=== PATIENT | male | born 1935 | race Caucasian/White ===

== ENCOUNTER 2016-09-17 14:05 | Inpatient (IN) | payer OTHER ==
[~2016-09-17] VITALS: Ht 177.8 cm; Wt 87.9 kg
[~2016-09-17 14:05] MED LIST: ASPI81TA28 PO; HYDROCODONE/ACETAMOPHEN 5/325MG TAB PO PRN; LEVO75TA5 PO; MAGNESIUM PO; METO25TA3 PO; MSM PO; MoRPHine SULFATE 2 MG/ML CARP IV PRN; MoRPHine SULFATE 4 MG/ML 1 ML CARP\\VIAL IV PRN; NYSS/ PO; OXYC5TAB PO; POTASSIUM PO; TRAMADOL HCL 50 MG TAB PO PRN; VITACAP26 PO; ZINC PICOLINATE PO; [UNRECOGNIZED DRUG - CODE] INH; [UNRECOGNIZED DRUG - OTHER] PO
[2016-09-17 17:13] VITALS: BP 135/61; PULSE 65; TEMP 36.5; O2SAT 97; Ht 177.8 cm; Wt 87.9 kg
[2016-09-17] MEDS ORDERED: ALBU18002 INH (17:49)
[2016-09-17] MEDS ORDERED: IPRASOL4 INH (17:51)
[2016-09-17] MEDS ORDERED: TIOT1AER INH (17:52)
[2016-09-17] MEDS ORDERED: PROMETHAZINE HCL INJ 12.5 MG in SODIUM CHLORIDE 0.9% 50ML 50 ML IV PRN (19:00)
[2016-09-17] MEDS ORDERED: DiphenhydrAMINE HCL 50 MG/ML VIAL IV PRN (19:00)
[2016-09-17] MEDS ORDERED: BISACODYL 10 MG SUPP PR PRN (19:00)
[2016-09-17] MEDS ORDERED: ACETAMINOPHEN 325 MG TAB PO PRN ×2 (19:00)
[2016-09-17] MEDS ORDERED: ZOLPIDEM TARTRATE 5 MG TAB PO PRN (19:00)
[2016-09-17] MEDS ORDERED: NITROGLYCERIN 0.4 MG SL PER TAB CHARGE SL PRN (19:00)
[2016-09-17] MEDS ORDERED: MAGNESIUM HYDROXIDE SUSP 30 ML UDC PO PRN (19:00)
[2016-09-17] MEDS ORDERED: ONDANSETRON INJ 2 MG/ML 2 ML VIAL IV PRN (19:00)
--- NOTE | 2016-09-17 19:08 | DIAGNOSTIC IMAGING REPORT ---
CHEST ONE VIEW PORTABLE CLINICAL HISTORY: HYPOXIA PLEURAL EFFUSION COMPARISON STUDY: June 28, 2016 FINDINGS: The heart is mildly enlarged. The chest has an emphysematous configuration. There are old left-sided rib fractures. There is a small right pleural effusion. There is no lobar consolidation.[ Postsurgical changes are present within the right hemithorax. There is tenting of right hemidiaphragm. There is no evidence of failure. IMPRESSION: 1. Postsurgical changes on the right 2. Suspect underlying emphysema 3. Small right pleural effusion. Electronically signed by: Mac Rodriguez M.D. 09/17/2016 7:06 PM Dictated Date/Time: 09/17/2016 7:04 PM
[2016-09-17 19:10] VITALS: BP 124/63; PULSE 83; TEMP 36.8; O2SAT 98
[2016-09-17 19:39] VITALS: PULSE 68; O2SAT 97
[2016-09-17] MEDS: IPRATROPIUM BROMIDE NEB SOLN 0.02% 2.5 ML VIAL INH SCH (19:39)
[2016-09-17] MEDS: LEVALBUTEROL 1.25MG/0.5ML NEB INH SCH (19:39)
[2016-09-17] MEDS: METHYLPREDNISOLONE IV 40 MG in SYRINGE 0 ML IV SCH (19:40)
[2016-09-17 20:14] LABS: CKMB/CK RATIO 0.9 (0-3.0)
[2016-09-17] MEDS ORDERED: LEVALBUTEROL/IPRATROPIUM NEB INH SCH (21:00)
[2016-09-17] MEDS: CEFTRIAXONE SOD INJ 1 GM in DEXTROSE 5% ADD-VANTAGE 50ML 50 ML IV SCH (21:04)
[2016-09-17] MEDS: GUAIFENESIN 600 MG TABCR PO SCH (21:04)
[2016-09-17] MEDS: METOPROLOL SUCC 25MG EXT REL TAB PO SCH (21:04)
[2016-09-17] MEDS: DOCUSATE SODIUM 100 MG CAP PO SCH (21:04)
[2016-09-17] MEDS: LEVOFLOXACIN / D5W 500 MG in PREMIXED IN D5W 100 ML IV SCH (22:00)
--- NOTE | 2016-09-17 22:09 | History and Physical ---
History & Physical Date & Time of Service: Sep 17, 2016 at 22:08 Chief Complaint: Hypoxia, Pleural Effusion Primary Care Physician: Roberta History of Present Illness Source: patient, hospital records The patient is a 80-year-old male who underwent a thorascopic wedge resection for a right lung mass by Dr. Mcguire on February 282015, which returned a diagnosis of non-small cell lung cancer. He has had off-and-on difficulties with breathing since that time, and 2 days ago developed some precordial chest pain, which prompted his visit to [facility] emergency department for evaluation that day. He was then admitted to the medical service on the telemetry unit, weight he underwent serial troponins which were negative. He also underwent studies including venous Dopplers which were negative for DVT. He was tentatively diagnosed with a right pleural effusion on chest x-ray, which was later thought negligible on CT. Because his pulse ox was 91% on 2 L is cannula O2 today, a call was made from his provider there to [facility] to request transfer to this facility, and the transfer was arranged for further workup and treatment. He reportedly has a bronchoscopy scheduled with Dr. Mtz as an outpatient on September 22. Social History Smoking Status: Former Smoker Smokeless Tobacco Use: No Alcohol Use: none Drug Use: none Occupational Status: retired Immunizations History of Influenza Vaccine: No History of Tetanus Vaccine?: Yes History of Pneumococcal: Yes History of Hepatitis B Vaccine: No Allergies Coded Allergies: Latex1 -Allergic Contact Dermititis (Verified Allergy, Mild, RASH, 02/03/16) Iodinated Diagnostic Agents (Verified Allergy, Unknown, GI UPSET, 02/24/16) NO KNOWN DRUG ALLERGIES (Unverified Allergy, Unknown, NONE, 02/03/16) Home Medications Scheduled Albuterol Sulfate (Proair Respiclick), 8.5 GM INH Q4 Formoterol Fumarate (Foradil Aerolizer), 1 DOSE INH HS Ipratropium-Albuterol (Duoneb), 1 TREATMENT INH Q6H Metoprolol Succ (Toprol Xl) (Toprol-Xl), 25 MG PO QPM Tiotropium Elkin-Olodaterol (Stiolto Respimat 2.5-2.5 Mcg/Act), 4 GM INH DAILY [Hic With Pepsin], 325 MG PO TIDM [Magnesium], 1,200 MG PO BID [Msm], 300 MG PO BID [Potassium], 300 MG PO BID [Zinc Picolinate], 44 MG PO BID Scheduled PRN Oxycodone/Acetaminophen 5MG/325MG (Roxicet 5MG/325MG), 1-2 TAB PO Q4H PRN for Pain Review of Systems The patient denies vision change, hearing change, sore throat, fevers, chills, sweats, fatigue, nausea, vomiting, abdominal pain, pelvic pain, blood in urine or stool, dysuria, urinary frequency or urgency, lightheadedness, dizziness, headache, memory loss, rash, abnormal bruising or bleeding, imbalance, focal or generalized weakness, numbness or tingling in arms or legs, night sweats, or allergy symptoms. The review of systems is otherwise negative other than for that already noted above, and at least 10 systems have been reviewed. Physical Exam Vital Signs Date Time Temp Pulse Resp B/P Pulse Ox O2 Delivery O2 Flow Rate FiO2 09/17/16 20:00 Nasal Cannula 09/17/16 19:39 68 18 97 Nasal Cannula 2.0 09/17/16 19:10 36.8 83 18 124/63 98 Nasal Cannula 2.0 09/17/16 17:13 36.5 65 18 135/61 97 Nasal Cannula 2.0 The patient is awake, well-developed and adequately nourished, alert and oriented 3, normocephalic and atraumatic, sitting upright on the edge of the bed ,and in no acute distress. HEENT--PERRL, EOMI, mucous membranes moist, and oropharynx normal. Neck--supple, no JVD or bruits, thyroid normal, trachea midline, no adenopathy. Heart--normal S1 and S2, no extra beats, no murmurs, rubs or gallops. Lungs--inspiratory and expiratory wheezes bilaterally, no respiratory distress, no accessory muscle use. Abdomen--normal bowel sounds and soft, nontender and nondistended, no hernias or masses, no organomegaly. Extremities--no cyanosis, clubbing or edema. There are good distal pulses b/l. Dermatologic--normal skin turgor, normal color, warm and dry, no abnormal lymph nodes, no rash. Neurologic--cranial nerves II through XII grossly intact, motor and sensory examination normal. Psychiatric--normal affect. Diagnostics Laboratory Results Laboratories from [facility] on September 17: The received 11.5, hemoglobin 12.7, hematocrit 37.1, platelet count 220, differential was neutrophils 85%, band neutrophils 6%. INR 1.09, PTT 30, PT 10.9. Sodium 141, potassium 3.8, chloride 105, bicarbonate 25, BUN 18, creatinine 1.0 , GFR greater than 60, glucose 157, calcium 8.3. Influenza PCR flu A-, and flu B-, 2009 H1 N1 not detected Results Past 24 Hours Test 09/17/16 19:30 Range/Units Total Creatine Kinase 274 39-308 U/L Creatine Kinase MB 2.5 0.5-3.6 ng/ml Creatine Kinase MB Ratio 0.9 0-3.0 Troponin I < 0.015 0-0.045 ng/ml Diagnostic Radiology Patient Name: HERIBERTO GARCIA Unit Number: [id number] Dictated: 09/17/161903 Transcribed: 09/17/161903 ARG Printed Date/Time: [~ rep prt dt]/[~ rep prt tm] [~ rep ct labl] - [~ rep ct ivnm] [facility] [place] [address] Dictated: 09/17/161903 Transcribed: 09/17/161903 ARG Printed Date/Time: [~ rep prt dt]/[~ rep prt tm] [~ rep ct labl] - [~ rep ct ivnm] CLINICAL HISTORY: HYPOXIA PLEURAL EFFUSION COMPARISON STUDY: June 28, 2016 FINDINGS: The heart is mildly enlarged. The chest has an emphysematous configuration. There are old left-sided rib fractures. There is a small right pleural effusion. There is no lobar consolidation.[ Postsurgical changes are present within the right hemithorax. There is tenting of right hemidiaphragm. There is no evidence of failure. IMPRESSION: 1. Postsurgical changes on the right 2. Suspect underlying emphysema 3. Small right pleural effusion. Electronically signed by: Mac Rodriguez M.D. 09/17/2016 7:06 PM Dictated Date/Time: 09/17/2016 7:04 PM The status of this report is Signed. Draft = Not yet reviewed or approved by Radiologist. Signed = Reviewed and approved by Radiologist. <AttendingPhy>Negro Qiu M.D.</AttendingPhy> <FamilyPhy>Macie John M.D.</FamilyPhy> <PrimaryPhy></PrimaryPhy> <UnitNumber>[id number]</UnitNumber > <VisitNumber>[id number]</VisitNumber> <PatientName>HERIBERTO GARCIA</PatientName > <DateOfBirth>1935</DateOfBirth> <Location>C.2E</Location> <ServiceDate>< /ServiceDate> <MNE>ESINDI</MNE> <OrderingPhy>Negro Qiu M.D.</ OrderingPhy> <OrderingPhyMNE>f rep ord dr dumont</OrderingPhyMNE> <DictatingPhyMNE> f rep dict dr dumont</DictatingPhyMNE> <CCListMNE>f rep ct mne</CCListMNE> < AdmittingPhyMNE>f pt admit dr dumont</AdmittingPhyMNE> <AttendingPhyMNE>f pt attend dr dumont</AttendingPhyMNE> <ConsultingPhyMNE>f pt consult dr dumont</ConsultingPhyMNE> <FamilyPhyMNE>f pt fam dr dumont</FamilyPhyMNE> <OtherPhyMNE>f pt other dr dumont</OtherPhyMNE> < PrimaryPhyMNE>f pt prim care dr dumont</PrimaryPhyMNE> <ReferringPhyMNE>f pt referring dr dumont</ReferringPhyMNE> EKG Ordered and pending Impression Assessment and Plan Non-small cell lung cancer/status post right upper lobe thorascopic wedge resection on 02/29/[address] Mcguire / scheduled bronchoscopy by Dr. Mtz for September 22 as an outpatient--patient developed new chest pain, which prompted his visit to [facility], and then due to persistent hypoxia, was referred to [facility] for further assessment and treatment. COPD exacerbation--place on ceftriaxone 1 g IV daily, levofloxacin 500 mg IV every 24 hours, guaifenesin extended release 600 mg by mouth twice a day, Xopenex with Atrovent nebulizers to use every 6 hours while awake and every 2 hours when necessary, and Solu-Medrol 40 mg IV every 6 hours. We'll consult Dr. Mtz to see the patient. Reported treatment at [facility] included Robitussin-AC, oral azithromycin, albuterol nebulizers and steroid taper. Of note, the patient reported that his coughing is improved with drinking coffee. The patient had had a chest x-ray done at [facility] that suggested a moderate right pleural effusion. He then underwent a CTA of the chest for possible thoracentesis, but the volume of fluid was considered not tappable. Paroxysmal atrial fibrillation--the patient has been on Coumadin as recently as 12/31/2012 when he is admitted to this hospital at that time, but unknown when it was discontinued permanently. On symptomatic basis, he has not had any palpitations for a number of years. He is presently rate controlled on metoprolol succinate 25 mg by mouth every evening. Level of Care Telemetry Advanced Directives Existing Advance Directive: No Existing Living Will: No Existing Power of Title Clerk: No Resuscitation Status FULL RESUSCITATION VTE Prophylaxis VTE Risk Assessment Done? Y/N: Yes Risk Level: Moderate Given or contraindicated: SCD's
[2016-09-17 23:38] VITALS: BP 140/62; PULSE 66; TEMP 36.8; O2SAT 94
[2016-09-18] VITALS (9 sets, daily range): BP systolic 113–139; BP diastolic 56–65; PULSE 64–86; TEMP 36.5–36.8; O2SAT 90–98
[2016-09-18] MEDS: METHYLPREDNISOLONE IV 40 MG in SYRINGE 0 ML IV SCH ×4 (01:57→20:34)
[2016-09-18] MEDS: IPRATROPIUM BROMIDE NEB SOLN 0.02% 2.5 ML VIAL INH SCH ×4 (02:08→19:45)
[2016-09-18] MEDS: LEVALBUTEROL 1.25MG/0.5ML NEB INH SCH ×4 (02:08→19:45)
[2016-09-18 03:03] LABS: BASO % 0.1 %; BASO ABS # 0.01 K/uL (0-0.2); COMPLETE YES; HEMATOCRIT 37.8 % (42-52); IG% 0.4 %; LYMPH % 10.4 %; LYMPH ABS # 1.26 K/uL (1.2-3.4); MEAN CELL VOLUME 88.9 fL (80-100); MEAN CORPUSCULAR HEMOGLOBIN 30.4 pg (25-34); MEAN CORPUSCULAR HGB CONC 34.1 g/dl (32-36); MEAN PLATELET VOLUME 9.3 fL (7.4-10.4); MONO % 6.5 %; NEUT % 82.6 %; PLATELET COUNT 210 K/uL (130-400); RED BLOOD COUNT 4.25 M/uL (4.7-6.1); WHITE BLOOD COUNT 12.09 K/uL (4.8-10.8)
[2016-09-18 03:17] LABS: PARTIAL THROMBOPLASTIN RATIO 1.1; PROTHROMBIN TIME (PATIENT) 11.2 SECONDS (9.0-12.0)
[2016-09-18 03:21] LABS: ALT/SGPT 34 U/L (12-78); AST/SGOT 21 U/L (15-37); BLOOD UREA NITROGEN 24 mg/dl (7-18); BUN/CREATININE RATIO 21.4 (10-20); CALCIUM 8.4 mg/dl (8.5-10.1); CARBON DIOXIDE 30 mmol/L (21-32); CHLORIDE 106 mmol/L (98-107); GLUCOSE 132 mg/dl (70-99); MAGNESIUM 2.5 mg/dl (1.8-2.4); POTASSIUM 4.5 mmol/L (3.5-5.1); SODIUM 144 mmol/L (136-145)
[2016-09-18 03:27] LABS: ALKALINE PHOSPHATASE 66 U/L (45-117); CKMB/CK RATIO 0.9 (0-3.0)
[2016-09-18] MEDS: DOCUSATE SODIUM 100 MG CAP PO SCH ×2 (08:04→20:34)
[2016-09-18] MEDS: GUAIFENESIN 600 MG TABCR PO SCH ×2 (08:04→20:34)
[2016-09-18 12:48] LABS: ARTERIAL BLD GAS O2 SATURATION 91.8 % (90-95); ARTERIAL BLOOD GAS HCO3 28 mmol/L (19-24); ARTERIAL BLOOD GAS PO2 63 mm/Hg (80-95); ARTERIAL BLOOD GAS pH 7.43 (7.35-7.45)
[2016-09-18 12:50] LABS: ALLEN TEST POS (POS); O2 ADMINISTRATION ROOM AIR
--- NOTE | 2016-09-18 16:07 | PULMONARY CONSULTATION ---
DATE OF CONSULTATION: 09/18/2016 TIME: 11:25 a.m. FAMILY PHYSICIAN: Macie John MD REPORT OF CONSULTATION: The patient was seen in room 205. He is a 80-year-old male, who had gone to the Emergency Room at [facility] in the late hours of September 15. He had had some chest pain. The chest pain resolved quickly and was gone by the time he got to the Emergency Room. He did, however, have cough and shortness of breath. He feels that he may have belched that relieved the chest pain he had. In February of 2016, he had a right upper lobectomy done for a nonsmall cell carcinoma. He states since that surgery, he has had a feeling that there is an obstruction near his throat. He has had wheezing and shortness of breath and cough. He states he expectorates mucus that sometimes is clear and sometimes is brown. He has not coughed up any blood. The cough awakens him frequently at nighttime. He has not had any chills, fevers or sweats. He has not had any significant weight loss. He thinks he may have gained about 5 pounds in the past 6 months. He is winded with any significant exertion. Having said that today, he feels much better. He feels that the wheezing is less and he is less short of breath. He had previously seen Dr. Mtz and the patient had been scheduled for a bronchoscopy for later this week. This was going to be done as an outpatient. The bronchoscopy was to be done to try and rule out an upper airway or lower airway obstruction. He has already seen ENT and they did not find anything upon examination of the vocal cords. The patient did have a prior bronchoscopy done in 2012, at the time when he had an exacerbation of COPD. As noted, he feels much better today. He thinks it is from getting the higher dose steroids. PAST MEDICAL HISTORY: The patient has had a history of hypothyroidism, paroxysmal atrial fibrillation dating back to 1999, but none for a few years. The lung cancer has been his other health problem. PAST SURGICAL HISTORY: 1. Cataract surgery, right and left. 2. Appendectomy. 3. Colon resection for diverticular disease. 4. Right upper lobectomy as noted above. SOCIAL HISTORY: Tobacco: The patient smoked 2 packs per day for 55 years and he quit smoking four years ago. Alcohol use is described as very occasional. ALLERGIES: No known medication allergies, but he apparently has some LATEX SENSITIVITY. 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 FAMILY HISTORY: Mother age 75, diabetes. Father age 92 and apparently of old age. REVIEW OF SYSTEMS: GENERAL: The patient's energy level has not been great. He states it has not been good since his surgery. NEUROLOGIC: Denies syncope or near syncope. OPHTHALMIC: No visual complaints. ENT: Denies nasal congestion or coryza. CARDIAC: He did have chest pain prior to admission as noted. Troponins were all negative as assessed through [facility]. PULMONARY: As noted above. GASTROINTESTINAL: Intermittent diarrhea and constipation. Denies having any heartburn. GENITOURINARY: Denies complaints. He has been on Stiolto, but he states that has not caused any urinary difficulties. DERMATOLOGIC: He has had some swelling. That seems to have resolved quickly. There has been no rashes. ENDOCRINE: No lymphadenopathy. PHYSICAL EXAMINATION: VITAL SIGNS: The patient is a 80-year-old male, who was cooperative, alert and oriented. He was in no distress. He is afebrile with a temperature of 36.8. HEENT: Eye exam was unremarkable. Nares were clear. Mouth exam was negative. NECK: Palpation of the neck reveals no lymph nodes. CHEST: Normal development. The cardiac rate is 83 beats per minute. Blood pressure 120/61. LUNGS: Lung anaya revealed wheezing on inspiration and expiration bilaterally. It is slightly greater on the right than on the left. Oxygen saturation was 95% on a nonspecified amount of oxygen. Earlier, it had been 98% on 2 liters. ABDOMEN: Soft. Bowel sounds were present. He has a small abdominal hernia. There was a scar from prior surgery. No definite mass was palpable. EXTREMITIES: Showed no cyanosis, clubbing or edema. I found no edema at all at this point in time. LABORATORY DATA: White count is 12.09. Hemoglobin 12.9. Platelets were 210,000. Coags were normal. Electrolytes show sodium 144, potassium 4.5, chloride 106, and bicarbonate 30. BUN was 24 with a creatinine of 1.1. Random blood sugar was 132. Magnesium was 2.5. Calcium 8.4. AST, ALT and alkaline phosphatase were normal. Chest x-ray showed postsurgical changes on the right with a suspicion for underlying emphysema and a possible small right pleural effusion versus changes related to his surgery. CT angio of the chest from [facility] reported postoperative changes. There was no evidence of pulmonary emboli. Emphysematous changes were noted, especially in the left upper lobe. Small bilateral pleural effusions and scarring was noted. The patient had subacute healing fractures of the left 3rd through 10th ribs. Venous Dopplers of the lower extremities were negative. They did report enlarged left inguinal lymph node with a fatty hilum suggesting a benign enlargement. IMPRESSION: 1. Chronic obstructive pulmonary disease with exacerbation. 2. Emphysema. 3. Nonsmall cell carcinoma of the lung status post right upper lobectomy. 4. Subacute rib fractures on the left side. COMMENTS: The patient complains of symptoms since his surgery. There is no evidence of any recurrence of tumor on CAT scan by report. I do not have direct access to that. He does have COPD. A recent pulmonary function test done on 08/09/2016 showed a moderate obstructive pattern with no change following bronchodilators. It is possible there has been some contortion of the right lung following removal of the upper lobectomy and this may be causing some turbulence of flow creating the wheezing and cough. The patient was scheduled for bronchoscopy later this week. We will try to accomplish this during this hospital stay. We could do it as soon as tomorrow when the patient is cleared in all regards. He is anxious to have this done. I would continue his methylprednisolone at the current dose of 40 mg IV q. 6 hours. I would continue with his nebulizer treatments including levalbuterol and ipratropium every 6 hours. He is on levofloxacin and ceftriaxone for antibiotic coverage. I do not believe a sputum culture has been done. Thank you for asking me to assist in his care.
--- NOTE | 2016-09-18 18:26 | Hospitalist Progress Note ---
Hospitalist Progress Note Date of Service Sep 18, 2016. Subjective Pt evaluation today including: conversation w/ patient, physical exam, chart review, lab review, review of studies, conversation w/ help desk consultant, review of inpatient medication list Patient reports feeling a bit better. I had spoke with Dr. Benítez earlier and we discussed the possibility of doing bronch tomorrow. I feel the patient is medically stable to do so. the patient has no new concerns. Additional Comments: A 10 system review was performed and all were negative. Positives were placed in the subjective section. Objective Vital Signs Date Time Temp Pulse Resp B/P Pulse Ox O2 Delivery O2 Flow Rate FiO2 09/18/16 16:00 Nasal Cannula 09/18/16 15:58 36.5 72 18 133/65 90 09/18/16 14:59 68 18 93 Room Air 09/18/16 12:00 Room Air 09/18/16 11:55 36.8 86 18 122/56 98 09/18/16 08:22 36.8 83 20 120/61 95 09/18/16 08:00 Nasal Cannula 09/18/16 06:55 69 18 98 Nasal Cannula 2.0 09/18/16 04:00 Nasal Cannula 09/18/16 03:55 36.5 65 18 113/61 93 Nasal Cannula 2.0 09/18/16 02:08 68 18 93 Nasal Cannula 2.0 09/18/16 00:02 Nasal Cannula 09/17/16 23:38 36.8 66 18 140/62 94 Nasal Cannula 1.5 09/17/16 20:00 Nasal Cannula 09/17/16 19:39 68 18 97 Nasal Cannula 2.0 09/17/16 19:10 36.8 83 18 124/63 98 Nasal Cannula 2.0 Physical Exam Notes: GEN: Awake, alert, and oriented x 3. Not in acute distress HEENT: Tm's intact, no inflammation, EOMI, PERRLA, MMM Neck: Soft, supple Lungs: Decreased breath sounds at the bases, few scattered rhonchi. Heart: REG, nrl S1S2 without murmurs, rubs or gallops Abdomen: Soft, NT, ND, + BS EXT: No C/C/E NEURO: CN's II-XII grossly intact, non-focal Skin: warm, dry, no rashes PSYCH: pleasant, cooperative, no signs of significant anxiety or depression. Laboratory Results Last 24 Hours Test 09/17/16 19:30 09/18/16 02:50 09/18/16 10:55 09/18/16 12:30 Total Creatine Kinase 274 U/L 227 U/L 184 U/L Creatine Kinase MB 2.5 ng/ml 2.1 ng/ml 1.9 ng/ml Creatine Kinase MB Ratio 0.9 0.9 1.0 Troponin I < 0.015 ng/ml < 0.015 ng/ml < 0.015 ng/ml White Blood Count 12.09 K/uL Red Blood Count 4.25 M/uL Hemoglobin 12.9 g/dL Hematocrit 37.8 % Mean Corpuscular Volume 88.9 fL Mean Corpuscular Hemoglobin 30.4 pg Mean Corpuscular Hemoglobin Concent 34.1 g/dl Platelet Count 210 K/uL Mean Platelet Volume 9.3 fL Neutrophils (%) (Auto) 82.6 % Lymphocytes (%) (Auto) 10.4 % Monocytes (%) (Auto) 6.5 % Eosinophils (%) (Auto) 0.0 % Basophils (%) (Auto) 0.1 % Neutrophils # (Auto) 9.99 K/uL Lymphocytes # (Auto) 1.26 K/uL Monocytes # (Auto) 0.78 K/uL Eosinophils # (Auto) 0.00 K/uL Basophils # (Auto) 0.01 K/uL RDW Standard Deviation 45.7 fL RDW Coefficient of Variation 14.1 % Immature Granulocyte % (Auto) 0.4 % Immature Granulocyte # (Auto) 0.05 K/uL Prothrombin Time 11.2 SECONDS Prothromb Time International Ratio 1.0 Activated Partial Thromboplast Time 28.9 SECONDS Partial Thromboplastin Ratio 1.1 Sodium Level 144 mmol/L Potassium Level 4.5 mmol/L Chloride Level 106 mmol/L Carbon Dioxide Level 30 mmol/L Anion Gap 8.0 mmol/L Blood Urea Nitrogen 24 mg/dl Creatinine 1.10 mg/dl Est Creatinine Clear Calc Drug Dose 61.8 ml/min Estimated GFR () 73.6 Estimated GFR (Non- 63.5 BUN/Creatinine Ratio 21.4 Random Glucose 132 mg/dl Calcium Level 8.4 mg/dl Magnesium Level 2.5 mg/dl Total Bilirubin 0.3 mg/dl Direct Bilirubin < 0.1 mg/dl Aspartate Amino Transf (AST/SGOT) 21 U/L Alanine Aminotransferase (ALT/SGPT) 34 U/L Alkaline Phosphatase 66 U/L Total Protein 6.3 gm/dl Albumin 3.4 gm/dl Arterial Blood pH 7.43 Arterial Blood Partial Pressure CO2 42 mmHg Arterial Blood Partial Pressure O2 63 mm/Hg Arterial Blood HCO3 28 mmol/L Arterial Blood Oxygen Saturation 91.8 % Arterial Blood Base Excess 3.0 mEq/L Arterial Blood Gas Delivery ROOM AIR Jonnie Test POS Assessment and Plan 1) Non-small cell lung cancer 2) Hypoxemia - Scheduled for bronch tomorrow. 3) COPD exacerbation-- Pulmonary consulted. Nebs, IV antibiotics. IV Solumedrol. 4) Paroxysmal atrial fibrillation-- In sinus on EKG. Does not appear to be on full anticoagulation which is fine as he is planned for bronch. Continued [facility] stay due to: abnormal vital signs Discharge planning: uncertain
[2016-09-18] MEDS: CEFTRIAXONE SOD INJ 1 GM in DEXTROSE 5% ADD-VANTAGE 50ML 50 ML IV SCH (20:34)
[2016-09-18] MEDS: METOPROLOL SUCC 25MG EXT REL TAB PO SCH (20:35)
[2016-09-18] MEDS: LEVOFLOXACIN / D5W 500 MG in PREMIXED IN D5W 100 ML IV SCH (21:18)
[2016-09-19] VITALS (11 sets, daily range): BP systolic 100–153; BP diastolic 48–80; PULSE 62–89; TEMP 36.4–37.1; O2SAT 90–94
[2016-09-19] MEDS: LEVALBUTEROL 1.25MG/0.5ML NEB INH SCH ×4 (00:09→19:03)
[2016-09-19] MEDS: IPRATROPIUM BROMIDE NEB SOLN 0.02% 2.5 ML VIAL INH SCH ×4 (00:09→19:04)
[2016-09-19] MEDS ORDERED: COUGH DROP (SUGAR FREE) LOZ 24 LOZ/1 BOX ONE (01:32)
[2016-09-19] MEDS: LORAZEPAM 2 MG/ML 1 ML VIAL IV PRN (01:37)
[2016-09-19] MEDS: METHYLPREDNISOLONE IV 40 MG in SYRINGE 0 ML IV SCH ×4 (01:42→20:20)
[2016-09-19 05:52] LABS: COMPLETE YES; HEMATOCRIT 37.1 % (42-52); IG% 0.4 %; LYMPH % 7.5 %; LYMPH ABS # 0.85 K/uL (1.2-3.4); MEAN CELL VOLUME 89.2 fL (80-100); MEAN CORPUSCULAR HEMOGLOBIN 30.5 pg (25-34); MEAN CORPUSCULAR HGB CONC 34.2 g/dl (32-36); MEAN PLATELET VOLUME 9.2 fL (7.4-10.4); MONO % 4.4 %; NEUT % 87.7 %; PLATELET COUNT 222 K/uL (130-400); RED BLOOD COUNT 4.16 M/uL (4.7-6.1); WHITE BLOOD COUNT 11.37 K/uL (4.8-10.8)
[2016-09-19 06:09] LABS: INR 1.1 (0.9-1.1); PARTIAL THROMBOPLASTIN RATIO 1.1; PROTHROMBIN TIME (PATIENT) 11.4 SECONDS (9.0-12.0)
[2016-09-19 06:18] LABS: ALT/SGPT 32 U/L (12-78); AST/SGOT 15 U/L (15-37); BLOOD UREA NITROGEN 23 mg/dl (7-18); CALCIUM 8.5 mg/dl (8.5-10.1); CARBON DIOXIDE 28 mmol/L (21-32); CHLORIDE 108 mmol/L (98-107); GLUCOSE 137 mg/dl (70-99); MAGNESIUM 2.4 mg/dl (1.8-2.4); POTASSIUM 4.2 mmol/L (3.5-5.1); SODIUM 144 mmol/L (136-145)
[2016-09-19 06:21] LABS: ALKALINE PHOSPHATASE 72 U/L (45-117)
[2016-09-19] MEDS: DOCUSATE SODIUM 100 MG CAP PO SCH ×2 (07:38→20:21)
[2016-09-19] MEDS: GUAIFENESIN 600 MG TABCR PO SCH ×2 (07:38→20:21)
--- NOTE | 2016-09-19 07:57 | PULMONARY PROGRESS NOTE ---
DATE: 09/19/2016 TIME: 7:20 a.m. SUBJECTIVE: The patient began to feel tighter in the chest yesterday afternoon. This progressed last evening. He was having severe coughing in the late evening according to his nurse. She gave him some Ativan to help him sleep. This morning the patient is very congested. He is coughing very aggressively. He is unable to expectorate any phlegm. He has not had any chills or fevers. OBJECTIVE: GENERAL: The patient was coughing frequently during the exam. VITAL SIGNS: He is afebrile at 36.7. HEENT: Pupils were reactive. Mouth exam revealed some mucus in the posterior pharynx. This may be postnasal drip. NECK: Palpation of the neck reveals no lymph nodes. HEART: Heart rate was 70 per minute. The rhythm was regular. Blood pressure 100/48. LUNGS: Lung anaya reveal diffuse wheeze and rhonchi bilaterally. These are markedly increased compared with yesterday's exam. His oxygen saturation currently is 90% on room air. ABDOMEN: Soft. It was nontender. EXTREMITIES: Showed no cyanosis, clubbing or edema. LABORATORY DATA: Blood gas yesterday on room air showed a pH of 7.43 with a pCO2 of 42 and a pO2 of 63. Electrolytes today show sodium 144, potassium 4.2, chloride 108, bicarb 28. BUN was 23 with a creatinine of 1.1. Blood sugar was 137. Coags were normal. IMPRESSIONS: 1. Chronic obstructive pulmonary disease with exacerbation. 2. Emphysema. 3. Nonsmall cell carcinoma -- status post right upper lobectomy. 4. Subacute rib fractures on the left chest. COMMENTS: The patient is much tighter today than yesterday. I am going to hold off on bronchoscopy for now. We will resume his diet. We will assess on a day-to-day basis when he may be ready for a scope. I am going to order a flutter valve for him to see if this helps with his secretion clearance. The patient remains on levofloxacin and ceftriaxone. He remains on his nebulizer treatments. Would continue the methylprednisolone at 40 mg IV q. 6 hours and if he does not improve with boost it up to 60 IV q. 6 hours. We will reevaluate and then decide if he may be able to be scoped tomorrow or if we may need to wait longer.
--- NOTE | 2016-09-19 16:04 | Hospitalist Progress Note ---
Hospitalist Progress Note Date of Service Sep 19, 2016. Subjective Pt evaluation today including: conversation w/ patient, physical exam, chart review, lab review, review of studies, review of inpatient medication list I spoke to the patient in the hallway, as he has been ambulating frequently. Bronch was delayed today due COPD exacerbation and subsequent bronchospasm which je describes as being "tight". Additional Comments: A 10 system review was performed and all were negative. Positives were placed in the subjective section. Objective Vital Signs Date Time Temp Pulse Resp B/P Pulse Ox O2 Delivery O2 Flow Rate FiO2 09/19/16 15:20 36.6 75 18 146/58 91 Room Air 09/19/16 14:05 70 16 92 Room Air 09/19/16 12:19 36.4 75 20 127/80 92 Room Air 09/19/16 12:00 Room Air 09/19/16 08:16 36.6 89 20 143/66 91 Room Air 09/19/16 08:00 Room Air 09/19/16 07:09 78 16 90 Room Air 09/19/16 04:02 36.7 69 18 100/48 90 Room Air 09/19/16 04:00 Room Air 09/19/16 00:10 62 16 94 Room Air 09/19/16 00:07 36.7 69 16 139/65 90 Room Air 09/19/16 00:00 Room Air 09/18/16 22:15 Room Air 09/18/16 20:08 36.8 64 18 139/60 90 Room Air 09/18/16 20:05 Room Air 09/18/16 19:46 70 16 92 Room Air 09/18/16 16:00 Nasal Cannula Physical Exam Notes: GEN: Awake, alert, and oriented x 3. Not in acute distress HEENT: Tm's intact, no inflammation, EOMI, PERRLA, MMM Neck: Soft, supple Lungs: + expiratory wheezes, diffuse scattered rhonchi. Heart: REG, nrl S1S2 without murmurs, rubs or gallops Abdomen: Soft, NT, ND, + BS EXT: No C/C/E NEURO: CN's II-XII grossly intact, non-focal Skin: warm, dry, no rashes PSYCH: pleasant, cooperative, no signs of significant anxiety or depression. Laboratory Results Last 24 Hours Test 09/19/16 05:27 White Blood Count 11.37 K/uL Red Blood Count 4.16 M/uL Hemoglobin 12.7 g/dL Hematocrit 37.1 % Mean Corpuscular Volume 89.2 fL Mean Corpuscular Hemoglobin 30.5 pg Mean Corpuscular Hemoglobin Concent 34.2 g/dl Platelet Count 222 K/uL Mean Platelet Volume 9.2 fL Neutrophils (%) (Auto) 87.7 % Lymphocytes (%) (Auto) 7.5 % Monocytes (%) (Auto) 4.4 % Eosinophils (%) (Auto) 0.0 % Basophils (%) (Auto) 0.0 % Neutrophils # (Auto) 9.97 K/uL Lymphocytes # (Auto) 0.85 K/uL Monocytes # (Auto) 0.50 K/uL Eosinophils # (Auto) 0.00 K/uL Basophils # (Auto) 0.00 K/uL RDW Standard Deviation 45.8 fL RDW Coefficient of Variation 14.1 % Immature Granulocyte % (Auto) 0.4 % Immature Granulocyte # (Auto) 0.05 K/uL Prothrombin Time 11.4 SECONDS Prothromb Time International Ratio 1.1 Activated Partial Thromboplast Time 27.5 SECONDS Partial Thromboplastin Ratio 1.1 Sodium Level 144 mmol/L Potassium Level 4.2 mmol/L Chloride Level 108 mmol/L Carbon Dioxide Level 28 mmol/L Anion Gap 8.0 mmol/L Blood Urea Nitrogen 23 mg/dl Creatinine 1.10 mg/dl Est Creatinine Clear Calc Drug Dose 56.2 ml/min Estimated GFR () 73.6 Estimated GFR (Non- 63.5 BUN/Creatinine Ratio 21.0 Random Glucose 137 mg/dl Calcium Level 8.5 mg/dl Magnesium Level 2.4 mg/dl Total Bilirubin 0.3 mg/dl Direct Bilirubin < 0.1 mg/dl Aspartate Amino Transf (AST/SGOT) 15 U/L Alanine Aminotransferase (ALT/SGPT) 32 U/L Alkaline Phosphatase 72 U/L Total Protein 6.2 gm/dl Albumin 3.3 gm/dl Assessment and Plan 1) Non-small cell lung cancer - S/P wedge resection in 03/11. 2) Hypoxemia - Further evaluation with bronch, when stable from lung standpoint. 3) COPD exacerbation-- Pulmonary consulted. Nebs, IV antibiotics. IV Solumedrol. 4) Paroxysmal atrial fibrillation-- In sinus on EKG. Does not appear to be on full anticoagulation which is fine as he is planned for bronch. DVT prophylaxis is Katelyn Quintana and I added sub-q heparin today.
[2016-09-19] MEDS: HEPARIN SOD 5000 UNIT/0.5 ML CARP SQ SCH (17:30)
[2016-09-19] MEDS: METOPROLOL SUCC 25MG EXT REL TAB PO SCH (20:21)
[2016-09-19] MEDS: LEVOFLOXACIN / D5W 500 MG in PREMIXED IN D5W 100 ML IV SCH (21:44)
[2016-09-20] VITALS (20 sets, daily range): BP systolic 84–160; BP diastolic 61–91; PULSE 55–91; TEMP 36.4–36.8; O2SAT 90–97
[2016-09-20] MEDS: LORAZEPAM 2 MG/ML 1 ML VIAL IV PRN (01:15)
[2016-09-20] MEDS: METHYLPREDNISOLONE IV 40 MG in SYRINGE 0 ML IV SCH ×4 (01:15→20:41)
[2016-09-20] MEDS: IPRATROPIUM BROMIDE NEB SOLN 0.02% 2.5 ML VIAL INH SCH ×4 (01:20→19:44)
[2016-09-20] MEDS: LEVALBUTEROL 1.25MG/0.5ML NEB INH SCH ×4 (01:20→19:44)
[2016-09-20] MEDS ORDERED: OXYMETAZOLINE HCL 0.05% NA SPR 15 ML BTL SCH (06:00)
[2016-09-20 07:38] LABS: BASO % 0.1 %; BASO ABS # 0.01 K/uL (0-0.2); COMPLETE YES; HEMATOCRIT 39.5 % (42-52); IG% 1.1 %; LYMPH % 8.9 %; LYMPH ABS # 1.12 K/uL (1.2-3.4); MEAN CORPUSCULAR HEMOGLOBIN 30.9 pg (25-34); MEAN CORPUSCULAR HGB CONC 34.7 g/dl (32-36); MEAN PLATELET VOLUME 9.3 fL (7.4-10.4); MONO % 6.4 %; NEUT % 83.5 %; PLATELET COUNT 250 K/uL (130-400); RED BLOOD COUNT 4.44 M/uL (4.7-6.1); WHITE BLOOD COUNT 12.54 K/uL (4.8-10.8)
[2016-09-20 07:50] LABS: INR 1.1 (0.9-1.1); PROTHROMBIN TIME (PATIENT) 11.4 SECONDS (9.0-12.0)
[2016-09-20] MEDS: GUAIFENESIN 600 MG TABCR PO SCH ×2 (07:55→20:41)
[2016-09-20] MEDS: DOCUSATE SODIUM 100 MG CAP PO SCH ×2 (07:55→20:41)
[2016-09-20] MEDS: HEPARIN SOD 5000 UNIT/0.5 ML CARP SQ SCH ×2 (07:58→20:45)
[2016-09-20 08:07] LABS: BUN/CREATININE RATIO 23.9 (10-20); MAGNESIUM 2.6 mg/dl (1.8-2.4)
--- NOTE | 2016-09-20 08:44 | PULMONARY PROGRESS NOTE ---
DATE: 09/20/2016 DATE: 09/20/2016. TIME: 8:25 a.m. SUBJECTIVE: The patient is feeling better. He is not as congested as he had been. He had a good night. He really feels the vest is helping his breathing and his secretions. His cough has diminished. OBJECTIVE: GENERAL: The patient appears comfortable. He is afebrile. EARS, NOSE, THROAT EXAMINATION: Unremarkable. Pharynx would be a Mallampati grade 1. NECK: Palpation of the neck reveals no lymph nodes. VITAL SIGNS: Blood pressure this morning is 84/64. This is lower than it had been. At 3:44 a.m. it was 99/61. Yesterday the pressures were somewhat higher. HEAD, EYES, EARS, NOSE, AND THROAT: He is asymptomatic in that regard. HEART: Rate is 65 and regular. LUNGS: Mchugh revealed mild rhonchi bilaterally. Oxygen saturation is 92% on room air. Respiratory rate 20 breaths per minute. ABDOMEN: Soft and nontender. EXTREMITIES: Showed no edema. LABORATORY DATA: White count today is 12.54. Hemoglobin 13.7. Platelets 250,000. Coags are normal. Electrolytes show sodium 142, potassium 4.0, chloride 105, bicarb 25. BUN was 24 with a creatinine of 1.0. IMPRESSIONS: 1. Chronic obstructive pulmonary disease with exacerbation. 2. Emphysema. 3. Nonsmall cell carcinoma status post right upper lobectomy. 4. Subacute left, multiple rib fractures. PLAN: The patient is scheduled for bronchoscopy later this morning. Will start some IV fluids. His pressure is a little low. We will proceed if his vital signs and respiratory status are stable. The purpose of the scope is to rule out any anatomical problem that might be causing his cough and shortness of breath since his surgery last summer.
--- NOTE | 2016-09-20 08:44 | Procedure Note ---
Pre-Mod Sedation Assessment General Date of Moderate Sedation: Sep 20, 2016. Vital Signs: Vital Signs Past 12 Hours Date Time Temp Pulse Resp B/P Pulse Ox O2 Delivery O2 Flow Rate FiO2 09/20/16 07:13 36.5 65 20 84/64 92 Room Air 09/20/16 07:12 69 16 94 Room Air 09/20/16 04:00 Room Air 09/20/16 03:44 36.8 68 20 99/61 92 Room Air 09/20/16 01:20 69 16 93 Room Air 09/20/16 00:00 Room Air 09/19/16 23:30 37.1 67 22 153/64 93 Room Air Review Cardiovascular: regular rate, rhythm Lungs: + rhonchi Airway Class: I Pre-Sedation Airway Assessment Oral Cavity: Dentures Able to Visualize Vocal Cords: Yes Short Thick Neck: No Hx of Sleep Apnea: No Smoking Status: Former Smoker Mallampati Classification: Class I ASA Classification: Class II Procedure Planning Contraindications-for Mod Sed: None Yes Notes The planned sedation has been discussed with the patient and consent obtained. I have identified the patient, determined the appropriateness of sedation and have assessed the patient immediately prior to the procedure. All medicine(s) and interventions are by my order.
[2016-09-20] MEDS ORDERED: SODIUM CHLORIDE 0.9% 1000ML 1,000 ML IV SCH (09:10)
--- NOTE | 2016-09-20 10:14 | Hospitalist Progress Note ---
Hospitalist Progress Note Date of Service Sep 20, 2016. Subjective Pt evaluation today including: conversation w/ patient, physical exam, chart review, lab review, review of studies, review of inpatient medication list Patient reports that his breathing feels better today. He does not have the "tightness" that he described the previous day. He is planned for bronchoscopy today. Additional Comments: A 10 system review was performed and all were negative. Positives were placed in the subjective section. Objective Vital Signs Date Time Temp Pulse Resp B/P Pulse Ox O2 Delivery O2 Flow Rate FiO2 09/20/16 07:13 36.5 65 20 84/64 92 Room Air 09/20/16 07:12 69 16 94 Room Air 09/20/16 04:00 Room Air 09/20/16 03:44 36.8 68 20 99/61 92 Room Air 09/20/16 01:20 69 16 93 Room Air 09/20/16 00:00 Room Air 09/19/16 23:30 37.1 67 22 153/64 93 Room Air 09/19/16 20:38 36.7 78 22 139/68 92 Room Air 09/19/16 20:00 Room Air 09/19/16 19:03 78 16 94 Room Air 09/19/16 16:00 Room Air 09/19/16 15:20 36.6 75 18 146/58 91 Room Air 09/19/16 14:05 70 16 92 Room Air 09/19/16 12:19 36.4 75 20 127/80 92 Room Air 09/19/16 12:00 Room Air Physical Exam Notes: GEN: Awake, alert, and oriented x 3. Not in acute distress HEENT: Tm's intact, no inflammation, EOMI, PERRLA, MMM Neck: Soft, supple Lungs: + expiratory wheezes b/l. I do not hear any rhonchi today. Heart: REG, nrl S1S2 without murmurs, rubs or gallops Abdomen: Soft, NT, ND, + BS EXT: No C/C/E NEURO: CN's II-XII grossly intact, non-focal Skin: warm, dry, no rashes PSYCH: pleasant, cooperative, no signs of significant anxiety or depression. Laboratory Results Last 24 Hours Test 09/20/16 07:20 White Blood Count 12.54 K/uL Red Blood Count 4.44 M/uL Hemoglobin 13.7 g/dL Hematocrit 39.5 % Mean Corpuscular Volume 89.0 fL Mean Corpuscular Hemoglobin 30.9 pg Mean Corpuscular Hemoglobin Concent 34.7 g/dl Platelet Count 250 K/uL Mean Platelet Volume 9.3 fL Neutrophils (%) (Auto) 83.5 % Lymphocytes (%) (Auto) 8.9 % Monocytes (%) (Auto) 6.4 % Eosinophils (%) (Auto) 0.0 % Basophils (%) (Auto) 0.1 % Neutrophils # (Auto) 10.47 K/uL Lymphocytes # (Auto) 1.12 K/uL Monocytes # (Auto) 0.80 K/uL Eosinophils # (Auto) 0.00 K/uL Basophils # (Auto) 0.01 K/uL RDW Standard Deviation 46.3 fL RDW Coefficient of Variation 14.2 % Immature Granulocyte % (Auto) 1.1 % Immature Granulocyte # (Auto) 0.14 K/uL Prothrombin Time 11.4 SECONDS Prothromb Time International Ratio 1.1 Activated Partial Thromboplast Time 26.7 SECONDS Partial Thromboplastin Ratio 1.0 Sodium Level 142 mmol/L Potassium Level 4.0 mmol/L Chloride Level 105 mmol/L Carbon Dioxide Level 25 mmol/L Anion Gap 12.0 mmol/L Blood Urea Nitrogen 24 mg/dl Creatinine 1.00 mg/dl Est Creatinine Clear Calc Drug Dose 61.8 ml/min Estimated GFR () 82.6 Estimated GFR (Non- 71.3 BUN/Creatinine Ratio 23.9 Random Glucose 135 mg/dl Calcium Level 9.0 mg/dl Magnesium Level 2.6 mg/dl Total Bilirubin 0.5 mg/dl Direct Bilirubin 0.1 mg/dl Aspartate Amino Transf (AST/SGOT) 20 U/L Alanine Aminotransferase (ALT/SGPT) 40 U/L Alkaline Phosphatase 86 U/L Total Protein 6.6 gm/dl Albumin 3.5 gm/dl Assessment and Plan 1) Non-small cell lung cancer - S/P wedge resection in 03/11. 2) Hypoxemia - Appears to be improved. Bronchoscopy scheduled for today. 3) COPD exacerbation-- Pulmonary consulted. Nebs, IV antibiotics. IV Solumedrol. 4) Paroxysmal atrial fibrillation-- In sinus on EKG. DVT prophylaxis is NOLAN hose, SCDs and sub-q heparin.
[2016-09-20] MEDS ORDERED: NURSING VERBAL MED ORDER ONE ×3 (11:30→11:45)
--- NOTE | 2016-09-20 11:31 | Procedure Note ---
Post-Moderate Sedation Plan General Date of Moderate Sedation Sep 20, 2016. Vital Signs: Vital Signs Past 12 Hours Date Time Temp Pulse Resp B/P Pulse Ox O2 Delivery O2 Flow Rate FiO2 09/20/16 11:15 69 23 151/91 96 Mask 6.0 09/20/16 11:10 60 19 140/70 96 Mask 6.0 28 09/20/16 11:05 61 19 160/84 96 Mask 6.0 28 09/20/16 11:00 55 22 153/77 96 Mask 6.0 09/20/16 10:55 55 22 152/70 96 Nasal Cannula 28 09/20/16 10:50 58 21 133/78 90 Room Air 09/20/16 10:42 58 20 140/75 92 Room Air 2.0 09/20/16 10:28 58 141/70 09/20/16 08:00 Room Air 09/20/16 07:13 36.5 65 20 84/64 92 Room Air 09/20/16 07:12 69 16 94 Room Air 09/20/16 04:00 Room Air 09/20/16 03:44 36.8 68 20 99/61 92 Room Air 09/20/16 01:20 69 16 93 Room Air 09/20/16 00:00 Room Air 09/19/16 23:30 37.1 67 22 153/64 93 Room Air Review - Discharge Plan Post Moderate Sedation Plan: On clinical assessment, the patient appears to have tolerated the conscious sedation without complications. Patient is recovering as anticipated. Patient will continue to be monitored by nursing and may be discharged when conscious sedation discharge criteria are met.
[2016-09-20] MEDS ORDERED: FENTANYL CITRATE INJ 50 MCG/1 ML 2 ML VIAL IV ONE (11:45)
[2016-09-20] MEDS ORDERED: MIDAZOLAM HCL 5 MG/ML 1 ML VIAL IV ONE ×2 (11:45)
--- NOTE | 2016-09-20 12:14 | OPERATIVE REPORT ---
DATE OF OPERATION: 09/20/2016 TIME: 11:40 a.m. PREOPERATIVE DIAGNOSIS: Persistent shortness of breath and cough 6 months following right upper lobectomy -- rule out endobronchial pathology. POST BRONCHOSCOPY DIAGNOSIS: Retained secretions. No evidence of endobronchial neoplasm. PROCEDURE PERFORMED: Flexible fiberoptic bronchoscopy with bronchial washings. SURGEON: Dr. Bo Benítez. MEDICATIONS DURING THE PROCEDURE: Versed 2 mg IV and fentanyl 50 mg IV. The patient also received Xylocaine jelly to the nostrils and he received 2% Xylocaine spray into the nasal passage, oropharynx, onto the vocal cords. Time out was held and the patient was identified and the procedure was confirmed. The bronchoscope was inserted through the right nostril. The nasal passages were mildly narrowed but patent. Pharynx was normal. Larynx was normal. After the vocal cords were anesthetized with Xylocaine the scope was advanced into the trachea without difficulty. The patient had thick tenacious secretions located within the trachea. This appeared to be coming primarily from the right side. The mucus was very thick. Saline was instilled numerous times to help clear the secretions. The scope had to be removed because of a huge plug on the tip consisting of thick tenacious secretions. The scope was reinserted. Again, the airway was examined. At this time, the scope was advanced down near the area of the trachea. Again, the scope became occluded with secretions. The scope had to be removed because saline alone would not clear the tip. Again, a large amount of thick mucus was aspirated. The scope was then reinserted once again. This time the airway was able to be maintained with suctioning. The trachea was again examined and was fairly clear. The right side was entered. There was a fish mouth entrance to the site of the former right upper lobe bronchus that had been previously surgically removed. The bronchus intermedius was clear. There was mucus coming from the right lower lobe. This was suctioned readily. Right middle lobe had small amount of secretions. The subsegments were visualized. The scope was withdrawn to the liat. The left side was entered. Again, there was a fair amount of secretions mostly from the left lower lobe. These were aspirated with the assistance of some saline once again. The left lower lobe and left upper lobe were all subsequently visualized and were cleared of secretions. The scope was then pulled back to the liat. Right side was entered for one more time of suctioning. The scope was then removed. The patient tolerated the procedure well. He had a modest amount of coughing associated with the secretions. He was mildly short of breath following the procedure. He was just about due for his neb treatments and that was given in the bronchoscopy area. Solu-Medrol 40 mg IV was also given because he was feeling a little tight. There was a mild to moderate wheezing on my examination. The patient was very comfortable. Saturations were in the mid 90s throughout. The patient was stable upon going back to his room. Bronchial washings were sent for Gram stain and culture, AFB smear and culture, fungal smear and culture, and cytology. I attest to the content of the Intraoperative Record and any orders documented therein. Any exceptio ns are noted below.
[2016-09-20] MEDS ORDERED: IPRATROPIUM BROMIDE NEB SOLN 0.02% 2.5 ML VIAL INH ONE (12:15)
[2016-09-20] MEDS ORDERED: LEVALBUTEROL 1.25MG/0.5ML NEB INH ONE (12:15)
[2016-09-20] MEDS: METOPROLOL SUCC 25MG EXT REL TAB PO SCH (20:41)
[2016-09-20] MEDS: LEVOFLOXACIN / D5W 500 MG in PREMIXED IN D5W 100 ML IV SCH (22:30)
[2016-09-21] VITALS (13 sets, daily range): BP systolic 125–142; BP diastolic 54–73; PULSE 54–72; TEMP 36.4–37; O2SAT 91–97
[2016-09-21] MEDS: ALUMINUM/MAGNESIUM/SIMETH (MAALOX MAX) 30 ML UDC PO PRN (01:46)
[2016-09-21] MEDS: METHYLPREDNISOLONE IV 40 MG in SYRINGE 0 ML IV SCH ×2 (01:46→09:02)
[2016-09-21] MEDS: LEVALBUTEROL 1.25MG/0.5ML NEB INH SCH ×4 (02:02→19:15)
[2016-09-21] MEDS: IPRATROPIUM BROMIDE NEB SOLN 0.02% 2.5 ML VIAL INH SCH ×4 (02:02→19:15)
[2016-09-21] MEDS: HEPARIN SOD 5000 UNIT/0.5 ML CARP SQ SCH ×2 (08:18→21:00)
[2016-09-21] MEDS: DOCUSATE SODIUM 100 MG CAP PO SCH ×2 (09:02→21:27)
[2016-09-21] MEDS: GUAIFENESIN 600 MG TABCR PO SCH ×2 (09:02→21:28)
--- NOTE | 2016-09-21 11:56 | PULMONARY PROGRESS NOTE ---
DATE: 09/21/2016 TIME: 11:30 a.m. SUBJECTIVE: The patient feels much better following bronchoscopy. He had very thick tenacious secretions that were aspirated. There was no evidence of recurring neoplasm or obstruction. There was no indication that he had torsion of the right middle lobe or right lower lobe. He has had no major problems overnight. He has been walking around without difficulty. OBJECTIVE: GENERAL: The patient was comfortable at rest. VITAL SIGNS: Temperature 36.5. Heart rate was 70 beats per minute. Rhythm was regular. Blood pressure 128/54. EARS, NOSE, THROAT: Unremarkable. He does complain of just mild scratchy throat. LUNGS: Lung anaya reveal mild wheezing bilaterally. The saturations are variable. They have ranged between 91% and 97% on room air. ABDOMEN: Soft and nontender. EXTREMITIES: Showed no cyanosis or clubbing. IMPRESSIONS: 1. Chronic obstructive pulmonary disease with exacerbation -- secondary to retained secretions. 2. Emphysema. 3. Nonsmall cell carcinoma -- status post right upper lobe for subacute rib fractures on the left side 310. COMMENTS AND RECOMMENDATIONS: The patient is doing well. He expressed concern over taking oral prednisone. Apparently, he had had some thrush in the past that he felt was related and he thinks it bothers his stomach a bit. I explained to him that this would be the appropriate thing to do, however, to get him home sooner. He was questioning could he even take IV steroids at home and I told him that was not really indicated. I think it is reasonable to change him to prednisone. We will make sure he takes it with meals. We will order a proton pump inhibitor for him to be taken on a daily basis, starting today. Hopefully, he can be discharged in 24-48 hours.
[2016-09-21] MEDS ORDERED: PANTOprazole SOD 40 MG TAB PO ONE (13:00)
[2016-09-21] MEDS ORDERED: METHYLPREDNISOLONE IV 20 MG in SYRINGE 0 ML IV SCH (14:00)
--- NOTE | 2016-09-21 17:54 | Hospitalist Progress Note ---
Hospitalist Progress Note Date of Service Sep 21, 2016. Subjective Pt evaluation today including: conversation w/ patient, physical exam, chart review, lab review, review of studies ( ), review of inpatient medication list Patient is feeling better today. He did well with the bronchoscopy yesterday. He has an aversion to oral steroid therapy, but Dr. Benítez was able to identify that this is based on GI upset and that we can send him home on a PPI which should help. I anticipate discharge tomorrow. Additional Comments: A 10 system review was performed and all were negative. Positives were placed in the subjective section. Objective Vital Signs Date Time Temp Pulse Resp B/P Pulse Ox O2 Delivery O2 Flow Rate FiO2 09/21/16 15:48 Room Air 09/21/16 14:58 36.4 63 24 142/61 92 09/21/16 14:37 66 16 95 Room Air 09/21/16 13:30 36.4 71 18 142/61 93 Room Air 09/21/16 13:25 Room Air 09/21/16 13:15 36.4 64 20 94 09/21/16 12:00 Room Air 09/21/16 11:35 36.4 64 20 136/54 94 Room Air 09/21/16 08:00 Room Air 09/21/16 07:51 36.5 71 20 128/54 91 Room Air 09/21/16 07:09 61 16 97 Room Air 09/21/16 04:35 36.5 61 18 125/56 93 Room Air 09/21/16 04:00 Room Air 09/21/16 02:00 61 16 96 Room Air 09/21/16 00:21 37.0 66 18 134/64 93 Room Air 09/21/16 00:00 Room Air 09/20/16 20:00 Room Air 09/20/16 19:45 36.8 67 18 137/64 94 Room Air 09/20/16 19:44 63 16 93 Room Air Physical Exam Notes: GEN: Awake, alert, and oriented x 3. Not in acute distress HEENT: Tm's intact, no inflammation, EOMI, PERRLA, MMM Neck: Soft, supple Lungs: + b/l exp wheezes. Heart: REG, nrl S1S2 without murmurs, rubs or gallops Abdomen: Soft, NT, ND, + BS EXT: No C/C/E NEURO: CN's II-XII grossly intact, non-focal Skin: warm, dry, no rashes PSYCH: pleasant, cooperative, no signs of significant anxiety or depression. Assessment and Plan 1) Non-small cell lung cancer - S/P wedge resection in 03/11. 2) Hypoxemia - Seems resolved, patient is on room air and although I told him that with exertion, he likely could meet qualification for home oxygen, he does not want this currently. 3) COPD exacerbation-- Pulmonary consulted. Nebs, IV antibiotics. switch to oral steroid. Add PPI for GI protection. 4) Paroxysmal atrial fibrillation-- In sinus on EKG. DVT prophylaxis is NOLAN dillon, Katelyn and sub-q heparin. Discharge planning: home
[2016-09-21] MEDS: LEVOFLOXACIN / D5W 500 MG in PREMIXED IN D5W 100 ML IV SCH (21:28)
[2016-09-21] MEDS: METOPROLOL SUCC 25MG EXT REL TAB PO SCH (21:28)
[2016-09-22] MEDS ORDERED: LORAZEPAM INJ 0.5 MG in SYRINGE 0.75 ML IV PRN (01:45)
[2016-09-22] MEDS: IPRATROPIUM BROMIDE NEB SOLN 0.02% 2.5 ML VIAL INH SCH ×3 (02:12→14:13)
[2016-09-22] MEDS: LEVALBUTEROL 1.25MG/0.5ML NEB INH SCH ×3 (02:12→14:13)
[2016-09-22 07:31] VITALS: PULSE 59; O2SAT 96
[2016-09-22] MEDS: ALUMINUM/MAGNESIUM/SIMETH (MAALOX MAX) 30 ML UDC PO PRN (07:38)
[2016-09-22 07:39] VITALS: BP 150/76; PULSE 54; TEMP 36.4; O2SAT 95
[2016-09-22] MEDS: HEPARIN SOD 5000 UNIT/0.5 ML CARP SQ SCH (07:52)
[2016-09-22 08:00] VITALS: O2SAT 95
[2016-09-22] MEDS: DOCUSATE SODIUM 100 MG CAP PO SCH (08:13)
[2016-09-22] MEDS: GUAIFENESIN 600 MG TABCR PO SCH (08:14)
[2016-09-22] MEDS ORDERED: PANTOprazole SOD 40 MG TAB PO SCH (09:00)
--- NOTE | 2016-09-22 12:40 | PROGRESS NOTE ---
DATE: 09/22/2016 DATE: 09/22/2016. PROBLEM LIST: Includes chronic obstructive pulmonary disease with exacerbation. Nonsmall cell lung cancer status post right upper lobe lobectomy. SUBJECTIVE: The patient reports that he is feeling well today. He states that the bronchoscopy was very helpful for him. He is able to clear mucus when he coughs now. Mucus he is getting up is primary clear in color. There was no blood in the mucus. He states that he feels vibration vest is helping significantly as well. He states he would like to have this at home and feels that if he would have had this previously he would not have ended up in the hospital. He denies any increased shortness of breath at this time. No chest congestion or tightness. He is not having fever or chills. No chest pain, no pleuritic chest pain, no palpitations. His appetite has been normal. No nausea or vomiting, no indigestion or heartburn. His bowels are moving well. He is not having any difficulty voiding. He is not having any swelling in his extremities. He has been walking around before without any difficulty. He feels he is ready to go home. OBJECTIVE: GENERAL: The patient is a 80-year-old male in no acute distress. He is alert and oriented x3. Mood is good. Affect is good. VITAL SIGNS: Temp 36.4, pulse 54, respiration 18, blood pressure is 150/76, pulse ox 95% on room air. HEAD, EYES, EARS, NOSE, AND THROAT: Normocephalic, atraumatic. Pupils equal, round and react to light and accommodation. Extraocular movements are intact. [place] moist gingival and buccal mucosa. NECK: Supple. No mass, no adenopathy, no bruit. CHEST: Few expiratory wheeze. No rale or rhonchi noted. CARDIOVASCULAR: Regular rate and rhythm. No murmurs, gallops or rubs. ABDOMEN: Soft, nontender. No guarding, rigidity or organomegaly. EXTREMITIES: No erythema or edema. LABORATORY DATA: No new radiologic data. IMPRESSION: A 80-year-old male with a history of chronic obstructive pulmonary disease having exacerbation had recent bronchoscopy with significant mucoid impaction and is doing much better at this time. At this point waiting for final cultures to come back. The patient in my opinion is ready for discharge to home. I think it would be beneficial for him to set him up with a vibration vest for home use and we will work on this at his followup in the office. Nonsmall cell lung CA. The patient follows with Dr. Stockton following right upper lobe lobectomy. PLAN: At this point, from a pulmonary standpoint, I feel the patient is stable for discharge. Will continue to follow during hospitalization. The patient does have a pending appointment in the office for followup. He is to keep that appointment at which time we will discuss vibration vest and review his cultures.
[2016-09-22] MEDS ORDERED: PRT40 PO (12:50)
[2016-09-22] MEDS ORDERED: PRED10TA PO (12:50)
[2016-09-22] MEDS ORDERED: LEVO500T19 PO (12:50)
--- NOTE | 2016-09-22 12:59 | Discharge Instructions ---
Discharge Instructions Admission Reason for Admission: Hypoxia, Pleural Effusion Discharge Discharge Diagnosis / Problem: COPD exacerbation Discharge Goals Goal(s): Improve function, Improve disease control Activity Recommendations Activity Limitations: resume your previous activity . Instructions / Follow-Up Instructions / Follow-Up Follow up with your PCP in 5-[address] Favian Benítez M.D. - call office for an appointment in 2-3 weeks. . I recommend weaning your prednisone over the next 12 days as follows: take #4 tabs day 1, take #3 tabs days 2-4, take #2 tabs days 5-8, take #1 tab days 9-12. Current Hospital Diet Patient's current hospital diet: Regular Diet Discharge Diet Recommended Diet: Regular Diet Procedures Procedures Performed: Bronchoscopy. Pending Studies Studies pending at discharge: no Medical Emergencies . Who to Call and When: Medical Emergencies: If at any time you feel your situation is an emergency, please call 911 immediately. . Non-Emergent Contact Non-Emergency issues call your: Primary Care Provider . . "Provider Documentation" section prepared by Jhoan Ferris. VTE Core Measure Inpt VTE Proph given/why not?: Unfractionated heparin SQ, SCD's
[2016-09-22 13:06] VITALS: BP 150/76; PULSE 54; TEMP 36.4; O2SAT 95
[2016-09-22 14:13] VITALS: PULSE 68; O2SAT 94
[2016-09-22] MEDS ORDERED: LEVALBUTEROL/IPRATROPIUM NEB INH ONE (15:27)
[2016-09-22] MEDS ORDERED: FENTANYL CITRATE INJ 50 MCG/1 ML 2 ML VIAL IV ONE (15:27)
[2016-09-22] MEDS ORDERED: LIDOCAINE HCL 2% LOCAL 50ML VIAL INFIL ONE (15:27)
[2016-09-22] MEDS ORDERED: OXYMETAZOLINE HCL 0.05% NA SPR 15 ML BTL ONE (15:27)
[2016-09-22] MEDS ORDERED: MIDAZOLAM HCL 1 MG/ML 2ML VIAL IV ONE (15:27)
[2016-09-22] MEDS ORDERED: LIDOCAINE 4% W/AFRIN NASAL SOLN 4ML ONE (15:27)
--- NOTE | 2016-09-22 18:41 | Discharge Summary ---
Discharge Summary Admission Date: Sep 17, 2016 at 16:40 Discharge Date: Sep 22, 2016 Discharge Disposition: Home Principal Diagnosis: COPD exacerbation Problems/Secondary Diagnoses: Lung CA, Pneumonia Immunizations: Have You Had Influenza Vaccine: No History of Tetanus Vaccine?: Yes History of Pneumococcal: Yes History of Hepatitis B Vaccine: No Procedures: Bronchoscopy 09/20/16 Consultations: Pulmonology Dr. Favian Benítez M.D. Medication Reconciliation New Medications: Levofloxacin (Levaquin) 500 Mg Tab 1 TAB PO DAILY for 7 Days, #7 TAB NS Pantoprazole (Pantoprazole Sodium) 40 Mg Tab 40 MG PO DAILY for 30 Days, #30 0 Refills NS Prednisone Tab (Prednisone) 10 Mg Tab 10 MG PO DIRECTED for 12 Days, #30 TAB NS Continued Medications: Albuterol Sulfate (Proair Respiclick) 108 Mcg/Act Aer 8.5 GM INH Q4 Formoterol Fumarate (Foradil Aerolizer) 12 Mcg Cap 1 DOSE INH HS Ipratropium-Albuterol (Duoneb) 3 Ml Nebu 1 TREATMENT INH Q6H for SOB/Wheezing, INHA Metoprolol Succ (Toprol Xl) (Toprol-Xl) 25 Mg Tabcr 25 MG PO QPM, #30 TAB Oxycodone/Acetaminophen 5MG/325MG (Roxicet 5MG/325MG) 1 Tab Tab 1-2 TAB PO Q4H PRN for Pain, #36 TAB Tiotropium [place]-Olodaterol (Stiolto Respimat 2.5-2.5 Mcg/Act) 1 Aer Aer 4 GM INH DAILY [Hic With Pepsin] () 325 MG PO TIDM [Magnesium] () 1200 MG PO BID [Msm] () 300 MG PO BID [Potassium] () 300 MG PO BID [Zinc Picolinate] () 44 MG PO BID Discharge Exam A 10 system review was performed and all were negative. Positives were placed in the subjective section. GEN: Awake, alert, and oriented x 3. Not in acute distress HEENT: Tm's intact, no inflammation, EOMI, PERRLA, MMM Neck: Soft, supple Lungs: CTA b/l, no r/r mild expiratory wheezes. Heart: REG, nrl S1S2 without murmurs, rubs or gallops Abdomen: Soft, NT, ND, + BS EXT: No C/C/E NEURO: CN's II-XII grossly intact, non-focal Skin: warm, dry, no rashes PSYCH: pleasant, cooperative, no signs of significant anxiety or depression. Hospital Course Patient was admitted due to having hypoxia. He was treated for a COPD exacerbation and covered with antibiotics. Each day the patient made good improvement. He underwent a bronchoscopy on 09/20 refer to the report for details. He was switched to oral prednisone on 09/21 and did well overnight and it was felt he could be discharged. DVT prophylaxis is NOLAN dillon, SCDharini and sub-q heparin. Total Time Spent: Greater than 30 minutes This includes examination of the patient, discharge planning, medication reconciliation, and communication with other providers. Discharge Instructions Please refer to the electronic Patient Visit Report (Discharge Instructions) for additional information. Follow-Up PCP in 5-7 days Pulmonology (Dr. Favian Benítez M.D.) - call office for appointment.
[2016-12-02] MEDS ORDERED: PLMIH INH (12:54)
[2016-12-02] MEDS ORDERED: NYSS5 PO (12:54)
[2016-12-02] MEDS ORDERED: PRED20TA PO (12:54)
[2017-01-06] MEDS ORDERED: PRED-301 PO (14:56)
[2017-01-06] MEDS ORDERED: ATRINS INH (14:56)
[2017-01-06] MEDS ORDERED: SPRIN PO (14:56)
[2017-01-06] MEDS ORDERED: LVQ500 PO (14:56)
[2017-01-06] MEDS ORDERED: XPNINS1255 INH (14:56)
[2017-01-06] MEDS ORDERED: PLMIH INH (14:56)
[2017-01-06] MEDS ORDERED: PRT40 PO (14:56)
[2017-01-06] MEDS ORDERED: DSY50 PO (14:56)
[2017-04-20] MEDS ORDERED: MULT-513 PO (11:19)
[2017-04-20] MEDS ORDERED: DORN1SOL NEB (11:19)
[2017-04-20] MEDS ORDERED: PRFINS NEB (11:19)
== END 2016-09-22 15:28 | disposition home or self-care (01) | DRG 166 ==
LOC: ENRESERVDT → ENRESERVTM → C.2E 16:40 → C.MS2W 09-21 13:23
PROVIDERS: ADMIT Hospitalist; ATTEND Hospitalist
PROC: 0B9J8ZX Drainage of Left Lower Lung Lobe, Via Natural or Artificial Opening Endoscopic, Diagnostic (ICD-10-PCS; principal; 2016-09-20)
PROC: 0B9G8ZX Drainage of Left Upper Lung Lobe, Via Natural or Artificial Opening Endoscopic, Diagnostic (ICD-10-PCS; 2016-09-20)
PROC: 0B9F8ZX Drainage of Right Lower Lung Lobe, Via Natural or Artificial Opening Endoscopic, Diagnostic (ICD-10-PCS; 2016-09-20)
DX: J44.1 Chronic obstructive pulmonary disease with (acute) exacerbation (principal); J18.9 Pneumonia, unspecified organism; J90 Pleural effusion, not elsewhere classified; Z87.891 Personal history of nicotine dependence; I48.0 Paroxysmal atrial fibrillation; Z90.49 Acquired absence of other specified parts of digestive tract; J44.0 Chronic obstructive pulmonary disease with (acute) lower respiratory infection; R09.02 Hypoxemia; E03.9 Hypothyroidism, unspecified; Z79.899 Other long term (current) drug therapy; Z91.041 Radiographic dye allergy status; Z91.040 Latex allergy status; Z83.3 Family history of diabetes mellitus; Z85.118 Personal history of other malignant neoplasm of bronchus and lung; Z90.2 Acquired absence of lung [part of]

== ENCOUNTER 2016-11-27 11:38 | Inpatient (IN) | payer OTHER ==
[~2016-11-27] VITALS: Ht 177.8 cm; Wt 89.4 kg
[~2016-11-27 11:38] MED LIST changes: +ALBU18002 INH; -ASPI81TA28 PO; -HYDROCODONE/ACETAMOPHEN 5/325MG TAB PO PRN; +IPRASOL4 INH; -LEVO75TA5 PO; -MoRPHine SULFATE 2 MG/ML CARP IV PRN; -MoRPHine SULFATE 4 MG/ML 1 ML CARP\\VIAL IV PRN; -NYSS/ PO; +PRT40 PO; +TIOT1AER INH; -TRAMADOL HCL 50 MG TAB PO PRN; -VITACAP26 PO
[2016-11-27 13:45] VITALS: BP 135/68; PULSE 76; TEMP 36.6; O2SAT 92; Ht 177.8 cm; Wt 89.4 kg
[2016-11-27] MEDS ORDERED: ACETAMINOPHEN 325 MG TAB PO PRN (14:00)
[2016-11-27] MEDS ORDERED: MAGNESIUM HYDROXIDE SUSP 30 ML UDC PO PRN (14:00)
[2016-11-27] MEDS ORDERED: POLYETHYLENE (MIRALAX) 17 GM PACK PO PRN (14:00)
[2016-11-27] MEDS ORDERED: ONDANSETRON INJ 2 MG/ML 2 ML VIAL IV PRN (14:00)
--- NOTE | 2016-11-27 14:05 | History and Physical ---
History & Physical Date & Time of Service: Nov 27, 2016 at 14:01 Chief Complaint: Hypoxia, Copd Exacerbation Primary Care Physician: Macie John M.D. History of Present Illness Source: patient This is a 81 yo M with PMHx of HTN, hyperlipidemia, parosysmal afib, COPD, hx of NSCLC of the RUL s/p resection, significant smoking hx of 2ppd x 60 yrs, quit at age 76, bronchiectasis, and acute bronchitis. Pt was seen in office by Macie John this morning for an acute visit for increased shortness of breath. He was desaturating to 88% on RM at rest, he was placed on 2L O2 via NC and improved to 89%, then was increased to 3L and his sats improved to 93%. He does not normally wear supplemental oxygen. The patient reports he is coughing and has mucous production,opaque, denies color or hemoptysis. The patient underwent bronchoscopy Aug [address] Favian Benítez showing diffuse mucus secretions with severe impaction all appear to be obstructing the trachea originating in the lower lobes right greater than left. He reports this did help his breathing in the interim. The patient recently completed a course of levaquin x 10 days and prednisone taper for URI about 2 weeks ago. He denies fevers, chills, or sweats currently. The patient is agreeable to bronchoscopy tomorrow if Dr. Mtz deams it necessary. Past Medical/Surgical History HTN hyperlipidemia parosysmal afib COPD hx of NSCLC of the RUL s/p resection significant smoking hx of 2ppd x 60 yrs, quit at age 76 bronchiectasis acute bronchitis. Family History Family hx of HTN and hyperlipidemia Social History Smoking Status: Former Smoker Smokeless Tobacco Use: No Alcohol Use: socially Drug Use: none Marital Status: Housing status: lives alone Occupational Status: retired Immunizations History of Influenza Vaccine: No History of Tetanus Vaccine?: Yes History of Pneumococcal: Yes History of Hepatitis B Vaccine: No Allergies Coded Allergies: Latex1 -Allergic Contact Dermititis (Verified Allergy, Mild, RASH, 02/03/16) Iodinated Diagnostic Agents (Verified Allergy, Unknown, GI UPSET, 02/24/16) NO KNOWN DRUG ALLERGIES (Unverified Allergy, Unknown, NONE, 02/03/16) Home Medications Scheduled Albuterol Sulfate (Proair Respiclick), 8.5 GM INH Q4 Formoterol Fumarate (Foradil Aerolizer), 1 DOSE INH HS Ipratropium-Albuterol (Duoneb), 1 TREATMENT INH Q6H Metoprolol Succ (Toprol Xl) (Toprol-Xl), 25 MG PO QPM Pantoprazole (Pantoprazole Sodium), 40 MG PO DAILY Tiotropium [place]-Olodaterol (Stiolto Respimat 2.5-2.5 Mcg/Act), 4 GM INH DAILY [Hic With Pepsin], 325 MG PO TIDM [Magnesium], 1,200 MG PO BID [Msm], 300 MG PO BID [Potassium], 300 MG PO BID [Zinc Picolinate], 44 MG PO BID Scheduled PRN Oxycodone/Acetaminophen 5MG/325MG (Roxicet 5MG/325MG), 1-2 TAB PO Q4H PRN for Pain Review of Systems Constitutional: No chills, No fever, No sweats Eyes: No diplopia, No eye pain ENT: No nasal symptoms, No sore throat Respiratory: + cough, + dyspnea on exertion, + shortness of breath, + sputum, + wheezing, No hemoptysis Cardiovascular: No chest pain, No palpitations Abdomen: No constipation, No diarrhea, No nausea, No pain, No vomiting Musculoskeletal: No calf pain, No joint pain, No swelling Genitourinary - Male: No dysuria, No hematuria Neurologic: No balance problems, No numbness/tingling Psychiatric: No anxiety, No depression symptoms Endocrine: + fatigue Integumentary: No itch, No rash Physical Exam Vital Signs Date Time Temp Pulse Resp B/P Pulse Ox O2 Delivery O2 Flow Rate FiO2 11/27/16 13:45 36.6 76 20 135/68 92 Room Air General Appearance: WD/WN, no apparent distress Head: normocephalic, atraumatic Eyes: PERRL, EOMI ENT: hearing grossly normal, pharynx normal Neck: supple, no JVD Respiratory/Chest: no respiratory distress, no accessory muscle use, + pertinent finding (The patient is on room air when seen, he is actively coughing at times without sputum production, + inspiratory and expiratory wheezing, +prolonged expiratory phase, + coarse breath sounds throughout) Cardiovascular: regular rate, rhythm, no JVD, no murmur Abdomen/GI: non tender, soft, no organomegaly Back: normal inspection Extremities/Musculoskelatal: no calf tenderness, no pedal edema Neurologic/Psych: alert, normal mood/affect, oriented x 3 Skin: normal color, warm/dry Impression Assessment and Plan This is a 81 yo M with PMHx of HTN, hyperlipidemia, parosysmal afib, COPD, hx of NSCLC of the RUL s/p resection, significant smoking hx of 2ppd x 60 yrs, quit at age 76, bronchiectasis, and acute bronchitis. Pt was seen in office by Macie John this morning for an acute visit for increased shortness of breath and documented hypoxia at pulm clinic this morning. Admitted for possible bronchoscopy tomorrow morning. Shortness of breath Hx COPD Previous tobacco use with 60pack yr smoking history Hx NSCLC in February 2016 s/p RUL resection - Admit to med/surg - Pt just completed 10 day course of levawuin and prednisone about 2 weeks ago. - Will consult pulmonary medicine: Dr. Mtz - Start on IV solumedrol 60 mg Q8H - Inhaled mucomist Q4H demetrice and Q2H prn, duonebs Q2H prn for shortness of breath and wheeze - Will check cbc, prp, blood cultures at this time - Check 2 view CXR - Continuous o2 sats for now to titrate O2 for 88-92% with hx of COPD - PT/OT consults - NPO after midnight for possible bronch HTN Parosysmal Afib - Continue metoprolol tartrate 25 mg BID - Pt is not on anticoagulation - Check 12 lead EKG now Hyperlipidemia - Pt does not want to take statin, he uses MSM (sulfer derivative) as an outpt DVT ppx: teds, scds, heparin sq CODE STATUS: FULL CODE Disposition: From home, lives by himself, ex- is POA. PA Physician Supervision Note: I interviewed and examined the patient. Discussed with Mar Powers and agree with findings and plan as documented in the note. Any exceptions or clarifications are listed here: None 81 M admitted with acute on chronic respiratory failure failing outpt treatment of bronchitis, was hypoxic with exertion in the clinic, has known chronic bronchitis and bronchiectasis, did improve with last bronchoscopy and thought is to consider bronchoscopy for removal of secretions Pt becomes breathless with minor activity in room car is regular lungs are coarse, rhonchi, mostly at bases and poor air movement COPD with AECB, Iv steoids,iv antibiotics nebulizers, and consult pulmonary Dr. Mtz Clinic provider, yandy aric wishes to try neb mucomist Q4H HTN/Parosysmal Afib metoprolol tartrate 25 mg BID - previously not on anticoagulation Documented By: Austin Bro Level of Care Med/Surg Advanced Directives Existing Advance Directive: Yes Existing Living Will: Yes Existing Power of Sanding Machine Tender: Yes Resuscitation Status FULL RESUSCITATION VTE Prophylaxis VTE Risk Assessment Done? Y/N: Yes Risk Level: Low Given or contraindicated: Unfractionated heparin SQ, T.E.D. Stockings, SCD's
[2016-11-27] MEDS ORDERED: OXYCODONE/ACETAMINOPHEN 5-325 TAB PO PRN (15:00)
[2016-11-27 15:14] VITALS: BP 167/96; PULSE 76; TEMP 36.5; O2SAT 90
--- NOTE | 2016-11-27 15:19 | DIAGNOSTIC IMAGING REPORT ---
CHEST 2 VIEWS ROUTINE CLINICAL HISTORY: shortness of breath dyspnea COMPARISON STUDY: 09/17/2016 FINDINGS: Chronic scarring right base. Baseline emphysematous change. No acute infiltrate. IMPRESSION: Chronic change. No acute process. Electronically signed by: Brian Lopez M.D. 11/27/2016 3:17 PM Dictated Date/Time: 11/27/2016 3:17 PM
[2016-11-27 15:38] VITALS: PULSE 84; O2SAT 95
[2016-11-27] MEDS: ALBUT/IPRATROP 3MG/0.5MG NEB 3 ML VIAL INH PRN ×2 (15:38→20:08)
[2016-11-27] MEDS: ACETYLCYSTEINE 20% INHAL SOLN ***DISPENSED BY RESP. INH SCH ×2 (15:38→20:08)
[2016-11-27 15:57] LABS: BASO % 0.5 %; BASO ABS # 0.04 K/uL (0-0.2); EOS % 10.3 %; HEMATOCRIT 41.4 % (42-52); IG% 0.1 %; LYMPH % 24.8 %; LYMPH ABS # 1.93 K/uL (1.2-3.4); MEAN CELL VOLUME 89.6 fL (80-100); MEAN CORPUSCULAR HEMOGLOBIN 31.2 pg (25-34); MEAN PLATELET VOLUME 9.6 fL (7.4-10.4); MONO % 11.1 %; NEUT % 53.2 %; PLATELET COUNT 212 K/uL (130-400); RED BLOOD COUNT 4.62 M/uL (4.7-6.1); WHITE BLOOD COUNT 7.78 K/uL (4.8-10.8)
[2016-11-27 16:07] LABS: PARTIAL THROMBOPLASTIN RATIO 1.2; PROTHROMBIN TIME (PATIENT) 11.2 SECONDS (9.0-12.0)
[2016-11-27] MEDS: METHYLPREDNISOLONE IV 60 MG in SYRINGE 0 ML IV SCH ×2 (16:11→23:54)
[2016-11-27 16:29] LABS: BUN/CREATININE RATIO 14.8 (10-20); CALCIUM 8.8 mg/dl (8.5-10.1); CREATININE 0.93 mg/dl (0.60-1.40); POTASSIUM 4.1 mmol/L (3.5-5.1)
[2016-11-27 17:02] LABS: COMPLETE YES; MEAN CORPUSCULAR HGB CONC 34.8 g/dl (32-36)
[2016-11-27 19:27] VITALS: BP 148/86; PULSE 62; TEMP 36.7; O2SAT 92
[2016-11-27 20:08] VITALS: PULSE 68; O2SAT 92
[2016-11-27] MEDS: METOPROLOL SUCC 25MG EXT REL TAB PO SCH (21:18)
[2016-11-27] MEDS: HEPARIN SOD 5000 UNIT/0.5 ML CARP SQ SCH (21:22)
[2016-11-28] VITALS (23 sets, daily range): BP systolic 102–146; BP diastolic 55–81; PULSE 63–77; TEMP 36.1–37; O2SAT 88–95
[2016-11-28] MEDS: ALBUT/IPRATROP 3MG/0.5MG NEB 3 ML VIAL INH PRN ×2 (02:03→07:35)
[2016-11-28] MEDS: ACETYLCYSTEINE 20% INHAL SOLN ***DISPENSED BY RESP. INH SCH ×2 (02:03→07:33)
[2016-11-28] MEDS: HEPARIN SOD 5000 UNIT/0.5 ML CARP SQ SCH ×3 (06:10→21:44)
[2016-11-28 06:12] LABS: COMPLETE YES; EOS % 0.2 %; HEMATOCRIT 40.3 % (42-52); IG% 0.2 %; LYMPH % 21.6 %; LYMPH ABS # 1.05 K/uL (1.2-3.4); MEAN CELL VOLUME 87.2 fL (80-100); MEAN CORPUSCULAR HEMOGLOBIN 29.9 pg (25-34); MEAN CORPUSCULAR HGB CONC 34.2 g/dl (32-36); MEAN PLATELET VOLUME 9.3 fL (7.4-10.4); MONO % 1.8 %; NEUT % 76.2 %; PLATELET COUNT 232 K/uL (130-400); RED BLOOD COUNT 4.62 M/uL (4.7-6.1); WHITE BLOOD COUNT 4.87 K/uL (4.8-10.8)
[2016-11-28 06:47] LABS: CALCIUM 8.8 mg/dl (8.5-10.1); CREATININE 0.97 mg/dl (0.60-1.40); POTASSIUM 4.2 mmol/L (3.5-5.1)
[2016-11-28] MEDS: PANTOprazole SOD 40 MG TAB PO SCH (07:43)
[2016-11-28] MEDS: METHYLPREDNISOLONE IV 60 MG in SYRINGE 0 ML IV SCH ×3 (07:44→23:39)
--- NOTE | 2016-11-28 13:36 | Progress Note ---
Subjective Date of Service: Nov 28, 2016. Subjective Pt evaluation today including: conversation w/ patient, physical exam, chart review, lab review, review of studies, review of inpatient medication list Pt reports feeling about the same Cough still present Shortness of breath on exertion No fevers or chills Asking if bronchoscopy will be completed today Review of Systems Constitutional: No chills, No fever Eyes: No eye pain, No worsening of vision Respiratory: + cough, + dyspnea on exertion, No dyspnea at rest, No shortness of breath, No sputum, No wheezing Cardiac: No chest pain, No orthopnea Abdomen: No constipation, No nausea, No pain, No vomiting Musculoskeletal: No joint pain, No muscle pain Male : No dysuria, No urinary frequency Psychiatric: No anhedonism, No depression symptoms Objective Vital Signs Date Time Temp Pulse Resp B/P Pulse Ox O2 Delivery O2 Flow Rate FiO2 11/28/16 13:30 73 21 113/69 95 Mask 4.0 11/28/16 13:25 73 21 137/69 95 Mask 4.0 11/28/16 13:20 75 22 122/76 95 Mask 4.0 11/28/16 13:15 69 22 129/77 94 Mask 4.0 11/28/16 13:10 75 22 132/71 92 Mask 4.0 11/28/16 13:05 72 19 125/76 95 Mask 4.0 11/28/16 13:00 71 18 133/69 94 Mask 4.0 11/28/16 12:49 69 17 137/81 89 Room Air 4.0 11/28/16 11:18 36.5 63 18 132/76 90 2.0 11/28/16 08:17 36.4 69 18 102/55 90 Nasal Cannula 2.0 11/28/16 08:00 Nasal Cannula 2.0 11/28/16 07:57 36.4 69 18 102/58 90 2.0 11/28/16 07:35 66 20 93 Nasal Cannula 2.0 11/28/16 04:20 36.8 68 18 126/57 88 Room Air 11/28/16 02:03 71 18 91 Nasal Cannula 2.0 11/28/16 00:19 Nasal Cannula 1.0 11/28/16 00:10 37.0 67 20 133/73 92 Nasal Cannula 2.0 11/27/16 20:33 Nasal Cannula 1.0 11/27/16 20:08 68 18 92 Nasal Cannula 1.0 11/27/16 19:27 36.7 62 18 148/86 92 Nasal Cannula 1.0 11/27/16 16:00 Nasal Cannula 1.0 11/27/16 15:38 84 20 95 Nasal Cannula 2.0 11/27/16 15:14 36.5 76 18 167/96 90 Room Air 11/27/16 13:45 36.6 76 20 135/68 92 Room Air 11/27/16 13:45 92 Room Air Physical Exam General Appearance: WD/WN, no apparent distress Eyes: PERRL, EOMI Neck: supple, no adenopathy Respiratory/Chest: lungs clear, + decreased breath sounds, + wheezing Cardiovascular: no edema, no gallop Abdomen: non tender, soft Neurologic/Psychiatric: alert, normal mood/affect Laboratory Results Last 24 Hours Test 11/27/16 15:35 11/28/16 05:55 White Blood Count 7.78 K/uL 4.87 K/uL Red Blood Count 4.62 M/uL 4.62 M/uL Hemoglobin 14.4 g/dL 13.8 g/dL Hematocrit 41.4 % 40.3 % Mean Corpuscular Volume 89.6 fL 87.2 fL Mean Corpuscular Hemoglobin 31.2 pg 29.9 pg Mean Corpuscular Hemoglobin Concent 34.8 g/dl 34.2 g/dl Platelet Count 212 K/uL 232 K/uL Mean Platelet Volume 9.6 fL 9.3 fL Neutrophils (%) (Auto) 53.2 % 76.2 % Lymphocytes (%) (Auto) 24.8 % 21.6 % Monocytes (%) (Auto) 11.1 % 1.8 % Eosinophils (%) (Auto) 10.3 % 0.2 % Basophils (%) (Auto) 0.5 % 0.0 % Neutrophils # (Auto) 4.14 K/uL 3.71 K/uL Lymphocytes # (Auto) 1.93 K/uL 1.05 K/uL Monocytes # (Auto) 0.86 K/uL 0.09 K/uL Eosinophils # (Auto) 0.80 K/uL 0.01 K/uL Basophils # (Auto) 0.04 K/uL 0.00 K/uL RDW Standard Deviation 49.0 fL 46.2 fL RDW Coefficient of Variation 14.9 % 14.5 % Immature Granulocyte % (Auto) 0.1 % 0.2 % Immature Granulocyte # (Auto) 0.01 K/uL 0.01 K/uL Prothrombin Time 11.2 SECONDS Prothromb Time International Ratio 1.0 Activated Partial Thromboplast Time 32.4 SECONDS Partial Thromboplastin Ratio 1.2 Sodium Level 144 mmol/L 142 mmol/L Potassium Level 4.1 mmol/L 4.2 mmol/L Chloride Level 109 mmol/L 109 mmol/L Carbon Dioxide Level 26 mmol/L 25 mmol/L Anion Gap 9.0 mmol/L 8.0 mmol/L Blood Urea Nitrogen 14 mg/dl 17 mg/dl Creatinine 0.93 mg/dl 0.97 mg/dl Est Creatinine Clear Calc Drug Dose 71.7 ml/min 68.2 ml/min Estimated GFR () 89.5 85.1 Estimated GFR (Non- 77.3 73.4 BUN/Creatinine Ratio 14.8 17.0 Random Glucose 97 mg/dl 142 mg/dl Calcium Level 8.8 mg/dl 8.8 mg/dl Assessment and Plan This is a 81 yo M with PMHx of HTN, hyperlipidemia, parosysmal afib, COPD, hx of NSCLC of the RUL s/p resection, significant smoking hx of 2ppd x 60 yrs, quit at age 76, bronchiectasis, and acute bronchitis. Pt was seen in office by Macie John this morning for an acute visit for increased shortness of breath and documented hypoxia at pulm clinic Shortness of breath Hx COPD Previous tobacco use with 60pack yr smoking history Hx NSCLC in February 2016 s/p RUL resection - Admit to med/surg - Pt just completed 10 day course of levaquin and prednisone about 2 weeks ago. - Will consult pulmonary medicine: Dr. Mtz for possible bronchoscopy - Cont IV solumedrol 60 mg Q8H - Inhaled mucomist Q4H demetrice and Q2H prn, duonebs Q2H prn for shortness of breath and wheeze - Check 2 view CXR - Continuous o2 sats for now to titrate O2 for 88-92% with hx of COPD - PT/OT consults HTN Parosysmal Afib - Continue metoprolol tartrate 25 mg BID - Pt is not on anticoagulation Hyperlipidemia - Pt does not want to take statin, he uses MSM (sulfer derivative) as an outpt DVT ppx: teds, scds, heparin sq CODE STATUS: FULL CODE
[2016-11-28] MEDS ORDERED: NURSING VERBAL MED ORDER ONE (13:45)
--- NOTE | 2016-11-28 13:46 | Bronchoscopy Procedure Note ---
Bronchoscopy Procedure Note Procedure: Bronchoscopy, bronchial alveolar lavage, intrabronchial biopsies, conscious sedation Consent: Obtained to the patient placed in the chart Pre-procedural diagnosis: bronchiectasis with inability to clear secretions Post procedural diagnosis: Lung mass/carcinoma Beginning time: 1301 Finish Time: 1323 Total time: 22 minutes Analgesia: 2% liquid lidocaine: Via nebulizer 4% gel lidocaine: Via right naris 2% liquid lidocaine: Via bronchoscopy Sedation: Versed IV: 3 mg Fentanyl IV: 75 g Procedure: The [employer] video bronchoscope was used for this procedure and initially passed out through the right naris. The right naris/posterior naris/posterior oropharynx: Anatomically within normal limits Glottis: Anatomically within normal limits Vocal cords: Proper abduction and abduction, anatomically within normal limits Subglottis/trachea/Liat: Anatomically within normal limits, diffuse mucus secretions suctioned clear Right bronchial tree: Right mainstem bronchus: Anatomically within normal limits Right upper lobe: sight of previous resection no signs of infection or breakdown Bronchus intermedius: Anatomically within normal limits Secondary liat between the right middle lobe and right lower lobe: twisted clock-santos Right middle lobe: anatomically within normal limits Right lower lobe: anatomically within normal limits Findings: diffuse, thick mucus plugs greatest in the RLL sub-segment Left bronchial tree: Left mainstem bronchus: Anatomically within normal limits Left upper lobe: Anatomically within normal limits Lingula: Anatomically within normal limits Left lower lobe: Anatomically within normal limits Findings: diffuse, thick mucus plugs greatest in the LLL sub-segment Procedures: Bronchial lavage: Bronchial lavage was performed of the right lower lobe Studies: Bronchial lavage: Sent off for microbiologic and cytologic analysis Complications: None Follow-up: Patient is to return to his room
[2016-11-28] MEDS ORDERED: MIDAZOLAM HCL 5 MG/ML 1 ML VIAL IV ONE (14:00)
[2016-11-28] MEDS ORDERED: FENTANYL CITRATE INJ 50 MCG/1 ML 2 ML VIAL IV ONE (14:00)
[2016-11-28] MEDS: ALBUT/IPRATROP 3MG/0.5MG NEB 3 ML VIAL INH SCH ×3 (15:54→23:30)
[2016-11-28] MEDS ORDERED: ALBUT/IPRATROP 3MG/0.5MG NEB 3 ML VIAL INH SCH (16:00)
[2016-11-28] MEDS: NYSTATIN SUSP 500,000 U/5 ML UDC PO SCH ×2 (16:38→21:44)
--- NOTE | 2016-11-28 16:57 | Pulmonary Consultation ---
History General Date of Service: Nov 28, 2016. Stated Complaint: Hypoxia, Copd Exacerbation HPI The patient is a 81 year old male who presents to [facility] with complaints of Hypoxia, Copd Exacerbation. The patient's primary care provider is Macie John M.D. 81-year-old male admitted to [facility] after being seen in the [facility] pulmonary office symptomatic of dyspnea, persistent cough and hypoxia. Prior records reviewed. 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 He has undergoing bronchoscopies in the past 2012 if the and most recently 08/2016 notable for lavage of significant mucous plugging with post-procedural relief. Patient admitted to [facility] with symptoms of dyspnea, hypoxia, and productive cough. He had been treated as an outpatient with ciprofloxacin and steroid taper for symptoms of dyspnea and cough productive of thick brown sputum. He states that his cough her productivity change to clear sputum however shortness of breath persisted with inability to achieve appropriate lung volumes per patient. He denied any persistent chest congestion but reported that constant wheeze. On admission 11/27 WBC 7.78. HGB/HCT 14.4/41.4. Platelets : 212, CO2: 26 INR: 1.2 chest x-ray described right basilar scarring with emphysema. Patient is a former smoker smoking approximately 120 pack-year quitting in 2012. He uses nebulizers as primary form of daily pulmonary medications. 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 He denies prior service in the . He was born in [place] then lived in [place] from 1972 - 2009 before moving back to [place]. He lives in his a house built in 1935 with his girlfriend. They have 1-dog. The home does have a basement which he notes very modest mold in the corners - this is where he has his "man cave". He denies prior testing for radon gas. Heat: forced air. Historian: patient Review of Systems Constitutional: denies: chills, fever, weakness Eyes: reports: no symptoms ENT: denies: ear pain, epistaxis, nasal congestion, sore throat Cardiovascular: denies: chest pain, edema, palpitations Respiratory: reports: as stated in HPI Gastrointestinal: reports: no symptoms Integumentary: reports: no symptoms, denies: rash Neurologic: denies: headache Hematologic / Lymphatic: denies: adenopathy, easy bleeding, easy bruising Past Medical History Past Medical History: 1. Hypertension 2. Hyperlipidemia 3. COPD 4. paroxysmal atrial fibrillarin 5. Non Small Cell Lung Cancer RUL - s/p resection 6. Bronchiectasis 7. Hypothyroid 8. H/O rib fracture - Left Past Surgical History: 1. Bilateral Cataract 2. Appendectomy 3. H/O colon resections 2/2 diverticular disease 4. RUL Lobectomy 02/2016 5. Bronchoscopy: 2012 and 2016 6. Tonsillectomy Family History Parent: Diabetes Social History Hx Tobacco Use In Past Year?: No Smoking Status: Former Smoker Marital status: Housing status: lives with significant other Occupational Status: retired Immunizations History of Influenza Vaccine: No History of Tetanus Vaccine?: Yes History of Pneumococcal: Yes History of Hepatitis B Vaccine: No Allergies Coded Allergies: Latex1 -Allergic Contact Dermititis (Verified Allergy, Mild, RASH, 02/03/16) Iodinated Diagnostic Agents (Verified Allergy, Unknown, GI UPSET, 02/24/16) NO KNOWN DRUG ALLERGIES (Unverified Allergy, Unknown, NONE, 02/03/16) Current Medications Reported Home Medications Medications Dose Route/Sig Max Daily Dose Days Date Category Pantoprazole Sodium (Pantoprazole) 40 Mg Tab 40 Mg PO DAILY 30 09/22/16 Rx Stiolto Respimat 2.5-2.5 Mcg/Act (Tiotropium [place]-Olodaterol) 1 Aer Aer 4 Gm INH DAILY 09/17/16 Reported Duoneb (Ipratropium-Albuterol) 3 Ml Nebu 1 Treatment INH Q6H 09/17/16 Reported Proair Respiclick (Albuterol Sulfate) 108 Mcg/Act Aer 8.5 Gm INH Q4 09/17/16 Reported Roxicet 5MG/325MG (Oxycodone/Acetaminophen 5MG/325MG) 1 Tab Tab 1-2 Tab PO Q4H PRN 03/03/16 Rx [Msm] 300 Mg PO BID 02/03/16 Reported [Zinc Picolinate] 44 Mg PO BID 02/03/16 Reported [Magnesium] 1,200 Mg PO BID 02/03/16 Reported [Potassium] 300 Mg PO BID 02/03/16 Reported [Hic With Pepsin] 325 Mg PO TIDM 02/03/16 Reported Foradil Aerolizer (Formoterol Fumarate) 12 Mcg Cap 1 Dose INH HS 02/03/16 Reported Toprol-Xl (Metoprolol Succinate) 25 Mg Tabcr 25 Mg PO QPM 02/03/16 Reported Physical Physical Exam Vital Signs: Date Time Temp Pulse Resp B/P Pulse Ox O2 Delivery O2 Flow Rate FiO2 11/28/16 14:09 36.5 70 20 146/71 92 Nasal Cannula 2.0 11/28/16 13:55 36.1 68 21 115/63 94 Nasal Cannula 2.0 11/28/16 13:45 36.2 77 21 127/58 94 Nasal Cannula 2.0 11/28/16 13:41 Mask 11/28/16 13:35 36.5 71 22 137/69 94 Nasal Cannula 2.0 11/28/16 13:30 73 21 113/69 95 Mask 4.0 11/28/16 13:25 36.5 72 21 137/69 95 Nasal Cannula 4.0 11/28/16 13:25 73 21 137/69 95 Mask 4.0 11/28/16 13:20 75 22 122/76 95 Mask 4.0 11/28/16 13:15 69 22 129/77 94 Mask 4.0 11/28/16 13:10 75 22 132/71 92 Mask 4.0 11/28/16 13:05 72 19 125/76 95 Mask 4.0 11/28/16 13:00 71 18 133/69 94 Mask 4.0 11/28/16 12:49 69 17 137/81 89 Room Air 4.0 11/28/16 11:18 36.5 63 18 132/76 90 2.0 11/28/16 08:17 36.4 69 18 102/55 90 Nasal Cannula 2.0 11/28/16 08:00 Nasal Cannula 2.0 11/28/16 07:57 36.4 69 18 102/58 90 2.0 11/28/16 07:35 66 20 93 Nasal Cannula 2.0 11/28/16 04:20 36.8 68 18 126/57 88 Room Air 11/28/16 02:03 71 18 91 Nasal Cannula 2.0 11/28/16 00:19 Nasal Cannula 1.0 11/28/16 00:10 37.0 67 20 133/73 92 Nasal Cannula 2.0 11/27/16 20:33 Nasal Cannula 1.0 11/27/16 20:08 68 18 92 Nasal Cannula 1.0 11/27/16 19:27 36.7 62 18 148/86 92 Nasal Cannula 1.0 Constitutional: Well developed, well nourished elderly male sitting up in hospital bed. No acute distress. Head: + facial symmetry Eyes: EOMi, PERRLA, no conjunctival injection Mouth: Moist mucous membranes. No erythema, exudate, or post nasal gtt Neck: Trachea midline. No adenopathy or masses Respiratory: Non-labored respirations. O2 vai Nasal cannula. Bilateral rhonchi Right > left. No clubbing or cyanosis. Cardiovascular: RRR, no MRG. +2 radial pulses. <1s capillary refill. Abdomen: soft, active bowel sounds Integumentary: no rashes, or ecchymosis MSK/Extremities: Moving and developed symmetrically. No peripheral edema. No calf tenderness. Neurologic: A&O, data recall in-tact. Appropriate affect. Diagnostics Labs Results Past 24 Hours Test 11/28/16 05:55 Range/Units White Blood Count 4.87 4.8-10.8 K/uL Red Blood Count 4.62 4.7-6.1 M/uL Hemoglobin 13.8 14.0-18.0 g/dL Hematocrit 40.3 42-52 % Mean Corpuscular Volume 87.2 80-100 fL Mean Corpuscular Hemoglobin 29.9 25-34 pg Mean Corpuscular Hemoglobin Concent 34.2 32-36 g/dl Platelet Count 232 130-400 K/uL Mean Platelet Volume 9.3 7.4-10.4 fL Neutrophils (%) (Auto) 76.2 % Lymphocytes (%) (Auto) 21.6 % Monocytes (%) (Auto) 1.8 % Eosinophils (%) (Auto) 0.2 % Basophils (%) (Auto) 0.0 % Neutrophils # (Auto) 3.71 1.4-6.5 K/uL Lymphocytes # (Auto) 1.05 1.2-3.4 K/uL Monocytes # (Auto) 0.09 0.11-0.59 K/uL Eosinophils # (Auto) 0.01 0-0.5 K/uL Basophils # (Auto) 0.00 0-0.2 K/uL RDW Standard Deviation 46.2 36.4-46.3 fL RDW Coefficient of Variation 14.5 11.5-14.5 % Immature Granulocyte % (Auto) 0.2 % Immature Granulocyte # (Auto) 0.01 0.00-0.02 K/uL Sodium Level 142 136-145 mmol/L Potassium Level 4.2 3.5-5.1 mmol/L Chloride Level 109 98-107 mmol/L Carbon Dioxide Level 25 21-32 mmol/L Anion Gap 8.0 3-11 mmol/L Blood Urea Nitrogen 17 7-18 mg/dl Creatinine 0.97 0.60-1.40 mg/dl Est Creatinine Clear Calc Drug Dose 68.2 ml/min Estimated GFR () 85.1 Estimated GFR (Non- 73.4 BUN/Creatinine Ratio 17.0 10-20 Random Glucose 142 70-99 mg/dl Calcium Level 8.8 8.5-10.1 mg/dl Microbiology Results 11/28/16 Fungal Smear, Received Pending 11/28/16 Fungal Culture, Received Pending 11/28/16 Acid Fast Stain, Received Pending 11/28/16 Mycobacterial Culture, Received Pending 11/28/16 Gram Stain, Received Pending 11/28/16 Bronchoalveolar Lavage Culture, Received Pending Impression Assessment and Plan 81-yo male with h/o NSCLCA s/p RUL resection, bronchiectasis with h/o mucoid impaction and COPD admitted with persistent hypoxia and cough despite outpatient treatment. 1. Pulmonary toilet: Flutter and Bronchoscopy today patient agreeable 2. Taper steroid tomorrow: [id number] dosing 3. Continue bronchodilators 4. WIll continue to follow along additional recommendations pending outcome of bronchoscopy Patient seen and discussed with plan agreed on. Please refer to bronchoscopy note.
[2016-11-28] MEDS: METOPROLOL SUCC 25MG EXT REL TAB PO SCH (21:00)
[2016-11-29] VITALS (14 sets, daily range): BP systolic 107–143; BP diastolic 50–66; PULSE 50–87; TEMP 36.3–37; O2SAT 91–96
[2016-11-29] MEDS: ALBUT/IPRATROP 3MG/0.5MG NEB 3 ML VIAL INH SCH ×6 (03:15→23:14)
[2016-11-29] MEDS: HEPARIN SOD 5000 UNIT/0.5 ML CARP SQ SCH ×4 (05:54→21:30)
[2016-11-29 06:02] LABS: COMPLETE YES; HEMATOCRIT 37.6 % (42-52); IG% 0.2 %; LYMPH % 6.1 %; LYMPH ABS # 0.74 K/uL (1.2-3.4); MEAN CORPUSCULAR HEMOGLOBIN 30.6 pg (25-34); MEAN PLATELET VOLUME 9.7 fL (7.4-10.4); MONO % 4.6 %; NEUT % 89.1 %; PLATELET COUNT 217 K/uL (130-400); RED BLOOD COUNT 4.18 M/uL (4.7-6.1); WHITE BLOOD COUNT 12.15 K/uL (4.8-10.8)
[2016-11-29] MEDS: METHYLPREDNISOLONE IV 60 MG in SYRINGE 0 ML IV SCH ×2 (06:17→17:45)
[2016-11-29 06:34] LABS: BUN/CREATININE RATIO 19.8 (10-20); CALCIUM 8.6 mg/dl (8.5-10.1); CREATININE 1.2 mg/dl (0.60-1.40); POTASSIUM 4.3 mmol/L (3.5-5.1)
[2016-11-29] MEDS: NYSTATIN SUSP 500,000 U/5 ML UDC PO SCH ×4 (07:31→20:28)
[2016-11-29] MEDS: PANTOprazole SOD 40 MG TAB PO SCH (07:31)
[2016-11-29] MEDS: METOPROLOL SUCC 25MG EXT REL TAB PO SCH (12:28)
[2016-11-29] MEDS ORDERED: NURSING VERBAL MED ORDER ONE (12:30)
[2016-11-29] MEDS ORDERED: LEVOFLOXACIN / D5W 750 MG in PREMIXED IN D5W 150 ML IV SCH (13:30)
--- NOTE | 2016-11-29 13:36 | Progress Note ---
Subjective Date of Service: Nov 29, 2016. Subjective Pt evaluation today including: conversation w/ patient, physical exam, chart review, lab review, review of studies, review of inpatient medication list Pt reports shortness of breath not improved Slightly productive cough No fevers or chills Tolerating nebulizer treatments Review of Systems Constitutional: No chills, No fever Respiratory: + cough, + dyspnea at rest, + dyspnea on exertion, + shortness of breath, + sputum, No wheezing Cardiac: No chest pain, No orthopnea Abdomen: No constipation, No diarrhea, No nausea, No pain, No vomiting Musculoskeletal: No joint pain, No muscle pain Male : No dysuria, No urinary frequency Objective Vital Signs Date Time Temp Pulse Resp B/P Pulse Ox O2 Delivery O2 Flow Rate FiO2 11/29/16 11:42 70 18 93 Nasal Cannula 2.0 11/29/16 11:10 36.8 73 18 122/65 93 2.0 11/29/16 08:00 Nasal Cannula 2.0 11/29/16 07:57 36.3 63 18 116/59 94 2.0 11/29/16 07:32 50 18 96 Nasal Cannula 2.0 11/29/16 04:16 36.6 87 20 107/50 96 Nasal Cannula 2.0 11/29/16 03:15 74 20 94 Nasal Cannula 2.0 11/29/16 01:38 Nasal Cannula 2.0 11/29/16 00:09 36.7 20 119/58 93 Nasal Cannula 2.0 11/28/16 23:30 76 20 94 Nasal Cannula 2.0 11/28/16 19:35 72 20 94 Nasal Cannula 2.0 11/28/16 19:19 36.7 63 22 113/63 94 Nasal Cannula 2.0 11/28/16 16:00 92 Nasal Cannula 2.0 11/28/16 14:09 36.5 70 20 146/71 92 Nasal Cannula 2.0 11/28/16 13:55 36.1 68 21 115/63 94 Nasal Cannula 2.0 11/28/16 13:45 36.2 77 21 127/58 94 Nasal Cannula 2.0 11/28/16 13:41 Mask 11/28/16 13:35 36.5 71 22 137/69 94 Nasal Cannula 2.0 Physical Exam General Appearance: WD/WN, no apparent distress Respiratory/Chest: chest non-tender, lungs clear Cardiovascular: no gallop, no JVD Abdomen: non tender, soft Neurologic/Psychiatric: alert, oriented x 3 Laboratory Results Last 24 Hours Test 11/29/16 05:39 11/29/16 12:23 White Blood Count 12.15 K/uL Red Blood Count 4.18 M/uL Hemoglobin 12.8 g/dL Hematocrit 37.6 % Mean Corpuscular Volume 90.0 fL Mean Corpuscular Hemoglobin 30.6 pg Mean Corpuscular Hemoglobin Concent 34.0 g/dl Platelet Count 217 K/uL Mean Platelet Volume 9.7 fL Neutrophils (%) (Auto) 89.1 % Lymphocytes (%) (Auto) 6.1 % Monocytes (%) (Auto) 4.6 % Eosinophils (%) (Auto) 0.0 % Basophils (%) (Auto) 0.0 % Neutrophils # (Auto) 10.82 K/uL Lymphocytes # (Auto) 0.74 K/uL Monocytes # (Auto) 0.56 K/uL Eosinophils # (Auto) 0.00 K/uL Basophils # (Auto) 0.00 K/uL RDW Standard Deviation 48.5 fL RDW Coefficient of Variation 14.8 % Immature Granulocyte % (Auto) 0.2 % Immature Granulocyte # (Auto) 0.03 K/uL Sodium Level 143 mmol/L Potassium Level 4.3 mmol/L Chloride Level 109 mmol/L Carbon Dioxide Level 28 mmol/L Anion Gap 6.0 mmol/L Blood Urea Nitrogen 24 mg/dl Creatinine 1.20 mg/dl Est Creatinine Clear Calc Drug Dose 57.6 ml/min Estimated GFR () 65.8 Estimated GFR (Non- 56.8 BUN/Creatinine Ratio 19.8 Random Glucose 205 mg/dl Calcium Level 8.6 mg/dl Assessment and Plan This is a 81 yo M with PMHx of HTN, hyperlipidemia, parosysmal afib, COPD, hx of NSCLC of the RUL s/p resection, significant smoking hx of 2ppd x 60 yrs, quit at age 76, bronchiectasis, and acute bronchitis. Pt was seen in office by Macie John this morning for an acute visit for increased shortness of breath and documented hypoxia at pulm clinic Shortness of breath Hx COPD Previous tobacco use with 60pack yr smoking history Hx NSCLC in February 2016 s/p RUL resection - Admit to med/surg - Pt just completed 10 day course of levaquin and prednisone about 2 weeks ago. - Started on cefepime 1 gm IV daily on 11/29/16 - Consulted pulmonary medicine: Bronchoscopy completed 11/29 with mucus plugging noted - Cont IV solumedrol 60 mg Q12 - Inhaled mucomist Q4H demetrice and Q2H prn, duonebs Q2H prn for shortness of breath and wheeze - Check 2 view CXR - Continuous O2 sats for now to titrate O2 for 88-92% with hx of COPD - PT/OT consults HTN Parosysmal Afib - Continue metoprolol tartrate 25 mg BID - Pt is not on anticoagulation Hyperlipidemia - Pt does not want to take statin, he uses MSM (sulfer derivative) as an outpt DVT ppx: teds, scds, heparin sq CODE STATUS: FULL CODE
[2016-11-29] MEDS ORDERED: CEFEPIME IV 1,000 MG in DEXTROSE 5% 100ML 100 ML IV SCH (14:30)
--- NOTE | 2016-11-29 14:46 | DIAGNOSTIC IMAGING REPORT ---
CHEST ONE VIEW PORTABLE CLINICAL HISTORY: shortness of breath COMPARISON STUDY: 11/27/2016 FINDINGS: Underlying emphysema is suspected. The heart is normal in size. There is no failure. There is no lobar consolidation. There are no significant pleural effusions.[ IMPRESSION: No active disease in the chest. Electronically signed by: Mac Rodriguez M.D. 11/29/2016 2:44 PM Dictated Date/Time: 11/29/2016 2:44 PM
--- NOTE | 2016-11-29 16:57 | Pulmonology Progress Note ---
Pulmonary Progress Note Date of Service Nov 29, 2016. Attending Dr. Mtz Subjective Patient does note improvement but continues to have dyspnea on exertion greater than baseline. Objective Patient was sitting in bed able to complete full sentences showing no signs of acute respiratory insufficiency or failure at this time. Vital signs: Reviewed serologies liters nasal cannula respiratory: Bilateral rhonchi right greater than left Cardiac: S1 and S2 distant heart sounds I'm unable to auscultate for murmurs rubs or gallops abdomen: Positive bowel sounds soft nontender Skin: No tissue breakdown appreciated Assessment & Plan 81-year-old gentleman with severe bronchiectatic flare: #1 Bronchiectasis: At this time the patient notes continued dyspnea on exertion so initiate vest physiotherapy as well as flutter valve and dornase. Suggest we keep the current level steroids and then switch to oral steroids tomorrow the patient is doing well. We'll continue current antibiotic therapy and follow up on bronchoscopic microbiology as final results are pending. Data Medications: Current Inpatient Medications Medications (Trade) Dose Ordered Sig/Emmanuel Route Start Time Stop Time Status Last Admin Dose Admin Acetaminophen (Tylenol Tab) 650 mg Q4H PRN PO 11/27/16 14:00 12/27/16 13:59 Magnesium Hydroxide (Milk Of Magnesia Susp) 30 ml Q6H PRN PO 11/27/16 14:00 12/27/16 13:59 Polyethylene (Miralax Powder Packet) 17 gm DAILY PRN PO 11/27/16 14:00 12/27/16 13:59 Ondansetron HCl (Zofran Inj) 4 mg Q6H PRN IV 11/27/16 14:00 12/27/16 13:59 Albuterol/ Ipratropium (Duoneb) 3 ml Q2H PRN INH 11/27/16 14:30 12/27/16 14:29 11/28/16 07:35 3 ML Metoprolol Succinate (Toprol Xl Tab) 25 mg QPM PO 11/27/16 21:00 12/27/16 20:59 11/29/16 12:28 25 MG Oxycodone/ Acetaminophen (Percocet 5-325mg Tab) `1-2 tabs for pain 1 tab ... Q4H PRN PO 11/27/16 15:00 12/11/16 14:59 Pantoprazole Sodium (Protonix Tab) 40 mg DAILY PO 11/28/16 08:00 12/28/16 07:59 11/29/16 07:31 40 MG Heparin Sodium (Porcine) (Heparin Sq 5000 Unit/0.5ml) 5,000 unit Q8 SQ 11/27/16 22:00 12/27/16 21:59 11/29/16 13:20 5,000 UNIT Albuterol/ Ipratropium (Duoneb) 3 ml Q4R INH 11/28/16 16:00 12/28/16 15:59 11/29/16 15:33 3 ML Nystatin 5 ml 5 ml QID PO 11/28/16 17:00 12/06/16 16:59 11/29/16 16:49 5 ML Methylprednisolone Sodium Succinate 60 mg/Syringe 0.96 ml @ 1.5 mls/min Q12H IV 11/29/16 18:00 12/29/16 17:59 Cefepime HCl/ Dextrose (Maxipime IV/D5 100ml) 111.3 ml @ 200 mls/hr DAILY@1400 IV 11/29/16 14:30 12/06/16 13:59 11/29/16 15:58 200 MLS/HR Dornase Berto (Pulmozyme Inhalation Soln 2.5ml Amp) 2.5 ml BIDR INH 11/29/16 20:00 12/29/16 19:59 I & O: 24-Hour Column 11/29/16 08:00 Intake Total 200 ml Balance 200 ml Vital Signs: Date Time Temp Pulse Resp B/P Pulse Ox O2 Delivery O2 Flow Rate FiO2 11/29/16 15:34 85 18 91 Nasal Cannula 2.0 11/29/16 11:42 70 18 93 Nasal Cannula 2.0 11/29/16 11:10 36.8 73 18 122/65 93 2.0 11/29/16 08:00 Nasal Cannula 2.0 11/29/16 07:57 36.3 63 18 116/59 94 2.0 11/29/16 07:32 50 18 96 Nasal Cannula 2.0 11/29/16 04:16 36.6 87 20 107/50 96 Nasal Cannula 2.0 11/29/16 03:42 36.5 77 19 120/61 93 Nasal Cannula 2.0 11/29/16 03:15 74 20 94 Nasal Cannula 2.0 11/29/16 01:38 Nasal Cannula 2.0 11/29/16 00:09 36.7 20 119/58 93 Nasal Cannula 2.0 11/28/16 23:30 76 20 94 Nasal Cannula 2.0 11/28/16 19:35 72 20 94 Nasal Cannula 2.0 11/28/16 19:19 36.7 63 22 113/63 94 Nasal Cannula 2.0 Laboratory Results: Last 24 Hours Test 11/29/16 05:39 White Blood Count 12.15 K/uL Red Blood Count 4.18 M/uL Hemoglobin 12.8 g/dL Hematocrit 37.6 % Mean Corpuscular Volume 90.0 fL Mean Corpuscular Hemoglobin 30.6 pg Mean Corpuscular Hemoglobin Concent 34.0 g/dl Platelet Count 217 K/uL Mean Platelet Volume 9.7 fL Neutrophils (%) (Auto) 89.1 % Lymphocytes (%) (Auto) 6.1 % Monocytes (%) (Auto) 4.6 % Eosinophils (%) (Auto) 0.0 % Basophils (%) (Auto) 0.0 % Neutrophils # (Auto) 10.82 K/uL Lymphocytes # (Auto) 0.74 K/uL Monocytes # (Auto) 0.56 K/uL Eosinophils # (Auto) 0.00 K/uL Basophils # (Auto) 0.00 K/uL RDW Standard Deviation 48.5 fL RDW Coefficient of Variation 14.8 % Immature Granulocyte % (Auto) 0.2 % Immature Granulocyte # (Auto) 0.03 K/uL Sodium Level 143 mmol/L Potassium Level 4.3 mmol/L Chloride Level 109 mmol/L Carbon Dioxide Level 28 mmol/L Anion Gap 6.0 mmol/L Blood Urea Nitrogen 24 mg/dl Creatinine 1.20 mg/dl Est Creatinine Clear Calc Drug Dose 57.6 ml/min Estimated GFR () 65.8 Estimated GFR (Non- 56.8 BUN/Creatinine Ratio 19.8 Random Glucose 205 mg/dl Calcium Level 8.6 mg/dl Magnesium Level 2.5 mg/dl
[2016-11-29] MEDS: DORNASE ALFA (2500U) 2.5MG/2.5ML INH SCH (20:40)
[2016-11-30] VITALS (11 sets, daily range): BP systolic 110–149; BP diastolic 62–74; PULSE 63–99; TEMP 36.4–37.1; O2SAT 90–97
[2016-11-30] MEDS: ALBUT/IPRATROP 3MG/0.5MG NEB 3 ML VIAL INH SCH ×6 (03:15→23:24)
[2016-11-30] MEDS: HEPARIN SOD 5000 UNIT/0.5 ML CARP SQ SCH ×3 (06:18→21:44)
[2016-11-30] MEDS: METHYLPREDNISOLONE IV 60 MG in SYRINGE 0 ML IV SCH ×2 (06:22→18:19)
[2016-11-30 06:50] LABS: COMPLETE YES; HEMATOCRIT 36.5 % (42-52); IG% 0.2 %; LYMPH % 9.1 %; LYMPH ABS # 1.11 K/uL (1.2-3.4); MEAN CELL VOLUME 89.7 fL (80-100); MEAN CORPUSCULAR HEMOGLOBIN 30.2 pg (25-34); MEAN CORPUSCULAR HGB CONC 33.7 g/dl (32-36); MEAN PLATELET VOLUME 9.7 fL (7.4-10.4); MONO % 7.9 %; NEUT % 82.8 %; PLATELET COUNT 213 K/uL (130-400); RED BLOOD COUNT 4.07 M/uL (4.7-6.1); WHITE BLOOD COUNT 12.14 K/uL (4.8-10.8)
[2016-11-30 07:00] LABS: BUN/CREATININE RATIO 20.6 (10-20); CALCIUM 8.5 mg/dl (8.5-10.1); CREATININE 1.1 mg/dl (0.60-1.40); POTASSIUM 3.9 mmol/L (3.5-5.1)
[2016-11-30] MEDS: DORNASE ALFA (2500U) 2.5MG/2.5ML INH SCH ×2 (07:46→19:14)
[2016-11-30] MEDS: NYSTATIN SUSP 500,000 U/5 ML UDC PO SCH ×4 (07:54→21:42)
[2016-11-30] MEDS: PANTOprazole SOD 40 MG TAB PO SCH (07:54)
--- NOTE | 2016-11-30 11:50 | Clinical Documentation Query ---
IVAN Garcia : CLINICAL DOCUMENTATION QUERY H&P documentation included "acute on chronic respiratory failure failing outpt treatment of bronchitis". Documentation subsequent to this has been reduced to "shortness of breath". Noted treatments include antibiotics, pulmonary consultation, bronchoscopy, IV Solumedrol, nebulizers, O2, chest radiography. As clinically appropriate and for purposes of clinical documentation integrity, consider reintroduction of the following documentation so as to prevent clinical assistant professor uncertainty as to the significance of the following diagnoses. Thank you. In your clinical opinion is this patient being managed for: ( X ) Acute and chronic respiratory failure, unspecified whether with hypoxia or hypercapnia ( ) Other explanation of clinical findings (Please Explain) ( ) Unable to determine (Please Define) ( ) Need to Discuss ( ) Not Agree The medical record reflects the following clinical findings, treatment, and risk factors. Clinical Indicators: As above Treatment: Noted treatments include antibiotics, pulmonary consultation, bronchoscopy, IV Solumedrol, nebulizers, O2, chest radiography Risk Factors: COPD, NSCLC, bronchiectasis Please clarify and document your clinical opinion in the progress notes and discharge summary. Terms such as "probable", "suspected", "likely", "questionable", "possible", or "still to be ruled out" are acceptable. IF IN AGREEMENT, YOU MUST DOCUMENT ABOVE DIAGNOSTIC STATEMENT IN DAILY PROGRESS NOTES AND DISCHARGE SUMMARY. This document is not part of the patient's record. Thank You, Pranav Mcghee, RN [phone]
[2016-11-30] MEDS: CEFEPIME IV 2000 MG in DEXTROSE 5% 100ML IV SCH ×2 (13:46→21:42)
--- NOTE | 2016-11-30 14:11 | Progress Note ---
Subjective Date of Service: Nov 30, 2016. Subjective Pt evaluation today including: conversation w/ patient, physical exam, chart review, lab review, review of studies, review of inpatient medication list Pt reports slight improvement with wheezing and shortness of breath Cough noted No fevers or chills No acute events overnight Review of Systems Constitutional: No chills, No fever Respiratory: + cough, + dyspnea on exertion, + shortness of breath, No sputum, No wheezing Cardiac: No chest pain, No orthopnea Abdomen: No diarrhea, No nausea, No pain, No vomiting Musculoskeletal: No joint pain, No muscle pain Male : No dysuria, No urinary frequency Skin: No itch, No rash Objective Vital Signs Date Time Temp Pulse Resp B/P Pulse Ox O2 Delivery O2 Flow Rate FiO2 11/30/16 11:46 63 18 97 Nasal Cannula 2.0 11/30/16 11:04 Nasal Cannula 2.0 11/30/16 08:00 Nasal Cannula 2.0 11/30/16 07:57 36.4 63 16 132/71 94 Nasal Cannula 2.0 11/30/16 07:46 99 18 94 Nasal Cannula 2.0 11/30/16 05:30 37.1 78 18 136/74 94 Nasal Cannula 2.0 11/30/16 03:15 78 18 94 Nasal Cannula 2.0 11/30/16 00:25 Nasal Cannula 2.0 11/29/16 23:57 36.9 82 20 143/66 93 Nasal Cannula 2.0 11/29/16 23:15 73 18 91 Nasal Cannula 2.0 11/29/16 19:30 37.0 69 18 113/65 96 Nasal Cannula 2.0 11/29/16 19:15 70 18 95 Nasal Cannula 2.0 11/29/16 16:00 93 Nasal Cannula 2.0 11/29/16 15:34 85 18 91 Nasal Cannula 2.0 Physical Exam General Appearance: WD/WN, no apparent distress Neck: supple, no adenopathy Respiratory/Chest: + decreased breath sounds, + wheezing Cardiovascular: no edema, no gallop Abdomen: non tender, soft Neurologic/Psychiatric: alert, oriented x 3 Laboratory Results Last 24 Hours Test 11/30/16 05:57 White Blood Count 12.14 K/uL Red Blood Count 4.07 M/uL Hemoglobin 12.3 g/dL Hematocrit 36.5 % Mean Corpuscular Volume 89.7 fL Mean Corpuscular Hemoglobin 30.2 pg Mean Corpuscular Hemoglobin Concent 33.7 g/dl Platelet Count 213 K/uL Mean Platelet Volume 9.7 fL Neutrophils (%) (Auto) 82.8 % Lymphocytes (%) (Auto) 9.1 % Monocytes (%) (Auto) 7.9 % Eosinophils (%) (Auto) 0.0 % Basophils (%) (Auto) 0.0 % Neutrophils # (Auto) 10.05 K/uL Lymphocytes # (Auto) 1.11 K/uL Monocytes # (Auto) 0.96 K/uL Eosinophils # (Auto) 0.00 K/uL Basophils # (Auto) 0.00 K/uL RDW Standard Deviation 49.2 fL RDW Coefficient of Variation 15.1 % Immature Granulocyte % (Auto) 0.2 % Immature Granulocyte # (Auto) 0.02 K/uL Sodium Level 144 mmol/L Potassium Level 3.9 mmol/L Chloride Level 108 mmol/L Carbon Dioxide Level 28 mmol/L Anion Gap 8.0 mmol/L Blood Urea Nitrogen 23 mg/dl Creatinine 1.10 mg/dl Est Creatinine Clear Calc Drug Dose 60.4 ml/min Estimated GFR () 73.1 Estimated GFR (Non- 63.1 BUN/Creatinine Ratio 20.6 Random Glucose 133 mg/dl Calcium Level 8.5 mg/dl Assessment and Plan This is a 81 yo M with PMHx of HTN, hyperlipidemia, parosysmal afib, COPD, hx of NSCLC of the RUL s/p resection, significant smoking hx of 2ppd x 60 yrs, quit at age 76, bronchiectasis, and acute bronchitis. Pt was seen in office by Macie John this morning for an acute visit for increased shortness of breath and documented hypoxia at pulm clinic Acute and chronic respiratory failure, unspecified whether with hypoxia or hypercapnia Hx COPD Previous tobacco use with 60pack yr smoking history Hx NSCLC in February 2016 s/p RUL resection - Admitted to med/surg - Pt just completed 10 day course of levaquin and prednisone about 2 weeks ago. - Cont cefepime 2 gm IV q 8hrs - Consulted pulmonary medicine: Bronchoscopy completed 11/29 with mucus plugging noted - Cont IV solumedrol 60 mg Q12, added dornase and chest physiotherapy - Inhaled mucomist Q4H demetrice and Q2H prn, duonebs Q2H prn for shortness of breath and wheeze - Check 2 view CXR - Continuous O2 sats for now to titrate O2 for 88-92% with hx of COPD - PT/OT consults HTN Parosysmal Afib - Continue metoprolol tartrate 25 mg BID - Pt is not on anticoagulation Hyperlipidemia - Pt does not want to take statin, he uses MSM (sulfer derivative) as an outpt DVT ppx: teds, scds, heparin sq CODE STATUS: FULL CODE
--- NOTE | 2016-11-30 14:32 | Pulmonology Progress Note ---
Pulmonary Progress Note Date of Service Nov 30, 2016. Attending Dr. Mtz Subjective Patient still notes he is having SOB and dyspnea on exertion with difficulty clearing his mucous secretions Objective Patient was sitting in bed able to complete full sentences showing no signs of acute respiratory insufficiency or failure at this time. Vital signs: Reviewed serologies liters nasal cannula respiratory: Bilateral rhonchi right greater than left Cardiac: S1 and S2 distant heart sounds I'm unable to auscultate for murmurs rubs or gallops abdomen: Positive bowel sounds soft nontender Skin: No tissue breakdown appreciated Assessment & Plan 81-year-old gentleman with severe bronchiectatic flare: #1 Bronchiectasis: Patient still notes dyspnea and associated difficult clear her mucous secretions. We'll continue dornase and pulmonary toilet at this time continue to monitor the next 24 hours. Data Medications: Current Inpatient Medications Medications (Trade) Dose Ordered Sig/Emmanuel Route Start Time Stop Time Status Last Admin Dose Admin Acetaminophen (Tylenol Tab) 650 mg Q4H PRN PO 11/27/16 14:00 12/27/16 13:59 Magnesium Hydroxide (Milk Of Magnesia Susp) 30 ml Q6H PRN PO 11/27/16 14:00 12/27/16 13:59 Polyethylene (Miralax Powder Packet) 17 gm DAILY PRN PO 11/27/16 14:00 12/27/16 13:59 11/29/16 23:40 17 GM Ondansetron HCl (Zofran Inj) 4 mg Q6H PRN IV 11/27/16 14:00 12/27/16 13:59 Albuterol/ Ipratropium (Duoneb) 3 ml Q2H PRN INH 11/27/16 14:30 12/27/16 14:29 11/28/16 07:35 3 ML Metoprolol Succinate (Toprol Xl Tab) 25 mg QPM PO 11/27/16 21:00 12/27/16 20:59 11/29/16 12:28 25 MG Oxycodone/ Acetaminophen (Percocet 5-325mg Tab) `1-2 tabs for pain 1 tab ... Q4H PRN PO 11/27/16 15:00 12/11/16 14:59 Pantoprazole Sodium (Protonix Tab) 40 mg DAILY PO 11/28/16 08:00 12/28/16 07:59 11/30/16 07:54 40 MG Heparin Sodium (Porcine) (Heparin Sq 5000 Unit/0.5ml) 5,000 unit Q8 SQ 11/27/16 22:00 12/27/16 21:59 11/30/16 13:52 5,000 UNIT Albuterol/ Ipratropium (Duoneb) 3 ml Q4R INH 11/28/16 16:00 12/28/16 15:59 11/30/16 11:46 3 ML Nystatin 5 ml 5 ml QID PO 11/28/16 17:00 12/06/16 16:59 11/30/16 12:04 5 ML Methylprednisolone Sodium Succinate/ Syringe (Solu-Medrol IV/ Syringe) 0.96 ml @ 1.5 mls/min Q12H IV 11/29/16 18:00 12/29/16 17:59 11/30/16 06:22 1.5 MLS/MIN Dornase Berto 2.5 ml 2.5 ml BIDR INH 11/29/16 20:00 12/29/16 19:59 11/30/16 07:46 2.5 ML Cefepime HCl/ Dextrose (Maxipime IV/D5 100ml) 112.5 ml @ 225 mls/hr Q8@0600,1400,2200 IV 11/30/16 14:00 12/06/16 13:59 11/30/16 13:46 225 MLS/HR Vital Signs: Date Time Temp Pulse Resp B/P Pulse Ox O2 Delivery O2 Flow Rate FiO2 11/30/16 11:46 63 18 97 Nasal Cannula 2.0 11/30/16 11:04 Nasal Cannula 2.0 11/30/16 08:00 Nasal Cannula 2.0 11/30/16 07:57 36.4 63 16 132/71 94 Nasal Cannula 2.0 11/30/16 07:46 99 18 94 Nasal Cannula 2.0 11/30/16 05:30 37.1 78 18 136/74 94 Nasal Cannula 2.0 11/30/16 03:15 78 18 94 Nasal Cannula 2.0 11/30/16 00:25 Nasal Cannula 2.0 11/29/16 23:57 36.9 82 20 143/66 93 Nasal Cannula 2.0 11/29/16 23:15 73 18 91 Nasal Cannula 2.0 11/29/16 19:30 37.0 69 18 113/65 96 Nasal Cannula 2.0 11/29/16 19:15 70 18 95 Nasal Cannula 2.0 11/29/16 16:00 93 Nasal Cannula 2.0 11/29/16 15:34 85 18 91 Nasal Cannula 2.0 Laboratory Results: Last 24 Hours Test 11/30/16 05:57 White Blood Count 12.14 K/uL Red Blood Count 4.07 M/uL Hemoglobin 12.3 g/dL Hematocrit 36.5 % Mean Corpuscular Volume 89.7 fL Mean Corpuscular Hemoglobin 30.2 pg Mean Corpuscular Hemoglobin Concent 33.7 g/dl Platelet Count 213 K/uL Mean Platelet Volume 9.7 fL Neutrophils (%) (Auto) 82.8 % Lymphocytes (%) (Auto) 9.1 % Monocytes (%) (Auto) 7.9 % Eosinophils (%) (Auto) 0.0 % Basophils (%) (Auto) 0.0 % Neutrophils # (Auto) 10.05 K/uL Lymphocytes # (Auto) 1.11 K/uL Monocytes # (Auto) 0.96 K/uL Eosinophils # (Auto) 0.00 K/uL Basophils # (Auto) 0.00 K/uL RDW Standard Deviation 49.2 fL RDW Coefficient of Variation 15.1 % Immature Granulocyte % (Auto) 0.2 % Immature Granulocyte # (Auto) 0.02 K/uL Sodium Level 144 mmol/L Potassium Level 3.9 mmol/L Chloride Level 108 mmol/L Carbon Dioxide Level 28 mmol/L Anion Gap 8.0 mmol/L Blood Urea Nitrogen 23 mg/dl Creatinine 1.10 mg/dl Est Creatinine Clear Calc Drug Dose 60.4 ml/min Estimated GFR () 73.1 Estimated GFR (Non- 63.1 BUN/Creatinine Ratio 20.6 Random Glucose 133 mg/dl Calcium Level 8.5 mg/dl
[2016-11-30] MEDS: METOPROLOL SUCC 25MG EXT REL TAB PO SCH (21:42)
[2016-12-01] VITALS (15 sets, daily range): BP systolic 95–144; BP diastolic 47–80; PULSE 59–87; TEMP 36.5–36.9; O2SAT 87–96
[2016-12-01] MEDS: ALBUT/IPRATROP 3MG/0.5MG NEB 3 ML VIAL INH SCH ×6 (03:15→23:41)
[2016-12-01] MEDS: CEFEPIME IV 2000 MG in DEXTROSE 5% 100ML IV SCH ×3 (06:35→22:09)
[2016-12-01] MEDS: METHYLPREDNISOLONE IV 60 MG in SYRINGE 0 ML IV SCH ×2 (06:35→17:06)
[2016-12-01] MEDS: HEPARIN SOD 5000 UNIT/0.5 ML CARP SQ SCH ×3 (06:36→20:21)
[2016-12-01] MEDS: DORNASE ALFA (2500U) 2.5MG/2.5ML INH SCH ×2 (07:01→19:11)
[2016-12-01] MEDS: PANTOprazole SOD 40 MG TAB PO SCH (08:24)
[2016-12-01] MEDS: NYSTATIN SUSP 500,000 U/5 ML UDC PO SCH ×4 (08:24→20:10)
--- NOTE | 2016-12-01 12:43 | Progress Note ---
Subjective Date of Service: Dec 01, 2016. Subjective Pt evaluation today including: conversation w/ patient, physical exam, chart review, lab review, review of studies, review of inpatient medication list Reports breathing slightly better Cough still present States congestion No other concerns addressed Review of Systems Constitutional: No chills, No fever Respiratory: + cough, + dyspnea on exertion, + shortness of breath, + sputum, No wheezing Cardiac: No chest pain, No orthopnea Abdomen: No diarrhea, No nausea, No pain, No vomiting Musculoskeletal: No joint pain, No muscle pain Male : No dysuria, No urinary frequency Objective Vital Signs Date Time Temp Pulse Resp B/P Pulse Ox O2 Delivery O2 Flow Rate FiO2 12/01/16 11:41 86 20 91 Room Air 12/01/16 11:40 36.6 71 18 122/65 93 Nasal Cannula 2.0 12/01/16 08:00 93 Nasal Cannula 2.0 12/01/16 07:57 36.5 59 18 144/66 12/01/16 07:01 67 20 87 Room Air 12/01/16 03:15 75 18 95 Nasal Cannula 2.0 12/01/16 01:15 36.5 76 20 138/80 91 Room Air 12/01/16 00:00 95 Nasal Cannula 2.0 11/30/16 23:24 85 18 90 Nasal Cannula 2.0 11/30/16 20:06 36.8 65 20 110/62 94 Nasal Cannula 2.0 11/30/16 19:14 71 18 96 Nasal Cannula 2.0 11/30/16 16:00 92 Nasal Cannula 2.0 11/30/16 15:44 36.5 71 20 149/67 92 Nasal Cannula 2.0 11/30/16 15:41 71 18 93 Nasal Cannula 2.0 Physical Exam General Appearance: WD/WN, no apparent distress Neck: supple, no adenopathy Respiratory/Chest: normal breath sounds, + decreased breath sounds Cardiovascular: no edema, no gallop Abdomen: non tender, soft Neurologic/Psychiatric: alert, oriented x 3 Assessment and Plan This is a 81 yo M with PMHx of HTN, hyperlipidemia, parosysmal afib, COPD, hx of NSCLC of the RUL s/p resection, significant smoking hx of 2ppd x 60 yrs, quit at age 76, bronchiectasis, and acute bronchitis. Pt was seen in office by Macie John this morning for an acute visit for increased shortness of breath and documented hypoxia at pulm clinic Acute and chronic respiratory failure, unspecified whether with hypoxia or hypercapnia Hx COPD Previous tobacco use with 60pack yr smoking history Hx NSCLC in February 2016 s/p RUL resection - Admitted to med/surg - Pt just completed 10 day course of levaquin and prednisone about 2 weeks ago. - Cont cefepime 2 gm IV q 8hrs - Consulted pulmonary medicine: Bronchoscopy completed 11/29 with mucus plugging noted - Cont IV solumedrol 60 mg Q12, added dornase and chest physiotherapy - Inhaled mucomist Q4H demetrice and Q2H prn, duonebs Q2H prn for shortness of breath and wheeze - Check 2 view CXR - Continuous O2 sats for now to titrate O2 for 88-92% with hx of COPD - PT/OT consults HTN Parosysmal Afib - Continue metoprolol tartrate 25 mg BID - Pt is not on anticoagulation Hyperlipidemia - Pt does not want to take statin, he uses MSM (sulfer derivative) as an outpt DVT ppx: teds, scds, heparin sq CODE STATUS: FULL CODE
--- NOTE | 2016-12-01 14:17 | PROGRESS NOTE ---
DATE: 12/01/2016 DATE: 12/01/2016. PROBLEM LIST: Includes: 1. Bronchiectasis. 2. Dyspnea. SUBJECTIVE: The patient reports that he is doing pretty well. He states he is getting up and walking several times a day. He states that he does get pretty tired fairly easily. He still is coughing, still feels congested and feels like there is some mucus down in. He states he does feel better after this bronchoscopy compared to last one. Denies any other concerns or problems. No painful respirations. No chest pain in general. No chest heaviness or tightness. No abdominal pain. No nausea or vomiting. Bowels are moving fairly well. OBJECTIVE: GENERAL: The patient is an 81-year-old male lying in bed in no acute distress. He is alert and oriented x3. Mood is good. Affect is good. VITAL SIGNS: Temp 36.6, pulse 71, respiration 18, blood pressure is 122/65, pulse ox 93% on 2 liters. HEAD, EYES, EARS, NOSE, AND THROAT: Normocephalic, atraumatic. Pupils equal, round and reactive to light and accommodation. Extraocular movements are intact. [place] moist gingival and buccal mucosa. NECK: Supple. No mass. No adenopathy. No bruit. CHEST: Diminished breath sounds bilaterally. He does have a few rhonchi and the lower airway rate is a little bit more noticeable on the left. CARDIOVASCULAR: Regular rate and rhythm. No murmurs, gallops or rubs appreciated. ABDOMEN: Bowel sounds present in all 4 quadrants. Soft, nontender. No guarding, rigidity or organomegaly. EXTREMITIES: No erythema. No edema. No cyanosis or clubbing noted. NEUROLOGIC: Cranial nerves II through XII are intact. No focal deficits noted. The bronch washings at this point are unremarkable. No new imaging data. IMPRESSION: This is an 81-year-old man with known history of bronchiectasis. At this time, he is status post bronchoscopy with multiple mucus plugs removed and lavaged out. The patient is doing much better. Did discuss with the patient about going home. He still is very hesitant. After discussing further his main fear is just that it is going to happen again because this happened so quickly. I did explain to him that we did get the mucus plugs out and that we are working on getting him a vibration vest for home to use. I told him I felt he should be safe to be discharged to home tomorrow from a pulmonary standpoint and that would mean that he would have Sunday and then Sunday I am in the office over in [place] and he can contact the office if he has any difficulty. The patient seemed amenable to this and this will be a plan moving forward at this time. I would like to see the patient in the office for followup within the next week or two. We will work on a vibration vest as an outpatient. He is to continue the rest of his medications as they are. I would recommend a slow prednisone taper on discharge starting at 40 mg and tapering by 5 mg every 2 days. Case reviewed and plan agreed with. TANJA
[2016-12-01] MEDS: METOPROLOL SUCC 25MG EXT REL TAB PO SCH (20:20)
[2016-12-02] VITALS (8 sets, daily range): BP systolic 125–136; BP diastolic 64–74; PULSE 58–84; TEMP 36.2–37; O2SAT 90–94
[2016-12-02] MEDS: ALBUT/IPRATROP 3MG/0.5MG NEB 3 ML VIAL INH SCH ×4 (03:34→14:12)
[2016-12-02] MEDS: CEFEPIME IV 2000 MG in DEXTROSE 5% 100ML IV SCH ×2 (05:50→14:00)
[2016-12-02] MEDS: METHYLPREDNISOLONE IV 60 MG in SYRINGE 0 ML IV SCH (05:51)
[2016-12-02] MEDS: HEPARIN SOD 5000 UNIT/0.5 ML CARP SQ SCH ×2 (06:00→14:00)
[2016-12-02] MEDS: DORNASE ALFA (2500U) 2.5MG/2.5ML INH SCH (07:54)
[2016-12-02] MEDS: PANTOprazole SOD 40 MG TAB PO SCH (08:05)
[2016-12-02] MEDS: NYSTATIN SUSP 500,000 U/5 ML UDC PO SCH ×2 (08:05→13:51)
[2016-12-02] MEDS ORDERED: PRED20TA PO (12:54)
[2016-12-02] MEDS ORDERED: NYSS5 PO (12:54)
[2016-12-02] MEDS ORDERED: PLMIH INH (12:54)
--- NOTE | 2016-12-02 12:55 | Discharge Instructions ---
Discharge Instructions Date of Service Dec 02, 2016. Admission Reason for Admission: Hypoxia, Copd Exacerbation Discharge Discharge Diagnosis / Problem: Bronchitis, COPD exacerbation Discharge Goals Goal(s): Decrease discomfort, Improve function, Increase independence, Improve disease control, Learn about illness, Diagnostic testing, Therapeutic intervention Activity Recommendations Activity Limitations: resume your previous activity Exercise/Sports Limitations: none . Instructions / Follow-Up Instructions / Follow-Up Patient to be discharged home Does not require oxygen Prescription sent to pharmacy for dornase inhaler, take as directed Please also fill prednisone taper and take as directed Please follow up with Jamal ALCOCER as scheduled Current Hospital Diet Patient's current hospital diet: Regular Diet Discharge Diet Recommended Diet: Regular Diet Pending Studies Studies pending at discharge: no Medical Emergencies . Who to Call and When: Medical Emergencies: If at any time you feel your situation is an emergency, please call 911 immediately. . Non-Emergent Contact Non-Emergency issues call your: Primary Care Provider Call Non-Emergent contact if: you have a fever, your pain is worsening . . "Provider Documentation" section prepared by Shade Bhardwaj. VTE Core Measure Inpt VTE Proph given/why not?: Unfractionated heparin SQ, T.E.D. Stockings, SCD 's
--- NOTE | 2016-12-02 13:26 | Discharge Summary ---
Discharge Summary Date of Service Dec 02, 2016. Discharge Summary Admission Date: Nov 27, 2016 at 13:16 Discharge Date: Dec 02, 2016 Discharge Disposition: Home Principal Diagnosis: Bronchitis, COPD exacerbation Immunizations: Have You Had Influenza Vaccine: No History of Tetanus Vaccine?: Yes History of Pneumococcal: Yes History of Hepatitis B Vaccine: No Consultations: Pulmonary Medication Reconciliation New Medications: Prednisone (Prednisone) 20 Mg Tab 0 PO DAILY for 15 Days, #30 TAB 3 TABS DAILY FOR 5 DAYS, THEN 2 TABS DAILY FOR 5 DAYS, THEN 1 TAB DAILY FOR 5 DAYS. Dornase Berto (Pulmozyme) 2.5 Ml Inha 2.5 ML INH BIDR, #1 INHA Nystatin (Nystatin) 5 Ml Susp 5 ML PO QID for 7 Days, #1 BTL Continued Medications: Albuterol Sulfate (Proair Respiclick) 108 Mcg/Act Aer 8.5 GM INH Q4 Formoterol Fumarate (Foradil Aerolizer) 12 Mcg Cap 1 DOSE INH HS Ipratropium-Albuterol (Duoneb) 3 Ml Nebu 1 TREATMENT INH Q6H for SOB/Wheezing, INHA Metoprolol Succ (Toprol Xl) (Toprol-Xl) 25 Mg Tabcr 25 MG PO QPM, #30 TAB Oxycodone/Acetaminophen 5MG/325MG (Roxicet 5MG/325MG) 1 Tab Tab 1-2 TAB PO Q4H PRN for Pain, #36 TAB Pantoprazole (Pantoprazole Sodium) 40 Mg Tab 40 MG PO DAILY for 30 Days, #30 0 Refills NS Tiotropium [place]-Olodaterol (Stiolto Respimat 2.5-2.5 Mcg/Act) 1 Aer Aer 4 GM INH DAILY [Hic With Pepsin] () 325 MG PO TIDM [Magnesium] () 1200 MG PO BID [Msm] () 300 MG PO BID [Potassium] () 300 MG PO BID [Zinc Picolinate] () 44 MG PO BID Discharge Exam Review of Systems: Constitutional: No chills, No fever ENT: No hearing loss, No unusual epistaxis Respiratory: + cough, + dyspnea on exertion, No sputum Cardiovascular: No chest pain, No orthopnea Abdomen: No nausea, No pain, No vomiting Musculoskeletal: No joint pain Genitourinary - Male: No dysuria, No hematuria Physical Exam: General Appearance: WD/WN, no apparent distress Neck: supple, no adenopathy Respiratory/Chest: chest non-tender, + wheezing Abdomen / GI: non tender, soft Neurologic/Psychiatric: alert, oriented x 3 Hospital Course This is a 81 yo M with PMHx of HTN, hyperlipidemia, parosysmal afib, COPD, hx of NSCLC of the RUL s/p resection, significant smoking hx of 2ppd x 60 yrs, quit at age 76, bronchiectasis, and acute bronchitis. Pt was seen in office by Macie John this morning for an acute visit for increased shortness of breath and documented hypoxia at pulm clinic Acute and chronic respiratory failure, unspecified whether with hypoxia or hypercapnia Hx COPD Previous tobacco use with 60pack yr smoking history Hx NSCLC in February 2016 s/p RUL resection - Admitted to med/surg - Pt just completed 10 day course of levaquin and prednisone about 2 weeks ago. - Initiated on cefepime 2 gm IV q 8hrs during hospital course - Consulted pulmonary medicine: Bronchoscopy completed 11/29 with mucus plugging noted - Cont IV solumedrol 60 mg Q12, added dornase and chest physiotherapy and pred taper on discharge - Inhaled mucomist Q4H demetrice and Q2H prn, duonebs Q2H prn for shortness of breath and wheeze - Continuous O2 sats for now to titrate O2 for 88-92% with hx of COPD, does not qualify for O2 HTN Parosysmal Afib - Continue metoprolol tartrate 25 mg BID - Pt is not on anticoagulation Hyperlipidemia - Pt does not want to take statin, he uses MSM (sulfer derivative) as an outpt DVT ppx: teds, scds, heparin sq CODE STATUS: FULL CODE Total Time Spent: Greater than 30 minutes This includes examination of the patient, discharge planning, medication reconciliation, and communication with other providers. Discharge Instructions Please refer to the electronic Patient Visit Report (Discharge Instructions) for additional information. Additional Copies To Macie John M.D.
[2017-01-06] MEDS ORDERED: PLMIH INH (14:56)
[2017-01-06] MEDS ORDERED: PRED-301 PO (14:56)
[2017-01-06] MEDS ORDERED: PRT40 PO (14:56)
[2017-01-06] MEDS ORDERED: SPRIN PO (14:56)
[2017-01-06] MEDS ORDERED: LVQ500 PO (14:56)
[2017-01-06] MEDS ORDERED: XPNINS1255 INH (14:56)
[2017-01-06] MEDS ORDERED: DSY50 PO (14:56)
[2017-01-06] MEDS ORDERED: ATRINS INH (14:56)
[2017-04-20] MEDS ORDERED: DORN1SOL NEB (11:19)
[2017-04-20] MEDS ORDERED: MULT-513 PO (11:19)
[2017-04-20] MEDS ORDERED: PRFINS NEB (11:19)
== END 2016-12-02 17:10 | disposition home or self-care (01) | DRG 189 ==
LOC: C.4E 13:16
PROVIDERS: ADMIT Internal Medicine; ATTEND Hospitalist
PROC: 0B968ZX Drainage of Right Lower Lobe Bronchus, Via Natural or Artificial Opening Endoscopic, Diagnostic (ICD-10-PCS; principal; 2016-11-28)
DX: J96.20 Acute and chronic respiratory failure, unspecified whether with hypoxia or hypercapnia (principal); C34.90 Malignant neoplasm of unspecified part of unspecified bronchus or lung; J44.1 Chronic obstructive pulmonary disease with (acute) exacerbation; J44.0 Chronic obstructive pulmonary disease with (acute) lower respiratory infection; B37.0 Candidal stomatitis; E03.9 Hypothyroidism, unspecified; E78.5 Hyperlipidemia, unspecified; I10 Essential (primary) hypertension; I48.0 Paroxysmal atrial fibrillation; J40 Bronchitis, not specified as acute or chronic; Z87.891 Personal history of nicotine dependence; Z79.899 Other long term (current) drug therapy; Z79.891 Long term (current) use of opiate analgesic

== ENCOUNTER 2017-01-01 14:28 | Inpatient (IN) | payer OTHER ==
[~2017-01-01] VITALS: Ht 177.8 cm; Wt 94.2 kg
[~2017-01-01 14:28] MED LIST changes: +NYSS5 PO; +PLMIH INH
[2017-01-01] MEDS ORDERED: METHYLPREDNISOLONE 125 MG VIAL IV STA (15:05)
[2017-01-01] MEDS ORDERED: ALBUTEROL 0.083% NEBU SOLN 3 ML VIAL INH STA (15:05)
[2017-01-01] MEDS ORDERED: TAMS0.4C38 PO (15:23)
[2017-01-01] MEDS ORDERED: TPRSR/50 PO (15:23)
[2017-01-01] MEDS ORDERED: VNTHFA/IN INH (15:23)
--- NOTE | 2017-01-01 15:31 | DIAGNOSTIC IMAGING REPORT ---
CHEST ONE VIEW PORTABLE HISTORY: Atypical Chest Pain COMPARISON: Chest 11/29/2016. FINDINGS: No pneumothorax. No pleural effusions. The heart remains stable in size. No new focal lung consolidations to suggest pneumonia. No evidence for pulmonary edema. Stable bilateral hilar prominence. Suture material at the right hilum. Punctate calcific granuloma within the right upper lobe persists. Stable volume loss within the right hemithorax due to the postoperative changes. Stable scarlike densities at the right lung base. Old, healed left-sided rib fractures. IMPRESSION: No significant change compared to the prior study. No acute process. Electronically signed by: Jose Bernard M.D. 01/01/2017 3:30 PM Dictated Date/Time: 01/01/2017 3:28 PM
[2017-01-01 15:50] LABS: BASO % 0.6 %; BASO ABS # 0.04 K/uL (0-0.2); COMPLETE YES; EOS % 5.5 %; HEMATOCRIT 42.7 % (42-52); IG% 0.3 %; LYMPH % 29.8 %; LYMPH ABS # 1.84 K/uL (1.2-3.4); MEAN CELL VOLUME 90.7 fL (80-100); MEAN CORPUSCULAR HEMOGLOBIN 29.1 pg (25-34); MEAN CORPUSCULAR HGB CONC 32.1 g/dl (32-36); MEAN PLATELET VOLUME 9.2 fL (7.4-10.4); NEUT % 50.8 %; PLATELET COUNT 243 K/uL (130-400); RED BLOOD COUNT 4.71 M/uL (4.7-6.1); WHITE BLOOD COUNT 6.17 K/uL (4.8-10.8)
[2017-01-01 16:07] LABS: BLOOD UREA NITROGEN 17 mg/dl (7-18); CARBON DIOXIDE 25 mmol/L (21-32); CHLORIDE 108 mmol/L (98-107); GLUCOSE 91 mg/dl (70-99); SODIUM 143 mmol/L (136-145)
[2017-01-01] MEDS ORDERED: LEVAQUIN 750MG / 150ML D5W IV STA (17:19)
--- NOTE | 2017-01-01 18:40 | Medical Student: [facility] ---
Med Student History & Physical Date & Time of Service: January 01, 2017 at 18:14 Chief Complaint: Copd Phlem Primary Care Physician: Maxwell Lai History of Present Illness Source: patient Mr. Leandro Staples is an 81 y/o male who presented to the ED this afternoon with persistent shortness of breath. This episode of shortness of breath began this morning upon awakening, and has not improved throughout the day. He used his pneumatic vest, which provided temporary relief, but the shortness of breath persisted after 1.5 hours of use and despite use of multiple inhalers and nebulizers. He notes thick, yellow sputum with his cough, and two quarter-sized plugs which he was able to expectorate while wearing the vest. He complains of persistent fatigue, and persistent, worsening shortness of breath. An episode of shortness of breath like this last occurred about one month ago on November 28, which required bronchoscopy. He was then started on Pulmozyme for two weeks, which helped considerably but was stopped due to cost. Episodes like this have occurred approximately monthly since last February, when he had a right upper lobectomy for a stage T1b carcinoma. Past Medical/Surgical History 1. 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 2. COPD, chronic 3. Pleural effusion, resolved 4. Bronchiectasis, persistent Social History Smoking Status: Former Smoker Drug Use: none Marital Status: Housing status: lives with significant other Occupational Status: retired Immunizations History of Influenza Vaccine: No History of Tetanus Vaccine?: Yes History of Pneumococcal: Yes History of Hepatitis B Vaccine: No Allergies Coded Allergies: Latex1 -Allergic Contact Dermititis (Verified Allergy, Mild, RASH, 02/03/16) Iodinated Diagnostic Agents (Verified Allergy, Unknown, GI UPSET, 02/24/16) NO KNOWN DRUG ALLERGIES (Unverified Allergy, Unknown, NONE, 02/03/16) Medications Albuterol Hfa (Ventolin Hfa), 2-4 PUFFS INH Q6H Ipratropium-Albuterol (Duoneb), 1 TREATMENT INH Q6H Metoprolol Succinate (Metoprolol Succinate ER), 50 MG PO DAILY Tamsulosin Hcl (Flomax), 0.4 MG PO BID Review of Systems Constitutional: + fatigue (persistent, unchanged), No chills, No fever, No sweats, No weakness, No weight loss Eyes: No problem reported ENT: + sore throat (dry) Respiratory: + cough, + dyspnea at rest, + dyspnea on exertion, + shortness of breath (worsening), + sputum (thick, yellow, two quarter-sized plugs), + wheezing (worsening), No hemoptysis Cardiovascular: No PND, No chest pain, No claudication, No edema, No orthopnea , No palpitations, No problem reported Abdomen: No problem reported Musculoskeletal: No problem reported Neurologic: No balance problems, No memory loss, No paralysis, No weakness Physical Exam Vital Signs (24 Hours) Date Time Temp Pulse Resp B/P Pulse Ox O2 Delivery O2 Flow Rate FiO2 01/01/17 17:21 95 Nasal Cannula 3.0 01/01/17 17:17 68 22 115/90 92 Room Air 01/01/17 16:15 73 01/01/17 16:14 90 Room Air Partial Rebreather 01/01/17 14:43 36.9 78 22 136/66 90 Room Air General Appearance: WD/WN, + moderate distress, + obese Head: normocephalic, atraumatic Eyes: normal inspection, PERRL, EOMI, sclerae normal ENT: hearing grossly normal, + pertinent finding (possible thrush in oropharynx ) Neck: supple, no adenopathy, trachea midline Respiratory/Chest: chest non-tender, + respiratory distress, + accessory muscle use, + stridor, + wheezing Cardiovascular: regular rate, rhythm, no edema, no gallop, no JVD, normal peripheral pulses Abdomen/GI: non tender, soft Extremities/Musculoskelatal: normal inspection Neurologic/Psych: no motor/sensory deficits, alert, normal mood/affect, oriented x 3 Skin: + cyanosis (of hands bilaterally) Diagnostics Laboratory Results Results Past 24 Hours Test 01/01/17 15:20 Range/Units White Blood Count 6.17 4.8-10.8 K/uL Red Blood Count 4.71 4.7-6.1 M/uL Hemoglobin 13.7 14.0-18.0 g/dL Hematocrit 42.7 42-52 % Mean Corpuscular Volume 90.7 80-100 fL Mean Corpuscular Hemoglobin 29.1 25-34 pg Mean Corpuscular Hemoglobin Concent 32.1 32-36 g/dl Platelet Count 243 130-400 K/uL Mean Platelet Volume 9.2 7.4-10.4 fL Neutrophils (%) (Auto) 50.8 % Lymphocytes (%) (Auto) 29.8 % Monocytes (%) (Auto) 13.0 % Eosinophils (%) (Auto) 5.5 % Basophils (%) (Auto) 0.6 % Neutrophils # (Auto) 3.13 1.4-6.5 K/uL Lymphocytes # (Auto) 1.84 1.2-3.4 K/uL Monocytes # (Auto) 0.80 0.11-0.59 K/uL Eosinophils # (Auto) 0.34 0-0.5 K/uL Basophils # (Auto) 0.04 0-0.2 K/uL RDW Standard Deviation 50.0 36.4-46.3 fL RDW Coefficient of Variation 15.0 11.5-14.5 % Immature Granulocyte % (Auto) 0.3 % Immature Granulocyte # (Auto) 0.02 0.00-0.02 K/uL Sodium Level 143 136-145 mmol/L Potassium Level 4.0 3.5-5.1 mmol/L Chloride Level 108 98-107 mmol/L Carbon Dioxide Level 25 21-32 mmol/L Anion Gap 10.0 3-11 mmol/L Blood Urea Nitrogen 17 7-18 mg/dl Creatinine 1.10 0.60-1.40 mg/dl Est Creatinine Clear Calc Drug Dose 61.7 ml/min Estimated GFR () 73.1 Estimated GFR (Non- 63.1 BUN/Creatinine Ratio 15.0 10-20 Random Glucose 91 70-99 mg/dl Calcium Level 9.0 8.5-10.1 mg/dl Troponin I < 0.015 0-0.045 ng/ml Diagnostic Radiology CXR consistent with surgical changes, no changes from previous. No evidence of pleural effusion, pneumonia, no obvious plugs seen on CXR. EKG NSR w/ incomplete RBBB, no PVCs when compared to previous ECG Impression Assessment and Plan Mr. Staples is an 81 y/o male with an acute exacerbation of chronic COPD. DDX includes: Mucus plug, pleural effusion, bronchitis, pneumonia, recurrent neoplasm, Assessment and plan are as follows: 1. Shortness of breath: Likely due to mucus plug and COPD exacerbation. Will consult pulm for bronchoscopy eval. Will continue pulmonary rehab with vest. Continue with albuterol nebulizers q 4 hours and solumedrol drip. Continue mucinex and perforomist. Consider starting Dornase (Pulmozyme). Continue on 3L O2 via nc, gradually wean off O2 as breathing improves. Will continue to follow vitals. 2. Mild anemia: Hgb mildly low at 13.7. Will watch and wait at this time. 3. DVT Prophylaxis: Continue heparin nebulizer as per home regimen. SCDs encouraged. 4. Disposition: Admit to telemetry. Monitor breathing and vitals. Level of Care Telemetry DVT Prophylaxis SCDs, other (already taking nebulized heparin)
[2017-01-01] MEDS ORDERED: LEVOFLOXACIN 250 MG TAB PO STA (18:50)
[2017-01-01] MEDS ORDERED: ALUMINUM/MAGNESIUM/SIMETH (MAALOX MAX) 30 ML UDC PO PRN (19:00)
[2017-01-01] MEDS ORDERED: MAGNESIUM HYDROXIDE SUSP 30 ML UDC PO PRN (19:00)
[2017-01-01] MEDS ORDERED: ONDANSETRON INJ 2 MG/ML 2 ML VIAL IV PRN (19:00)
[2017-01-01] MEDS ORDERED: POLYETHYLENE (MIRALAX) 17 GM PACK PO PRN (19:00)
[2017-01-01] MEDS ORDERED: ZOLPIDEM TARTRATE 5 MG TAB PO PRN (19:00)
[2017-01-01] MEDS ORDERED: ACETAMINOPHEN 325 MG TAB PO PRN (19:00)
--- NOTE | 2017-01-01 19:06 | Progress Note ---
Progress Note Date of Service January 01, 2017. Progress Note copd exac [id number]
[2017-01-01 19:29] LABS: PARTIAL THROMBOPLASTIN RATIO 1.1; PROTHROMBIN TIME (PATIENT) 10.9 SECONDS (9.0-12.0)
[2017-01-01 19:41] VITALS: BP 115/90; PULSE 68; TEMP 36.9; O2SAT 95; Ht 177.8 cm; Wt 94.2 kg
[2017-01-01 20:29] VITALS: BP 189/89; PULSE 75; O2SAT 95
--- NOTE | 2017-01-01 20:39 | HISTORY & PHYSICAL EXAMINATION ---
DATE OF ADMISSION: 01/01/2017 This is level 3 inpatient admission, 35 minutes. CHIEF COMPLAINT: Worsening shortness of breath. HISTORY OF PRESENT ILLNESS: The patient is an 81-year-old white male with a significant past medical history of COPD, right lower lung cancer status post lobectomy. History of pleural effusion, sent to the hospital Emergency Room from the manager balance's office. The patient reported he has worsening shortness of breath, also associated with increased sputum production. The sputum was sick and yellow. Associated with some sore throat. Denied fever or chills. Denied chest pain, palpitations. Denied nausea, vomiting, abdominal pain, diarrhea, or constipation. Denied dysuria, urgency and frequencies. The patient usually not needs oxygen at home. When he arrived into the Emergency Room, oxygen pulse ox was 90% in room air, was found to have wheezing and mild labored breathing. ED physician give Solu-Medrol IV and nebulizer treatment. When I interviewed with the patient, he feel much better. He reported shortness of breath is a little bit better. Confirmed me the above information. Denied fever or chills. Denied nausea, vomiting, abdominal pain, or diarrhea. Denied facial droop, slurry speeches or local weakness. Denied chest pain. Denied dysuria, urgency and frequencies, otherwise 14-point organ system review was negative. PAST MEDICAL HISTORY: Include: 1. Hypoxia. 2. COPD. 3. Pleural effusion. 4. Right lower lung cancer status post lobectomy. FAMILY HISTORY: Include cancer, heart disease and lung disease. SOCIAL HISTORY: Remote history of smoking. . Denied alcohol abuse disorder, denied illicit drug abuse. MEDICATIONS: Taking at home include ProAir inhaler q. 4 hour, Pulmozyme 2.5 mg inhaler b.i.d., formoterol one dose inhaler at bedtime, DuoNeb q. 6 hour, metoprolol succinate 25 mg p.o. q.p.m., nystatin 5 mg p.o. q.i.d., Protonix 40 mg p.o. daily, tiotropium inhaler daily, magnesium, potassium and zinc. As needed medications include: Oxycodone/acetaminophen 5/325 one to two tab p.o. q. 4 hours p.r.n. for the pain. ALLERGIES: ALLERGIC TO LATEX, IODINATED DIAGNOSTIC AGENTS. PHYSICAL EXAMINATION: VITAL SIGNS: Temperature is 36.9, pulse 78, respiration rate 22, blood pressure 136/66, pulse ox was 90% in room air. GENERAL: The patient is awake, alert, and orientated, sitting in the bed, in no acute distress. HEAD: Normocephalic. EYES: Pupils equal, round responds to light. EARS: Ear was normal. NOSE: Normal. NECK: Supple. Thyroid no enlargement. Trachea midline. LUNGS: Bilateral lungs have diffused wheezing. No crackles. HEART: Regular rhythm, has no murmur, S1, S2, has no arrhythmia. ABDOMEN: Soft, nontender. Bowel sound was positive. No mass. No rebounds. CVA was nontender. SKIN: Has no rashes. EXTREMITIES: Upper extremities, grossly normal. Lower extremities, no edema. Calf was nontender. NEUROLOGIC: Cranial nerves II-XII was intact. There were no local deficits. LABORATORY STUDIES: WBC 6, hemoglobin 13, platelets 243. Sodium 143, potassium 4, BUN 17, creatinine 1.1. Troponin less than 0.015. IMAGING DATA: Chest x-ray has no acute changes. ASSESSMENT AND PLAN: An 81-year-old white male with the problem list below: 1. Worsening shortness of breath with history of chronic obstructive pulmonary disease. 2. History of lung cancer. 3. Hypertension. 4. Benign prostatic hypertrophy. The patient was sent to the hospital from pulmonology office, possible has COPD exacerbation or mucous plugging in the bronchus. There was no evidence of pneumonia. We will admit to the hospital for COPD exacerbations. Give antibiotics, DuoNeb, and Solu-Medrol. We will keep him in the med/surg floor. We will have pulmonology consultation. At the same time, we will continue home medications for the BPH and hypertension. GI and DVT prophylaxis is covered. The patient is full code. MTDD
[2017-01-01] MEDS: ALBUT/IPRATROP 3MG/0.5MG NEB 3 ML VIAL INH SCH (20:40)
[2017-01-01] MEDS ORDERED: NURSING VERBAL MED ORDER ONE ×2 (21:00→21:15)
--- NOTE | 2017-01-01 21:01 | EMERGENCY ROOM VISIT NOTE ---
History Report prepared by Adalberto: Cheyanne Vogel Under the Supervision of: Dr. Jose Luis Santiago D.O. First contact with patient: 14:55 Chief Complaint: RESPIRATORY PROBLEMS Stated Complaint: COPD PHLEM History of Present Illness The patient is an 81 year old male who presents to the Emergency Room with complaints of worsening SOB starting this morning. He has a history of COPD. This morning he woke up and could hardly breathe. He has increased sputum production which is too thick to cough up. The sputum that he did cough up was yellow. His reports sore throat, but notes that it feels dry. He denies any fever, nausea, vomiting, diarrhea, chest pain, or dysuria. He has had some weight gain from taking prednisone 2-3 weeks ago. He is not on oxygen at home. He denies any history of blood clots. Source of History: patient Onset: this morning Position: other (respiratory) Quality: other (SOB) Timing: worsening Associated Symptoms: + cough, + sorethroat, No chest pain, No diarrhea, No fevers, No nausea, No urinary symptoms, No vomiting Note: Pt reports thick yellow sputum. Review of Systems See HPI for pertinent positives & negatives. A total of 10 systems reviewed and were otherwise negative. Past Medical & Surgical Medical Problems: (1) copd exac (2) Heart disease (3) Hypoxia (4) Mass of right lung (5) Pleural effusion (6) Primary cancer of right upper lobe of lung (7) Shortness of breath Family History Diabetes mellitus FH: cancer FH: heart disease FH: lung disease Social History Smoking Status: Former Smoker Drug Use: none Marital Status: Housing Status: lives with significant other Occupation Status: retired Current/Historical Medications Scheduled Albuterol Hfa (Ventolin Hfa), 2-4 PUFFS INH Q6H Ipratropium-Albuterol (Duoneb), 1 TREATMENT INH Q6H Metoprolol Succinate (Metoprolol Succinate ER), 50 MG PO DAILY Tamsulosin Hcl (Flomax), 0.4 MG PO BID Allergies Coded Allergies: Latex1 -Allergic Contact Dermititis (Verified Allergy, Mild, RASH, 02/03/16) Iodinated Diagnostic Agents (Verified Allergy, Unknown, GI UPSET, 02/24/16) NO KNOWN DRUG ALLERGIES (Unverified Allergy, Unknown, NONE, 02/03/16) Physical Exam Vital Signs Date Time Temp Pulse Resp B/P Pulse Ox O2 Delivery O2 Flow Rate FiO2 01/01/17 17:21 95 Nasal Cannula 3.0 01/01/17 17:17 68 22 115/90 92 Room Air 01/01/17 16:15 73 01/01/17 16:14 90 Room Air Partial Rebreather 01/01/17 14:43 36.9 78 22 136/66 90 Room Air Physical Exam GENERAL: sitting up in bed, in no acute distress, nontoxic EYE EXAM: normal conjunctiva OROPHARYNX: no exudate, no erythema, lips, buccal mucosa, and tongue normal and mucous membranes are moist NECK: supple, no nuchal rigidity, no adenopathy, non-tender, no JVD LUNGS: Diffuse wheezes bilaterally. Normal chest wall mechanics HEART: no murmurs, S1 normal and S2 normal ABDOMEN: abdomen soft, non-tender, normo-active bowel sounds, no masses, no rebound or guarding. BACK: Back is symmetrical on inspection and there is no deformity, no midline tenderness, no CVA tenderness. SKIN: no rashes and no bruising UPPER EXTREMITIES: upper extremities are grossly normal. LOWER EXTREMITIES: No pitting edema. Calves equal bilaterally. NEURO EXAM: Normal sensorium, cranial nerves II-XII grossly intact, normal speech, no gross weakness of arms, no gross weakness of legs. Medical Decision & Procedures ER Provider Diagnostic Interpretation: Xray results as stated below per my and the radiologist's interpretation: CHEST ONE VIEW PORTABLE HISTORY: Atypical Chest Pain COMPARISON: Chest 11/29/2016. FINDINGS: No pneumothorax. No pleural effusions. The heart remains stable in size. No new focal lung consolidations to suggest pneumonia. No evidence for pulmonary edema. Stable bilateral hilar prominence. Suture material at the right hilum. Punctate calcific granuloma within the right upper lobe persists. Stable volume loss within the right hemithorax due to the postoperative changes. Stable scarlike densities at the right lung base. Old, healed left-sided rib fractures. IMPRESSION: No significant change compared to the prior study. No acute process. Electronically signed by: Jose Bernard M.D. 01/01/2017 3:30 PM Dictated Date/Time: 01/01/2017 3:28 PM Laboratory Results 01/01/17 15:20 Red Blood Count 4.71, Mean Corpuscular Volume 90.7, Mean Corpuscular Hemoglobin 29.1, Mean Corpuscular Hemoglobin Concent 32.1, Mean Platelet Volume 9.2, Neutrophils (%) (Auto) 50.8, Lymphocytes (%) (Auto) 29.8, Monocytes (%) (Auto) 13.0, Eosinophils (%) (Auto) 5.5, Basophils (%) (Auto) 0.6, Neutrophils # (Auto ) 3.13, Lymphocytes # (Auto) 1.84, Monocytes # (Auto) 0.80, Eosinophils # (Auto ) 0.34, Basophils # (Auto) 0.04 01/01/17 15:20 Test 01/01/17 15:20 White Blood Count 6.17 K/uL (4.8-10.8) Red Blood Count 4.71 M/uL (4.7-6.1) Hemoglobin 13.7 g/dL (14.0-18.0) Hematocrit 42.7 % (42-52) Mean Corpuscular Volume 90.7 fL (80-100) Mean Corpuscular Hemoglobin 29.1 pg (25-34) Mean Corpuscular Hemoglobin Concent 32.1 g/dl (32-36) Platelet Count 243 K/uL (130-400) Mean Platelet Volume 9.2 fL (7.4-10.4) Neutrophils (%) (Auto) 50.8 % Lymphocytes (%) (Auto) 29.8 % Monocytes (%) (Auto) 13.0 % Eosinophils (%) (Auto) 5.5 % Basophils (%) (Auto) 0.6 % Neutrophils # (Auto) 3.13 K/uL (1.4-6.5) Lymphocytes # (Auto) 1.84 K/uL (1.2-3.4) Monocytes # (Auto) 0.80 K/uL (0.11-0.59) Eosinophils # (Auto) 0.34 K/uL (0-0.5) Basophils # (Auto) 0.04 K/uL (0-0.2) RDW Standard Deviation 50.0 fL (36.4-46.3) RDW Coefficient of Variation 15.0 % (11.5-14.5) Immature Granulocyte % (Auto) 0.3 % Immature Granulocyte # (Auto) 0.02 K/uL (0.00-0.02) Prothrombin Time 10.9 SECONDS (9.0-12.0) Prothromb Time International Ratio 1.0 (0.9-1.1) Activated Partial Thromboplast Time 29.8 SECONDS (21.0-31.0) Partial Thromboplastin Ratio 1.1 Anion Gap 10.0 mmol/L (3-11) Est Creatinine Clear Calc Drug Dose 61.7 ml/min Estimated GFR () 73.1 Estimated GFR (Non- 63.1 BUN/Creatinine Ratio 15.0 (10-20) Calcium Level 9.0 mg/dl (8.5-10.1) Troponin I < 0.015 ng/ml (0-0.045) Laboratory results per my review. Medications Administered Medications (Trade) Dose Ordered Sig/Emmanuel Route Start Time Stop Time Status Last Admin Dose Admin Methylprednisolone Sodium Succinate (Solu-Medrol IV) 125 mg NOW STAT IV 01/01/17 15:05 01/01/17 15:07 DC 01/01/17 15:59 125 MG Albuterol Sulfate (Ventolin 0.083% 2.5MG/3ML Neb) 5 mg NOW STAT INH 01/01/17 15:05 01/01/17 15:07 DC 01/01/17 16:00 5 MG Levofloxacin (Levaquin / D5W) 750 mg NOW STAT IV 01/01/17 17:19 01/01/17 17:21 DC 01/01/17 18:36 750 MG ECG Indication: SOB/dyspnea Rate (beats per minute): 67 Rhythm: sinus rhythm Findings: RBBB (incomplete), other (normal axis, poor baseline in lateral leads ) ED Course ED COURSE: Vital signs were reviewed and showed hypoxia. The patients medical record was reviewed The above diagnostic studies were performed and reviewed. ED treatments and interventions as stated above. 1458: The patient was evaluated in room B3B. A complete history and physical examination was performed. 1505: Albuterol Sulfate 5 mg INH, Solu-Medrol IV 125 mg IV. 1713: I discussed the patient's case with [place]. [place] [facility] [place]. He recommends admission and a possible bronchoscopy. 1719: Levofloxacin 750 mg IV. 1720: Upon reevaluation, the patient is resting comfortably.I discussed my findings with the patient and he understands and agrees with the treatment plan. Based on the patients age, coexisting illnesses, exam and lab findings the decision to treat as an inpatient was made. The patient remained stable while under my care. The patient will be evaluated for further management. 1724: I reviewed the patient's case with SYDNEY Bernardo - hospitalist. He will evaluate the patient for further management. Medical Decision Differential diagnoses includes but is not limited to pneumonia, bronchitis, COPD/Asthma exacerbation, pneumothorax, pulmonary embolism, congestive heart failure, acute coronary syndrome Patient is in 81-year-old male who presents the ER for shortness of breath referred in by Dr. Mtz's office. Patient has a history of cancer and COPD. On exam he has diffuse wheezing notes his shortness of breath has been worse. Chest x-ray shows no acute pathology. CBC along with BMP and troponin were negative. INR was negative. EKG was unremarkable. Pulse ox was 90% on room air. Patient was given 3 neb treatments along with steroids and Levaquin. Discussed the case with Dr. Mtz who recommended admission and possible bronchoscopy. Consults Time Called: 1705 Consulting Physician: SYDNEY Wall - pulmonology Returned Call: [phone] I discussed the patient's case with him. He recommends admission and a possible bronchoscopy. Additional Consults: Time Called: 1715 Consulted Physician: SYDNEY Bernardo - hospitalist Returned Call: [phone] Additional Comments: I reviewed the patient's case with him. He will evaluate the patient for further management. Impression Primary Impression: COPD exacerbation Additional Impression: Shortness of breath Scribe Attestation The scribe's documentation has been prepared under my direction and personally reviewed by me in its entirety. I confirm that the note above accurately reflects all work, treatment, procedures, and medical decision making performed by me. Departure Information Dispostion Being Evaluated By Hospitalist Referrals No Doctor, Assigned (PCP) Patient Instructions My [facility] Problem Qualifiers
[2017-01-01] MEDS ORDERED: DORNASE ALFA (2500U) 2.5MG/2.5ML INH ONE (21:24)
[2017-01-01 21:30] VITALS: PULSE 77; O2SAT 91
[2017-01-01 21:48] VITALS: PULSE 82; O2SAT 92
[2017-01-01 22:02] VITALS: BP 133/73; PULSE 76; O2SAT 94
[2017-01-01] MEDS: TAMSULOSIN HCL 0.4 MG CAP PO SCH (22:05)
[2017-01-01] MEDS: HEPARIN SOD 5000 UNIT/0.5 ML CARP SQ SCH (22:07)
[2017-01-01 23:32] VITALS: BP 122/67; PULSE 72; TEMP 36.4; O2SAT 96
[2017-01-01] MEDS: METHYLPREDNISOLONE IV 80 MG in SYRINGE 0 ML IV SCH (23:37)
[2017-01-02] VITALS (7 sets, daily range): BP systolic 128–142; BP diastolic 71–81; PULSE 75–86; TEMP 36.2–36.6; O2SAT 90–95
[2017-01-02] MEDS: DORNASE ALFA (2500U) 2.5MG/2.5ML INH SCH ×2 (06:49→19:35)
[2017-01-02] MEDS: ALBUT/IPRATROP 3MG/0.5MG NEB 3 ML VIAL INH SCH ×4 (06:49→19:35)
[2017-01-02] MEDS: MAGNESIUM MALATE PO SCH ×2 (07:43→21:48)
[2017-01-02] MEDS: METHYLPREDNISOLONE IV 80 MG in SYRINGE 0 ML IV SCH (07:43)
[2017-01-02] MEDS: POTASSIUM 99 MG PO SCH ×2 (07:44→21:48)
[2017-01-02] MEDS: [UNRECOGNIZED DRUG - OTHER] PO SCH ×2 (07:44→21:00)
[2017-01-02] MEDS: TAMSULOSIN HCL 0.4 MG CAP PO SCH ×2 (07:47→21:45)
[2017-01-02] MEDS: METOPROLOL SUCC 50MG EXT REL TAB PO SCH (07:48)
[2017-01-02] MEDS: HEPARIN SOD 5000 UNIT/0.5 ML CARP SQ SCH (07:52)
[2017-01-02] MEDS ORDERED: PANTOprazole SOD 40 MG TAB PO ONE (13:00)
--- NOTE | 2017-01-02 13:07 | CONSULTATION REPORT ---
DATE OF CONSULTATION: 01/02/2017 REASON FOR CONSULTATION: Hypoxia in an 81-year-old male with history of COPD as well as right lower lobe lung CA. 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 The patient was last admitted to [facility] on 11/27/2016. During that hospitalization, the patient did undergo bronchoscopic evaluation with significant thick mucus plugs bilaterally in the lower lobe lavaged. Micro from those washings did show a yeast which was not Mesha albicans. Given the patient's recurrent mucus plugging and thick secretions, he was discharged on Pulmozyme to use in the outpatient setting. It was also planned for the patient to have vibration vest. The patient reports today that he was on the Pulmozyme at home for about 2 weeks and then it ran out, he did not have any more. He states that within about 24-48 hours of stopping the Pulmozyme, he could tell a significant difference in his breathing. He states that he had increased mucus secretions, he had increased cough, increased chest congestion, the mucus that he did cough up was much thicker, there was a yellow coloration to it, there was no blood in the mucus. He did have increased wheezing and shortness of breath as well. He had no fever or chills associated with this. He did have a sore throat but he feels that that was from the coughing. He states that he feels that the cough was precipitated by not having the Pulmozyme. He had no sick contacts that he was aware of and he felt in his normal state of health otherwise. The patient reports that he, again, had no fever or chills. He had no headache or lightheadedness. He had no chest pain or palpitations. He had no GI symptoms. No nausea or vomiting. No indigestion or heartburn. He had no difficulty swallowing. He does have a history of aspiration and is very cognizant of that and does take precautions. He has not had any weight loss that he is aware of. He states that his bowels are moving well. He is voiding well. He states that he does have a little bit of swelling in his legs which is normal for him. He has no numbness, tingling or weakness in his extremities. In 02/2016, the patient was found to have an enlarging mass in the right upper lobe. The patient did undergo a right thoracoscopy with wedge resection of this right upper lobe mass which then transitioned to a thorascopic right upper lobectomy and mediastinal lymphadenectomy. This was done by Dr. Stockton. 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 Because of this, the patient did have lobectomy without difficulty. The patient has tolerated the procedure well; however, since that time, he does have this persistent cough and thick mucus which he is unable to expectorate. Because of this, he has had multiple bronchoscopies which all essentially revealed this thick mucus which has been unremarkable and that there has been no significant pathogen present. The patient reports no other concerns or problems at this time. The patient was admitted on 01/01/2017 where he came in through the Emergency Room. PAST MEDICAL HISTORY: Includes COPD, nonsmall cell lung CA right upper lobe with a right upper lobectomy in 02/2016, pleural effusion, hypoxia, hypertension, BPH, hypothyroidism, paroxysmal atrial fibrillation, bronchiectasis, significant mucus plugging, history of rib fracture. SURGICAL HISTORY: Includes right upper lobectomy in 02/2016, bilateral cataract surgery, appendectomy, colon resection, bronchoscopies in 2012 and 2016. FAMILY HISTORY: Includes cancer, heart disease, lung disease, diabetes mellitus. SOCIAL HISTORY: The patient is a former smoker, having smoked 2 packs a day for 55 years. The patient quit smoking approximately 4 years ago. Occasional alcohol use. No illicit drug use. 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 HOME MEDICATIONS: Include ProAir q. 4 hours as needed, formoterol at bedtime, DuoNeb q. 6 hours as needed, metoprolol 25 mg nightly, nystatin 5 mg q.i.d., Protonix 40 mg daily, Spiriva inhaler daily, and [id number] magnesium, potassium and zinc. The patient also has Percocet 5/325 to use as needed for pain. ALLERGIES: THE PATIENT IS ALLERGIC TO LATEX, IODINE. REVIEW OF SYSTEMS: As above, otherwise unremarkable. PHYSICAL EXAMINATION: GENERAL: The patient is an 81-year-old male sitting at bedside today when I went in, does not appear in any acute distress, does not appear in any respiratory distress, was able to have a conversation in complete sentences without becoming dyspneic. He is alert and oriented x3. Mood is good. Affect is good. VITAL SIGNS: Temp 36.4, pulse 75, respiration 18, blood pressure is 128/71, pulse ox 94% on 2 liters. I did speak with nursing who reported that they tried him on room air and he did drop down to 88%. HEENT: Normocephalic, atraumatic. Pupils equal, round and reactive to light and accommodation. Extraocular movements are intact. Doran moist gingival and buccal mucosa. NECK: Supple. No mass. No adenopathy. No bruit. CHEST: The patient does have some coarse wheezes in the bases bilaterally with fair air movement throughout. No appreciated rales or rhonchi at this time. CARDIOVASCULAR: Regular rate and rhythm. No murmurs, gallops or rubs. ABDOMEN: Bowel sounds are present. Abdomen is soft, nontender. There is no guarding, rigidity or organomegaly. EXTREMITIES: Trace edema bilaterally. No erythema. Nontender to palpation. NEUROLOGIC: Cranial nerves II-XII are intact. No focal deficits noted. LABORATORY DATA: Shows white count 6000, H\T\H 13.7 and 42.7, platelet count of 243,000. INR is 1.0. BUN 17, creatinine 1.1. Sputum culture is pending. Chest x-ray, residual volume loss secondary to surgical changes, no acute process noted. IMPRESSION: 1. 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 At this point, I think that the main issue is that the patient had reaccumulation of secretions following discontinuation of his Pulmozyme. The patient has restarted the Pulmozyme and is noticing significant improvement and his breathing is less dyspneic. He is able to expectorate the mucus at this time. Mucus has been sent for Gram stain as well as culture. The patient also seems to be doing well with his current regimen of medication. At this point, I would like for the patient to have a vibration vest as he does have one at home and I think this will help to get the mucus expectorated. 2. He is to continue his Pulmozyme and I think that the patient will need to have this as an outpatient. 3. Incentive spirometer. 4. Flutter valve. 5. Change his DuoNeb to q. 4 hours while awake. 6. He questions whether we need to repeat bronchoscopic evaluation to do a bronchoalveolar lavage to help remove the secretions. At this point, I would like to wait until tomorrow to see how he is doing. If there is no significant change tomorrow, then we can consider it. This was discussed with the patient, he is fine with this. We will continue to follow the patient during hospitalization.
[2017-01-02] MEDS: GUAIFENESIN 600 MG TABCR PO SCH ×2 (13:25→21:44)
--- NOTE | 2017-01-02 15:07 | Medical Student: [facility] ---
Med Student Progress Note Date of Service January 02, 2017. Subjective Pt evaluation today including: conversation w/ patient, physical exam, chart review, lab review, review of studies Pain: No pain reported PO Intake: Normal diet Voiding: no voiding problems No acute events overnight. Today the patient reports that his shortness of breath is still present but better than yesterday. He also reports decreased mucus expectoration with only one or two small gobs of mucus being coughed up since yesterday. He attributes this to the pulmozyme which he began on admission. He denies significant wheezing, and has not felt feverish or sweaty. He expressed interest in a bronchoscopy to relieve his mucus plugging, which he has had done twice in the recent past. Denies chest pain, but does report some indigestion. No other complaints. Review of Systems Constitutional: No chills, No fever, No weight loss Respiratory: + cough, + shortness of breath, + sputum, + wheezing Cardiac: No chest pain Abdomen: No nausea, No pain Objective Vital Signs Date Time Temp Pulse Resp B/P Pulse Ox O2 Delivery O2 Flow Rate FiO2 01/02/17 11:17 80 20 95 Nasal Cannula 2.0 01/02/17 08:00 Nasal Cannula 2.0 01/02/17 07:14 36.4 75 18 128/71 94 Nasal Cannula 2.0 01/02/17 06:49 80 20 94 Nasal Cannula 2.0 01/02/17 00:00 Nasal Cannula 2.0 01/01/17 23:32 36.4 72 18 122/67 96 Nasal Cannula 2.0 01/01/17 22:02 76 18 133/73 94 Nasal Cannula 2.0 01/01/17 21:48 82 20 92 Nasal Cannula 2.0 01/01/17 21:30 77 20 91 Nasal Cannula 2.0 01/01/17 20:29 75 22 189/89 95 Nasal Cannula 2.0 01/01/17 20:02 36.9 69 28 175/86 96 01/01/17 19:55 69 28 175/86 96 Nasal Cannula 3.0 01/01/17 19:41 36.9 68 22 115/90 95 Nasal Cannula 3.0 01/01/17 17:21 95 Nasal Cannula 3.0 01/01/17 17:17 68 22 115/90 92 Room Air 01/01/17 16:15 73 01/01/17 16:14 90 Room Air Partial Rebreather Physical Exam General Appearance: WD/WN, + mild distress ENT: hearing grossly normal, pharynx normal Neck: supple, no JVD Respiratory/Chest: chest non-tender, + respiratory distress (mild), + wheezing (minimal in left lower field), + pertinent finding (coarse upper airway noises) Cardiovascular: regular rate, rhythm, no edema, no gallop, no murmur Abdomen: non tender, soft Extremities: non-tender, no pedal edema Neurologic/Psychiatric: alert, oriented x 3 Skin: normal color, no rash Laboratory Results Last 24 Hours Test 01/01/17 15:20 White Blood Count 6.17 K/uL Red Blood Count 4.71 M/uL Hemoglobin 13.7 g/dL Hematocrit 42.7 % Mean Corpuscular Volume 90.7 fL Mean Corpuscular Hemoglobin 29.1 pg Mean Corpuscular Hemoglobin Concent 32.1 g/dl Platelet Count 243 K/uL Mean Platelet Volume 9.2 fL Neutrophils (%) (Auto) 50.8 % Lymphocytes (%) (Auto) 29.8 % Monocytes (%) (Auto) 13.0 % Eosinophils (%) (Auto) 5.5 % Basophils (%) (Auto) 0.6 % Neutrophils # (Auto) 3.13 K/uL Lymphocytes # (Auto) 1.84 K/uL Monocytes # (Auto) 0.80 K/uL Eosinophils # (Auto) 0.34 K/uL Basophils # (Auto) 0.04 K/uL RDW Standard Deviation 50.0 fL RDW Coefficient of Variation 15.0 % Immature Granulocyte % (Auto) 0.3 % Immature Granulocyte # (Auto) 0.02 K/uL Prothrombin Time 10.9 SECONDS Prothromb Time International Ratio 1.0 Activated Partial Thromboplast Time 29.8 SECONDS Partial Thromboplastin Ratio 1.1 Sodium Level 143 mmol/L Potassium Level 4.0 mmol/L Chloride Level 108 mmol/L Carbon Dioxide Level 25 mmol/L Anion Gap 10.0 mmol/L Blood Urea Nitrogen 17 mg/dl Creatinine 1.10 mg/dl Est Creatinine Clear Calc Drug Dose 61.7 ml/min Estimated GFR () 73.1 Estimated GFR (Non- 63.1 BUN/Creatinine Ratio 15.0 Random Glucose 91 mg/dl Calcium Level 9.0 mg/dl Troponin I < 0.015 ng/ml Medications Current Inpatient Medications Medications (Trade) Dose Ordered Sig/Emmanuel Route Start Time Stop Time Status Last Admin Dose Admin Acetaminophen (Tylenol Tab) 650 mg Q4H PRN PO 01/01/17 19:00 01/31/17 18:59 Al Hydrox/Mg Hydrox/Simethicone (Maalox Max Susp) 15 ml Q4H PRN PO 01/01/17 19:00 01/31/17 18:59 Magnesium Hydroxide (Milk Of Magnesia Susp) 30 ml Q6H PRN PO 01/01/17 19:00 01/31/17 18:59 Polyethylene (Miralax Powder Packet) 17 gm DAILY PRN PO 01/01/17 19:00 01/31/17 18:59 Ondansetron HCl (Zofran Inj) 4 mg Q6H PRN IV 01/01/17 19:00 01/31/17 18:59 Heparin Sodium (Porcine) (Heparin Sq 5000 Unit/0.5ml) 5,000 unit Q12 SQ 01/01/17 21:00 01/31/17 20:59 01/02/17 07:52 5,000 UNIT Metoprolol Succinate (Toprol Xl Tab) 50 mg DAILY PO 01/02/17 09:00 02/01/17 08:59 01/02/17 07:48 50 MG Tamsulosin HCl (Flomax Cap) 0.4 mg BID PO 01/01/17 21:00 01/31/17 20:59 01/02/17 07:47 0.4 MG Miscellaneous Information (Order Awaiting Action) 1 ea QS N/A 01/02/17 00:00 02/01/17 00:00 Non-Formulary Medication (Non-Formulary Patient'S Own Med) 1 ea BID PO 01/02/17 09:00 02/01/17 08:59 01/02/17 07:43 1 EA Non-Formulary Medication (Non-Formulary Patient'S Own Med) 1 ea BID PO 01/02/17 09:00 02/01/17 08:59 01/02/17 07:44 1 EA Non-Formulary Medication (Non-Formulary Patient'S Own Med) 1 ea BID PO 01/02/17 09:00 02/01/17 08:59 01/02/17 07:44 1 EA Dornase Berto (Pulmozyme Inhalation Soln 2.5ml Amp) 2.5 ml BIDR INH 01/02/17 08:00 02/01/17 07:59 01/02/17 06:49 2.5 ML Albuterol/ Ipratropium (Duoneb) 3 ml Q4RWA INH 01/02/17 12:00 02/01/17 11:59 01/02/17 11:17 3 ML Guaifenesin 1200 mg 1,200 mg Q12 PO 01/02/17 13:00 02/01/17 12:59 01/02/17 13:25 1,200 MG Methylprednisolone Sodium Succinate/ Syringe (Solu-Medrol IV/ Syringe) 0.96 ml @ 1.5 mls/min Q8H IV 01/02/17 16:00 02/01/17 15:59 Levofloxacin (Levaquin Tab) 500 mg DAILY@1800 PO 01/02/17 18:00 01/09/17 17:59 Trazodone HCl (Desyrel Tab) 25 mg HS PO 01/02/17 21:00 02/01/17 20:59 Pantoprazole Sodium (Protonix Tab) 40 mg QAM PO 01/03/17 09:00 02/02/17 08:59 Assessment and Plan Problems COPD exacerbation Assessment and Plan: This is an 81 yo male with a history of lung cancer (stage T1b adenocarcinoma) s /p right lower lobectomy, COPD, afib, and BPH, who presented with acute COPD exacerbation requiring inpatient treatment. 1. Acute COPD exacerbation: -Continue Duoneb inhaler q6hrs. -Decrease methylprednisolone from 80 mg q8 to 60 mg q8. -Initiate guaifenesin 400 mg PO q4h prn. -D/c IV levofloxacin and initiate levofloxacin 500 mg tab po daily. -Encourage incentive spirometry, as well as CPT. 2. Lung Cancer: -Current presentation is not consistent with recurrence of lung cancer. -Outpatient follow up for lung cancer monitoring is encouraged. 3. Atrial Fibrillation: -Continue metoprolol 50 mg po daily for rate control. 4. BPH: -Continue tamsulosin 0.4 mg po daily. Continued [facility] stay due to: multiple IV medications needed Discharge planning: home
[2017-01-02] MEDS: METHYLPREDNISOLONE IV 60 MG in SYRINGE 0 ML IV SCH ×2 (15:54→23:27)
[2017-01-02] MEDS: LEVOFLOXACIN 500 MG TAB PO SCH (17:38)
[2017-01-02] MEDS ORDERED: LEVOFLOXACIN / D5W 750 MG in PREMIXED IN D5W 150 ML IV SCH (18:00)
--- NOTE | 2017-01-02 21:24 | Progress Note ---
Subjective Date of Service: January 02, 2017. Subjective Pt evaluation today including: conversation w/ patient, physical exam, chart review, lab review, review of studies (cxr), review of inpatient medication list Pain: reflux PO Intake: normal Voiding: no voiding problems patient feels better today vs yesterday still coughing but "getting stuff up" denies hemoptysis less shortness of breath today denies any recent travel denies sick contacts denies sinus symptoms Problem List Medical Problems: (1) COPD exacerbation Status: Acute Review of Systems Constitutional: No fever Cardiac: No chest pain Abdomen: No pain Objective Vital Signs Date Time Temp Pulse Resp B/P Pulse Ox O2 Delivery O2 Flow Rate FiO2 01/02/17 19:35 86 20 95 Nasal Cannula 2.0 01/02/17 16:00 Nasal Cannula 2.0 01/02/17 15:50 36.2 82 20 142/71 90 Nasal Cannula 2.0 01/02/17 15:20 86 20 93 Nasal Cannula 2.0 01/02/17 11:17 80 20 95 Nasal Cannula 2.0 01/02/17 08:00 Nasal Cannula 2.0 01/02/17 07:14 36.4 75 18 128/71 94 Nasal Cannula 2.0 01/02/17 06:49 80 20 94 Nasal Cannula 2.0 01/02/17 00:00 Nasal Cannula 2.0 01/01/17 23:32 36.4 72 18 122/67 96 Nasal Cannula 2.0 01/01/17 22:02 76 18 133/73 94 Nasal Cannula 2.0 01/01/17 21:48 82 20 92 Nasal Cannula 2.0 01/01/17 21:30 77 20 91 Nasal Cannula 2.0 Physical Exam General Appearance: no apparent distress ENT: pharynx normal (no thrush) Neck: no JVD Respiratory/Chest: no respiratory distress, no accessory muscle use, + decreased breath sounds (expiratory phase and bases), + pertinent finding (fair airation, mild wheezing, no rales) Cardiovascular: regular rate, rhythm, no gallop, no murmur Abdomen: normal bowel sounds, non tender, soft, no organomegaly Extremities: + pedal edema (trace b/l) Neurologic/Psychiatric: alert, oriented x 3 Assessment and Plan 81yo male with: 1. COPD exacerbation - improved. Reduce steroids to 60mg q8h. Duonebs. Inhalers. Agree with pulmozyme and vibrating vest. Add mucinex. Sputum culture. Low threshold for CT chest in light of cancer history. No evidence of acute CHF or complicating pneumonia. Change levaquin to PO and reduce dose to 500mg; Rx for 7 days; day #2 today. Of note - most recent bronch cultures including AFB/fungal NEGATIVE 2. 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 3. HTN - controlled. 4. BPH - voiding fine; continue outpatient meds. 5. hypothyroidism - no TSH in our EMR. Check in AM. Cont same dose of synthroid in AM. 6. paroxysmal atrial fibrillation - in NSR. 7. DVT proph - heparin; but change dose to TID. 8. insomnia - add trazodone; start w/ 25mg HS. Continued [facility] stay due to: multiple IV medications needed Discharge planning: home
[2017-01-02] MEDS: TRAZODONE HCL 50 MG TAB PO SCH (21:45)
[2017-01-03] MEDS: HEPARIN SOD 5000 UNIT/0.5 ML CARP SQ SCH ×4 (05:00→21:17)
[2017-01-03 05:22] VITALS: PULSE 82; O2SAT 95
[2017-01-03] MEDS: ALBUT/IPRATROP 3MG/0.5MG NEB 3 ML VIAL INH SCH ×2 (05:22→07:34)
[2017-01-03 07:01] VITALS: BP 129/71; PULSE 74; TEMP 36.4; O2SAT 93
[2017-01-03] MEDS: TAMSULOSIN HCL 0.4 MG CAP PO SCH ×2 (07:38→21:13)
[2017-01-03] MEDS: GUAIFENESIN 600 MG TABCR PO SCH ×2 (07:38→21:14)
[2017-01-03] MEDS: METHYLPREDNISOLONE IV 60 MG in SYRINGE 0 ML IV SCH (07:38)
[2017-01-03] MEDS: PANTOprazole SOD 40 MG TAB PO SCH (07:39)
[2017-01-03] MEDS: POTASSIUM 99 MG PO SCH ×2 (07:39→21:15)
[2017-01-03] MEDS: METOPROLOL SUCC 50MG EXT REL TAB PO SCH (07:39)
[2017-01-03] MEDS: MAGNESIUM MALATE PO SCH ×2 (07:39→21:15)
[2017-01-03] MEDS: [UNRECOGNIZED DRUG - OTHER] PO SCH ×2 (07:40→21:00)
[2017-01-03 15:10] VITALS: BP 134/72; PULSE 75; TEMP 36.2; O2SAT 92
[2017-01-03 16:12] VITALS: PULSE 70; O2SAT 95
[2017-01-03] MEDS ORDERED: LEVALBUTEROL/IPRATROPIUM NEB INH SCH (16:15)
--- NOTE | 2017-01-03 17:27 | PULMONARY PROGRESS NOTE ---
DATE: 01/03/2017 TIME: 2:45 p.m. SUBJECTIVE: The patient continues with a harsh cough. He is having difficulty expectorating phlegm. He has had a small amount of mucus. He feels the mucus is a little thinner than before. He does not feel overall a whole lot better than he did when he was admitted. He remains tight in the chest. He denies chills, fevers or sweats. His appetite is good. OBJECTIVE: GENERAL: The patient appears comfortable at rest, but he was coughing frequently during the exam. VITAL SIGNS: Temperature is 36.4. Heart rate was 74 per minute. Blood pressure was 129/71. Respiratory rate was 20 breaths per minute. ENT: Unremarkable. LUNGS: Auscultation revealed wheeze and rhonchi bilaterally with prolongation to the expiratory phase of respiration. Saturation was 93% on 2 liters. ABDOMEN: Soft and nontender. It was modestly obese. EXTREMITIES: Showed no cyanosis, clubbing or edema. LABORATORY DATA: Included 25 hydroxy vitamin D with a level of 34.6. This would be considered within the limits of normal. Sputum sample reported normal allie. IMPRESSIONS: 1. Chronic obstructive pulmonary disease exacerbation. 2. Nonsmall cell lung carcinoma - status post lobectomy. COMMENTS AND RECOMMENDATIONS: The patient does not seem to be recovering very quickly. He is still on methylprednisolone 60 mg IV q. 8 hours as well as levofloxacin, guaifenesin, DuoNebs, Pulmozyme and he is getting subQ heparin. I would continue those as present. He may need bronchoscopy if not clearing. Will discuss the case with Dr. Mtz.
--- NOTE | 2017-01-03 17:58 | Medical Student: [facility] ---
Med Student Progress Note Date of Service January 03, 2017. Subjective Pt evaluation today including: conversation w/ patient, physical exam, chart review, lab review, review of studies Pain: none PO Intake: full diet Voiding: no voiding problems No acute events overnight. Patient's breathing is improved today as well. He reports that he is refusing his albuterol treatments because they make him shaky and anxious. He also reports that he is seeing improvement in his mucus from the pulmozyme. Indigestion is improved following initiation of pantoprazole. Review of Systems Constitutional: No chills, No fever, No sweats Respiratory: + cough, + shortness of breath, + sputum, + wheezing Cardiac: No chest pain, No orthopnea Abdomen: No nausea, No pain Male : No dysuria Endo: + fatigue Objective Vital Signs Date Time Temp Pulse Resp B/P Pulse Ox O2 Delivery O2 Flow Rate FiO2 01/03/17 16:12 70 20 95 Nasal Cannula 2.0 01/03/17 15:10 36.2 75 18 134/72 92 2.0 01/03/17 08:00 Nasal Cannula 2.0 01/03/17 07:01 36.4 74 20 129/71 93 Nasal Cannula 2.0 01/03/17 05:22 82 20 95 Nasal Cannula 2.0 01/03/17 00:00 Nasal Cannula 2.0 Humidified Oxygen 01/02/17 23:50 36.6 76 18 130/81 93 Nasal Cannula 2.0 01/02/17 19:35 86 20 95 Nasal Cannula 2.0 Physical Exam General Appearance: WD/WN, no apparent distress ENT: hearing grossly normal, pharynx normal Neck: supple, no adenopathy, no JVD Respiratory/Chest: chest non-tender, + wheezing (mild diffuse) Cardiovascular: regular rate, rhythm, no edema, no gallop, no murmur Abdomen: non tender, soft Extremities: non-tender, no pedal edema Neurologic/Psychiatric: alert, oriented x 3 Skin: normal color, warm/dry, no rash Laboratory Results Last 24 Hours Test 01/03/17 05:10 25-Hydroxy Vitamin D Total 34.6 ng/ml Thyroid Stimulating Hormone (TSH) 0.362 uIu/ml Medications Current Inpatient Medications Medications (Trade) Dose Ordered Sig/Emmanuel Route Start Time Stop Time Status Last Admin Dose Admin Acetaminophen (Tylenol Tab) 650 mg Q4H PRN PO 01/01/17 19:00 01/31/17 18:59 Al Hydrox/Mg Hydrox/Simethicone (Maalox Max Susp) 15 ml Q4H PRN PO 01/01/17 19:00 01/31/17 18:59 Magnesium Hydroxide (Milk Of Magnesia Susp) 30 ml Q6H PRN PO 01/01/17 19:00 01/31/17 18:59 Polyethylene (Miralax Powder Packet) 17 gm DAILY PRN PO 01/01/17 19:00 01/31/17 18:59 Ondansetron HCl (Zofran Inj) 4 mg Q6H PRN IV 01/01/17 19:00 01/31/17 18:59 Metoprolol Succinate (Toprol Xl Tab) 50 mg DAILY PO 01/02/17 09:00 02/01/17 08:59 01/03/17 07:39 50 MG Tamsulosin HCl (Flomax Cap) 0.4 mg BID PO 01/01/17 21:00 01/31/17 20:59 01/03/17 07:38 0.4 MG Non-Formulary Medication (Non-Formulary Patient'S Own Med) 1 ea BID PO 01/02/17 09:00 02/01/17 08:59 01/03/17 07:39 1 EA Non-Formulary Medication (Non-Formulary Patient'S Own Med) 1 ea BID PO 01/02/17 09:00 02/01/17 08:59 01/03/17 07:39 1 EA Non-Formulary Medication (Non-Formulary Patient'S Own Med) 1 ea BID PO 01/02/17 09:00 02/01/17 08:59 01/02/17 07:44 1 EA Dornase Berto (Pulmozyme Inhalation Soln 2.5ml Amp) 2.5 ml BIDR INH 01/02/17 08:00 02/01/17 07:59 01/02/17 19:35 2.5 ML Guaifenesin (Mucinex Contr Rel Tab) 1,200 mg Q12 PO 01/02/17 13:00 02/01/17 12:59 01/03/17 07:38 1,200 MG Levofloxacin (Levaquin Tab) 500 mg DAILY@1800 PO 01/02/17 18:00 01/09/17 17:59 01/02/17 17:38 500 MG Trazodone HCl (Desyrel Tab) 25 mg HS PO 01/02/17 21:00 02/01/17 20:59 01/02/17 21:45 25 MG Pantoprazole Sodium (Protonix Tab) 40 mg QAM PO 01/03/17 09:00 02/02/17 08:59 01/03/17 07:39 40 MG Heparin Sodium (Porcine) 5000 unit 5,000 unit Q8H SQ 01/03/17 05:00 02/02/17 04:59 Methylprednisolone Sodium Succinate/ Syringe (Solu-Medrol IV/ Syringe) 0.96 ml @ 1.5 mls/min Q12H IV 01/04/17 04:00 02/03/17 03:59 Ipratropium [place] (Atrovent 0.02% 0.5MG/2.5ML Neb) 0.5 mg Q6R INH 01/03/17 21:00 02/02/17 20:59 Levalbuterol (Xopenex 1.25MG/ 0.5ML Neb) 1.25 mg Q6R INH 01/03/17 21:00 02/02/17 20:59 Assessment and Plan Problems COPD exacerbation Assessment and Plan: This is an 81 yo male with a history of lung cancer (stage T1b adenocarcinoma) s /p right lower lobectomy, COPD, afib, and BPH, who presented with acute COPD exacerbation requiring inpatient treatment. 1. Acute COPD exacerbation: -Switch albuterol/ipratropium to levalbuterol/ipratropium for COPD control. -Decrease methylprednisolone from 60 mg q8 to 60 mg q12. -Continue guaifenesin 400 mg PO q4h prn. -Continue levofloxacin 500 mg tab po daily. -Encourage incentive spirometry, as well as CPT. 2. GERD: -Continue pantoprazole 40 mg po daily 3. Lung Cancer: -Current presentation is not consistent with recurrence of lung cancer. -Outpatient follow up for lung cancer monitoring is encouraged. 4. Atrial Fibrillation: -Continue metoprolol 50 mg po daily for rate control. 5. BPH: -Continue tamsulosin 0.4 mg po daily. 6. DVT prophylaxis: - Heparin 5000 units subq q8hrs Continued [facility] stay due to: multiple IV medications needed Discharge planning: home
[2017-01-03] MEDS: LEVOFLOXACIN 500 MG TAB PO SCH (18:22)
[2017-01-03] MEDS: IPRATROPIUM BROMIDE NEB SOLN 0.02% 2.5 ML VIAL INH SCH (19:16)
[2017-01-03] MEDS: DORNASE ALFA (2500U) 2.5MG/2.5ML INH SCH (19:16)
[2017-01-03] MEDS: LEVALBUTEROL 1.25MG/0.5ML NEB INH SCH (19:16)
[2017-01-03 19:17] VITALS: PULSE 70; O2SAT 96
[2017-01-03] MEDS: TRAZODONE HCL 50 MG TAB PO SCH (21:12)
--- NOTE | 2017-01-03 21:41 | Progress Note ---
Subjective Date of Service: January 03, 2017. Subjective Pt evaluation today including: conversation w/ patient, physical exam, chart review, lab review, review of inpatient medication list Pain: denies PO Intake: normal Voiding: no voiding problems feels a little better today less cough less congestion less wheezing sob improved slept better last night w/ trazodone states the albuterol is giving him tremors Problem List Medical Problems: (1) COPD exacerbation Status: Acute Review of Systems Constitutional: No fever Cardiac: No PND, No chest pain, No edema, No orthopnea Abdomen: No pain Objective Vital Signs Date Time Temp Pulse Resp B/P Pulse Ox O2 Delivery O2 Flow Rate FiO2 01/03/17 19:17 70 20 96 Nasal Cannula 2.0 01/03/17 16:12 70 20 95 Nasal Cannula 2.0 01/03/17 16:00 Nasal Cannula 2.0 01/03/17 15:10 36.2 75 18 134/72 92 2.0 01/03/17 08:00 Nasal Cannula 2.0 01/03/17 07:01 36.4 74 20 129/71 93 Nasal Cannula 2.0 01/03/17 05:22 82 20 95 Nasal Cannula 2.0 01/03/17 00:00 Nasal Cannula 2.0 Humidified Oxygen 01/02/17 23:50 36.6 76 18 130/81 93 Nasal Cannula 2.0 Physical Exam General Appearance: no apparent distress ENT: pharynx normal Neck: no JVD Respiratory/Chest: no respiratory distress, no accessory muscle use, + pertinent finding (airation improved, mild wheezing b/l, no rales) Cardiovascular: regular rate, rhythm, no gallop, no murmur Abdomen: normal bowel sounds, non tender, soft, no organomegaly Extremities: no pedal edema Neurologic/Psychiatric: alert, oriented x 3 Laboratory Results Last 24 Hours Test 01/03/17 05:10 25-Hydroxy Vitamin D Total 34.6 ng/ml Thyroid Stimulating Hormone (TSH) 0.362 uIu/ml Assessment and Plan 81yo male with: 1. COPD exacerbation - again improved. Reduce steroids to 60mg q12h. Change duonebs to xopenex/atrovent nebs. If still with tremors then d/c the beta agonist completely and just use atrovent nebs. Inhalers. Agree with pulmozyme and vibrating vest. Cont mucinex. Sputum culture thus far negative. Low threshold for CT chest in light of cancer history. No evidence of acute CHF or complicating pneumonia. Continue levaquin 500mg daily, day #3 today. Of note - most recent bronch cultures including AFB/fungal NEGATIVE Pulmonary team holding off on repeat bronch at this time. 2. 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 3. HTN - controlled. 4. BPH - voiding fine; continue outpatient meds. 5. hypothyroidism - compensated with normal TSH. Cont same dose of synthroid. 6. paroxysmal atrial fibrillation - in NSR. 7. DVT proph - heparin TID. 8. insomnia - improved w/ trazodone. progressing wean O2 as tolerated Continued [facility] stay due to: multiple IV medications needed Discharge planning: home
[2017-01-04] VITALS (7 sets, daily range): BP systolic 124–149; BP diastolic 70–78; PULSE 64–102; TEMP 36.2–36.7; O2SAT 90–96
[2017-01-04] MEDS: IPRATROPIUM BROMIDE NEB SOLN 0.02% 2.5 ML VIAL INH SCH ×4 (01:29→19:30)
[2017-01-04] MEDS: LEVALBUTEROL 1.25MG/0.5ML NEB INH SCH ×4 (01:29→19:30)
[2017-01-04] MEDS ORDERED: METHYLPREDNISOLONE IV 60 MG in SYRINGE 0 ML IV SCH (04:00)
[2017-01-04] MEDS: HEPARIN SOD 5000 UNIT/0.5 ML CARP SQ SCH ×3 (05:00→20:44)
[2017-01-04] MEDS: DORNASE ALFA (2500U) 2.5MG/2.5ML INH SCH ×2 (07:07→19:41)
[2017-01-04] MEDS: [UNRECOGNIZED DRUG - OTHER] PO SCH ×2 (08:13→20:36)
[2017-01-04] MEDS: PANTOprazole SOD 40 MG TAB PO SCH (08:14)
[2017-01-04] MEDS: TAMSULOSIN HCL 0.4 MG CAP PO SCH ×2 (08:14→20:37)
[2017-01-04] MEDS: METOPROLOL SUCC 50MG EXT REL TAB PO SCH (08:14)
[2017-01-04] MEDS: GUAIFENESIN 600 MG TABCR PO SCH (08:14)
[2017-01-04] MEDS: MAGNESIUM MALATE PO SCH ×2 (08:15→17:12)
[2017-01-04] MEDS: POTASSIUM 99 MG PO SCH ×2 (08:16→17:12)
[2017-01-04 08:20] LABS: HEMATOCRIT 40.4 % (42-52); MEAN CELL VOLUME 92.2 fL (80-100); MEAN CORPUSCULAR HEMOGLOBIN 30.4 pg (25-34); MEAN CORPUSCULAR HGB CONC 32.9 g/dl (32-36); PLATELET COUNT 218 K/uL (130-400); RED BLOOD COUNT 4.38 M/uL (4.7-6.1); WHITE BLOOD COUNT 11.32 K/uL (4.8-10.8)
--- NOTE | 2017-01-04 11:17 | PROGRESS NOTE ---
DATE: 01/04/2017 DATE: 01/04/2017. PROBLEM LIST: Includes: 1. Chronic obstructive pulmonary disease. 2. Bronchiectasis. 3. History of nonsmall cell lung cancer. SUBJECTIVE: The patient reports that he is about the same today. He still has loose cough. He states that he actually refused the Mucinex this morning. He states that he has taken Mucinex before and it actually causes his chest and the mucus to tighten up and thicken up. He states that when he does not take the mucus is more easily expectorated, however when he does mucus gets thicker and he cannot cough it up. He states he has tried this at home before in the past as well. He denies any other concerns or problems, still gets short of breath with exertion and still has some wheezing from time to time. No chest pain, no pleuritic chest pain, no fever or chills, no sweats, appetite normal. No nausea or vomiting, no indigestion or heartburn. No change in his bowels. Bowels are moving okay. No difficulty voiding. No swelling in his extremities. OBJECTIVE: GENERAL: The patient is an 81-year-old male in no acute distress. He is alert and oriented x3. Mood is good. Affect is good. VITAL SIGNS: Temp 36.2, pulse 71, respiration 18, blood pressure is 124/70, pulse ox is 91-95% on 2 liters. HEAD, EYES, EARS, NOSE, AND THROAT: Normocephalic, atraumatic. Pupils equal, round and reactive to light and accommodation. Extraocular movements are intact. [place]er moist gingival and buccal mucosa. NECK: Supple. No mass. No adenopathy. No bruit. CHEST: Expiratory wheeze primarily in the right upper lobe; however, there are diffuse expiratory wheezes throughout. No rale or rhonchi noted. CARDIOVASCULAR: Regular rate and rhythm. There are no murmurs, gallops or rubs. ABDOMEN: Soft, nontender. No guarding, rigidity or organomegaly. EXTREMITIES: No erythema or edema. NEUROLOGIC: Cranial nerves II through XII are intact. No focal deficit noted. LABORATORY DATA: Shows white count 11,000, H\T\H 13.34 and 42.4, platelet count of 218,000. Sputum culture from January 02 is showing moderate normal allie. No new imaging data. IMPRESSION: 1. This is an 81-year-old man with history of nonsmall cell lung cancer status post lobectomy. He also has chronic obstructive pulmonary disease and chronic bronchiectatic problems. At this point, patient has had to have multiple bronchoscopies with a lot of thick mucus and mucus plugging. The patient seems to be getting a little bit of improvement with the dornase. He has Pulmozyme at home and did well until Pulmozyme ran out. I think this is something that he is going to have to be on long-term in order to keep the secretions mobilized. The patient is set up for bronchoscopic evaluation tomorrow to have the secretions lavaged out. If he does well and the procedure goes well he actually may be able to be discharged to home tomorrow; however, he will need Pulmozyme in the outpatient setting. 2. In regards to his Mucinex I am going to put an order in to stop that as patient reports that it actually thickens mucus up and makes it more difficult for him to expectorate. Otherwise, we will continue to follow through hospitalization.
--- NOTE | 2017-01-04 12:49 | Medical Student: [facility] ---
Med Student Progress Note Date of Service January 04, 2017. Subjective Pt evaluation today including: conversation w/ patient, physical exam, chart review, lab review, review of studies Pain: none PO Intake: full diet Voiding: no voiding problems No acute events overnight. Patient reports that the guaifenesin has been making him too dry so he is refusing to take it. He is scheduled for a bronchoscopy tomorrow. Otherwise, he is doing well and says his breathing has improved. He reports walking in the halls with desaturations into the low-mid 80% which recover in about 4 minutes to the 90s again. His indigestion is well controlled. Review of Systems Constitutional: No chills, No fever Respiratory: + shortness of breath, + sputum, + wheezing, No cough Cardiac: No chest pain Abdomen: No nausea, No pain Objective Vital Signs Date Time Temp Pulse Resp B/P Pulse Ox O2 Delivery O2 Flow Rate FiO2 01/04/17 08:30 Nasal Cannula 2.0 01/04/17 07:07 64 20 95 Nasal Cannula 2.0 01/04/17 06:58 36.2 71 18 124/70 91 Nasal Cannula 2.0 01/04/17 01:29 79 22 90 Room Air 01/04/17 00:32 36.5 67 18 124/72 94 Nasal Cannula 2.0 01/04/17 00:00 Nasal Cannula 2.0 01/03/17 19:17 70 20 96 Nasal Cannula 2.0 01/03/17 16:12 70 20 95 Nasal Cannula 2.0 01/03/17 16:00 Nasal Cannula 2.0 01/03/17 15:10 36.2 75 18 134/72 92 2.0 Physical Exam General Appearance: WD/WN, no apparent distress ENT: hearing grossly normal, pharynx normal Neck: supple, no JVD Respiratory/Chest: chest non-tender, no accessory muscle use, + wheezing (mild scattered) Cardiovascular: regular rate, rhythm, no edema, no gallop, no JVD, no murmur Abdomen: normal bowel sounds, non tender, soft Extremities: non-tender, no pedal edema Neurologic/Psychiatric: alert, oriented x 3 Skin: normal color, no rash Laboratory Results Last 24 Hours Test 01/04/17 08:15 White Blood Count 11.32 K/uL Red Blood Count 4.38 M/uL Hemoglobin 13.3 g/dL Hematocrit 40.4 % Mean Corpuscular Volume 92.2 fL Mean Corpuscular Hemoglobin 30.4 pg Mean Corpuscular Hemoglobin Concent 32.9 g/dl RDW Standard Deviation 51.6 fL RDW Coefficient of Variation 15.2 % Platelet Count 218 K/uL Mean Platelet Volume 9.0 fL Medications Current Inpatient Medications Medications (Trade) Dose Ordered Sig/Emmanuel Route Start Time Stop Time Status Last Admin Dose Admin Acetaminophen (Tylenol Tab) 650 mg Q4H PRN PO 01/01/17 19:00 01/31/17 18:59 Al Hydrox/Mg Hydrox/Simethicone (Maalox Max Susp) 15 ml Q4H PRN PO 01/01/17 19:00 01/31/17 18:59 Magnesium Hydroxide (Milk Of Magnesia Susp) 30 ml Q6H PRN PO 01/01/17 19:00 01/31/17 18:59 Polyethylene (Miralax Powder Packet) 17 gm DAILY PRN PO 01/01/17 19:00 01/31/17 18:59 Ondansetron HCl (Zofran Inj) 4 mg Q6H PRN IV 01/01/17 19:00 01/31/17 18:59 Metoprolol Succinate (Toprol Xl Tab) 50 mg DAILY PO 01/02/17 09:00 02/01/17 08:59 01/04/17 08:14 50 MG Tamsulosin HCl (Flomax Cap) 0.4 mg BID PO 01/01/17 21:00 01/31/17 20:59 01/04/17 08:14 0.4 MG Non-Formulary Medication (Non-Formulary Patient'S Own Med) 1 ea BID PO 01/02/17 09:00 02/01/17 08:59 01/04/17 08:15 1 EA Non-Formulary Medication (Non-Formulary Patient'S Own Med) 1 ea BID PO 01/02/17 09:00 02/01/17 08:59 01/04/17 08:16 1 EA Non-Formulary Medication (Non-Formulary Patient'S Own Med) 1 ea BID PO 01/02/17 09:00 02/01/17 08:59 01/02/17 07:44 1 EA Dornase [place] (Pulmozyme Inhalation Soln 2.5ml Amp) 2.5 ml BIDR INH 01/02/17 08:00 02/01/17 07:59 01/04/17 07:07 2.5 ML Levofloxacin (Levaquin Tab) 500 mg DAILY@1800 PO 01/02/17 18:00 01/09/17 17:59 01/03/17 18:22 500 MG Trazodone HCl (Desyrel Tab) 25 mg HS PO 01/02/17 21:00 02/01/17 20:59 01/03/17 21:12 25 MG Pantoprazole Sodium (Protonix Tab) 40 mg QAM PO 01/03/17 09:00 02/02/17 08:59 01/04/17 08:14 40 MG Heparin Sodium (Porcine) (Heparin Sq 5000 Unit/0.5ml) 5,000 unit Q8H SQ 01/03/17 05:00 02/02/17 04:59 Ipratropium [place] (Atrovent 0.02% 0.5MG/2.5ML Neb) 0.5 mg Q6R INH 01/03/17 21:00 02/02/17 20:59 01/04/17 07:07 0.5 MG Levalbuterol 1.25 mg 1.25 mg Q6R INH 01/03/17 21:00 02/02/17 20:59 01/04/17 07:07 1.25 MG Methylprednisolone Sodium Succinate/ Syringe (Solu-Medrol IV/ Syringe) 0.64 ml @ 1.5 mls/min Q12H IV 01/04/17 16:00 02/03/17 15:59 Assessment and Plan Problems COPD exacerbation Assessment and Plan: This is an 81 yo male with a history of lung cancer (stage T1b adenocarcinoma) s /p right lower lobectomy, COPD, afib, and BPH, who presented with acute COPD exacerbation requiring inpatient treatment. 1. Acute COPD exacerbation: -Tolerating switch to levalbuterol/ipratropium. Continue inhaler treatments.. -Taper methylprednisolone from 60 mg q12 to 40 mg IV q12h. -Continue guaifenesin 400 mg PO q4h prn. Patient may choose to not take it. -Continue levofloxacin 500 mg tab po daily. -Encourage incentive spirometry, as well as CPT. -Therapeutic bronchoscopy scheduled for tomorrow with Pulmonology. 2. GERD: -Continue pantoprazole 40 mg po daily 3. Lung Cancer: -Current presentation is not consistent with recurrence of lung cancer. -Outpatient follow up for lung cancer monitoring is encouraged. 4. Atrial Fibrillation: -Continue metoprolol 50 mg po daily for rate control. 5. BPH: -Continue tamsulosin 0.4 mg po daily. 6. DVT prophylaxis: -Heparin 5000 units subq q8hrs -Patient agreed to accept heparin treatments. Continued [facility] stay due to: multiple IV medications needed Discharge planning: home
[2017-01-04] MEDS: LEVOFLOXACIN 500 MG TAB PO SCH (17:10)
[2017-01-04] MEDS: METHYLPREDNISOLONE IV 40 MG in SYRINGE 0 ML IV SCH (17:10)
--- NOTE | 2017-01-04 18:22 | Progress Note ---
Subjective Date of Service: January 04, 2017. (Benedicto Paredes CRNP) Subjective Pt evaluation today including: conversation w/ patient, physical exam, chart review, lab review, review of studies, review of inpatient medication list Pain: denies PO Intake: drew po Voiding: no voiding problems shortness of breath improving. still hypoxic with ambulation. sats drop to 83% when ambulating. not on home O2, no chest pain (Benedicto Paredes CRNP) Problem List Medical Problems: (1) COPD exacerbation Status: Acute (Benedicto Paredes CRNP) Review of Systems Constitutional: No chills, No fatigue, No fever, No problem reported, No see HPI, No sweats, No weakness, No weight loss Respiratory: + cough, + shortness of breath Cardiac: No PND, No chest pain, No claudication, No edema, No orthopnea, No palpitations, No problem reported, No see HPI Abdomen: No GI bleeding, No constipation, No diarrhea, No nausea, No pain, No problem reported, No see HPI, No vomiting Musculoskeletal: No calf pain, No joint pain, No muscle pain, No problem reported, No see HPI, No swelling Neurologic: No balance problems, No memory loss, No numbness/tingling, No paralysis, No problem reported, No see HPI, No vertigo, No weakness Endo: No excessive thirst, No excessive urination, No fatigue, No problem reported, No see HPI (Benedicto Paredes CRNP) Medications reviewed (Benedicto Paredes CRNP) Objective Vital Signs Date Time Temp Pulse Resp B/P Pulse Ox O2 Delivery O2 Flow Rate FiO2 01/04/17 15:19 36.7 91 18 149/78 91 Room Air 01/04/17 14:23 99 20 96 Nasal Cannula 2.0 01/04/17 08:30 Nasal Cannula 2.0 01/04/17 07:07 64 20 95 Nasal Cannula 2.0 01/04/17 06:58 36.2 71 18 124/70 91 Nasal Cannula 2.0 01/04/17 01:29 79 22 90 Room Air 01/04/17 00:32 36.5 67 18 124/72 94 Nasal Cannula 2.0 01/04/17 00:00 Nasal Cannula 2.0 01/03/17 19:17 70 20 96 Nasal Cannula 2.0 (Benedicto Paredes ., GRAPHICS MANAGER) Physical Exam General Appearance: WD/WN Eyes: normal inspection Neck: supple, no JVD Respiratory/Chest: chest non-tender, + decreased breath sounds, + wheezing Cardiovascular: regular rate, rhythm, no edema, no gallop, no JVD, no murmur Abdomen: normal bowel sounds, non tender, soft, no organomegaly Extremities: normal range of motion, normal inspection, no pedal edema, no calf tenderness Neurologic/Psychiatric: no motor/sensory deficits, alert, normal mood/affect, oriented x 3 Skin: normal color Lymphatic: no adenopathy (Benedicto Paredes, BASIL) Laboratory Results Last 24 Hours Test 01/04/17 08:15 White Blood Count 11.32 K/uL Red Blood Count 4.38 M/uL Hemoglobin 13.3 g/dL Hematocrit 40.4 % Mean Corpuscular Volume 92.2 fL Mean Corpuscular Hemoglobin 30.4 pg Mean Corpuscular Hemoglobin Concent 32.9 g/dl RDW Standard Deviation 51.6 fL RDW Coefficient of Variation 15.2 % Platelet Count 218 K/uL Mean Platelet Volume 9.0 fL (Benedicto Paredes ., GRAPHICS MANAGER) Assessment and Plan This is an 81 yo male with a history of lung cancer (stage T1b adenocarcinoma) s /p right lower lobectomy, COPD, afib, and BPH, who presented with acute COPD exacerbation requiring inpatient treatment. 1. Acute COPD exacerbation: -Tolerating switch to levalbuterol/ipratropium. Continue inhaler treatments.. -Taper methylprednisolone from 60 mg q12 to 40 mg IV q12h. Change to PO tomorrow if continues to improve. -Continue guaifenesin 400 mg PO q4h prn. Patient may choose to not take it. -Continue levofloxacin 500 mg tab po daily. -Encourage incentive spirometry, as well as CPT. -Therapeutic bronchoscopy scheduled for tomorrow with Pulmonology. 2. GERD: -Continue pantoprazole 40 mg po daily 3. Lung Cancer: -Current presentation is not consistent with recurrence of lung cancer. -Outpatient follow up for lung cancer monitoring is encouraged. 4. Atrial Fibrillation: -Continue metoprolol 50 mg po daily for rate control. 5. BPH: -Continue tamsulosin 0.4 mg po daily. 6. DVT prophylaxis: -Heparin 5000 units subq q8hrs -Patient agreed to accept heparin treatments. 7. ELS 1-2 midnight. was not on oxygen when came in will need a 3 step to see if qualifies for home O2 on d/c Continued [facility] stay due to: multiple IV medications needed Discharge planning: home (Benedicto Paredes ., BASIL) I agree with MASTER ELECTRICIAN assessment and plan Labs and vitals reviewed Agree with COPD management wither steroids, breathing tx and antibx Cont to monitor Satting in 90s on 2L NC (Shade Bhardwaj D.O.)
[2017-01-04] MEDS: TRAZODONE HCL 50 MG TAB PO SCH (20:37)
[2017-01-05] VITALS (24 sets, daily range): BP systolic 108–157; BP diastolic 55–87; PULSE 69–99; TEMP 36.4–36.6; O2SAT 90–98
[2017-01-05] MEDS: IPRATROPIUM BROMIDE NEB SOLN 0.02% 2.5 ML VIAL INH SCH ×5 (02:37→20:41)
[2017-01-05] MEDS: LEVALBUTEROL 1.25MG/0.5ML NEB INH SCH ×5 (02:37→20:41)
[2017-01-05] MEDS: METHYLPREDNISOLONE IV 40 MG in SYRINGE 0 ML IV SCH (03:42)
[2017-01-05] MEDS: HEPARIN SOD 5000 UNIT/0.5 ML CARP SQ SCH ×3 (05:00→21:34)
--- NOTE | 2017-01-05 07:13 | History & Physical Bridge Note ---
H&P Re-Evaluation Bridge Note: I have examined the patient, reviewed the History & Physical and in the interval since the performance of the History & Physical I have noted the following changes of clinical significance: No changes noted
--- NOTE | 2017-01-05 07:14 | Procedure Note ---
Pre-Mod Sedation Assessment General Date of Moderate Sedation: January 05, 2017. Vital Signs: Vital Signs Past 12 Hours Date Time Temp Pulse Resp B/P Pulse Ox O2 Delivery O2 Flow Rate FiO2 01/05/17 02:38 71 20 93 Room Air 01/05/17 00:05 36.6 72 18 138/55 90 Room Air 01/05/17 00:00 Room Air 01/04/17 19:30 102 20 96 Nasal Cannula 2.0 Review Cardiovascular: regular rate, rhythm, no edema, no gallop, no JVD, no murmur, normal peripheral pulses Abdomen: normal bowel sounds, non tender, soft, no organomegaly, no pulsatile mass, normal rectal exam, occult blood negative Lungs: + wheezing Pre-Sedation Airway Assessment Oral Cavity: Dentures Short Thick Neck: No Hx of Sleep Apnea: No Smoking Status: Unknown if Ever Smoked Notes The planned sedation has been discussed with the patient and consent obtained. I have identified the patient, determined the appropriateness of sedation and have assessed the patient immediately prior to the procedure. All medicine(s) and interventions are by my order.
--- NOTE | 2017-01-05 07:49 | Procedure Note ---
Post-Moderate Sedation Plan General Date of Moderate Sedation January 05, 2017. Vital Signs: Vital Signs Past 12 Hours Date Time Temp Pulse Resp B/P Pulse Ox O2 Delivery O2 Flow Rate FiO2 01/05/17 07:40 73 18 157/87 95 Mask 8.0 01/05/17 07:35 74 16 146/76 95 Mask 8.0 01/05/17 07:30 95 16 145/74 95 Mask 8.0 01/05/17 07:25 69 14 141/81 94 Mask 8.0 01/05/17 07:24 36.6 72 20 138/55 93 Room Air 2.0 01/05/17 07:20 70 14 145/83 94 Mask 8.0 01/05/17 07:15 71 18 143/75 94 Mask 8.0 01/05/17 07:10 75 18 150/87 95 Mask 8.0 01/05/17 02:38 71 20 93 Room Air 01/05/17 00:05 36.6 72 18 138/55 90 Room Air 01/05/17 00:00 Room Air Review - Discharge Plan Post Moderate Sedation Plan: On clinical assessment, the patient appears to have tolerated the conscious sedation without complications. Patient is recovering as anticipated. Patient will continue to be monitored by nursing and returned to his room when standards are meet.
--- NOTE | 2017-01-05 07:55 | Bronchoscopy Procedure Note ---
Bronchoscopy Procedure Note Procedure: Bronchoscopy, conscious sedation, Consent: Obtained through the patient placed into the chart Pre-procedural diagnosis: Bronchiectasis with lobar obstruction Post-procedural diagnosis: Bronchiectasis with lobar obstruction Start time: 712 End time: 739 Total time: 23 minutes Analgesia: 2% liquid lidocaine: Via nebulizer 4% gel lidocaine: Via right naris 2% liquid lidocaine: Via bronchoscopy Sedation: Versed IV: 5mg Fentanyl IV: 100 g Procedure: The Olympus video bronchoscope was used for this procedure and passed down through the right naris Right naris/posterior naris/posterior oropharynx: Anatomically within normal limits Glottis: Anatomically within normal limits Vocal cords: Proper abduction and abduction, anatomically within normal limits Subglottis: anatomically within normal limits Trachea: Lower 1/3 has 70% EDAC Chandni: Anatomically within normal limits Right bronchial tree: Right mainstem bronchus: 70% EDAC Right upper lobe: suture line in place with no signs of infection or break- down Bronchus intermedius: 70% EDAC Right middle lobe: moderate edema with no signs of acute infection with 100% occlusion via mucus plugs Right lower lobe: initially 100% occluded with mucus plugs Findings: RLL & RML obstruction via mucus plugs Left bronchial tree: Left mainstem bronchus: 70% EDAC Left upper lobe: Anatomically within normal limits Lingula: Anatomically within normal limits Left lower lobe: 100% occlusion via mucus plugs Findings: No significant findings noted Bronchial alveolar lavage: not performed EBL: none Complications: None Follow-up: monitored in the radiology suite then when criteria are meet return to inpatient room
[2017-01-05] MEDS ORDERED: NURSING VERBAL MED ORDER ONE (08:00)
[2017-01-05] MEDS ORDERED: MIDAZOLAM HCL 5 MG/ML 1 ML VIAL IV ONE (08:30)
[2017-01-05] MEDS ORDERED: FENTANYL CITRATE INJ 50 MCG/1 ML 2 ML VIAL IV ONE (08:30)
[2017-01-05] MEDS: PANTOprazole SOD 40 MG TAB PO SCH (08:32)
[2017-01-05] MEDS: METOPROLOL SUCC 50MG EXT REL TAB PO SCH (08:32)
[2017-01-05] MEDS: [UNRECOGNIZED DRUG - OTHER] PO SCH ×2 (08:32→21:31)
[2017-01-05] MEDS: TAMSULOSIN HCL 0.4 MG CAP PO SCH ×2 (08:32→21:29)
[2017-01-05] MEDS: MAGNESIUM MALATE PO SCH ×2 (08:33→21:31)
[2017-01-05] MEDS: POTASSIUM 99 MG PO SCH ×2 (08:33→21:32)
[2017-01-05] MEDS: DORNASE ALFA (2500U) 2.5MG/2.5ML INH SCH ×2 (08:40→20:00)
[2017-01-05 10:01] LABS: BASO % 0.1 %; BASO ABS # 0.01 K/uL (0-0.2); COMPLETE YES; HEMATOCRIT 40.6 % (42-52); IG% 1.2 %; LYMPH % 8.9 %; LYMPH ABS # 0.87 K/uL (1.2-3.4); MEAN CELL VOLUME 91.6 fL (80-100); MEAN CORPUSCULAR HEMOGLOBIN 30.2 pg (25-34); MEAN PLATELET VOLUME 9.3 fL (7.4-10.4); MONO % 5.2 %; NEUT % 84.6 %; PLATELET COUNT 228 K/uL (130-400); RED BLOOD COUNT 4.43 M/uL (4.7-6.1); WHITE BLOOD COUNT 9.78 K/uL (4.8-10.8)
[2017-01-05 10:31] LABS: BUN/CREATININE RATIO 19.1 (10-20); CALCIUM 8.6 mg/dl (8.5-10.1); CREATININE 1.4 mg/dl (0.60-1.40)
--- NOTE | 2017-01-05 13:30 | Medical Student: [facility] ---
Med Student Progress Note Date of Service January 05, 2017. Subjective Pt evaluation today including: conversation w/ patient, physical exam, chart review, lab review, review of studies Pain: none reported PO Intake: full diet Voiding: no voiding problems no acute events overnight. had bronchoscopy this morning and several mucus plugs were removed. patient reports feeling much better since the procedure. He has been walking through the halls and measuring his oxygen saturation which he says has been alright. He denies any coughing or shortness of breath. His indigestion is well controlled. No other complaints. Review of Systems Constitutional: No chills, No fever Respiratory: + sputum, + wheezing, No cough, No shortness of breath Cardiac: No chest pain, No orthopnea Abdomen: No nausea, No pain Male : No dysuria Objective Vital Signs Date Time Temp Pulse Resp B/P Pulse Ox O2 Delivery O2 Flow Rate FiO2 01/05/17 11:26 36.6 72 16 140/67 90 Room Air 01/05/17 10:23 36.5 69 16 130/73 92 Room Air 01/05/17 09:07 36.6 82 16 120/60 90 Room Air 01/05/17 08:48 36.6 82 16 143/74 92 Room Air 01/05/17 08:45 Room Air 01/05/17 08:43 82 20 93 Room Air 01/05/17 08:14 76 16 128/80 95 Nasal Cannula 4.0 01/05/17 08:11 Mask 01/05/17 08:10 76 16 108/76 95 Nasal Cannula 4.0 01/05/17 08:00 76 16 141/68 95 Nasal Cannula 4.0 01/05/17 07:46 76 18 126/75 95 Mask 8.0 01/05/17 07:45 77 16 152/70 95 Nasal Cannula 4.0 01/05/17 07:40 73 18 157/87 95 Mask 8.0 01/05/17 07:35 74 16 146/76 95 Mask 8.0 01/05/17 07:30 95 16 145/74 95 Mask 8.0 01/05/17 07:25 69 14 141/81 94 Mask 8.0 01/05/17 07:24 36.6 72 20 138/55 93 Room Air 2.0 01/05/17 07:20 70 14 145/83 94 Mask 8.0 01/05/17 07:15 71 18 143/75 94 Mask 8.0 01/05/17 07:10 75 18 150/87 95 Mask 8.0 01/05/17 02:38 71 20 93 Room Air 01/05/17 00:05 36.6 72 18 138/55 90 Room Air 01/05/17 00:00 Room Air 01/04/17 19:30 102 20 96 Nasal Cannula 2.0 01/04/17 16:00 Room Air 01/04/17 15:19 36.7 91 18 149/78 91 Room Air 01/04/17 14:23 99 20 96 Nasal Cannula 2.0 Physical Exam General Appearance: WD/WN, no apparent distress ENT: hearing grossly normal, pharynx normal Neck: supple, no JVD Respiratory/Chest: chest non-tender, no respiratory distress, + wheezing ( diffuse wheezing in upper and lower anaya bilaterally) Cardiovascular: regular rate, rhythm, no edema, no gallop, no murmur Abdomen: normal bowel sounds, non tender, soft Extremities: non-tender, no pedal edema Neurologic/Psychiatric: alert, oriented x 3 Skin: normal color, no rash Laboratory Results Last 24 Hours Test 01/05/17 09:50 White Blood Count 9.78 K/uL Red Blood Count 4.43 M/uL Hemoglobin 13.4 g/dL Hematocrit 40.6 % Mean Corpuscular Volume 91.6 fL Mean Corpuscular Hemoglobin 30.2 pg Mean Corpuscular Hemoglobin Concent 33.0 g/dl Platelet Count 228 K/uL Mean Platelet Volume 9.3 fL Neutrophils (%) (Auto) 84.6 % Lymphocytes (%) (Auto) 8.9 % Monocytes (%) (Auto) 5.2 % Eosinophils (%) (Auto) 0.0 % Basophils (%) (Auto) 0.1 % Neutrophils # (Auto) 8.27 K/uL Lymphocytes # (Auto) 0.87 K/uL Monocytes # (Auto) 0.51 K/uL Eosinophils # (Auto) 0.00 K/uL Basophils # (Auto) 0.01 K/uL RDW Standard Deviation 50.4 fL RDW Coefficient of Variation 14.9 % Immature Granulocyte % (Auto) 1.2 % Immature Granulocyte # (Auto) 0.12 K/uL Sodium Level 141 mmol/L Potassium Level 4.0 mmol/L Chloride Level 108 mmol/L Carbon Dioxide Level 25 mmol/L Anion Gap 8.0 mmol/L Blood Urea Nitrogen 27 mg/dl Creatinine 1.40 mg/dl Est Creatinine Clear Calc Drug Dose 48.5 ml/min Estimated GFR () 54.6 Estimated GFR (Non- 47.1 BUN/Creatinine Ratio 19.1 Random Glucose 205 mg/dl Calcium Level 8.6 mg/dl Medications Current Inpatient Medications Medications (Trade) Dose Ordered Sig/Emmanuel Route Start Time Stop Time Status Last Admin Dose Admin Acetaminophen (Tylenol Tab) 650 mg Q4H PRN PO 01/01/17 19:00 01/31/17 18:59 Al Hydrox/Mg Hydrox/Simethicone (Maalox Max Susp) 15 ml Q4H PRN PO 01/01/17 19:00 01/31/17 18:59 Magnesium Hydroxide (Milk Of Magnesia Susp) 30 ml Q6H PRN PO 01/01/17 19:00 01/31/17 18:59 Polyethylene (Miralax Powder Packet) 17 gm DAILY PRN PO 01/01/17 19:00 01/31/17 18:59 Ondansetron HCl (Zofran Inj) 4 mg Q6H PRN IV 01/01/17 19:00 01/31/17 18:59 Metoprolol Succinate (Toprol Xl Tab) 50 mg DAILY PO 01/02/17 09:00 02/01/17 08:59 01/05/17 08:32 50 MG Tamsulosin HCl (Flomax Cap) 0.4 mg BID PO 01/01/17 21:00 01/31/17 20:59 01/05/17 08:32 0.4 MG Non-Formulary Medication (Non-Formulary Patient'S Own Med) 1 ea BID PO 01/02/17 09:00 02/01/17 08:59 01/05/17 08:33 1 EA Non-Formulary Medication (Non-Formulary Patient'S Own Med) 1 ea BID PO 01/02/17 09:00 02/01/17 08:59 01/05/17 08:33 1 EA Non-Formulary Medication (Non-Formulary Patient'S Own Med) 1 ea BID PO 01/02/17 09:00 02/01/17 08:59 01/02/17 07:44 1 EA Dornase [place] (Pulmozyme Inhalation Soln 2.5ml Amp) 2.5 ml BIDR INH 01/02/17 08:00 02/01/17 07:59 01/05/17 08:40 2.5 ML Levofloxacin (Levaquin Tab) 500 mg DAILY@1800 PO 01/02/17 18:00 01/09/17 17:59 01/04/17 17:10 500 MG Trazodone HCl (Desyrel Tab) 25 mg HS PO 01/02/17 21:00 02/01/17 20:59 01/04/17 20:37 25 MG Pantoprazole Sodium (Protonix Tab) 40 mg QAM PO 01/03/17 09:00 02/02/17 08:59 01/05/17 08:32 40 MG Heparin Sodium (Porcine) (Heparin Sq 5000 Unit/0.5ml) 5,000 unit Q8H SQ 01/03/17 05:00 02/02/17 04:59 01/05/17 13:09 5,000 UNIT Ipratropium [place] (Atrovent 0.02% 0.5MG/2.5ML Neb) 0.5 mg Q6R INH 01/03/17 21:00 02/02/17 20:59 01/05/17 08:19 0.5 MG Levalbuterol 1.25 mg 1.25 mg Q6R INH 01/03/17 21:00 02/02/17 20:59 01/05/17 08:19 1.25 MG Methylprednisolone Sodium Succinate/ Syringe (Solu-Medrol IV/ Syringe) 0.64 ml @ 1.5 mls/min Q12H IV 01/04/17 16:00 02/03/17 15:59 01/05/17 03:42 1.5 MLS/MIN Assessment and Plan Problems COPD exacerbation Assessment and Plan: This is an 81 yo male with a history of lung cancer (stage T1b adenocarcinoma) s /p right lower lobectomy, COPD, afib, and BPH, who presented with acute COPD exacerbation requiring inpatient treatment. 1. Acute COPD exacerbation: -Tolerating switch to levalbuterol/ipratropium. Continue inhaler treatments.. -Taper methylprednisolone from 40 mg IV q12 to prednisone 40 mg po bid. -Continue levofloxacin 500 mg tab po daily to be stopped 01/09. -Encourage incentive spirometry, as well as CPT. -Therapeutic bronchoscopy performed today. 2. GERD: -Continue pantoprazole 40 mg po daily 3. Lung Cancer: -Current presentation is not consistent with recurrence of lung cancer. -Outpatient follow up for lung cancer monitoring is encouraged. 4. Atrial Fibrillation: -Continue metoprolol 50 mg po daily for rate control. 5. BPH: -Continue tamsulosin 0.4 mg po daily. 6. DVT prophylaxis: -Heparin 5000 units subq q8hrs -Patient agreed to accept heparin treatments. 7. Discharge: -Plan to discharge home tomorrow. -Will perform two step testing tomorrow morning to evaluate need for home oxygen therapy. Continued [facility] stay due to: multiple IV medications needed Discharge planning: home
--- NOTE | 2017-01-05 14:13 | Hospitalist Progress Note ---
Hospitalist Progress Note Date of Service January 05, 2017. Subjective Pt evaluation today including: conversation w/ patient, physical exam, lab review, review of studies, review of inpatient medication list Pain: denies any PO Intake: tolerating po Voiding: no voiding problems Patient seen post bronchoscopy. Still short of breath although not as much. No chest pain. Still with CEVALLOS. Constitutional: No chills, No fatigue, No fever, No problem reported, No see HPI, No sweats, No weakness, No weight loss Respiratory: + cough, + dyspnea on exertion, + shortness of breath, + wheezing Cardiovascular: No PND, No chest pain, No claudication, No edema, No orthopnea, No palpitations, No problem reported, No see HPI Abdomen: No GI bleeding, No constipation, No diarrhea, No nausea, No pain, No problem reported, No see HPI, No vomiting Musculoskeletal: No calf pain, No joint pain, No muscle pain, No problem reported, No see HPI, No swelling Neurologic: No balance problems, No memory loss, No numbness/tingling, No paralysis, No problem reported, No see HPI, No vertigo, No weakness Medications reviewed Objective Vital Signs Date Time Temp Pulse Resp B/P Pulse Ox O2 Delivery O2 Flow Rate FiO2 01/05/17 11:26 36.6 72 16 140/67 90 Room Air 01/05/17 10:23 36.5 69 16 130/73 92 Room Air 01/05/17 09:07 36.6 82 16 120/60 90 Room Air 01/05/17 08:48 36.6 82 16 143/74 92 Room Air 01/05/17 08:45 Room Air 01/05/17 08:43 82 20 93 Room Air 01/05/17 08:14 76 16 128/80 95 Nasal Cannula 4.0 01/05/17 08:11 Mask 01/05/17 08:10 76 16 108/76 95 Nasal Cannula 4.0 01/05/17 08:00 76 16 141/68 95 Nasal Cannula 4.0 01/05/17 07:46 76 18 126/75 95 Mask 8.0 01/05/17 07:45 77 16 152/70 95 Nasal Cannula 4.0 01/05/17 07:40 73 18 157/87 95 Mask 8.0 01/05/17 07:35 74 16 146/76 95 Mask 8.0 01/05/17 07:30 95 16 145/74 95 Mask 8.0 01/05/17 07:25 69 14 141/81 94 Mask 8.0 01/05/17 07:24 36.6 72 20 138/55 93 Room Air 2.0 01/05/17 07:20 70 14 145/83 94 Mask 8.0 01/05/17 07:15 71 18 143/75 94 Mask 8.0 01/05/17 07:10 75 18 150/87 95 Mask 8.0 01/05/17 02:38 71 20 93 Room Air 01/05/17 00:05 36.6 72 18 138/55 90 Room Air 01/05/17 00:00 Room Air 01/04/17 19:30 102 20 96 Nasal Cannula 2.0 01/04/17 16:00 Room Air 01/04/17 15:19 36.7 91 18 149/78 91 Room Air 01/04/17 14:23 99 20 96 Nasal Cannula 2.0 Physical Exam General Appearance: no apparent distress Eyes: PERRL ENT: pharynx normal Neck: supple, no JVD Respiratory/Chest: + wheezing (slightly more wheezing today) Cardiovascular: regular rate, rhythm, no edema, no gallop, no JVD, no murmur Abdomen: normal bowel sounds, non tender, soft Extremities: normal range of motion, normal inspection, no pedal edema Neurologic/Psychiatric: no motor/sensory deficits, alert, oriented x 3 Skin: normal color Laboratory Results Last 24 Hours Test 01/05/17 09:50 White Blood Count 9.78 K/uL Red Blood Count 4.43 M/uL Hemoglobin 13.4 g/dL Hematocrit 40.6 % Mean Corpuscular Volume 91.6 fL Mean Corpuscular Hemoglobin 30.2 pg Mean Corpuscular Hemoglobin Concent 33.0 g/dl Platelet Count 228 K/uL Mean Platelet Volume 9.3 fL Neutrophils (%) (Auto) 84.6 % Lymphocytes (%) (Auto) 8.9 % Monocytes (%) (Auto) 5.2 % Eosinophils (%) (Auto) 0.0 % Basophils (%) (Auto) 0.1 % Neutrophils # (Auto) 8.27 K/uL Lymphocytes # (Auto) 0.87 K/uL Monocytes # (Auto) 0.51 K/uL Eosinophils # (Auto) 0.00 K/uL Basophils # (Auto) 0.01 K/uL RDW Standard Deviation 50.4 fL RDW Coefficient of Variation 14.9 % Immature Granulocyte % (Auto) 1.2 % Immature Granulocyte # (Auto) 0.12 K/uL Sodium Level 141 mmol/L Potassium Level 4.0 mmol/L Chloride Level 108 mmol/L Carbon Dioxide Level 25 mmol/L Anion Gap 8.0 mmol/L Blood Urea Nitrogen 27 mg/dl Creatinine 1.40 mg/dl Est Creatinine Clear Calc Drug Dose 48.5 ml/min Estimated GFR () 54.6 Estimated GFR (Non- 47.1 BUN/Creatinine Ratio 19.1 Random Glucose 205 mg/dl Calcium Level 8.6 mg/dl Assessment and Plan This is an 81 yo male with a history of lung cancer (stage T1b adenocarcinoma) s /p right lower lobectomy, COPD, afib, and BPH, who presented with acute COPD exacerbation requiring inpatient treatment. 1. Acute COPD exacerbation: -Tolerating switch to levalbuterol/ipratropium. -Taper steroids to PO today. -stop Mucinex - refusing. -Continue levofloxacin 500 mg tab po daily. -Encourage incentive spirometry, as well as CPT. -Bronch done this AM 100% occlusion RML, RLL, LLL with mucous plugging. Washings done. Moving better air. More wheezing now. 2. GERD: -Continue pantoprazole 40 mg po daily 3. Lung Cancer: -Current presentation is not consistent with recurrence of lung cancer. -Outpatient follow up for lung cancer monitoring is encouraged. 4. Atrial Fibrillation: -Continue metoprolol 50 mg po daily for rate control. 5. BPH: -Continue tamsulosin 0.4 mg po daily. 6. DVT prophylaxis: -Heparin 5000 units subq q8hrs -Patient agreed to accept heparin treatments. 7. ELS d/c tomorrow. 2 step in AM to see if qualifies for home O2 Continued [facility] stay due to: other Discharge planning: home with home health
--- NOTE | 2017-01-05 16:11 | PROGRESS NOTE ---
DATE: 01/05/2017 PROBLEM LIST: Includes 1. COPD. 2. Bronchiectasis. 3. History of nonsmall cell lung CA. SUBJECTIVE: The patient underwent bronchoscopy earlier today by Dr. Mtz who reportedly lavaged out several mucus plugs and actually had to suction on to the plugs and manually removed them by pulling out the scope. The patient tolerated the procedure well. At this time, I saw the patient, he was still having a little bit of wheeze, but was feeling better. Still did have some cough as well. He had no chest pain, no pleuritic chest pain, no fever or chills, no sweats. He states his current regimen with vibration vest and the Pulmozyme do seem to be helping. He is not having any other concerns or problems at this time. No GI symptoms. No nausea or vomiting, no indigestion or heartburn. He has not had any difficulty with his bowels. No difficulty voiding. No swelling in his extremities. OBJECTIVE: GENERAL: The patient is an 81-year-old male lying in bed. He is alert and oriented x3. Mood is good. Affect is good. VITAL SIGNS: Temp 36.5, pulse 69, respirations 16, blood pressure is 130/73, pulse ox 92% on room air. HEENT: Normocephalic, atraumatic. Pupils equal, round and reactive to light and accommodation. Extraocular movements are intact. [place] moist gingival and buccal mucosa. NECK: Supple. No mass. No adenopathy. No bruit. CHEST: The patient did have some mild diffuse expiratory wheezing throughout. No rale or rhonchi noted. CARDIOVASCULAR: Regular rate and rhythm. There are no murmurs, gallops or rubs. ABDOMEN: Bowel sounds are present. Abdomen soft, nontender. No guarding, rigidity or organomegaly. EXTREMITIES: No erythema or edema. NEUROLOGIC: Cranial nerves II through XII are intact. No focal deficit noted. LABORATORY DATA: Shows white count of 9000, H\T\H of 13.4 and 40.6, platelet count 228,000. BUN 27, creatinine 1.4. No new imaging data. IMPRESSION: The patient is an 81-year-old male with chronic obstructive pulmonary disease and bronchiectasis, who continues to have difficulty with mucus plugging. At this time, he did undergo bronchoscopy with bronchoalveolar lavage today. The patient tolerated the procedure well. At this point, I recommend to continue his IV steroids overnight then transition to oral in the morning. If the patient does well, he actually can be discharged in the morning. He is to keep his followup upon discharge in the office. Will await bronchoscopy culture results. Recommend that he continue and finish a 10-day course of levofloxacin on discharge. Also recommended that he do a prednisone taper starting at 40 mg tapering by 5 mg every 2 days. As patient has tolerated Pulmozyme well in the past, recommend that the patient be discharged on Pulmozyme as well.
[2017-01-05] MEDS: LEVOFLOXACIN 500 MG TAB PO SCH (17:30)
[2017-01-05] MEDS: TRAZODONE HCL 50 MG TAB PO SCH (21:30)
[2017-01-06 01:36] VITALS: PULSE 65; O2SAT 92
[2017-01-06] MEDS: IPRATROPIUM BROMIDE NEB SOLN 0.02% 2.5 ML VIAL INH SCH ×3 (01:36→14:17)
[2017-01-06] MEDS: LEVALBUTEROL 1.25MG/0.5ML NEB INH SCH ×3 (01:36→14:17)
[2017-01-06] MEDS: HEPARIN SOD 5000 UNIT/0.5 ML CARP SQ SCH ×2 (06:02→12:17)
[2017-01-06 06:52] VITALS: PULSE 70; O2SAT 94
[2017-01-06] MEDS: DORNASE ALFA (2500U) 2.5MG/2.5ML INH SCH (06:52)
[2017-01-06 07:17] VITALS: BP 142/81; PULSE 65; TEMP 36.1; O2SAT 95
[2017-01-06] MEDS: TAMSULOSIN HCL 0.4 MG CAP PO SCH (08:34)
[2017-01-06] MEDS: METOPROLOL SUCC 50MG EXT REL TAB PO SCH (08:34)
[2017-01-06] MEDS: PANTOprazole SOD 40 MG TAB PO SCH (08:34)
[2017-01-06] MEDS: [UNRECOGNIZED DRUG - OTHER] PO SCH (08:35)
[2017-01-06] MEDS: MAGNESIUM MALATE PO SCH (08:36)
[2017-01-06] MEDS: POTASSIUM 99 MG PO SCH (08:37)
[2017-01-06 12:09] VITALS: BP 142/81; PULSE 65; TEMP 36.1; O2SAT 95
[2017-01-06 14:17] VITALS: PULSE 72; O2SAT 95
[2017-01-06 14:48] VITALS: O2SAT 93
[2017-01-06] MEDS ORDERED: SPRIN PO (14:56)
[2017-01-06] MEDS ORDERED: PRT40 PO (14:56)
[2017-01-06] MEDS ORDERED: ATRINS INH (14:56)
[2017-01-06] MEDS ORDERED: LVQ500 PO (14:56)
[2017-01-06] MEDS ORDERED: XPNINS1255 INH (14:56)
[2017-01-06] MEDS ORDERED: PRED-301 PO (14:56)
[2017-01-06] MEDS ORDERED: DSY50 PO (14:56)
[2017-01-06] MEDS ORDERED: PLMIH INH (14:56)
--- NOTE | 2017-01-06 15:01 | Discharge Instructions ---
Discharge Instructions Date of Service January 06, 2017. Admission Reason for Admission: Copd Exacerbation Discharge Discharge Diagnosis / Problem: COPD exacerbation - much improved Discharge Goals Goal(s): Improve nutritional status Activity Recommendations Activity Limitations: resume your previous activity (as tolerated) . Instructions / Follow-Up Instructions / Follow-Up From Dr. Mcfarland - 1. COPD - * take levaquin (levofloxacin) 500mg daily for 5 days; begin this TODAY * take prednisone taper; start this TOMORROW on 01/07/17 * you will start with a total of 40mg (8 tablets in total) and taper down every 2 days for a 2-week period * see the bottle for instructions * nebulizer treatments - * take xopenex / atrovent nebs every 6 hours every day * the 2 medications can be mixed together at the same time in the nebulizer; the xopenex has been sent to your pharmacy * take the pulmozyme twice a day until Reynaldo Chandler or Dr. Mtz tell you to stop; the pulmozyme has been sent to your pharmacy * use your oxygen at night-time as needed 2. Sleep troubles - * may take trazodone 25mg at bedtime as needed for insomnia 3. For heartburn - * may take pantoprazole 40mg once daily every AM on an empty stomach See Mr. Arteaga in his [place] office this Sunday or, alternatively, sometime later this week in the [place] Office. Current Hospital Diet Patient's current hospital diet: Regular Diet Discharge Diet Recommended Diet: Regular Diet Procedures Procedures Performed: bronchoscopy - removal of mucous plugs. Pending Studies Studies pending at discharge: no Medical Emergencies . Who to Call and When: Medical Emergencies: If at any time you feel your situation is an emergency, please call 911 immediately. . Non-Emergent Contact Non-Emergency issues call your: Hoisting Engineer Call Non-Emergent contact if: temperature is above 100.5, you have any medication questions If you have worsening shortness of breath, increasing oxygen needs, worsening cough, swelling of your legs, etc. . . "Provider Documentation" section prepared by Wero Mcfarland. . VTE Core Measure Inpt VTE Proph given/why not?: Unfractionated heparin SQ
[2017-01-06] MEDS ORDERED: LIDOCAINE 4% INH SOLN 4 ML BTL ONE (15:37)
[2017-01-06] MEDS ORDERED: FENTANYL CITRATE INJ 50 MCG/1 ML 2 ML VIAL IV ONE (15:37)
[2017-01-06] MEDS ORDERED: MIDAZOLAM HCL 5 MG/ML 1 ML VIAL IV ONE (15:37)
[2017-01-06] MEDS ORDERED: LIDOCAINE HCL 2% LOCAL 50ML VIAL INFIL ONE (15:37)
--- NOTE | 2017-01-08 11:50 | Discharge Summary ---
Discharge Summary Date of Service January 08, 2017. Discharge Summary Admission Date: January 01, 2017 at 19:11 Discharge Date: January 06, 2017 Discharge Disposition: Home Principal Diagnosis: COPD with exacerbation Problems/Secondary Diagnoses: 1. h/o right-sided nonsmall cell lung cancer, s/p RUL lobectomy 02/2016 2. BPH 3. HTN 4. insomnia 5. GERD 6. hypothyroidism 7. h/o paroxysmal a. fib 8. bronchiectasis Immunizations: Have You Had Influenza Vaccine: No History of Tetanus Vaccine?: Yes History of Pneumococcal: Yes History of Hepatitis B Vaccine: No Procedures: Bronchoscopy - Austin Mtz MD Right bronchial tree: Right mainstem bronchus: 70% EDAC Right upper lobe: suture line in place with no signs of infection or break- down Bronchus intermedius: 70% EDAC Right middle lobe: moderate edema with no signs of acute infection with 100% occlusion via mucus plugs Right lower lobe: initially 100% occluded with mucus plugs Findings: RLL & RML obstruction via mucus plugs Left bronchial tree: Left mainstem bronchus: 70% EDAC Left upper lobe: Anatomically within normal limits Lingula: Anatomically within normal limits Left lower lobe: 100% occlusion via mucus plugs Findings: No significant findings noted Consultations: pulmonary - CARLYN Feldman Medication Reconciliation New Medications: Tiotropium [place] (Spiriva Handihaler) 5 Puff/90 Mcg Aerp 1 PUFF PO DAILY, #1 INHALER 2 Refills Dornase Berto (Pulmozyme) 2.5 Ml Inha 2.5 ML INH BID, #60 INHA 5 Refills Ipratropium [place] (Ipratropium [place]) 0.5 Mg/2.5 Ml Nebu 0.5 MG INH Q6H, #120 AMP 5 Refills Levalbuterol (Levalbuterol) 1.25 Mg/0.5 Ml Nebu 1.25 MG INH Q6H, #120 AMP 5 Refills Levofloxacin (Levofloxacin) 500 Mg Tab 500 MG PO DAILY for 5 Days, #5 TAB 0 Refills start 01/06/17 Pantoprazole (Pantoprazole Sodium) 40 Mg Tab 40 MG PO QAM, #30 TAB 5 Refills Prednisone (Prednisone) 5 Mg Tab 5 MG PO DIRECTED, #64 TAB 8 tabs po day 1, 7 tabs daily x 2 days, 6 tabs x 2 days, 5 tabs x 2 days, 4 tabs x 2 days, 3 tabs x 2 days, 2 tabs x 2 days, 1 tab x 2 days Trazodone HCl (Trazodone HCl) 50 Mg Tab 25 MG PO HS PRN for Sleep, #30 TAB 1 Refill Continued Medications: Albuterol Hfa (Ventolin Hfa) 200 Puffs/25156 Mcg Aers 2-4 PUFFS INH Q6H, #1 INHALER Metoprolol Succinate (Metoprolol Succinate ER) 50 Mg Tabcr 50 MG PO DAILY Tamsulosin Hcl (Flomax) 0.4 Mg Cap 0.4 MG PO BID Discontinued Medications: Ipratropium-Albuterol (Duoneb) 3 Ml Nebu 1 TREATMENT INH Q6H for SOB/Wheezing, INHA Discharge Exam Physical Exam: General Appearance: no apparent distress ENT: pharynx normal Neck: no JVD Respiratory/Chest: no respiratory distress, no accessory muscle use, + wheezing (scant end-exp wheeze b/l) Cardiovascular: regular rate, rhythm, no gallop, no murmur, normal peripheral pulses Abdomen / GI: normal bowel sounds, non tender, soft, no organomegaly Extremities: no pedal edema Neurologic/Psychiatric: alert, oriented x 3 Hospital Course HISTORY OF PRESENT ILLNESS: The patient is an 81-year-old white male with a history of COPD, Non-small cell lung cancer s/p RUL lobectomy, BPH, and HTN who was sent from the reverse logistics analyst's office to the ER due to COPD exacerbation. The patient reported he had had worsening shortness of breath associated with increased sputum production. The sputum was thick and yellow. He reported some mild sore throat. Denied fever or chills. Denied chest pain, palpitations. Denied nausea, vomiting, abdominal pain, diarrhea, or constipation. When he arrived at the Emergency Room pulse ox was 90% in room air, he was found to have wheezing, and had mild labored breathing. ED physician gave Solu-Medrol IV and nebulizer treatment with improvement in symptoms. HOSPITAL COURSE: The patient's COPD exacerbation was managed in the customary fashion with antibiotics, IV steroids, nebulizer treatments, and expectorants. He was also treated with pulmozyme and a vibrating vest. He was seen in consult by pulmonary and ultimately underwent a therapeutic bronchoscopy by Dr. Mtz. Multiple mucous plugs were identified and removed during the bronchoscopy. Sputum culture remained negative while here. He had no evidence of complicating pneumonia or CHF while hospitalized. At discharge he will complete a slow prednisone taper, 1 week of levaquin, and was given prescriptions for pulmozyme and xopenex/atrovent nebs. Our social work staff confirmed with his pharmacy that his insurance DOES in fact cover the pulmozyme and xopenex. He will continue to use a vibrating vest at his home. The patient has had three COPD exacerbations since the beginning of 2017 and remains at high risk of readmission. Short-term follow-up with the pulmonary division and his PCP was advised to ensure ongoing improvement. Other medical problems including BPH, hypothyroidism, etc remained stable while here. Total Time Spent: Greater than 30 minutes This includes examination of the patient, discharge planning, medication reconciliation, and communication with other providers. Discharge Instructions Please refer to the electronic Patient Visit Report (Discharge Instructions) for additional information. Follow-Up 1. see CARLYN Feldman or Dr. Mtz, [facility] - within 1 week 2. see CARLYN Sigala - PCP - within 1 week Additional Copies To JULIA FONG; Jamal Arteaga PA-C; Austin Mtz MD
[2017-04-20] MEDS ORDERED: MULT-513 PO (11:19)
[2017-04-20] MEDS ORDERED: PRFINS NEB (11:19)
[2017-04-20] MEDS ORDERED: DORN1SOL NEB (11:19)
== END 2017-01-06 15:38 | disposition home or self-care (01) | DRG 192 ==
LOC: ENRESERVTM → ENRESERVDT → C.EDB 14:29 → C.MS2W 19:11
PROVIDERS: ADMIT Hospitalist; ATTEND Internal Medicine
PROC: 0BJ08ZZ Inspection of Tracheobronchial Tree, Via Natural or Artificial Opening Endoscopic (ICD-10-PCS; principal; 2017-01-05)
DX: J44.1 Chronic obstructive pulmonary disease with (acute) exacerbation (principal); N40.0 Benign prostatic hyperplasia without lower urinary tract symptoms; I10 Essential (primary) hypertension; I48.0 Paroxysmal atrial fibrillation; Z87.891 Personal history of nicotine dependence; Z85.118 Personal history of other malignant neoplasm of bronchus and lung

== ENCOUNTER → 2017-02-26 | Outpatient (CLI) | payer OTHER ==
[~2017-02-26] MED LIST changes: -ALBU18002 INH; +ATRINS INH; +DORN1SOL NEB; +DSY50 PO; -IPRASOL4 INH; +LVQ500 PO; -MAGNESIUM PO; -METO25TA3 PO; -MSM PO; +MULT-513 PO; -NYSS5 PO; -OXYC5TAB PO; -POTASSIUM PO; +PRFINS NEB; +SPRIN PO; +TAMS0.4C38 PO; -TIOT1AER INH; +TPRSR/50 PO; +VNTHFA/IN INH; +XPNINS1255 INH; -ZINC PICOLINATE PO; -[UNRECOGNIZED DRUG - CODE] INH; -[UNRECOGNIZED DRUG - OTHER] PO
--- NOTE | 2017-02-26 10:47 | DIAGNOSTIC IMAGING REPORT ---
CT OF THE CHEST WITHOUT IV CONTRAST CLINICAL HISTORY: COPD RIGHT UPPER LOBE CARCINOMA COMPARISON STUDY: 06/21/2016 CT DOSE: 507.95 mGy.cm TECHNIQUE: CT of the thorax was performed from the thoracic inlet to the lung bases. Images are reviewed in the axial, sagittal, and coronal planes. IV contrast was not administered for this examination. FINDINGS: Thyroid: Imaged portions of the thyroid gland are normal in appearance. Thoracic aorta: There is mild ectasia of the a sitting thoracic aorta which measures 38 mm in diameter. Heart: The heart is normal in size and configuration, without pericardial effusion. There are coronary artery calcifications present. Lungs and pleural spaces: There is been marked interval decrease in the size of the right pleural effusion with a trace residual. There are postsurgical changes of a right upper lobectomy. There is underlying pulmonary emphysema. There is no focal pulmonary consolidation. There are no suspicious pulmonary masses. Mediastinum: There are enlarging paratracheal lymph nodes. The largest measures 21 x 13 mm. There is a 12 mm subcarinal lymph node. There is a 9 mm prevascular lymph node. Joann: There is no evidence of pathologic hilar adenopathy given the limitations of a noncontrast study. Axilla: There is no evidence of pathologic axillary lymphadenopathy Upper abdomen: Partially visualized upper abdominal viscera is within normal limits. Skeletal structures: There are no lytic or blastic osseous lesions. IMPRESSION: 1. Interval increase in the size of the mediastinal lymph nodes. The largest node is now a 21 x 13 mm right paratracheal node. 2. Interval decrease in the size the right pleural effusion which is now trace in size 3. Postsurgical changes right upper lobectomy 4. No parenchymal masses identified 5. Emphysema Electronically signed by: Mac Rodriguez M.D. 02/26/2017 10:46 AM Dictated Date/Time: 02/26/2017 10:38 AM
== END | disposition home or self-care (01) ==
LOC: C.CTS 10:23
PROVIDERS: ATTEND Internal Medicine Critical Care Medicine
DX: C34.11 Malignant neoplasm of upper lobe, right bronchus or lung (principal)

== ENCOUNTER 2017-04-27 10:19 | Day surgery (SDC) | payer OTHER ==
[2017-04-20 11:00] VITALS: BMI 29.0
[~2017-04-27] VITALS: Ht 177.8 cm; Wt 93.2 kg
[~2017-04-27 10:19] MED LIST changes: -ATRINS INH; -DSY50 PO; +LACTATED RINGER'S 1000ML 1,000 ML IV SCH; -LVQ500 PO; -PLMIH INH; -PRT40 PO; -SPRIN PO; -TAMS0.4C38 PO; -VNTHFA/IN INH; -XPNINS1255 INH
[2017-04-27 10:48] VITALS: BP 124/67; PULSE 54; TEMP 36.7; O2SAT 97; Ht 177.8 cm; Wt 93.2 kg
[2017-04-27] MEDS ORDERED: MIDAZOLAM HCL 1 MG/ML 2ML VIAL ONE (11:08)
[2017-04-27] MEDS ORDERED: ONDANSETRON INJ 2 MG/ML 2 ML VIAL ONE (11:08)
[2017-04-27] MEDS ORDERED: ROCURONIUM BROMIDE 10 MG/ML 5 ML VIAL IV ONE (11:08)
[2017-04-27] MEDS ORDERED: GLYCOPYRROLATE INJ 0.2 MG/ML VIAL ONE (11:08)
[2017-04-27] MEDS ORDERED: DEXAMETHASONE SOD INJ 4 MG/ML VIAL ONE (11:08)
[2017-04-27] MEDS ORDERED: SUCCINYLCHOLINE CHLORIDE 20 MG/ML 10 ML VIAL IV ONE (11:08)
[2017-04-27] MEDS ORDERED: PROPOFOL IV EMULSION 10 MG/ML 20 ML VIAL IV ONE (11:08)
[2017-04-27] MEDS ORDERED: EpHEDrine SULFATE INJ 50 MG/ML AMP ONE (11:08)
[2017-04-27] MEDS ORDERED: FENTANYL CITRATE INJ 50 MCG/1 ML 2 ML VIAL ONE ×2 (11:08→13:30)
[2017-04-27] MEDS ORDERED: NEOSTIGMINE METHYLSULFATE 5 MG/5 ML SYR ONE (11:08)
[2017-04-27] MEDS ORDERED: PHENYLEPHRINE HCL INJ 10 MG/ML VIAL ONE (11:08)
[2017-04-27] MEDS ORDERED: LIDOCAINE HCL 2% 2 ML VIAL (20MG/ML) ONE (11:08)
--- NOTE | 2017-04-27 11:38 | History and Physical ---
History & Physical Date Apr 27, 2017. Chief Complaint "U told me to be here ". History of Present Illness The patient is a 81 year old male with complaints of an abnormal CAT scan one year after lobectomy for lung cancer. He has some mediastinal adenopathy. As there has been a change, we had a long talk in the hospital elected to proceed with an endobronchial ultrasound to sample these nodes. I long discussion with the patient and his about risk and benefits. They understand. We'll proceed with endobronchial ultrasound with biopsy today on 04/27/2017. Past Medical/Surgical History Medical Problems: (1) copd exac (2) Heart disease (3) Hypoxia (4) Mass of right lung (5) Pleural effusion (6) Primary cancer of right upper lobe of lung (7) Shortness of breath Additional History Heart Disease: Yes Other: Chronic obstructive pulmonary disease. Allergies Coded Allergies: Latex1 -Allergic Contact Dermititis (Verified Allergy, Mild, RASH, 04/27/17) Iodinated Diagnostic Agents (Verified Allergy, Unknown, GI UPSET, 04/27/17) NO KNOWN DRUG ALLERGIES (Unverified Allergy, Unknown, NONE, 04/20/17) Home Medications Scheduled Dornase Berto (Pulmozyme), 1 MG NEB BID Metoprolol Succinate (Metoprolol Succinate ER), 50 MG PO 1200 Multivitamins/Minerals (Mvi With Minerals), 1 TAB PO 1200 Scheduled PRN Formoterol Fumarate (Perforomist), 20 MCG NEB DAILY PRN for Shortness of Breath Physical Examination Addiitonal Comments: Patient is awake and alert. He appears younger stated age of 81. His extraocular movements are intact. Pupils are equal round reactive. Sclera anicteric. He has no nasolabial flattening. He wears glasses. His neck is supple. He has no supraclavicular cervical lymphadenopathy. No carotid bruits. His lungs are clear. His right thoracoscopy incisions are well healed. He has a regular rate and rhythm his heart. Abdomen soft nontender. He really has no peripheral edema. He has no joint effusions. His confusion his lower extremities. Neurologically he's completely intact. Diagnosis Mediastinal adenopathy in a patient status post lobectomy for lung cancer. Plan of Treatment Endobronchial ultrasound with biopsy.
--- NOTE | 2017-04-27 11:48 | Discharge Instructions ---
Discharge Instructions Date of Service Apr 27, 2017. Visit Reason for Visit: Mediastinal Lymphadenopathy, S/P Lobectomy Of Lung Discharge Discharge Diagnosis / Problem: Mediastinal Lymphadenopathy, S/P Lobectomy Of Lung Discharge Goals Goal(s): Learn about illness Activity Recommendations Activity Limitations: resume your previous activity (in 24 hours) Lifting Limitations: none Anesthesia . Post Anesthesia Instructions: If you have had General Anesthesia or IV Sedation: * Do not drive today. * Resume driving when surgeon permits. * Do not make important decisions or sign legal documents today. * Call surgeon for: 1. Temperature elevations greater than 101 degrees F. 2. Uncontrollable pain. 3. Excessive bleeding. 4. Persistent nausea and vomiting. 5. Medication intolerance (nausea, vomiting or rash). * For nausea and vomiting use only clear liquids such as: tea, soda, bouillon until nausea subsides, then gradually increase diet as tolerated. * If you have any concerns or questions, call your surgeon's office. If physician is unavailable and it is an emergency, call 911 or go to the nearest emergency room. . Instructions / Follow-Up Instructions / Follow-Up 1. You may cough up some blood. Call Physician if excessive amount noted. 2. Keep your scheduled appointment with Dr. Stockton on May 07, 2017 @ 9: 45. Diet Recommendations Recommended Home Diet: resume previous diet Pending Studies Studies pending at discharge: no Medical Emergencies . Who to Call and When: Medical Emergencies: If at any time you feel your situation is an emergency, please call 911 immediately. . Non-Emergent Contact Non-Emergency issues call your: Surgeon Call Non-Emergent contact if: you have a fever, your pain is not controlled . . "Provider Documentation" section prepared by Dwayne Guillen. .
[2017-04-27] MEDS ORDERED: ONDANSETRON INJ 2 MG/ML 2 ML VIAL IV PRN (13:15)
[2017-04-27] MEDS ORDERED: LABETALOL HCL IV 5 MG/ML 20ML IV PRN (13:15)
[2017-04-27] MEDS ORDERED: FENTANYL CITRATE INJ 50 MCG/1 ML 2 ML VIAL IV PRN (13:15)
[2017-04-27] MEDS ORDERED: NALOXONE HCL 0.4 MG/1 ML VIAL/CARP IV PRN (13:15)
[2017-04-27] MEDS ORDERED: FLUMAZENIL 0.1 MG/1 ML 10 ML VIAL IV PRN (13:15)
[2017-04-27] MEDS ORDERED: EpHEDrine SULFATE INJ 50 MG/ML AMP IV PRN (13:15)
[2017-04-27] MEDS ORDERED: ATROPINE SULFATE 0.1 MG/ML 5ML SYR IV PRN (13:15)
[2017-04-27] MEDS ORDERED: PROMETHAZINE HCL INJ 12.5 MG in SODIUM CHLORIDE 0.9% 50ML 50 ML IV PRN (13:15)
--- NOTE | 2017-04-27 13:53 | DIAGNOSTIC IMAGING REPORT ---
CHEST ONE VIEW PORTABLE CLINICAL HISTORY: Post bronchoscopy chest x-ray. COMPARISON STUDY: 01/01/2017 FINDINGS: There is radiographic evidence of underlying emphysema. There are old left-sided rib fractures. There is no pneumothorax. There is right apical pleural thickening. There is blunting right lateral costophrenic angle suggesting a small right pleural effusion. There are linear scar/atelectatic changes at the right lung base.[ There are postsurgical changes of a right upper lobectomy. IMPRESSION: 1. Postsurgical changes of the right 2. Emphysema 3. Right pleural effusion 4. No evidence of pneumothorax Electronically signed by: Mac Rodriguez M.D. 04/27/2017 1:52 PM Dictated Date/Time: 04/27/2017 1:51 PM
[2017-04-27 14:04] VITALS: BP 156/70; PULSE 57; TEMP 36.4; O2SAT 93
--- NOTE | 2017-04-27 14:21 | Anesthesiology Progress Note ---
Anesthesia Post Op Note Date & Time Apr 27, 2017 at 14:20 Vital Signs Pain Intensity: 0 Vital Signs Past 12 Hours Date Time Temp Pulse Resp B/P (MAP) Pulse Ox O2 Delivery O2 Flow Rate FiO2 04/27/17 13:57 36.2 04/27/17 13:50 60 16 140/67 94 Room Air 04/27/17 13:40 63 16 122/48 99 Oxymask 10 04/27/17 13:30 63 16 151/64 100 Oxymask 10 04/27/17 13:21 36.5 62 16 147/64 100 Oxymask 10 04/27/17 10:48 36.7 54 20 124/67 (86) 97 Room Air Notes Mental Status: alert / awake / arousable, participated in evaluation Pt Amnestic to Procedure: Yes Nausea / Vomiting: adequately controlled Pain: adequately controlled Airway Patency, RR, SpO2: stable & adequate BP & HR: stable & adequate Hydration State: stable & adequate Anesthetic Complications: no major complications apparent
[2017-04-27 14:34] VITALS: BP 143/67; PULSE 58; O2SAT 92
[2017-04-27] MEDS ORDERED: CLINDAMYCIN PHOS 150 MG/ML 2 ML VIAL ONE (14:39)
[2017-04-27 15:04] VITALS: BP 164/70; PULSE 58; TEMP 36.1; O2SAT 94
--- NOTE | 2017-04-28 00:01 | OPERATIVE REPORT ---
DATE OF OPERATION: 04/27/2017 PREOPERATIVE DIAGNOSES: 1. Mild mediastinal adenopathy. 2. Status post thoracoscopic right upper lobectomy for nonsmall cell lung carcinoma 1 year ago. POSTOPERATIVE DIAGNOSIS: Recurrent metastatic adenocarcinoma mediastinal lymph nodes. PROCEDURE: Endobronchial ultrasound with biopsy. SURGEON: Dr. Stockton. TRACTOR MECHANIC HELPER: CARLYN Wheeler. ANESTHESIA: General anesthesia with endotracheal intubation. INDICATION FOR PROCEDURE AND FINDINGS: This is an 81-year-old male who underwent a thoracoscopic right upper lobectomy for a slowly enlarging ground-glass opacity which turned out to be an adenocarcinoma. This was a stage IB and it measured 2.5 x 2.5 and it did invade the visceral pleura. His lymph nodes were negative. He was evaluated and he elected not to proceed with chemotherapy. I saw him back in the office, he really had no systemic complaints; however, he did have mediastinal adenopathy which I thought was a bit larger. We set him up for an endobronchial ultrasound, and today on 04/27/2017, I performed this and was disappointed to see that his right level 4 nodes were positive for carcinoma. He tolerated it well. PROCEDURE IN DETAIL: The patient brought to the operating room and general anesthesia was induced and endotracheal intubation was performed. After appropriate timeout had been called and antibiotics administered, the bronchoscope was placed in the adapter through the ET tube. I specifically looked at all of his airways. His right upper lobe stump appeared well healed. I saw no evidence of any disease in any of his airways. I then did biopsy the left level 11 nodes which I could get to. I really did not see much in the left level 10 or 4 areas. I did biopsy level 7 node multiple times from both the right side and the left side. We did obtain lymphocytes. I then biopsied the level 4 area several times, this was really the node that concerned me the most on CT scan as it was 2 cm in width. The rapid onsite evaluation done by Dr. Lubin suggested metastatic adenocarcinoma. I got several more biopsies from this lymph node and sent it off for cell wash in the hopes that molecular analysis can be performed. He really got into no bleeding. I irrigated out both airways quite thoroughly and there was no bleeding at all at the conclusion of the case. I did send all cytologies from the right mainstem bronchus. He was extubated in the room and tolerated well. I attest to the content of the Intraoperative Record and any orders documented therein. Any exception s are noted below.
== END 2017-04-27 15:10 | disposition home or self-care (01) ==
LOC: C.ACU 10:19
PROVIDERS: ATTEND Surgery
DX: C34.11 Malignant neoplasm of upper lobe, right bronchus or lung (principal); C77.1 Secondary and unspecified malignant neoplasm of intrathoracic lymph nodes; J44.9 Chronic obstructive pulmonary disease, unspecified; Z79.899 Other long term (current) drug therapy

== ENCOUNTER → 2017-09-26 | Outpatient (CLI) | payer OTHER ==
[~2017-09-26] MED LIST changes: -LACTATED RINGER'S 1000ML 1,000 ML IV SCH
--- NOTE | 2017-09-26 10:06 | DIAGNOSTIC IMAGING REPORT ---
(CHEST) THORAX WITHOUT CLINICAL HISTORY: 81 years-old Male presenting with C34.90 Adenocarcinoma of lung. TECHNIQUE: Multidetector CT imaging of the chest was performed without the use of intravenous contrast. IV contrast: None. A dose lowering technique was used consistent with the principles of ALARA (as low as reasonably achievable). COMPARISON: 02/26/2017. CT DOSE (mGy.cm): The estimated cumulative dose is 652.01 mGycm. FINDINGS: Ferris Wheel Attendant topogram: Unremarkable. On soft tissue windows, normal thyroid and thoracic inlet. Previously noted enlarged mediastinal lymph nodes have slightly decreased in size, the dominant node in the precarinal/right paratracheal region measuring 17 x 11 mm, previously 21 x 13 mm. Additional right paratracheal lymph nodes are not significant changed in size. Prominent subcarinal node measures 11 mm in the short axis, previously 12 mm (series 4 image 138). No new sites of lymphadenopathy. Evaluation of the june limited without intravenous contrast. Atherosclerosis of the aorta. Normal heart size. Coronary artery and aortic valve calcification. No pericardial or pleural effusion. Upper abdomen normal. On lung windows, postsurgical changes of right upper lobectomy. Resulting hyperinflation of the right middle and lower lobes. Architectural distortion also secondary to postsurgical change. A solid ovoid 11 mm pulmonary nodule is noted in the right middle lobe (series 4 image 87), previously 5 mm. A suture margin is also noted along the superior segment of the right lower lobe. Trace emphysematous changes with an apical predominance. No other nodule. Remaining airways patent. Bronchial wall thickening noted in the right middle lobe and superior segment of the right lower lobe, possibly posttreatment change. On bone windows, degenerative changes of the spine. Multiple old left rib fractures noted. IMPRESSION: 1. Interval increase in size of a solid 11 mm pulmonary nodule in the right middle lobe, which is highly suspicious for bronchogenic neoplasm, especially given the patient's history. 2. Postsurgical changes of right upper lobectomy and right lower superior segment wedge resection. 3. Emphysema. 4. Stable to slightly decreased size of mediastinal lymphadenopathy. The report will be called/faxed according to standard departmental protocol. Electronically signed by: Samir Donahue M.D. 09/26/2017 10:05 AM Dictated Date/Time: 09/26/2017 9:57 AM
== END | disposition home or self-care (01) ==
LOC: C.CTS 09:34
PROVIDERS: ATTEND Internal Medicine Critical Care Medicine
DX: C34.90 Malignant neoplasm of unspecified part of unspecified bronchus or lung (principal); R91.8 Other nonspecific abnormal finding of lung field; Z90.2 Acquired absence of lung [part of]; J43.9 Emphysema, unspecified; R59.0 Localized enlarged lymph nodes

== ENCOUNTER → 2017-11-21 | Outpatient (CLI) | payer OTHER ==
--- NOTE | 2017-11-21 13:30 | DIAGNOSTIC IMAGING REPORT ---
(CHEST) THORAX WITHOUT CLINICAL HISTORY: C34.11 Malignant neoplasm of right upper lobe involving bronchus COMPARISON STUDY: 09/26/2017 CT DOSE: 587.74 mGycm TECHNIQUE: CT of the thorax was performed from the thoracic inlet to the lung bases. Images are reviewed in the axial, sagittal, and coronal planes. IV contrast was not administered for this examination. A dose lowering technique was utilized adhering to the principles of ALARA. FINDINGS: Thyroid: Imaged portions of the thyroid gland are normal in appearance. Thoracic aorta: There is mild ectasia of the ascending thoracic aorta which measures 39 mm in diameter Heart: There are coronary artery calcifications present. There is no pericardial effusion. Lungs and pleural spaces: There are no pleural effusions. There are postsurgical changes of a right upper lobe lobectomy. There is underlying pulmonary emphysema. There is an enlarging 12.5 x 8.8 mm irregularly marginated right middle lobe pulmonary nodule. This must be viewed as suspicious for a neoplasm. Mediastinum: There are borderline enlarged mediastinal lymph nodes measuring up to 11 mm in short axis. Joann: There is no evidence of pathologic hilar adenopathy given the limitations of a noncontrast study Axilla: There is no evidence of pathologic axillary lymphadenopathy Upper abdomen: Partially visualized upper abdominal viscera is within normal limits. Skeletal structures: There are no lytic or blastic osseous lesions. IMPRESSION: 1. Postsurgical changes of a prior right upper lobectomy 2. Slight further enlargement in the 12.5 x 8.8 mm irregular marginated right middle lobe pulmonary nodule. This is suspicious for a carcinoma. 3. Borderline mediastinal lymphadenopathy, unchanged the preceding examination 4. Emphysema Electronically signed by: Mac Rodriguez M.D. 11/21/2017 1:29 PM Dictated Date/Time: 11/21/2017 1:20 PM
== END | disposition home or self-care (01) ==
LOC: C.CTS 13:06
PROVIDERS: ATTEND Internal Medicine Critical Care Medicine
DX: R91.1 Solitary pulmonary nodule (principal); C34.11 Malignant neoplasm of upper lobe, right bronchus or lung; J43.9 Emphysema, unspecified

== ENCOUNTER → 2017-12-31 | Outpatient (CLI) | payer OTHER ==
--- NOTE | 2017-12-31 14:00 | DIAGNOSTIC IMAGING REPORT ---
PET/CT SKULL-THIGH CLINICAL HISTORY: 82 years-old Male presenting with LUNG CANCER in 2016 status post right, emphysema, former smoker lobectomy. TECHNIQUE: PET/CT was performed from the skull base through the proximal thighs following the intravenous administration of 12.022 mCi of F18-FDG. Blood glucose level 92 mg/dL. The injection was performed at 1:29 AM and imaging began at 1:[address] was performed for attenuation correction purposes and anatomic localization. COMPARISON: PET/CT from 06/26/[address] chest from 11/21/2017. CT DOSE (mGy.cm): The estimated cumulative dose is 1156.30. FINDINGS: Head and neck: Asymmetric FDG avidity along the true vocal folds along the right is indeterminate, possibly due to phonation as anatomic imaging does not reveal a focal mass lesion allowing for noncontrast technique. Otherwise expected FDG avidity throughout the imaged head and neck. No FDG avid lymphadenopathy in the neck. Chest: Normal thyroid and thoracic inlet. Small cluster of FDG avid precarinal/right paratracheal lymph nodes (max SUV 8.61). Minimally FDG avid left hilar lymph node (max SUV 3.53). Atherosclerosis of the aorta. Mild multichamber enlargement of the heart. Coronary artery, aortic valve, and mitral annular calcification. No pericardial or pleural effusion. Postsurgical changes of right upper lobectomy. Architectural distortion of the right lung. 12 mm FDG avid solid right middle lobe pulmonary nodule (max SUV 11.52). Bronchial wall thickening evident diffusely. Mild emphysematous changes most prominently in the left upper lobe. No other nodule or FDG avid infiltrate. Central airways patent. Abdomen and pelvis: Normal physiologic distribution of radiotracer in the gastrointestinal and genitourinary tracts. No FDG avid lymphadenopathy or mass lesion. Moderate stool burden at the level of an anastomosis near the rectosigmoid junction with postsurgical changes of left hemicolectomy evident. No FDG avid colonic mass. Atherosclerosis of the normal caliber abdominal aorta. Postsurgical changes of the right lower quadrant abdominal wall from prior hernia repair. Fat-containing umbilical hernia. Musculoskeletal: Degenerative changes of the spine. No FDG avid or destructive osseous lesion. IMPRESSION: 1. Follow-up PET/CT demonstrates FDG avid 1.2 cm right middle lobe nodule highly suspicious for recurrent malignancy. FDG avid cluster of precarinal/right paratracheal lymph nodes highly suspicious for metastatic involvement. No other pulmonary nodule or evidence of metastatic disease in the remainder of the body. 2. Emphysema. 3. Mild FDG avid left hilar lymph node is felt to most likely be reactive in etiology. 4. Asymmetric FDG avidity at the level of the right glottis may relate to phonation. No mass lesion is evident in this region on anatomic imaging 5. For noncontrast technique. 6. Postsurgical changes of left hemicolectomy. No FDG avid colonic mass or lymphadenopathy in the abdomen or pelvis. Electronically signed by: Samir Donahue M.D. 12/31/2017 1:59 PM Dictated Date/Time: 12/31/2017 1:45 PM
== END | disposition home or self-care (01) ==
LOC: C.PET 10:37
PROVIDERS: ATTEND Internal Medicine Hematology & Oncology
DX: C34.11 Malignant neoplasm of upper lobe, right bronchus or lung (principal)

== ENCOUNTER 2020-01-20 01:24 | Inpatient (IN) ==
[2020-01-20] MEDS ORDERED: ACETAMINOPHEN 325 MG TAB PO PRN (11:33)
[2020-01-20] MEDS ORDERED: ONDANSETRON INJ 2 MG/ML 2 ML VIAL IV PRN (11:33)
[2020-01-20 11:58] LABS: Hematocrit (blood only) 39.7 % (42-52); Hemoglobin 13.3 g/dL (14.0-18.0); Immature Granulocytes # (auto) 0.01 K/uL (0.00-0.02); Immature Granulocytes % (auto) 0.1 %; Lymphocytes % (auto) 5.9 %; Mean Corpuscular Hemoglobin 29.9 pg (25-34); Mean Corpuscular Volume 89.2 fL (80-100); Mean Platelet Volume 9.7 fL (7.4-10.4); Monocytes # (auto) 0.07 K/uL (0.11-0.59); Neutrophils # (auto) 6.25 K/uL (1.4-6.5); Platelet Count 343 K/uL (130-400); RDW Coefficient of Variation 13.5 % (11.5-14.5); RDW Standard Deviation 44.5 fL (36.4-46.3); Red Blood Count 4.45 M/uL (4.7-6.1); White Blood Count 6.73 K/uL (4.8-10.8)
[2020-01-20 12:08] LABS: INR 1.1 (0.9-1.1); Partial Thromboplastin Ratio 1.2; Partial Thromboplastin Time 33.4 Seconds (21.0-31.0); Prothrombin Time 11.4 Seconds (9.0-12.0)
[2020-01-20 12:14] LABS: BUN Creatinine Ratio 19.9 (10-20); Calcium 9.2 mg/dl (8.5-10.1); Creatinine Clr Calc Pharmacy 57.2 ml/min; Est GFR (Non-African American) 63.9; Potassium 4.2 mmol/L (3.5-5.1)
[2020-01-20 12:22] LABS: Mean Corpuscular Hgb Conc 33.5 g/dL (32-36)
--- NOTE | 2020-01-20 13:14 | History & Physical Report ---
Date of Service January 20, 2020 Assessment & Plan (1) Paroxysmal atrial fibrillation: transferred to [facility] for afib with RVR treated with cardizem drip at [facility], now in NSR will use Diltiazem PRN, use drip if needed if he goes back into afib continue on metoprolol 50mg daily, give 25mg now patient refuses anticoagulation will discuss again tomorrow (2) Pleural effusion, malignant: thoracentesis for 600cc on the right sent for cytology, gram stain, analysis Dr. 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 Correa currently stable see if oxygen requirements improved after thoracentesis (5) COPD (chronic obstructive pulmonary disease): continue inhalers Admission and Anticipated Discharge Date Admission Date: January 20, 2020 History of Present Illness Chief Complaint: They sent me up here for atrial fibrillation Primary Care Provider: JULIA FONG 84 yo male with history of lung cancer, s/p lobectomy and now with recurrent right sided malignancy with associated right pleural effusion. He has been following with Dr. Correa at [facility] clinic. When the cancer returned the patient refused any chemotherapy or radiation or other procedures. He has been experiencing progressive shortness of breath for the past few weeks. Imaging has continued to show pleural effusion, atelectasis. Dr. Correa discussed coming to [facility] for thoracentesis, consideration of bronchoscopy with stent in large airway to keep airway open, patient agreed. He was scheduled to come up here this week. Last night he became acutely short of breath, checked his HR and it was in the 140's. He has a history of atrial fibrillation so he went to the ED at [facility]. EKG confirmed atrial fibrillation with rates in the 140's. He was given Diltiazem IV and started on drip. He requested to come to [facility] since he was going to have the procedures on his lungs. He confirms that he does not take anticoagulation. He said that they have told him "he needs to protect himself from blood clots" but he refuses. Upon arrival at [facility] he was in sinus rhythm, rates in the 70's. I checked stat labs that showed stable BMP and CBC and PT/INR and PTT. Discussed the case with Dr. Correa over the phone, he asked that Dr. Gale be consulted. Discu ssed with Dr. Gale and he planned to perform thoracentesis. Allergies Allergy/AdvReac Type Severity Reaction Status Date / Time latex Allergy Mild RASH Verified 01/14/20 11:24 Iodinated Contrast Media AdvReac Mild Pt not Verified 01/14/20 11:24 sure it was the contrast that made him not feel well Home Medications Home Medications Medication Instructions Recorded Confirmed Type metoprolol tartrate 50 mg tablet PO .TAKE 1 TABLET DAILY tab 06/03/19 01/14/20 History mometasone 2 puffs INHALATION BID #1 ea 07/04/19 01/14/20 Rx potassium iodide 32.5 mg (24 mg 130 mg PO DAILY 07/09/19 01/14/20 History iodine) tablet ipratropium bromide 0.02 % 2.5 ml INHALATION Q4H PRN #150 ml 01/05/20 01/14/20 Rx solution for inhalation Past Med/Surg History Medical History (Updated 01/20/20 @ 15:48 by Jerome Gale MD) Acute hypoxemic respiratory failure COPD (chronic obstructive pulmonary disease) Metastatic lung cancer (metastasis from lung to other site) Pleural effusion, malignant Trapped lung Social History (Updated 07/09/19 @ 13:57 by Robyn Martinez) Preferred Language: [place]i Communication Ability: PT [facility] Acetylene Cutter Required: No Beliefs That Will Affect Care: None Current Living Situation: Spouse current occupational status: retired Other Information That Helps Us Care for You: No Feels Safe at Home: Yes Smoking Status: Former smoker Cigarettes Per Day: 20 ; Hx Alcohol Use: No Hx Substance Use: No Review of Systems Review of Systems: All systems reviewed & are unremarkable except as noted in HPI & below Constitutional: no fever, no chills, no sweats, no fatigue, no weakness and no weight loss Respiratory: + cough, + chest congestion, + dyspnea, + dyspnea on exertion and + sputum production (sporadic); no hemoptysis Cardiovascular: no chest pain, no palpitations, no syncope and no edema Gastrointestinal: no abdominal pain, no nausea, no vomiting, no constipation and no diarrhea/loose stools Physical Exam Constitutional: well developed, well nourished and + frail appearing; no acute distress Eyes: PERRL, conjunctivae normal, anicteric sclerae ENMT: external ear and nose normal, oropharynx normal Neck: trachea midline, no thyromegaly Respiratory: + cough and + tachypneic Auscultation: + diminished lung sounds (right base) and + rhonchi; no crackles, no rales and no wheezes Cardiovascular: RRR, no murmur, no edema Gastrointestinal (Abdomen): normal bowel sounds, soft, nontender, no hepatosplenomegaly Musculoskeletal: no cyanosis or clubbing, extremities motor strength 5/5 Skin: no rashes, warm and dry Neurologic: patellar DTR's 2+ bilat, sensation intact and PERRL, EOMI, accommodation nl, no face palsy, no dysarthria Psychiatric: A+Ox3, euthymic affect Lymphatic: no cervical or axillary lymphadenopathy Results & Data Results & Data ([facility]) Vital Signs (Past 12 Hours) Vital Signs Temp Pulse Pulse Resp BP Pulse Ox Pulse Ox 01/20/20 12:09 70 01/20/20 12:03 96 01/20/20 11:40 36.3 C L 70 21 140/72 96 Laboratory Results Laboratory Results - last 24 hr 01/20/20 01/20/20 01/20/20 11:46 11:46 11:46 WBC 6.73 RBC 4.45 L Hgb 13.3 L Hct 39.7 L MCV 89.2 MCH 29.9 MCHC 33.5 RDW Std Deviation 44.5 RDW Coeff of Jaycob 13.5 Plt Count 343 MPV 9.7 Immature Gran % (Auto) 0.1 Neut % (Auto) 93.0 Lymph % (Auto) 5.9 [place] % (Auto) 1.0 Eos % (Auto) 0.0 Baso % (Auto) 0.0 Immature Gran # (Auto) 0.01 Neut # (Auto) 6.25 Lymph # (Auto) 0.40 L [place] # (Auto) 0.07 L Eos # (Auto) 0.00 Baso # (Auto) 0.00 PT 11.4 INR 1.1 APTT 33.4 H PTT Ratio 1.2 Sodium 138 Potassium 4.2 Chloride 103 Carbon Dioxide 26 Anion Gap 9.0 BUN 21 H Creatinine 1.07 Est Cr Clr Drug Dosing 57.2 Est GFR ( Amer) 74.0 Est GFR (Non-Af Amer) 63.9 BUN/Creatinine Ratio 19.9 Glucose 207 H Calcium 9.2 Fluid Neutrophils % Fluid Lymphocytes % Fluid Eosinophils % Fluid Mes[place]/Macro/[place] % Pleural Fluid Source Pleural Color Pleural Appearance Pleural pH Pleural WBC Pleural RBC Pleural Total Protein Pleural LDH Pleural Glucose 01/20/20 01/20/20 15:10 15:10 WBC RBC Hgb Hct MCV MCH MCHC RDW Std Deviation RDW Coeff of Jaycob Plt Count MPV Immature Gran % (Auto) Neut % (Auto) Lymph % (Auto) [place] % (Auto) Eos % (Auto) Baso % (Auto) Immature Gran # (Auto) Neut # (Auto) Lymph # (Auto) [place] # (Auto) Eos # (Auto) Baso # (Auto) PT INR APTT PTT Ratio Sodium Potassium Chloride Carbon Dioxide Anion Gap BUN Creatinine Est Cr Clr Drug Dosing Est GFR ( Amer) Est GFR (Non-Af Amer) BUN/Creatinine Ratio Glucose Calcium Fluid Neutrophils % Pending Fluid Lymphocytes % Pending Fluid Eosinophils % Pending Fluid Meso/Macro/[place] % Pending Pleural Fluid Source Pending Pleural Color Pending Pleural Appearance Pending Pleural pH Pending Pleural WBC Pending Pleural RBC Pending Pleural Total Protein Pending Pleural LDH Pending Pleural Glucose Pending Diagnostic Findings XR chest 1V portable HISTORY: 84 years-old Male dyspnea, pleural effusion acute shortness of breath with pleural effusion COMPARISON: Chest CT from outside hospital 01/11/2020, PET CT 12/31/2017 TECHNIQUE: Portable AP view of the chest FINDINGS: Cardiac silhouette is normal. Emphysema. There is complete opacification of the right hemithorax which has progressively worsened obscuring the right upper lobe mass. There is mild rightward deviation of the heart and mediastinum. Minimal left lung opacities suggestive of probable atelectasis. Bones appear grossly intact. Healed remote left-sided rib fractures. Degenerative changes of the shoulders and spine. IMPRESSION: 1. Complete opacification of the right hemithorax has progressively worsened from comparison with obscuration of the previously noted right upper lobe mass. Findings are suggestive of large right pleural effusion with associated consolidation/atelectasis. 2. Emphysema Code Status & VTE Plan Code Status Full code discussed with patient at length, he said "go ahead and try" told him that there is a disconnect between not wanting treatment for lung c ancer but wanting to be a full code he said he didn't care VTE Prophylaxis Plan VTE Prophylaxis will be ordered: Yes PG Care Time/CCT Total # of Minutes Spent Total Time Spent with Patient: Total time spent is greater than 50% in coordination of care (as documented) at patient's floor/unit and/or counseling patient: Coding Level of Care Code 72359 Initial Inpt Care Lvl 3 Diagnoses Paroxysmal atrial fibrillation I48.0 Pleural effusion, malignant J91.0 Trapped lung J98.19 Acute hypoxemic respiratory failure J96.01 COPD (chronic obstructive pulmonary disease) J44.9
--- NOTE | 2020-01-20 13:51 | XRay Report ---
XR chest 1V portable HISTORY: 84 years-old Male dyspnea, pleural effusion acute shortness of breath with pleural effusion COMPARISON: Chest CT from outside hospital 01/11/2020, PET CT 12/31/2017 TECHNIQUE: Portable AP view of the chest FINDINGS: Cardiac silhouette is normal. Emphysema. There is complete opacification of the right hemithorax whic h has progressively worsened obscuring the right upper lobe mass. There is mild rightward deviation o f the heart and mediastinum. Minimal left lung opacities suggestive of probable atelectasis. Bones ap pear grossly intact. Healed remote left-sided rib fractures. Degenerative changes of the shoulders an d spine. IMPRESSION: 1. Complete opacification of the right hemithorax has progressively worsened from comparison with obs curation of the previously noted right upper lobe mass. Findings are suggestive of large right pleura l effusion with associated consolidation/atelectasis. 2. Emphysema. ACT 112: Negative or not required by law. The above report was generated using voice recognition software. It may contain grammatical, syntax o r spelling errors. Electronically signed by: Yahir Sales M.D. 01/20/2020 1:49 PM
--- NOTE | 2020-01-20 15:19 | Procedure Note ---
Procedure Note Date of Service January 20, 2020 Note Procedure: Diagnostic and/or therapeutic ultrasound-guided 8 Greek pneumocath placement Mannequin Refinisher: Dr. Jerome Gale Indication: Pleural effusion Consent: Signed by patient and verified with timeout prior to procedure Anesthesia: 8 mL's of 1% lidocaine without epinephrine given locally Procedure: Consent was verified and timeout performed. Appropriate imaging studies were reviewed prior to the procedure. Patient was placed in a semirecumbent and limited thoracic ultrasound was performed of the right chest. See separate imaging. The site appropriate for thoracentesis was selected. The skin was prepped and draped in normal sterile fashion. Lidocaine was used for local analgesia. Fluid was aspirated via the finder needle. A small skin kellie was made with the scalpel and the catheter over the needle apparatus was advanced over the rib into the pleural space. I left a small pneumocath in place to drainage to a [place] bag via gravity. So far, approximately 600 mL of serous sanguinous fluid has been removed from the pleural space. Patient notes that he feels "25%" better. He feels that he is able to take deeper breaths. A sterile dressing was applied. Post procedure chest x-ray was ordered. Fluid was sent for LDH, total protein, cell count, glucose, pH, cytology, AFB cultures, gram stain and culture and fungal cultures. I think that this pleural effusion likely represents stage IV disease. The patient tolerated the procedure well without obvious complication Coding CPT Codes Pulmonary/Thoracic - Pulmonary and Thoracic: 13748 Pleural drainage w/imaging ([id number]) [facility] Procedure Codes (Charges) Pulmonary/Thoracic Procedure 1: Pulmonary and Thoracic: 35509 Pleural drainage w/imaging
--- NOTE | 2020-01-20 15:34 | Procedure Note ---
Procedure Note Date of Service January 20, 2020 Coding
--- NOTE | 2020-01-20 15:51 | Pulmonary Consultation ---
Date of Consultation January 20, 2020 Assessment & Plan (1) Pleural effusion, malignant: 84-year-old male with a past medical history of 2 primary lung cancers now with evidence of metastatic disease to the lymph nodes and likely to the pleural fluid. I suspect that the pleural effusions have been present for some time as there was certainly pleural thickening noted on the imaging and on insertion of the pleural catheter today. The fluid is frankly serosanguineous and obviously ex udative. I suspect that it will likely be malignant. I will leave the catheter in overnight and likely remove it tomorrow. Please leave the catheter to drain to the [place] bag via gravity. I will repeat imaging after the fluid has drained to see if there has been any reexpansion of the lung. At this time, it is unclear whether he would benefit from an indwelling pleural catheter for palliative reasons. I do not think there is any role for radiation as the lung field would be quite wide and there is no small discrete lesion. Patient has adamantly refused chemotherapy in the past and continues to refuse chemotherapy. I think a more palliative approach at this time would be reasonable. 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 I would would recommend palliative care consultation. I will continue to follow along with you. Thank you. (2) Metastatic lung cancer (metastasis from lung to other site): (3) COPD (chronic obstructive pulmonary disease): (4) Acute hypoxemic respiratory failure: (5) Trapped lung: History of Present Illness Reason for Consultation: Right-sided pleural effusion Requesting Physician: Dr. Mata Avila Attending Physician: Mata Avila, DO History of Present Illness 84-year-old male with a past medical history of adenocarcinoma and squamous cell carcinoma followed by Dr. Correa, paroxysmal atrial fibrillation and COPD who presents the hospital as a direct admission from [facility] in [place] due to atrial fibrillation. Patient has a previous history of a right upper lobectomy due to non-small cell lung cancer by Dr. Waldron several years ago and then a subsequent endobronchial ultrasound with biopsy of station 4R lymph node which demonstrated metastatic disease. Patient refused adjuvant chemoradiation. On 01/11/[address] of his chest that demonstrated a right hilar confluent soft tissue mass surrounding the bronchovascular structures and extending into the suprahilar region. The suprahilar component measured nearly 4 cm in transverse dimensiom. There is also a large right pleural effusion seen & which was loculated anteriorly in the upper lobe. There is also apparent occlusion of the bronchi beyond the right mainstem bronchus. Patient notes that he has been having increasing shortness of breath since August of this year. He notes occasional chest pain when laying on his right side. Denies any hemoptysis. He does have a chronic cough. He was a smoker for years since the age of 16 and quit roughly 5 years ago. He was recently prescribed supplemental oxygen within last month. He denies any significant weight loss. No fevers or chills. I did place a right-sided 8 Spanish pneumocath and upon insertion roughly 600 mL of pleural fluid was removed. The fluid appears grossly serosanguineous. I did send the fluid for cytology and culture studies. The patient noted some relief of symptoms and that he could take slightly deeper breaths. Allergies Allergy/AdvReac Type Severity Reaction Status Date / Time latex Allergy Mild RASH Verified 01/14/20 11:24 Iodinated Contrast Media AdvReac Mild Pt not Verified 01/14/20 11:24 sure it was the contrast that made him not feel well Home Medications Home Medications Medication Instructions Recorded Confirmed Type metoprolol tartrate 50 mg tablet PO .TAKE 1 TABLET DAILY tab 06/03/19 01/14/20 History mometasone 2 puffs INHALATION BID #1 ea 07/04/19 01/14/20 Rx potassium iodide 32.5 mg (24 mg 130 mg PO DAILY 07/09/19 01/14/20 History iodine) tablet ipratropium bromide 0.02 % 2.5 ml INHALATION Q4H PRN #150 ml 01/05/20 01/14/20 Rx solution for inhalation Patient History Social History Preferred Language: Kosovan Communication Ability: PT [facility] Director Business Required: No Beliefs That Will Affect Care: None Current Living Situation: Spouse current occupational status: retired Other Information That Helps Us Care for You: No Feels Safe at Home: Yes Smoking Status: Former smoker Cigarettes Per Day: 20 ; Hx Alcohol Use: No Hx Substance Use: No Review of Systems Review of Systems: All systems reviewed & are unremarkable except as noted in HPI & below Physical Exam Constitutional: WD/WN, vitals as above Nasal cannula in place. Eyes: PERRL, conjunctivae normal, anicteric sclerae ENMT: external ear and nose normal, oropharynx normal Neck: trachea midline, no thyromegaly Respiratory: Dullness to percussion on the right. Decreased breath sounds on the right. Cardiovascular: RRR, no murmur, no edema Gastrointestinal (Abdomen): normal bowel sounds, soft, nontender, no hepatosplenomegaly Musculoskeletal: no cyanosis or clubbing, extremities motor strength 5/5 Skin: no rashes, warm and dry Neurologic: PERRL, EOMI, accommodation nl, no face palsy, no dysarthria Psychiatric: A+Ox3, euthymic affect Results & Data Results & Data ([facility]) Vital Signs (Past 12 Hours) Vital Signs Temp Pulse Pulse Resp BP Pulse Ox Pulse Ox 01/20/20 12:09 70 01/20/20 12:03 96 01/20/20 11:40 97.3 F L 70 21 140/72 96 I did review the patient's previous labs, chest imaging and previous notes PG Care Time/CCT Total # of Minutes Spent Total Time Spent with Patient: Total time spent is greater than 50% in coordination of care (as documented) at patient's floor/unit and/or counseling patient: [place] [address] Initial Inpt Care Lvl 3 Patient Type Established Diagnoses Pleural effusion, malignant J91.0 Metastatic lung cancer (metastasis from lung to other site) C34.90 COPD (chronic obstructive pulmonary disease) J44.9 Acute hypoxemic respiratory failure J96.01 Trapped lung J98.19 Time Spent (min) 65
[2020-01-20] MEDS ORDERED: TRAMADOL HCL 50 MG TABLET ONE (15:59)
[2020-01-20] MEDS: TRAMADOL HCL 50 MG TABLET PO PRN (16:00)
--- NOTE | 2020-01-20 16:00 | XRay Report ---
XR chest 1V portable CLINICAL HISTORY: s/p placement small bore chest tube COMPARISON STUDY: 01/20/2020 FINDINGS: The cardiac and mediastinal contours remain stable. There is been interval insertion of a r ight-sided chest tube. There is dense opacification of the right lung. There is decreased right pleur al fluid. There is a lucency at the right lung apex which could indicate a pneumothorax.[ IMPRESSION: 1. Slight improvement in the aeration of the right hemithorax status post placement of a right-sided chest tube. There is a right apical lucency which may represent a small apical pneumothorax. ACT 112: Negative or not required by law. Electronically signed by: Mac Rodriguez M.D. 01/20/2020 3:59 PM
[2020-01-20] MEDS ORDERED: METOPROLOL TARTRATE 25 MG TAB PO STA (16:09)
[2020-01-20 16:59] LABS: Appearance Pleural Fluid BLOODY; Basophils, Fluid 1 %; Color Pleural Fluid RED; Eosinophils, Fluid 3 %; Lymphocytes, Fluid 53 %; Mono,Macrophage,Mesothelial 34 %; Neutrophils, Fluid 9 %; RBC Pleural Fluid (A) 129000 /uL; Source Pleural Fluid RIGHT LUNG; WBC Pleural Fluid (A) 2778 /uL
[2020-01-20 17:15] LABS: Glucose Pleural Fluid 32 mg/dl; LDH Pleural Fluid 1447 U/L; Total Protein Pleural Fluid 4.2 g/dl
[2020-01-20] MEDS: MoRPHine SULFATE 2 MG/ML CARP IV PRN (19:43)
[2020-01-21] MEDS: METOPROLOL TARTRATE 1 MG/ML VIAL IV PRN ×6 (03:26→22:23)
[2020-01-21] MEDS ORDERED: STAT IV Infusion **Titration per Protocol STA ×2 (04:33→11:02)
[2020-01-21] MEDS ORDERED: dilTIAZem HCl 5 MG/ML 5 ML VIAL IV STA (04:33)
[2020-01-21] MEDS ORDERED: POTASSIUM CHLORIDE 20 MEQ TABCR PO STA (04:34)
[2020-01-21] MEDS ORDERED: dilTIAZem HCL 125 MG in DEXTROSE 5% 100 ML IV SCH (04:45)
[2020-01-21 05:16] LABS: Calcium 9.6 mg/dl (8.5-10.1); Creatinine Clr Calc Pharmacy 54.6 ml/min; Est GFR (Non-African American) 60.4; Magnesium 2.7 mg/dl (1.8-2.4); Phosphorus 3.4 mg/dl (2.5-4.9); Potassium 4.9 mmol/L (3.5-5.1)
[2020-01-21] MEDS ORDERED: ALBUT/IPRATROP 3MG/0.5MG NEB 3 ML VIAL NEB STA (08:22)
--- NOTE | 2020-01-21 09:41 | CT Scan Report ---
CT chest wo con CT DOSE: 590.08 mGycm HISTORY: Lung carcinoma post chest tube, eval pleural and lung mass TECHNIQUE: Multiaxial CT images of the chest were performed without contrast. A dose lowering techni que was utilized adhering to the principles of ALARA. COMPARISON: 11/21/2017 FINDINGS: Interval placement of right-sided chest tube. Right-sided hydropneumothorax estimated at 30 % and right hemithoracic volume. Consolidative changes of the residual parenchymal structures of the right hemithorax. Progressive and/or interval masslike changes of the right hilum and right anterior mediastinal region . Anterior mediastinal mass is a maximum dimension is 6.5 cm. Enlargement of the right hilum compared to the prior study is now estimated at 4 cm. Recommend nodularity of the partially collapsed right hemithorax is present. Trace pleural fluid left lung base. Left lung otherwise is clear. Mild compensatory cardiomediastinal silhouette shift to the right. Interval development of several right axillary nodes measuring up to 1 cm. Several mediastinal nodes also somewhat progressive. Largest pretracheal node is 1.7 cm. Moderate subcarinal edy change estim ated a maximum of 2 cm. IMPRESSION: 1. Interval development of right hemithoracic masses involving the right hilum, anterior mediastinum, as well as progressive adenopathy involving the mid mediastinum and subcarinal region. 2. Minimal right-sided hydropneumothorax estimated at 30-40% right hemithoracic volume. 4. Right-sided chest tube in position at the right lung base. 5. Trace pleural fluid left lung base. 6. The appearance is consistent with that of a progressive and/or recurrent metastatic disease. ACT 112: Negative or not required by law. The above report was generated using voice recognition software. It may contain grammatical, syntax or spelling errors. Electronically signed by: Brian Lopez M.D. 01/21/2020 9:40 AM
[2020-01-21] MEDS: METOPROLOL TARTRATE 50 MG TAB PO SCH (09:59)
--- NOTE | 2020-01-21 10:48 | Pulmonology Progress Note ---
Date of Service January 21, 2020 Assessment & Plan (1) Pleural effusion, malignant: 84-year-old male with a past medical history of 2 primary lung cancers now with evidence of metastatic disease to the lymph nodes and likely to the pleural fluid. Approximately 1400 mL of serosanguineous fluid was removed from the right pleural cavity. I did remove the chest tube today. CT of the chest demonstrated a large right hilar mass and pleural thickening with a small residual effusion noted posteriorly. I suspect that this represents lung entrapment related to his malignancy. Although, the patient does note he felt somewhat better after the procedure, his oxygen requirements have stayed the same. He does not appear any less short of breath to me than he did prior to the procedure. I doubt that a Pleurx catheter would be of much benefit here. We can repeat a chest x-ray in a week or 2 and see how he is doing symptomatically at that point. Follow-up cytology from the pleural fluid. Recommend palliative care consultation and curb siding oncology. I will continue to follow along with you. Thank you. (2) Metastatic lung cancer (metastasis from lung to other site): (3) COPD (chronic obstructive pulmonary disease): (4) Acute hypoxemic respiratory failure: (5) Trapped lung: Admission and Anticipated Discharge Date Admission Date: January 20, 2020 Subjective Patient seen and examined today. He is lying in bed. Nasal cannula in place. He notes that he had some trouble sleeping last night. He describes that his breathing seems a little easier and that he is able to take deep breaths today. Oxygen requirements remain unchanged from previous to the pleural fluid drainage. He has drained roughly 1400 mL of serosanguineous fluid from his right pleural drain. He underwent a CT of his chest this morning. Review of Systems Review of Systems: All systems reviewed & are unremarkable except as noted in HPI & below Physical Exam Constitutional: WD/WN, vitals as above Eyes: PERRL, conjunctivae normal, anicteric sclerae ENMT: external ear and nose normal, oropharynx normal Neck: trachea midline, no thyromegaly Respiratory: Diminished breath sounds on the right. Right chest tube in place in the mid axillary region. Cardiovascular: RRR, no murmur, no edema Gastrointestinal (Abdomen): normal bowel sounds, soft, nontender, no hepatosplenomegaly Musculoskeletal: no cyanosis or clubbing, extremities motor strength 5/5 Skin: no rashes, warm and dry Neurologic: PERRL, EOMI, accommodation nl, no face palsy, no dysarthria Psychiatric: A+Ox3, euthymic affect Results & Data Results & Data ([facility]) Vital Signs (Past 12 Hours) Vital Signs Temp Pulse Pulse Resp BP BP Pulse Ox 01/21/20 08:45 120 H 18 96 01/21/20 07:00 97.5 F L 138 H 20 132/80 99 01/21/20 05:21 137 H 20 132/88 93 01/21/20 05:01 141 H 20 124/89 93 01/21/20 04:45 133 H 20 133/89 94 01/21/20 03:57 135 H 142/93 H 01/21/20 03:55 135 H 20 142/93 H 93 01/21/20 03:45 135 H 153/78 H 01/21/20 03:43 135 H 20 153/78 H 93 01/21/20 03:26 139 H 127/75 01/21/20 03:04 98.1 F 135 H 20 127/75 95 01/21/20 00:27 76 PG Care Time/CCT Total # of Minutes Spent Total Time Spent with Patient: Total time spent is greater than 50% in coordination of care (as documented) at patient's floor/unit and/or counseling patient: Coding Level of Care Code 88542 Subseq Hosp Care Lvl 3 Diagnoses Pleural effusion, malignant J91.0 Metastatic lung cancer (metastasis from lung to other site) C34.90 COPD (chronic obstructive pulmonary disease) J44.9 Acute hypoxemic respiratory failure J96.01 Trapped lung J98.19
[2020-01-21] MEDS ORDERED: AMIODARONE IV BOLUS & DRIP IV STA (11:02)
[2020-01-21] MEDS ORDERED: 0.2 MICRON FILTER SET 1 EA IV ONE (11:02)
[2020-01-21] MEDS: DORNASE ALFA 2.5 ML AMP INH SCH ×3 (11:13→20:42)
[2020-01-21] MEDS ORDERED: AMIODARONE / D5W 150 MG/100 ML BAG IV ONE (11:15)
[2020-01-21] MEDS ORDERED: ENOXAPARIN 1.5 MG/KG SC SCH (11:30)
--- NOTE | 2020-01-21 11:33 | Cardiology Consultation ---
Date of Consultation January 21, 2020 Assessment & Plan (1) Atrial flutter with rapid ventricular response: Mr. Staples is a very pleasant 84-year-old male with a history of Paroxysmal Atrial Fibrillation, Mitral Regurgitation, Hypothyroidism, COPD, Metastatic Lung Cancer s/p Lobectomy and now with Recurrent Right Sided Malignancy s/p Thoracentesis (earlier today) -- who had the onset of Atrial Flutter last evening (manifesting as palpitations, HR 140's, and dyspnea) and went to [facility] -- but he requested to be transferred here due to his scheduled lung procedures. He follows with Dr. Correa at [facility]. When his lung cancer returned the patient refused any chemotherapy or radiation or other procedures. He has been experiencing progressive shortness of breath for the past few weeks. Imaging has continued to show pleural effusion, atelectasis. Dr. Correa discussed coming to [facility] for thoracentesis, consideration of bronchoscopy with stent in large airway to keep airway open, patient agreed. He was scheduled to come up here this week. Patient was started on diltiazem drip, and subsequently converted to a normal sinus rhythm. At approximately 2 a.m. today, he will back into rapid atrial flutter. He is currently being seen in room 237. His breathing is much better since having his thoracentesis this morning. He still has a sense of palpitations and his heart rate is still in the 120s to 140s on monitor. Historically, patient has refused anticoagulation and is not interested in long- term anticoagulation at this point. Recommend the followin. Begin Lovenox 135 mg subcutaneous injection daily. 2. Stop Diltiazem drip. 3. IV Amiodarone bolus followed by drip. 4. Recommend Echocardiogram, preferably after he has converted back to a normal sinus rhythm. 5. Continue Metoprolol Tartrate 50 mg daily -- preferably in a divided dose, and can be titrated if necessary. 6. Replete potassium. 7. Continue IV Lopressor 5 mg as needed. (2) Paroxysmal atrial fibrillation: -- As outlined above. (3) Mitral regurgitation: -- Echocardiogram will be performed -- preferably after he converts to a normal sinus rhythm. History of Present Illness Reason for Consultation: -- Paroxysmal Atrial Flutter with RVR. -- Paroxysmal Atrial Fibrillation. Requesting Physician: Peter Austin,DO Attending Physician: Matt Mueller MD History of Present Illness Mr. Staples is a very pleasant 84-year-old male with a history of Paroxysmal Atrial Fibrillation, Mitral Regurgitation, Hypothyroidism, COPD, Metastatic Lung Cancer s/p Lobectomy and now with Recurrent Right Sided Malignancy s/p Thoracentesis (earlier today) -- who had the onset of Atrial Flutter last evening (manifesting as palpitations, HR 140's, and dyspnea) and went to [facility] -- but he requested to be transferred here due to his scheduled lung procedures. He follows with Dr. Correa at [facility]. When his lung cancer returned the patient refused any chemotherapy or radiation or other procedures. He has been experiencing progressive shortness of breath for the past few weeks. Imaging has continued to show pleural effusion, atelectasis. Dr. Correa discussed coming to [facility] for thoracentesis, consideration of bronchoscopy with stent in large airway to keep airway open, patient agreed. He was scheduled to come up here this week. Patient was started on diltiazem drip, and subsequently converted to a normal sinus rhythm. At approximately 2 a.m. today, he will back into rapid atrial flutter. He is currently being seen in room 237. His breathing is much better since having his thoracentesis this morning. He still has a sense of palpitations and his heart rate is still in the 120s to 140s on monitor. Historically, patient has refused anticoagulation and is not interested in long- term anticoagulation at this point. Denies any chest pain, heaviness, tightness, pressure, or discomfort. He denies any orthopnea or PND. He has not had any syncope or near-syncope. He has not had any signs or symptoms suggestive of stroke or mini stroke. HISTORICAL BACKGROUND: Patient's cardiac history includes paroxysmal atrial fibrillation -- dating back to 1999. He has had intermittent episodes of atrial fibrillation since then.Patient denies any exertional chest pain, heaviness, tightness, or pressure. No exertional neck, jaw, back, or arm pain. No shortness of breath at rest, unusual dyspnea on exertion, or any recent decrease in exercise tolerance. He further denies any orthopnea, PND, syncope, or near-syncope. He underwent Cardiac Catheterization in 2005 which showed Normal Coronary Arteries. He had a stress test 2011 which was negative for myocardial ischemia. Most recent Echocardiogram was 02/18/2016 -- it showed normal LV size and syst olic function, LVEF 55% without regional wall motion abnormalities. Mildly dilated right ventricle with normal function. Mild to moderate mitral regurgitation was present. Mild tricuspid regurgitation. Moderately increased pulmonary artery systolic pressure. Allergies Allergy/AdvReac Type Severity Reaction Status Date / Time latex Allergy Mild RASH Verified 01/14/20 11:24 Iodinated Contrast Media AdvReac Mild Pt not Verified 01/14/20 11:24 sure it was the contrast that made him not feel well Home Medications Home Medications Medication Instructions Recorded Confirmed Type metoprolol tartrate 50 mg tablet PO .TAKE 1 TABLET DAILY tab 06/03/19 01/14/20 History mometasone 2 puffs INHALATION BID #1 ea 07/04/19 01/14/20 Rx potassium iodide 32.5 mg (24 mg 130 mg PO DAILY 07/09/19 01/14/20 History iodine) tablet ipratropium bromide 0.02 % 2.5 ml INHALATION Q4H PRN #150 ml 01/05/20 01/14/20 Rx solution for inhalation Patient History Medical History (Updated 01/23/20 @ 10:00 by Addison Ramirez MD) Acute hypoxemic respiratory failure COPD (chronic obstructive pulmonary disease) Metastatic lung cancer (metastasis from lung to other site) Pleural effusion, malignant Trapped lung Surgical History (Updated 01/23/20 @ 10:15 by Addison Ramirez MD) S/P hernia surgery Social History Preferred Language: Comoran Communication Ability: Effective Programs Director Required: No Beliefs That Will Affect Care: None Current Living Situation: Spouse current occupational status: retired Other Information That Helps Us Care for You: No Feels Safe at Home: Yes Smoking Status: Former smoker Cigarettes Per Day: 20 ; Do You Dip or Chew Tobacco: No ; Hx Alcohol Use: No Hx Substance Use: No Physical Exam Physical Exam: General: Patient in no acute distress. HEENT: Head is atraumatic, normocephalic. EOMs intact. Sclera anicteric. Facies symmetric. No perioral cyanosis. Mucous membranes moist. Neck: No JVD. Carotid upstroke +2 bilaterally without bruits. No adenopathy. Chest and Lungs: Absent breath sounds in the right base, otherwise diminished breath sounds throughout. No obvious wheezes or rales. CVS: S1 and S2 are regular, tachycardic at 140 bpm. There is a grade 1/6 systolic murmur noted at the left sternal border, does not appear to radiate. No diastolic murmurs appreciated. No gallops or rubs. PMI is nondisplaced. No lifts, heaves, or thrills. No abdominal aortic or renal bruits noted. Abdominal Exam: Bowel sounds present. No masses, organomegaly, or tenderness. Extremities: No clubbing, cyanosis, or edema. Intact posterior tibial and radial pulses bilaterally. Neurologic Exam: Patient is awake, alert, and oriented. Pleasant cooperative. Answers questions appropriately. Speech is clear. Normal movement in all 4 extremities. TELEMETRY: -- Atrial flutter with rates between 120-154 bpm -- beginning shortly after 0200 . EKG 01/21/2020: -- Atrial flutter with RVR, RBBB present. -- Mild ST segment depression in the lateral leads. Results & Data ([facility]) Vital Signs (Past 12 Hours) Vital Signs Temp Pulse Pulse Resp BP BP Pulse Ox 01/21/20 08:45 120 H 18 96 01/21/20 08:00 136 H 01/21/20 07:00 36.4 C L 138 H 20 132/80 99 01/21/20 05:21 137 H 20 132/88 93 01/21/20 05:01 141 H 20 124/89 93 01/21/20 04:45 133 H 20 133/89 94 01/21/20 03:57 135 H 142/93 H 01/21/20 03:55 135 H 20 142/93 H 93 01/21/20 03:45 135 H 153/78 H 01/21/20 03:43 135 H 20 153/78 H 93 01/21/20 03:26 139 H 127/75 01/21/20 03:04 36.7 C 135 H 20 127/75 95 01/21/20 00:27 76 PG Care Time/CCT Total # of Minutes Spent Total Time Spent with Patient: Total time spent is greater than 50% in coordination of care (as documented) at patient's floor/unit and/or counseling patient: Coding Level of Care Code 61528 Initial Inpt Care Lvl 3 Diagnoses Atrial flutter with rapid ventricular response I48.92 Paroxysmal atrial fibrillation I48.0 Mitral regurgitation I34.0
[2020-01-21] MEDS: ENOXAPARIN 150 MG/ML SYR SQ SCH (12:14)
[2020-01-21] MEDS: AMIODARONE 450 MG in D5W 250ML IN *POLYOLEFIN BAG* 241 ML IV SCH ×2 (12:19→19:33)
--- NOTE | 2020-01-21 14:21 | Electrocardiogram Report ---
Test Reason : Blood Pressure : / mmHG Vent. Rate : 136 BPM Atrial Rate : 272 BPM P-R Int : 000 ms QRS Dur : 118 ms QT Int : 376 ms P-R-T Axes : 000 026 262 degrees QTc Int : 565 ms Poor data quality, interpretation may be adversely affected Atrial flutter with 2:1 A-V conduction Right bundle branch block T wave abnormality, consider inferolateral ischemia Abnormal ECG When compared with ECG of 01-JAN-2017 15:29, Atrial flutter has replaced Sinus rhythm Vent. rate has increased BY 69 BPM Right bundle branch block has replaced Incomplete right bundle branch block Confirmed by Matt Mueller ([id number]) on 01/21/2020 2:20:55 PM Referred By: REFERRED SELF Confirmed By:Matt Mueller
--- NOTE | 2020-01-21 14:29 | Electrocardiogram Report ---
Test Reason : Blood Pressure : / mmHG Vent. Rate : 139 BPM Atrial Rate : 139 BPM P-R Int : 148 ms QRS Dur : 154 ms QT Int : 356 ms P-R-T Axes : 000 053 -80 degrees QTc Int : 541 ms Atrial flutter with 2 to 1 block Right bundle branch block Abnormal ECG When compared with ECG of 21-JAN-2020 02:52, (unconfirmed) QRS duration has increased ST less depressed in Lateral leads T wave inversion less evident in Lateral leads Confirmed by Matt Mueller ([id number]) on 01/21/2020 2:29:12 PM Referred By: REFERRED SELF Confirmed By:Matt Mueller
--- NOTE | 2020-01-21 16:10 | Hospitalist Progress Note ---
Date of Service January 21, 2020 Assessment & Plan (1) Paroxysmal atrial fibrillation: went back into afib RVR last night appreciate cardiology consult, use Amiodarone bolus and drip continue on Lopressor, use Lopressor IV PRN Lovenox, therapeutic dosing started no chest pain, no palpitations today while in afib (2) Pleural effusion, malignant: thoracentesis for 600cc on the right on 01/19 sent for cytology, gram stain, analysis Dr. 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 Correa currently stable no major change after thoracentesis (5) COPD (chronic obstructive pulmonary disease): continue inhalers no wheezing, no distress on exam (6) Metastatic lung cancer (metastasis from lung to other site): will consult palliative care to start discussion on goals of care he has refused chemotherapy in the past told him that it is time to have the conversation of hospice, if not now then in the near future Admission and Anticipated Discharge Date Admission Date: January 20, 2020 Subjective patient back into afib over night, started on Diltiazem drip, HR still in the 140's d/w cardiology, appreciate their recommendations, started on Lovenox, will start on Amiodarone for conversion use Lopressor PO and IV PRN plan for echo tomorrow d/w Dr. Gale, lung is trapped, got a CT chest today to confirm that it will not re-expand will consult palliative care to discuss goals of care told patient about this plan, he is open to talking with them, he knows that lung cancer cannot be cured BMP today is stable, normal electrolytes and renal function Review of Systems Review of Systems: All systems reviewed & are unremarkable except as noted in HPI & below Constitutional: no fever, no chills, no sweats, no fatigue and no weakness Respiratory: + cough and + dyspnea on exertion; no dyspnea Cardiovascular: no chest pain, no palpitations, no syncope and no edema Gastrointestinal: no abdominal pain, no nausea, no vomiting, no constipation and no diarrhea/loose stools Physical Exam Constitutional: well developed, well nourished and + frail appearing; no acute distress Eyes: PERRL, conjunctivae normal, anicteric sclerae ENMT: external ear and nose normal, oropharynx normal Neck: trachea midline, no thyromegaly Respiratory: + cough and + tachypneic Auscultation: + diminished lung sounds (right base); no crackles, no rales and no wheezes Cardiovascular: Rate/Rhythm: + tachycardic and + irregularly irregular Heart Sounds: normal S1 and normal S2; no murmur Vessels: no JVD Extremities: normal capillary refill; no edema Gastrointestinal (Abdomen): normal bowel sounds, soft, nontender, no hepatosplenomegaly Musculoskeletal: no cyanosis or clubbing, extremities motor strength 5/5 Skin: no rashes, warm and dry Neurologic: patellar DTR's 2+ bilat, sensation intact and PERRL, EOMI, accommodation nl, no face palsy, no dysarthria Psychiatric: A+Ox3, euthymic affect Lymphatic: no cervical or axillary lymphadenopathy Results & Data Results & Data ([facility]) Vital Signs (Past 12 Hours) Vital Signs Temp Pulse Pulse Resp BP Pulse Ox Pulse Ox 01/21/20 14:49 136 H 01/21/20 12:56 139 H 111/82 94 01/21/20 12:42 138 H 18 117/83 94 01/21/20 12:25 137 H 107/69 92 01/21/20 12:10 36.9 C 144 H 18 120/79 92 01/21/20 12:09 36.4 C L 153 H 19 98/66 L 93 01/21/20 12:00 92 01/21/20 08:45 120 H 18 96 01/21/20 08:00 136 H 01/21/20 07:00 36.4 C L 138 H 20 132/80 99 01/21/20 05:21 137 H 20 132/88 93 01/21/20 05:01 141 H 20 124/89 93 01/21/20 04:45 133 H 20 133/89 94 Laboratory Results Laboratory Results - last 24 hr 01/20/20 01/21/20 15:10 04:46 Sodium 140 Potassium 4.9 D Chloride 105 Carbon Dioxide 31 Anion Gap 4.0 BUN 21 H Creatinine 1.12 Est Cr Clr Drug Dosing 54.6 Est GFR ( Amer) 70.0 Est GFR (Non-Af Amer) 60.4 BUN/Creatinine Ratio 19.0 Glucose 146 H Calcium 9.6 Phosphorus 3.4 Magnesium 2.7 H Fluid Neutrophils % 9 Fluid Lymphocytes % 53 Fluid Eosinophils % 3 Fluid Basophils % 1 Fluid Meso/Macro/Becker % 34 Pleural Fluid Source RIGHT LUNG Pleural Color RED Pleural Appearance BLOODY Pleural WBC 2778 Pleural RBC [id number] Pleural Total Protein 4.2 Pleural LDH 1447 Pleural Glucose 32 Medications Administered Current Inpatient Medications Acetaminophen (Tylenol) 650 mg PO Q4H PRN PRN Reason: Pain or Fever Stop: 02/19/20 11:32 Albuterol (Duoneb) 3 ml NEB Q4R PRN PRN Reason: Shortness Of Breath Or Wheezing Stop: 02/20/20 10:59 Amiodarone HCl () 1 ea N/A ONE ONE Stop: 01/21/20 17:25 Dornase Berto (Pulmozyme) 2.5 ml INH BIDR [facility] Stop: 02/20/20 09:59 Last Admin: 01/21/20 11:21 Dose: Not Given Documented by: Enoxaparin Sodium (Lovenox) 129 mg SQ Q24H [facility]; Protocol Stop: 02/20/20 11:59 Last Admin: 01/21/20 12:14 Dose: 129 mg Documented by: Amiodarone HCl 450 mg/ (Dextrose) 250 mls @ 33.333 mls/hr IV .Q7H30M [facility]; Protocol Stop: 02/20/20 11:24 Last Admin: 01/21/20 12:19 Dose: 1 mg/min, 33.3 mls/hr Documented by: Metoprolol Tartrate (Lopressor) 50 mg PO QAM [facility] Stop: 02/20/20 08:59 Last Admin: 01/21/20 09:59 Dose: 50 mg Documented by: Metoprolol Tartrate (Lopressor) 5 mg IV Q5M PRN PRN Reason: Tachycardia Stop: 02/20/20 03:13 Last Admin: 01/21/20 03:57 Dose: 5 mg Documented by: Morphine Sulfate (Morphine Sulfate) 2 mg IV Q4H PRN PRN Reason: Pain Stop: 02/03/20 17:11 Last Admin: 01/20/20 19:43 Dose: 2 mg Documented by: Morphine Sulfate (Morphine Sulfate) 4 mg IV Q4H PRN PRN Reason: Severe Pain Stop: 02/03/20 17:11 Ondansetron HCl (Zofran) 4 mg IV Q6H PRN PRN Reason: Nausea Stop: 02/19/20 11:32 Tramadol HCl (Ultram) 50 mg PO Q4H PRN PRN Reason: Pain Stop: 02/19/20 15:40 Last Admin: 01/20/20 16:00 Dose: 50 mg Documented by: PG Care Time/CCT Total # of Minutes Spent Total Time Spent with Patient: Total time spent is greater than 50% in coordination of care (as documented) at patient's floor/unit and/or counseling patient: Coding Level of Care Code 31986 Subseq Hosp Care Lvl 3 Diagnoses Paroxysmal atrial fibrillation I48.0 Pleural effusion, malignant J91.0 Trapped lung J98.19 Acute hypoxemic respiratory failure J96.01 COPD (chronic obstructive pulmonary disease) J44.9 Metastatic lung cancer (metastasis from lung to other site) C34.90
[2020-01-21] MEDS ORDERED: AMIODARONE RATE CHANGE ONE (17:24)
[2020-01-22] MEDS ORDERED: 0.2 MICRON FILTER SET 1 EA IV ONE ×4 (02:01→09:50)
[2020-01-22] MEDS ORDERED: AMIODARONE / D5W 150 MG/100 ML BAG IV STA ×4 (02:01→09:50)
[2020-01-22] MEDS ORDERED: AMIODARONE 150MG / 100ML D5W IV ONE (02:08)
[2020-01-22] MEDS: DORNASE ALFA 2.5 ML AMP INH SCH ×3 (07:18→19:19)
[2020-01-22] MEDS ORDERED: dilTIAZem HCl 5 MG/ML 5 ML VIAL IV STA (07:31)
[2020-01-22] MEDS ORDERED: SODIUM CHLORIDE 0.9% 1000ML 500 ML IV ONE (07:31)
[2020-01-22 09:30] LABS: Hematocrit (blood only) 45.1 % (42-52); Hemoglobin 14.7 g/dL (14.0-18.0); Mean Corpuscular Hemoglobin 29.5 pg (25-34); Mean Corpuscular Hgb Conc 32.6 g/dL (32-36); Mean Corpuscular Volume 90.4 fL (80-100); Platelet Count 400 K/uL (130-400); RDW Coefficient of Variation 13.7 % (11.5-14.5); Red Blood Count 4.99 M/uL (4.7-6.1); White Blood Count 14.04 K/uL (4.8-10.8)
[2020-01-22 09:57] LABS: BUN Creatinine Ratio 24.1 (10-20); Creatinine Clr Calc Pharmacy 55.8 ml/min; Est GFR (African American) 72.4; Est GFR (Non-African American) 62.4; Potassium 4.1 mmol/L (3.5-5.1)
[2020-01-22] MEDS: METOPROLOL TARTRATE 50 MG TAB PO SCH ×2 (10:03→20:46)
[2020-01-22] MEDS: AMIODARONE 450 MG in D5W 250ML IN *POLYOLEFIN BAG* 241 ML IV SCH (10:27)
[2020-01-22] MEDS: ALBUT/IPRATROP 3MG/0.5MG NEB 3 ML VIAL NEB PRN ×3 (11:16→19:29)
[2020-01-22] MEDS: ENOXAPARIN 150 MG/ML SYR SQ SCH (11:33)
--- NOTE | 2020-01-22 12:55 | Cardiology Progress Note ---
Date of Service January 22, 2020 Assessment & Plan (1) Atrial flutter with rapid ventricular response: (2) Paroxysmal atrial fibrillation: (3) Metastatic lung cancer (metastasis from lung to other site): ASSESSMENT/PLAN: 1. Atrial flutter with rapid ventricular response: He has demonstrated paroxysmal atrial flutter during this hospital stay, presenting with atrial flutter, converting to sinus rhythm, and then once again atrial flutter for the past 1.5 days. We discussed potential electrical cardioversion but given that he has already converted spontaneously, would recommend continuation of amiodarone for now and then after further loading, could consider cardioversion if he does not convert while on amiodarone. He has received 2 boluses of amiodarone thus far. Continue anticoagulation for stroke risk reduction. Will adjust metoprolol tartrate from 50 mg once daily to 50 mg twice daily to hopefully assist in some rate control. 2. Paroxysmal atrial fibrillation: Historically has paroxysmal atrial fibrillation per report. Plan as above. 3. Metastatic lung cancer: As per primary service. Palliative care consultation is apparently pending. 4. Disposition: Cardiology will continue to follow. Dr. Mueller will return tomorrow to resume his cardiology care. Plan of care discussed with Dr. Avila of the primary hospitalist service. Admission and Anticipated Discharge Date Admission Date: January 20, 2020 Subjective He remains in atrial flutter since 01/21/2020 at 2:43 a.m.. Denies palpitations, chest pain, syncope, near-syncope, or bleeding. He admits to shortness of breath but states that he was short of breath since they took the drain out from his thoracentesis. He felt better with a drain in and shortly after his thoracentesis. He reportedly was also short of breath even while in sinus rhythm earlier this hospital stay. Review of systems: As above. Physical Exam Physical Exam: Gen.: No acute distress. Alert and oriented. HEENT: Anicteric sclera. Neck: No JVD. Cardiac: No ventricular heave. Tachycardic and regular. Normal S1-S2. No murmurs, rubs, or gallops. Pulmonary: Very little breath sounds throughout the right lung field. Left lung sounds without rales, rhonchi, or wheezing. Abdomen: Soft, nontender, nondistended, with normoactive bowel sounds. No bruits noted. Extremities: 2+ radial pulses bilaterally. No significant pitting edema or cyanosis. Psychiatric: Affect appears appropriate. Results & Data ([facility]) Vital Signs (Past 12 Hours) Vital Signs Temp Pulse Pulse Resp BP Pulse Ox 01/22/20 12:19 36.7 C 140 H 22 116/82 94 01/22/20 11:17 138 H 16 96 01/22/20 07:03 36.8 C 142 H 127 H 16 107/75 95 01/22/20 04:31 36.9 C 129 H 18 108/72 94 Intake & Output 01/20/20 01/21/20 01/22/20 01/23/20 06:59 06:59 06:59 06:59 Intake Total 856.5 / 856.5 1386.093 / 1386.093 848.83 / 848.83 Output Total 2049 / 2049 800 / 800 Balance -1193.5 / -1193.5 586.093 / 586.093 848.83 / 848.83 Weight 88.5 kg 89.5 kg Laboratory Results Laboratory Results - last 24 hr 01/22/20 01/22/20 09:08 09:08 WBC 14.04 H RBC 4.99 Hgb 14.7 Hct 45.1 MCV 90.4 MCH 29.5 MCHC 32.6 RDW Std Deviation 45.0 RDW Coeff of Jaycob 13.7 Plt Count 400 MPV 10.0 Sodium 140 Potassium 4.1 D Chloride 105 Carbon Dioxide 31 Anion Gap 3.0 BUN 26 H Creatinine 1.09 Est Cr Clr Drug Dosing 55.8 Est GFR ( Amer) 72.4 Est GFR (Non-Af Amer) 62.4 BUN/Creatinine Ratio 24.1 H Glucose 101 H Calcium 9.0 Diagnostic Findings Telemetry personally reviewed: Atrial flutter with rapid ventricular response since 01/21/2020 at 2:43 a.m.. Sinus rhythm prior to that. ECG personally reviewed from 01/22/2020 at 7:19 a.m.: Atrial flutter with 2-1 av conduction at 143 bpm. Incomplete right bundle branch block pattern. CT scan of the chest 01/21/2020: Right hemithoracic masses involving the right hilum, anterior mediastinum with progressive adenopathy involving the mid mediastinum and subcarinal region. Minimal right-sided hydropneumothorax. Right-sided chest tube. Medications Administered Current Inpatient Medications Acetaminophen (Tylenol) 650 mg PO Q4H PRN PRN Reason: Pain or Fever Stop: 02/19/20 11:32 Albuterol (Duoneb) 3 ml NEB Q4R PRN PRN Reason: Shortness Of Breath Or Wheezing Stop: 02/20/20 10:59 Last Admin: 01/22/20 11:16 Dose: 3 ml Documented by: Dornase Berto (Pulmozyme) 2.5 ml INH BIDR [facility] Stop: 02/20/20 09:59 Last Admin: 01/22/20 11:17 Dose: 2.5 ml Documented by: Enoxaparin Sodium (Lovenox) 129 mg SQ Q24H [facility]; Protocol Stop: 02/20/20 11:59 Last Admin: 01/22/20 11:33 Dose: 129 mg Documented by: Amiodarone HCl 450 mg/ (Dextrose) 250 mls @ 33.333 mls/hr IV .Q7H30M [facility]; Protocol Stop: 02/20/20 11:24 Last Admin: 01/22/20 10:27 Dose: 0.5 mg/min, 16.7 mls/hr Documented by: Metoprolol Tartrate (Lopressor) 50 mg PO QAM [facility] Stop: 02/20/20 08:59 Last Admin: 01/22/20 10:03 Dose: 50 mg Documented by: Metoprolol Tartrate (Lopressor) 5 mg IV Q5M PRN PRN Reason: Tachycardia Stop: 02/20/20 03:13 Last Admin: 01/21/20 22:23 Dose: 5 mg Documented by: Morphine Sulfate (Morphine Sulfate) 2 mg IV Q4H PRN PRN Reason: Pain Stop: 02/03/20 17:11 Last Admin: 01/20/20 19:43 Dose: 2 mg Documented by: Morphine Sulfate (Morphine Sulfate) 4 mg IV Q4H PRN PRN Reason: Severe Pain Stop: 02/03/20 17:11 Ondansetron HCl (Zofran) 4 mg IV Q6H PRN PRN Reason: Nausea Stop: 02/19/20 11:32 Tramadol HCl (Ultram) 50 mg PO Q4H PRN PRN Reason: Pain Stop: 02/19/20 15:40 Last Admin: 01/20/20 16:00 Dose: 50 mg Documented by: PG Care Time/CCT Total # of Minutes Spent Total Time Spent with Patient: Total time spent is greater than 50% in coordination of care (as documented) at patient's floor/unit and/or counseling p atient: Coding Level of Care Code 09701 Subseq Hosp Care Lvl 3 Diagnoses Atrial flutter with rapid ventricular response I48.92 Paroxysmal atrial fibrillation I48.0 Metastatic lung cancer (metastasis from lung to other site) C34.90
--- NOTE | 2020-01-22 13:30 | Palliative Care Consultation ---
Date of Consultation January 22, 2020 Assessment & Plan (1) Goals of care, counseling/discussion: -84 year old male patient with PMH lung cancer, s/p lobectomy and now with recurrent right sided malignancy with associated right malignant pleural effusion, presented as a transfer from [facility] with acute onset SOB and afib with RVR. Patient follows with Dr. Correa for pulmonology. Patient has refused any chemo/XRT or other procedures in the past. However, recently it was discussed with patient by Dr. Correa about coming to [facility] for bronchoscopy and possibly airway stenting. Patient was agreeable and was to come to [facility] soon, but became acutely more SOB and was found to be in afib with rvr in [facility]'s ED. Patient was also started on diltiazem and he did convert to NSR. Patient requested to be transferred here since he was to come soon anyway. Pulmonology is following and placed a chest tube on 01/19 and removed it yesterday 01/20. Repeat CT scan showed right hilar mass and trapped lung related to his malignancy. Given patient's incurable disease and his preference to not receive aggressive treatment for the cancer, palliative care is consulted to discuss goals of care. -Patient to be seen by palliative MD this afternoon. Spoke with attending physician. -Patient lives with his s/o, Kamilla, and is independent at home with all ADLs. He does have home oxygen through [facility]. Patient's plan, per note, is to return home. -With patient's recurrently malignant pleural effusion and worsening respiratory status, need to discuss goals and possible hospice care. Patient has a daughter Yudy, who lives in [place] ([phone]) and would like to be involved in conversation. -Patient is back in afib and having rate control issues-- medication changes today and planning for possible cardioversion tomorrow. -Patient indicated to the palliative physician that he doesn't think XRT would benefit him at this point and is not really wanting to pursue it. Pulmonology also doesn't believe it would be incredibly helpful. -Spoke at length with patient's daughter Yudy on phone. We discussed patient's condition and prognosis. Also talked about when would be an appropriate time to bring hospice care in. -Yudy lives in [place] and plans to be here in [place] to have conversations with her dad and help him out in the second week of January. At this time, that seems like an appropriate timeline. I indicated to her that if anything changed and his condition suddenly worsened, that we would let her know ANTOINE. -Plan at this time will be for patient to return home if/when he is able. Need to be sure he is at baseline functional status. She did request that case management help him get a portable oxygen tank through insurance. -We will continue to follow along and talk with patient about goals of care and hospice after his procedure and he is a little more medically stable. Daughter is appreciative of that. (2) Atrial flutter with rapid ventricular response: (3) Trapped lung: (4) Acute hypoxemic respiratory failure: Supervising Physician Co-Signing Physician Notes Chart reviewed, patient seen and examined. Collaborated with BASIL Red. Patient did give permission for us to contact his daughter. Patient lives with his ex-, has 1 child, his daughter in [place]. Patient states he does not have a living will or advanced directives, would want his ex- and daughter to make medical decisions for him if he were unable. Patient feels he is doing well at home, some increased shortness of breath related to his lung cancer, on O2 at home. Patient stated he did not think radiation would help-we will follow-up with Dr. Correa. Collaborated with pulmonology-Dr. Gale -feels patient has trapped lung on the right and that radiation would not be of benefit. PE: Patient awake and alert, mild shortness of breath with conversation HEENT: EOMI, hearing within normal limits Respirations: No increased work of breathing, on O2 with good sats, clear breath sounds on left, breath sounds at apex and posterior base only on the right CV: Tachycardic Abdomen: Soft, nontender Neuro: Alert and oriented x4 Patient is plan for cardioversion tomorrow, will follow while inpatient. Patient feels his functional status is good at this point. Agree with above note, assessment and plan as per BASIL Red History of Present Illness Attending Physician: Mata Avila, Allergies Allergy/AdvReac Type Severity Reaction Status Date / Time latex Allergy Mild RASH Verified 01/14/20 11:24 Iodinated Contrast Media AdvReac Mild Pt not Verified 01/14/20 11:24 sure it was the contrast that made him not feel well Home Medications Home Medications Medication Instructions Recorded Confirmed Type metoprolol tartrate 50 mg tablet PO .TAKE 1 TABLET DAILY tab 06/03/19 01/14/20 History mometasone 2 puffs INHALATION BID #1 ea 07/04/19 01/14/20 Rx potassium iodide 32.5 mg (24 mg 130 mg PO DAILY 07/09/19 01/14/20 History iodine) tablet ipratropium bromide 0.02 % 2.5 ml INHALATION Q4H PRN #150 ml 01/05/20 01/14/20 Rx solution for inhalation Patient History Medical History (Updated 01/22/20 @ 13:30 by BASIL Calderon) Acute hypoxemic respiratory failure COPD (chronic obstructive pulmonary disease) Metastatic lung cancer (metastasis from lung to other site) Pleural effusion, malignant Trapped lung Social History Preferred Language: Spanish Communication Ability: Effective Costume Seamstress Required: No Beliefs That Will Affect Care: None Current Living Situation: Spouse current occupational status: retired Other Information That Helps Us Care for You: No Feels Safe at Home: Yes Smoking Status: Former smoker Cigarettes Per Day: 20 ; Hx Alcohol Use: No Hx Substance Use: No Results & Data Vital Signs (Past 12 Hours) Vital Signs Temp Pulse Pulse Resp BP Pulse Ox 01/22/20 12:19 36.7 C 140 H 22 116/82 94 01/22/20 11:17 138 H 16 96 01/22/20 07:03 36.8 C 142 H 127 H 16 107/75 95 01/22/20 04:31 36.9 C 129 H 18 108/72 94 Coding Level of Care Code 12195 Inpt Consult Level 3 Diagnoses Goals of care, counseling/discussion Z71.89 Atrial flutter with rapid ventricular response I48.92 Trapped lung J98.19 Acute hypoxemic respiratory failure J96.01 Time Spent (min) 70 Time Spent Midlevel A total of 70 minutes spent by this TECHNOLOGY PROFESSIONAL in reviewing chart, speaking with physicians and IDT, as well as family regarding condition and goals of care. Attending 25 minutes spent at bedside in addition to the 70 minutes spent by BASIL Red for total of 95 minutes
--- NOTE | 2020-01-22 15:06 | Pulmonology Progress Note ---
Date of Service January 22, 2020 Assessment & Plan (1) Pleural effusion, malignant: 84-year-old male with a past medical history of 2 primary lung cancers now with evidence of metastatic disease to the lymph nodes and likely to the pleural fluid. Patient clinically appears roughly the same from initial admission. I personally do not think he has had a significant improvement from a respiratory standpoint after the pleural fluid was removed. The patient does report some subjective relief in symptoms. He does note he is a bit more short of breath today. He is being actively treated for atrial fibrillation with rapid ventricular response and is currently on amiodarone. Cardiology is following. He has 2 known lung cancer primaries and is at least stage III given metastases to his mediastinal lymph nodes proven on endobronchial ultrasound biopsy. I suspect that he likely has stage IV disease with a malignant pleural effusion. Cytology still pending. I doubt that a Pleurx catheter will be of much benefit in his case. Recommend palliation of symptoms. I did discuss his case with the palliative care attending, Dr. Bustos. Their consultation is pending. Pulmonary will continue to follow from periphery. Please call with questions. Patient will need follow-up with Dr. 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 (2) Metastatic lung cancer (metastasis from lung to other site): (3) COPD (chronic obstructive pulmonary disease): (4) Acute hypoxemic respiratory failure: (5) Trapped lung: Admission and Anticipated Discharge Date Admission Date: January 20, 2020 Physical Exam Constitutional: WD/WN, vitals as above Eyes: PERRL, conjunctivae normal, anicteric sclerae ENMT: external ear and nose normal, oropharynx normal Neck: trachea midline, no thyromegaly Respiratory: Diminished breath sounds on the right. Clear on the left. I removed the bandages off of his right midaxillary chest wall. Cardiovascular: Irregularly irregular. Tachycardic. Gastrointestinal (Abdomen): normal bowel sounds, soft, nontender, no hepatosplenomegaly Musculoskeletal: no cyanosis or clubbing, extremities motor strength 5/5 Skin: no rashes, warm and dry Neurologic: PERRL, EOMI, accommodation nl, no face palsy, no dysarthria Psychiatric: A+Ox3, euthymic affect Results & Data Results & Data [facility]) Vital Signs (Past 12 Hours) Vital Signs Temp Pulse Pulse Resp BP Pulse Ox 01/22/20 14:50 147 H 20 92 01/22/20 12:19 98.1 F 140 H 22 116/82 94 01/22/20 11:17 138 H 16 96 01/22/20 07:03 98.2 F 142 H 127 H 16 107/75 95 01/22/20 04:31 98.4 F 129 H 18 108/72 94 PG Care Time/CCT Total # of Minutes Spent Total Time Spent with Patient: Total time spent is greater than 50% in coordination of care (as documented) at patient's floor/unit and/or counseling patient: Coding Level of Care Code 02988 Subseq Hosp Care Lvl 3 Diagnoses Pleural effusion, malignant J91.0 Metastatic lung cancer (metastasis from lung to other site) C34.90 COPD (chronic obstructive pulmonary disease) J44.9 Acute hypoxemic respiratory failure J96.01 Trapped lung J98.19
--- NOTE | 2020-01-22 17:37 | Hospitalist Progress Note ---
Date of Service January 22, 2020 Assessment & Plan (1) Atrial flutter with rapid ventricular response: was in afib, now in aflutter resistant to Amiodarone drip, boluses, cardizem, metoprolol fully anticoagulated on Lovenox plan for cardioversion tomorrow with Dr. Tariq (2) Paroxysmal atrial fibrillation: see above (3) Pleural effusion, malignant: thoracentesis for 600cc on the right on 01/19 sent for cytology, gram stain, analysis Dr. 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 Correa currently stable no major change after thoracentesis will likely remain on 3L at home (6) COPD (chronic obstructive pulmonary disease): continue inhalers no wheezing, no distress on exam (7) Metastatic lung cancer (metastasis from lung to other site): will consult palliative care to start discussion on goals of care he has refused chemotherapy in the past told him that it is time to have the conversation of hospice, if not now then in the near future his daughter Yudy live in [place], in agreement with palliative[facility]hospice [facility] Admission and Anticipated Discharge Date Admission Date: January 20, 2020 Subjective patient remains in aflutter with RVR d/w Dr. Tariq, continued on Amiodarone drip and gave bolus of 150mg IV, no change rates 140-150, not budging plan for cardioversion tomorrow patient breathing comfortably, no chest pain or pressure talked with his daughter Yudy over the phone today, she agrees with moving to hospice she is planning on coming home in two weeks to help her dad appreciate palliative care consultation reviewed labs this morning, renal function stable, electrolytes normal Review of Systems Review of Systems: All systems reviewed & are unremarkable except as noted in HPI & below Physical Exam Constitutional: well developed, well nourished and + frail appearing; no acute distress Eyes: PERRL, conjunctivae normal, anicteric sclerae ENMT: external ear and nose normal, oropharynx normal Neck: trachea midline, no thyromegaly Respiratory: + cough and + tachypneic Auscultation: + diminished lung sounds (right base); no crackles, no rales and no wheezes Cardiovascular: RRR, no murmur, no edema Rate/Rhythm: + tachycardic and + irregularly irregular Heart Sounds: normal S1 and normal S2; no murmur Vessels: no JVD Extremities: normal capillary refill; no edema Gastrointestinal (Abdomen): normal bowel sounds, soft, nontender, no hepatosplenomegaly Musculoskeletal: no cyanosis or clubbing, extremities motor strength 5/5 Skin: no rashes, warm and dry Neurologic: patellar DTR's 2+ bilat, sensation intact and PERRL, EOMI, accommodation nl, no face palsy, no dysarthria Psychiatric: A+Ox3, euthymic affect Lymphatic: no cervical or axillary lymphadenopathy Results & Data Results & Data ([facility]) Vital Signs (Past 12 Hours) Vital Signs Temp Pulse Pulse Resp BP Pulse Ox 01/22/20 15:35 146 H 01/22/20 15:19 36.3 C L 147 H 24 104/72 96 01/22/20 14:50 147 H 20 92 01/22/20 12:19 36.7 C 140 H 22 116/82 94 01/22/20 11:17 138 H 16 96 01/22/20 07:03 36.8 C 142 H 127 H 16 107/75 95 Laboratory Results Laboratory Results - last 24 hr 01/22/20 01/22/20 09:08 09:08 WBC 14.04 H RBC 4.99 Hgb 14.7 Hct 45.1 MCV 90.4 MCH 29.5 MCHC 32.6 RDW Std Deviation 45.0 RDW Coeff of Jaycob 13.7 Plt Count 400 MPV 10.0 Sodium 140 Potassium 4.1 D Chloride 105 Carbon Dioxide 31 Anion Gap 3.0 BUN 26 H Creatinine 1.09 Est Cr Clr Drug Dosing 55.8 Est GFR ( Amer) 72.4 Est GFR (Non-Af Amer) 62.4 BUN/Creatinine Ratio 24.1 H Glucose 101 H Calcium 9.0 Medications Administered Current Inpatient Medications Acetaminophen (Tylenol) 650 mg PO Q4H PRN PRN Reason: Pain or Fever Stop: 02/19/20 11:32 Albuterol (Duoneb) 3 ml NEB Q4R PRN PRN Reason: Shortness Of Breath Or Wheezing Stop: 02/20/20 10:59 Last Admin: 01/22/20 14:49 Dose: 3 ml Documented by: Dornase Berto (Pulmozyme) 2.5 ml INH BIDR JASS Stop: 02/20/20 09:59 Last Admin: 01/22/20 11:17 Dose: 2.5 ml Documented by: Enoxaparin Sodium (Lovenox) 129 mg SQ Q24H [facility]; Protocol Stop: 02/20/20 11:59 Last Admin: 01/22/20 11:33 Dose: 129 mg Documented by: Amiodarone HCl 450 mg/ (Dextrose) 250 mls @ 33.333 mls/hr IV .Q7H30M [facility]; Protocol Stop: 02/20/20 11:24 Last Titration: 01/22/20 15:11 Dose: 0.5 mg/min, 16.7 mls/hr Documented by: Metoprolol Tartrate (Lopressor) 5 mg IV Q5M PRN PRN Reason: Tachycardia Stop: 02/20/20 03:13 Last Admin: 01/21/20 22:23 Dose: 5 mg Documented by: Metoprolol Tartrate (Lopressor) 50 mg PO BID [facility] Stop: 02/21/20 20:59 Morphine Sulfate (Morphine Sulfate) 2 mg IV Q4H PRN PRN Reason: Pain Stop: 02/03/20 17:11 Last Admin: 01/20/20 19:43 Dose: 2 mg Documented by: Morphine Sulfate (Morphine Sulfate) 4 mg IV Q4H PRN PRN Reason: Severe Pain Stop: 02/03/20 17:11 Ondansetron HCl (Zofran) 4 mg IV Q6H PRN PRN Reason: Nausea Stop: 02/19/20 11:32 Tramadol HCl (Ultram) 50 mg PO Q4H PRN PRN Reason: Pain Stop: 02/19/20 15:40 Last Admin: 01/20/20 16:00 Dose: 50 mg Documented by: PG Care Time/CCT Total # of Minutes Spent Total Time Spent with Patient: Total time spent is greater than 50% in coordination of care (as documented) at patient's floor/unit and/or counseling patient: Coding Level of Care Code 76499 Subseq Hosp Care Lvl 3 Diagnoses Atrial flutter with rapid ventricular response I48.92 Paroxysmal atrial fibrillation I48.0 Pleural effusion, malignant J91.0 Trapped lung J98.19 Acute hypoxemic respiratory failure J96.01 COPD (chronic obstructive pulmonary disease) J44.9 Metastatic lung cancer (metastasis from lung to other site) C34.90
[2020-01-22] MEDS ORDERED: Nursing to Pharmacy Communication ONE (17:48)
[2020-01-22] MEDS ORDERED: TROLAMINE SALICYLATE 10% CRM 255 APPLN/85 GM TUBE EXT PRN (17:53)
[2020-01-22] MEDS: TRAMADOL HCL 50 MG TABLET PO PRN (19:08)
[2020-01-23] MEDS: AMIODARONE 450 MG in D5W 250ML IN *POLYOLEFIN BAG* 241 ML IV SCH ×2 (00:40→14:14)
[2020-01-23] MEDS: TRAMADOL HCL 50 MG TABLET PO PRN ×2 (05:52→15:40)
--- NOTE | 2020-01-23 06:20 | Electrocardiogram Report ---
Test Reason : Blood Pressure : / mmHG Vent. Rate : 143 BPM Atrial Rate : 286 BPM P-R Int : 000 ms QRS Dur : 124 ms QT Int : 344 ms P-R-T Axes : 257 030 -65 degrees QTc Int : 530 ms Atrial flutter with 2:1 A-V conduction Right bundle branch block Abnormal ECG When compared with ECG of 21-Jan-2020 07:06, No significant change Confirmed by Gilberto Tariq ([id number]) on 01/23/2020 6:20:07 AM Referred By: REFERRED SELF Confirmed By:Gilberto Tariq
[2020-01-23] MEDS: ALBUT/IPRATROP 3MG/0.5MG NEB 3 ML VIAL NEB PRN ×3 (07:11→19:02)
[2020-01-23] MEDS: DORNASE ALFA 2.5 ML AMP INH SCH ×2 (07:12→19:02)
[2020-01-23] MEDS: MoRPHine SULFATE 2 MG/ML CARP IV PRN ×3 (07:39→20:50)
[2020-01-23] MEDS: METOPROLOL TARTRATE 50 MG TAB PO SCH ×2 (09:06→20:51)
--- NOTE | 2020-01-23 10:00 | Anesthesiology Consultation ---
Date of Service January 23, 2020 Assessment & Plan (1) Encounter for pre-operative examination: Chart Review Chart Review: Acceptable Risk for Surgery and Patient NOT seen in Pre Admission Testing Consults Requested none History Surgery Operation Date: 01/23/20 10:00 Proposed Procedures p Cardioversion Technology Advisor w/Anesthesia - Matt Mueller MD Height/Weight Height: 5 ft 8 in Weight: 90 kg Allergies Allergy/AdvReac Type Severity Reaction Status Date / Time latex Allergy Mild RASH Verified 01/14/20 11:24 Iodinated Contrast Media AdvReac Mild Pt not Verified 01/14/20 11:24 sure it was the contrast that made him not feel well Medications Home Medications Medication Instructions Recorded Confirmed Last Taken metoprolol tartrate 50 mg tablet PO .TAKE 1 TABLET DAILY tab 06/03/19 01/14/20 Unknown mometasone 2 puffs INHALATION BID #1 ea 07/04/19 01/14/20 Unknown potassium iodide 32.5 mg (24 mg 130 mg PO DAILY 07/09/19 01/14/20 Unknown iodine) tablet ipratropium bromide 0.02 % 2.5 ml INHALATION Q4H PRN #150 ml 01/05/20 01/14/20 Unknown solution for inhalation Active Medications Generic Name Dose Route Start Last Admin Trade Name Freq PRN Reason Stop Dose Admin Albuterol 3 ml 01/21/20 08:22 01/23/20 07:11 Duoneb NEB 02/20/20 10:59 3 ml Q4R PRN Administration Shortness Of Breath Or Wheezing Dornase Berto 2.5 ml 01/21/20 10:00 01/23/20 07:12 Pulmozyme INH 02/20/20 09:59 2.5 ml BIDR JASS Administration Enoxaparin Sodium 129 mg 01/21/20 12:00 01/22/20 11:33 Lovenox SQ 02/20/20 11:59 129 mg Q24H JASS Administration Protocol Amiodarone HCl 450 mg/ 250 mls @ 33.333 mls/hr 01/21/20 11:25 01/23/20 06:58 Dextrose IV 02/20/20 11:24 0.5 mg/min .Q7H30M JASS 16.7 mls/hr Titration Protocol 1 MG/MIN Metoprolol Tartrate 5 mg 01/21/20 03:14 01/21/20 22:23 Lopressor IV 02/20/20 03:13 5 mg Q5M PRN Administration Tachycardia Metoprolol Tartrate 50 mg 01/22/20 21:00 01/23/20 09:06 Lopressor PO 02/21/20 20:59 50 mg BID JASS Administration Morphine Sulfate 2 mg 01/20/20 17:12 01/23/20 07:39 Morphine Sulfate IV 02/03/20 17:11 2 mg Q4H PRN Administration Pain Tramadol HCl 50 mg 01/20/20 15:41 01/23/20 05:52 Ultram PO 02/19/20 15:40 50 mg Q4H PRN Administration Pain Trolamine Salicylate 1 appln 01/22/20 17:53 01/22/20 18:16 Myoflex EXT 02/21/20 17:52 1 appln BID PRN Administration NECK STIFFNESS Past Medical History Medical History (Updated 01/23/20 @ 10:00 by Addison Ramirez MD) Acute hypoxemic respiratory failure COPD (chronic obstructive pulmonary disease) Metastatic lung cancer (metastasis from lung to other site) Pleural effusion, malignant Trapped lung Exercise / Class Metabolic Activity III < 4 Walking/Shop/Light housework Past Surgical History Surgical History (Updated 01/23/20 @ 10:15 by Addison Ramirez MD) S/P hernia surgery Past Anesthesia History No Hx of Anesthesia Complications and No Family Hx of Anesthesia Complications History of PONV No Hx of PONV and No Hx of Motion Sickness Social History Smoking Status: Former smoker Smoking cigarettes per day: 20 Do You Dip or Chew Tobacco: No Hx Alcohol Use: No Alcohol type: wine Hx Substance Use: No Physical Exam Vital Signs Last Vital Signs Temp 36.8 C 01/23/20 07:39 Pulse 150 H 01/23/20 07:39 Resp 19 01/23/20 07:39 BP 102/72 01/23/20 07:39 Pulse Ox 94 01/23/20 07:39 Testing Laboratory Results 01/22/20 09:08 01/22/20 09:08 PT 11.4 Seconds (9.0-12.0) 01/20/20 11:46 INR 1.1 (0.9-1.1) 01/20/20 11:46 APTT 33.4 Seconds (21.0-31.0) H 01/20/20 11:46 01/20/20 15:10 Acid Fast Bacilli Smear - Final Pleural Fluid 01/20/20 15:10 Gram Stain - Final Pleural Fluid Aerobic and Anaerobic Culture - Preliminary No growth to date. Electrocardiogram Date: 01/22/20 Findings: + RBBB aflutter with rvr
--- NOTE | 2020-01-23 10:46 | Anesthesiology Progress Note ---
Date of Service January 23, 2020 Anesthesia Post Procedure Vital Signs Vital Signs: Temp Pulse Pulse Resp BP Pulse Ox 01/23/20 07:39 36.8 C 150 H 19 102/72 94 01/23/20 07:12 149 H 18 93 01/23/20 04:07 36.4 C L 143 H 20 113/79 95 01/22/20 23:27 36.4 C L 130 H 18 137/65 95 01/22/20 20:10 36.4 C L 152 H 24 105/74 94 01/22/20 19:20 147 H 18 96 01/22/20 15:35 146 H 01/22/20 15:19 36.3 C L 147 H 24 104/72 96 01/22/20 14:50 147 H 20 92 01/22/20 12:19 36.7 C 140 H 22 116/82 94 01/22/20 11:17 138 H 16 96 Pain Intensity Right Chest: Pain Intensity: 10 Transfer of Care Handoff Completed per policy Notes Mental Status: alert / awake / arousable and participated in evaluation Patient Amnestic to Procedure: Yes Nausea / Vomiting: adequately controlled Pain: adequately controlled Airway Patency, RR, SpO2: stable & adequate BP & HR: stable & adequate Hydration State: stable & adequate Anesthetic Complications: no major complications apparent and Pt Satisfied with anesthetic care
--- NOTE | 2020-01-23 11:00 | Cardioversion ---
Date of Service January 23, 2020 PG Electrical Cardioversion Rp Electrical Cardioversion Report Date of procedure: January 23, 2020 Principal procedure: Electrical cardioversion Indications: Refractory atrial flutter, symptomatic Protocol: After informed consent was obtained, and a time-out undertaken, the patient was sedated smoothly by anesthesia using propofol. The patient was monitored continuously by telemetry, sphygmomanometry, oximetry, and end-tidal CO2. The patient was given 70 joules of biphasic energy via hands-off paddles and successfully converted to sinus rhythm. There were no complications. The patient tolerated the procedure well. Following the cardioversion, the patient was conversant and without complaints. Conclusions: 1. Successful electrical cardioversion from atrial flutter to sinus rhythm 2. No complications 3. Follow-up as scheduled. Coding Level of Care Code Cardioversion, elective Additional Codes Electrical Cardioversion Report ([id number])
[2020-01-23] MEDS: ENOXAPARIN 150 MG/ML SYR SQ SCH (12:12)
--- NOTE | 2020-01-23 12:26 | Cardiology Progress Note ---
Date of Service January 23, 2020 Assessment & Plan (1) Atrial flutter with rapid ventricular response: -refractory atrial flutter -rate control and medications has been unsuccessful -will proceed with electrical cardioversion -patient refuses long-term anticoagulation (2) Paroxysmal atrial fibrillation: -as above. (3) Mitral regurgitation: -can repeat echocardiogram as an outpatient. Admission and Anticipated Discharge Date Admission Date: January 20, 2020 Subjective The patient is resting comfortably in bed, anxious for cardioversion. Physical Exam Physical Exam: In general this is an obese white male in no acute distress. HEENT exam is negative. Neck is supple full carotid upstrokes. No jugular venous distention. Cardiovascular exam reveals a rapid heart rate with a 1/6 systolic murmur along the left sternal border. Lungs note decreased breath sounds at the bases. Abdomen is obese without bruits. Extremities reveal intact radial artery pulses bilaterally. There is no peripheral edema. Results & Data ([facility]) Vital Signs (Past 12 Hours) Vital Signs Temp Pulse Pulse Resp BP BP Pulse Ox 01/23/20 11:55 68 102/67 01/23/20 11:41 36.5 C 64 96/61 L 01/23/20 11:26 36.5 C 66 19 115/69 96 01/23/20 11:21 65 01/23/20 11:05 66 16 106/64 98 01/23/20 10:50 65 16 96/62 L 98 01/23/20 07:39 36.8 C 150 H 19 102/72 94 01/23/20 07:12 149 H 18 93 01/23/20 04:07 36.4 C L 143 H 20 113/79 95 Diagnostic Findings scrap stripper hand notes atrial flutter with 2-1 conduction. PG Care Time/CCT Total # of Minutes Spent Total Time Spent with Patient: Total time spent is greater than 50% in coordination of care (as documented) at patient's floor/unit and/or counseling patient: Coding Level of Care Code 24028 Subseq Hosp Care Lvl 3 Diagnoses Atrial flutter with rapid ventricular response I48.92 Paroxysmal atrial fibrillation I48.0 Mitral regurgitation I34.0
--- NOTE | 2020-01-23 15:50 | Hospitalist Progress Note ---
Date of Service January 23, 2020 Assessment & Plan (1) Atrial flutter with rapid ventricular response: was in afib then went into aflutter resistant to Amiodarone drip, boluses, cardizem, metoprolol fully anticoagulated on Lovenox successful cardioversion on 01/22, in sinus in the 60-70's change amiodarone drip to 200mg PO BID, plan to take for a month patient refusing intermission coordinator anticoagulation (2) Paroxysmal atrial fibrillation: see above will use Amiodarone to try to maintain sinus rhythm (3) Pleural effusion, malignant: thoracentesis for 600cc on the right on 01/19 sent for cytology, gram stain, analysis pathology shows malignant cells, consistent with metastatic adenocarcinoma Dr. 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 Correa currently stable no major change after thoracentesis will likely remain on 3L at home (6) COPD (chronic obstructive pulmonary disease): continue inhalers no wheezing, no distress on exam (7) Metastatic lung cancer (metastasis from lung to other site): will consult palliative care to start discussion on goals of care he has refused chemotherapy in the past told him that it is time to have the conversation of hospice, if not now then in the near future his daughter Yudy live in [place], in agreement with palliative/hospice approach she is coming up to [place] on 02/02 to help her father, get hospice services arranged Admission and Anticipated Discharge Date Admission Date: January 20, 2020 Subjective patient successfully cardioverted today, back in sinus rhythm in the 70's d/w Dr. Mueller, will transition to Amiodarone 200mg BID patient c/o right sided chest pain at site of catheter even though it was removed CXR today shows some re-accumulation of pleural fluid which is expected called his daughter to give update, left a message talked with Dr. Zaldivar, will plan for hospice on discharge Review of Systems Review of Systems: All systems reviewed & are unremarkable except as noted in HPI & below Respiratory: + cough and + dyspnea on exertion Cardiovascular: + chest pain (right sided, posterior, site of prior pigtail catheter); no palpitations, no syncope and no edema Gastrointestinal: no abdominal pain, no nausea, no vomiting, no constipation and no diarrhea/loose stools Physical Exam Constitutional: well developed, well nourished and + frail appearing; no acute distress Eyes: PERRL, conjunctivae normal, anicteric sclerae ENMT: external ear and nose normal, oropharynx normal Neck: trachea midline, no thyromegaly Respiratory: + cough and + tachypneic Auscultation: + diminished lung sounds (right base); no crackles, no rales and no wheezes Cardiovascular: RRR, no murmur, no edema Rate/Rhythm: + tachycardic and + irregularly irregular Heart Sounds: normal S1 and normal S2; no murmur Vessels: no JVD Extremities: normal capillary refill; no edema Gastrointestinal (Abdomen): normal bowel sounds, soft, nontender, no hepatosplenomegaly Musculoskeletal: no cyanosis or clubbing, extremities motor strength 5/5 Skin: no rashes, warm and dry Neurologic: patellar DTR's 2+ bilat, sensation intact and PERRL, EOMI, accommodation nl, no face palsy, no dysarthria Psychiatric: A+Ox3, euthymic affect Lymphatic: no cervical or axillary lymphadenopathy Results & Data Results & Data ([facility]) Vital Signs (Past 12 Hours) Vital Signs Temp Pulse Pulse Resp BP BP Pulse Ox 01/23/20 15:43 36.6 C 72 20 115/71 94 01/23/20 14:22 69 18 96 01/23/20 11:55 68 102/67 01/23/20 11:41 36.5 C 64 96/61 L 01/23/20 11:26 36.5 C 66 19 115/69 96 01/23/20 11:21 65 01/23/20 11:05 66 16 106/64 98 01/23/20 10:50 65 16 96/62 L 98 01/23/20 07:39 36.8 C 150 H 19 102/72 94 01/23/20 07:12 149 H 18 93 01/23/20 04:07 36.4 C L 143 H 20 113/79 95 Medications Administered Current Inpatient Medications Acetaminophen (Tylenol) 650 mg PO Q4H PRN PRN Reason: Pain or Fever Stop: 02/19/20 11:32 Albuterol (Duoneb) 3 ml NEB Q4R PRN PRN Reason: Shortness Of Breath Or Wheezing Stop: 02/20/20 10:59 Last Admin: 01/23/20 14:22 Dose: 3 ml Documented by: Dornase Berto (Pulmozyme) 2.5 ml INH BIDR [facility] Stop: 02/20/20 09:59 Last Admin: 01/23/20 07:12 Dose: 2.5 ml Documented by: Enoxaparin Sodium (Lovenox) 129 mg SQ Q24H [facility]; Protocol Stop: 02/20/20 11:59 Last Admin: 01/23/20 12:12 Dose: 129 mg Documented by: Amiodarone HCl 450 mg/ (Dextrose) 250 mls @ 33.333 mls/hr IV .Q7H30M [facility]; Protocol Stop: 02/20/20 11:24 Last Titration: 01/23/20 15:38 Dose: 0.5 mg/min, 16.7 mls/hr Documented by: Metoprolol Tartrate (Lopressor) 5 mg IV Q5M PRN PRN Reason: Tachycardia Stop: 02/20/20 03:13 Last Admin: 01/21/20 22:23 Dose: 5 mg Documented by: Metoprolol Tartrate (Lopressor) 50 mg PO BID [facility] Stop: 02/21/20 20:59 Last Admin: 01/23/20 09:06 Dose: 50 mg Documented by: Morphine Sulfate (Morphine Sulfate) 2 mg IV Q4H PRN PRN Reason: Pain Stop: 02/03/20 17:11 Last Admin: 01/23/20 12:12 Dose: 2 mg Documented by: Morphine Sulfate (Morphine Sulfate) 4 mg IV Q4H PRN PRN Reason: Severe Pain Stop: 02/03/20 17:11 Ondansetron HCl (Zofran) 4 mg IV Q6H PRN PRN Reason: Nausea Stop: 02/19/20 11:32 Oxycodone HCl (Roxicodone Immediate Rel) 5 mg PO Q4 PRN PRN Reason: Pain Stop: 02/06/20 15:48 Tramadol HCl (Ultram) 50 mg PO Q4H PRN PRN Reason: Pain Stop: 02/19/20 15:40 Last Admin: 01/23/20 15:40 Dose: 50 mg Documented by: Trolamine Salicylate (Myoflex) 1 appln EXT BID PRN PRN Reason: NECK STIFFNESS Stop: 02/21/20 17:52 Last Admin: 01/22/20 18:16 Dose: 1 appln Documented by: PG Care Time/CCT Total # of Minutes Spent Total Time Spent with Patient: Total time spent is greater than 50% in coordination of care (as documented) at patient's floor/unit and/or counseling patient: Coding Level of Care Code 94080 Subseq Hosp Care Lvl 2 Diagnoses Atrial flutter with rapid ventricular response I48.92 Paroxysmal atrial fibrillation I48.0 Pleural effusion, malignant J91.0 Trapped lung J98.19 Acute hypoxemic respiratory failure J96.01 COPD (chronic obstructive pulmonary disease) J44.9 Metastatic lung cancer (metastasis from lung to other site) C34.90
--- NOTE | 2020-01-23 16:07 | Pulmonology Progress Note ---
Date of Service January 23, 2020 Assessment & Plan (1) Pleural effusion, malignant: 84-year-old male with a past medical history of 2 primary lung cancers now with evidence of metastatic disease to the lymph nodes and likely to the pleural fluid. Pleural fluid came back as metastatic adenocarcinoma today. He has stage IV adenocarcinoma of the lung. I did reiterate to these findings to the patient. Palliative care has met with the patient and he is indicated that he is not ready for hospice as of yet. He remains a full code. Recommend further discussion with oncology as an outpatient and continued discussion with palliative care as an outpatient. Again, I do not think a Pleurx would be of much benefit in this case. I am getting a chest x-ray to evaluate his chest pain. The pain is likely related to the small bore chest tube that he had earlier during this hospitalization. This should improve with time. Recommend applying warm compresses and using NSAIDs/Tylenol for pain. Pulmonary will continue to follow from periphery. Please call with questions. Patient will need follow-up with Dr. 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 (2) Metastatic lung cancer (metastasis from lung to other site): (3) COPD (chronic obstructive pulmonary disease): (4) Acute hypoxemic respiratory failure: (5) Trapped lung: Admission and Anticipated Discharge Date Admission Date: January 20, 2020 Subjective Patient is status post cardioversion today. He is complaining of pain in his right chest where the thoracentesis was performed. Also notes some mild shortness of breath today. Denies any fevers or chills. Physical Exam Constitutional: WD/WN, vitals as above Eyes: PERRL, conjunctivae normal, anicteric sclerae ENMT: external ear and nose normal, oropharynx normal Neck: trachea midline, no thyromegaly Respiratory: Diminished breath sounds on the right. Clear on the left. Chest pain on palpation of the fifth rib. Cardiovascular: Irregularly irregular. Tachycardic. Gastrointestinal (Abdomen): normal bowel sounds, soft, nontender, no hepatosplenomegaly Musculoskeletal: no cyanosis or clubbing, extremities motor strength 5/5 Skin: no rashes, warm and dry Neurologic: PERRL, EOMI, accommodation nl, no face palsy, no dysarthria Psychiatric: A+Ox3, euthymic affect Results & Data Results & Data ([facility]) Vital Signs (Past 12 Hours) Vital Signs Temp Pulse Pulse Resp BP BP Pulse Ox 01/23/20 15:43 97.9 F 72 20 115/71 94 01/23/20 14:22 69 18 96 01/23/20 11:55 68 102/67 01/23/20 11:41 97.7 F 64 96/61 L 01/23/20 11:26 97.7 F 66 19 115/69 96 01/23/20 11:21 65 01/23/20 11:05 66 16 106/64 98 01/23/20 10:50 65 16 96/62 L 98 01/23/20 07:39 98.2 F 150 H 19 102/72 94 01/23/20 07:12 149 H 18 93 01/23/20 04:07 97.5 F L 143 H 20 113/79 95 PG Care Time/CCT Total # of Minutes Spent Total Time Spent with Patient: Total time spent is greater than 50% in coordination of care (as documented) at patient's floor/unit and/or counseling patient: Coding Level of Care Code 54083 Subseq Hosp Care Lvl 3 Diagnoses Pleural effusion, malignant J91.0 Metastatic lung cancer (metastasis from lung to other site) C34.90 COPD (chronic obstructive pulmonary disease) J44.9 Acute hypoxemic respiratory failure J96.01 Trapped lung J98.19
[2020-01-23] MEDS ORDERED: AMIODARONE 200 MG TAB PO ONE (16:19)
--- NOTE | 2020-01-23 16:30 | XRay Report ---
XR chest 2V PA/lateral CLINICAL HISTORY: right chest pain chest pain COMPARISON STUDY: 01/20/2020 FINDINGS: Increase in volume of right-sided pleural effusion with a mildly progressive right hydropne umothorax. Left lung remains grossly clear. Several old left-sided rib fractures are present. Persist ing consolidative change of the right hemithorax is present. IMPRESSION: Progressive right-sided hydropneumothorax combined with an increased right pleural effus ion. ACT 112: Negative or not required by law. The above report was generated using voice recognition software. It may contain grammatical, syntax or spelling errors. Electronically signed by: Brian Lopez M.D. 01/23/2020 4:29 PM
[2020-01-23] MEDS: OXYCODONE HCL IR 5 MG TAB (IMMEDIATE RELEASE) PO PRN (17:07)
[2020-01-24] MEDS: MoRPHine SULFATE 2 MG/ML CARP IV PRN (01:45)
[2020-01-24] MEDS: DORNASE ALFA 2.5 ML AMP INH SCH ×2 (07:20→19:19)
[2020-01-24] MEDS: ALBUT/IPRATROP 3MG/0.5MG NEB 3 ML VIAL NEB PRN ×4 (07:20→19:18)
[2020-01-24] MEDS ORDERED: AMIODARONE 200 MG TAB PO SCH (08:00)
[2020-01-24] MEDS: MoRPHine SULFATE 4 MG/ML 1 ML CARP\\VIAL IV PRN ×3 (08:07→15:01)
[2020-01-24] MEDS: METOPROLOL TARTRATE 50 MG TAB PO SCH ×2 (08:09→21:09)
[2020-01-24] MEDS ORDERED: dilTIAZem HCl 5 MG/ML 5 ML VIAL IV STA (09:38)
[2020-01-24] MEDS ORDERED: STAT IV Infusion **Titration per Protocol STA (09:39)
[2020-01-24] MEDS ORDERED: dilTIAZem HCl 5 MG/ML 5 ML VIAL IV ONE (09:41)
[2020-01-24] MEDS: dilTIAZem HCL 125 MG in DEXTROSE 5% 100 ML IV SCH ×2 (10:00→17:10)
[2020-01-24] MEDS ORDERED: MoRPHine SULFATE 4 MG/ML 1 ML CARP\\VIAL IV STA (10:03)
--- NOTE | 2020-01-24 11:05 | Pulmonology Progress Note ---
Date of Service January 24, 2020 Assessment & Plan (1) Pleural effusion, malignant: 84-year-old male with a past medical history of 2 primary lung cancers now with evidence of metastatic disease to the lymph nodes and likely to the pleural fluid. Pleural fluid positive for metastatic adenocarcinoma. 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 I do not think radiation will help open up his airways or reinflate his lung as it appears that he likely has had a trapped lung for very long period of time. I did review his chest x-ray from yesterday which demonstrates reaccumulation of the pleural fluid and continued evidence of a trapped lung. I doubt a Pleurx catheter would help much with his symptoms. Recommend continued discussion with palliative care and hospice at this time. Atrial tachycardia/fibrillation management per cardiology. Patient will need follow-up with Dr. Correa as an outpatient who is his primary skiver machine. I personally discussed the case with the patient's bedside RN and hospitalist. (2) Metastatic lung cancer (metastasis from lung to other site): (3) COPD (chronic obstructive pulmonary disease): (4) Acute hypoxemic respiratory failure: (5) Trapped lung: Admission and Anticipated Discharge Date Admission Date: January 20, 2020 Subjective Unfortunately it appears the patient flipped back to atrial tachycardia overnight. He is short of breath today. Continues on 4 L of nasal cannula saturating at 90%. Has some right-sided chest pain from the thoracentesis site. Denies any nausea or vomiting. Physical Exam Constitutional: WD/WN, vitals as above Eyes: PERRL, conjunctivae normal, anicteric sclerae ENMT: external ear and nose normal, oropharynx normal Neck: trachea midline, no thyromegaly Respiratory: Decreased breath sounds on the right. Clear on the left. Cardiovascular: RRR, no murmur, no edema Gastrointestinal (Abdomen): normal bowel sounds, soft, nontender, no hepatosplenomegaly Musculoskeletal: no cyanosis or clubbing, extremities motor strength 5/5 Skin: no rashes, warm and dry Neurologic: PERRL, EOMI, accommodation nl, no face palsy, no dysarthria Psychiatric: A+Ox3, euthymic affect Results & Data Results & Data ([facility]) Vital Signs (Past 12 Hours) Vital Signs Temp Pulse Resp BP BP Pulse Ox 05/30/20 10:15 142 H 106/73 05/30/20 10:01 141 H 118/77 01/24/20 09:52 84 103/71 01/24/20 09:50 140 H 20 127/83 90 01/24/20 07:57 98.6 F 82 20 128/62 93 01/24/20 07:21 70 18 96 01/24/20 03:37 97.9 F 65 16 126/66 93 01/23/20 23:59 97.7 F 79 20 151/80 H 97 PG Care Time/CCT Total # of Minutes Spent Total Time Spent with Patient: Total time spent is greater than 50% in coordination of care (as documented) at patient's floor/unit and/or counseling patient: Coding Level of Care Code 80708 Subseq Hosp Care Lvl 3 Diagnoses Pleural effusion, malignant J91.0 Metastatic lung cancer (metastasis from lung to other site) C34.90 COPD (chronic obstructive pulmonary disease) J44.9 Acute hypoxemic respiratory failure J96.01 Trapped lung J98.19
[2020-01-24 11:12] LABS: Calcium 8.6 mg/dl (8.5-10.1); Creatinine Clr Calc Pharmacy 61.7 ml/min; Est GFR (African American) 80.3; Est GFR (Non-African American) 69.3; Potassium 4.2 mmol/L (3.5-5.1)
[2020-01-24] MEDS: OXYCODONE HCL IR 5 MG TAB (IMMEDIATE RELEASE) PO PRN ×2 (11:40→16:55)
[2020-01-24] MEDS: ENOXAPARIN 150 MG/ML SYR SQ SCH (11:41)
[2020-01-24] MEDS: AMIODARONE 450 MG in D5W 250ML IN *POLYOLEFIN BAG* 241 ML IV SCH ×2 (12:17→12:18)
[2020-01-24] MEDS ORDERED: DIGOXIN 250 MCG in SYRINGE 9 ML IV STA (13:43)
--- NOTE | 2020-01-24 14:04 | Cardiology Progress Note ---
Date of Service January 24, 2020 Assessment & Plan (1) Atrial flutter with rapid ventricular response: He reverted back to atrial flutter with a very rapid heart rate. He has been on amiodarone 200 mg twice a day for several days, he was on intravenous amiodarone before that days. Neither seems to have affected the rate for the rhythm significantly. Other AV edy blocking medications have not been effective. Electrical cardioversion has been problematic, initially unsuccessful and subsequently in atrial fibrillation successful but only transiently so. This is going to be difficult to control easily, aggressive options such as atrial flutter ablation or AV edy ablation with pacemakers may not be clinically indicated given the underlying malignancy. At this point I am going to continue to try medical therapy, hopefully he will not decompensate if we could not get this rhythm under control in the near future. I am going to increase his amiodarone to 400 mg twice a day and add digoxin to his regimen. We can consider cardioversion again if we cannot control heart rate, perhaps on increased amiodarone for a day or 2 he will maintain sinus rhythm better. (2) Metastatic lung cancer (metastasis from lung to other site): With his metastatic cancer with a poor prognosis I am reluctant to perform aggressive procedures such as ablation or creating AV edy blocking and a pacemaker. If we have to those are options. His lung cancer may have something to do with the arrhythmia if it extends into his pericardium. Admission and Anticipated Discharge Date Admission Date: January 20, 2020 Subjective I saw him just after he had had physical therapy in his room, he appeared little bit short of breath but told me that he feels. He has been in atrial flutter since this morning, he has no awareness of it. His only somatic complaint is right rib pain with movement. He denies lightheadedness or dizziness, he denies central chest discomfort. He had no lightheadedness or dizziness with physical therapy. Physical Exam Physical Exam: Constitutional: Alert, cooperative and in only mild distress immediately after physical therapy. HEENT: Unremarkable Neck: No jugular venous distention, carotid pulses are rapid but equal bilaterally without bruits. Pulmonary: Decreased breath sounds at the right base, otherwise clear. Cardiac: Regular very rapid rhythm with no murmur, gallop or rub. Abdomen: Soft, nontender with normal bowel sounds. Extremities: No edema. Distal pulses intact. Neurologic: No focal findings. Gait is steady. Skin: No rash, ecchymoses or petechiae. Results & Data ([facility]) Vital Signs (Past 12 Hours) Vital Signs Temp Pulse Resp BP BP Pulse Ox 01/24/20 11:37 36.7 C 147 H 20 114/81 92 01/24/20 11:26 130 H 20 90 01/24/20 10:15 142 H 106/73 01/24/20 10:01 141 H 118/77 01/24/20 09:52 84 103/71 01/24/20 09:50 140 H 20 127/83 90 01/24/20 07:57 37.0 C 82 20 128/62 93 01/24/20 07:21 70 18 96 01/24/20 03:37 36.6 C 65 16 126/66 93 Laboratory Results Comprehensive Metabolic Panel 01/24/20 Range/Units 10:23 Sodium 137 (136-145) mmol/L Potassium 4.2 (3.5-5.1) mmol/L Chloride 103 (98-107) mmol/L Carbon Dioxide 29 (21-32) mmol/L BUN 16 (7-18) mg/dl Creatinine 1.00 (0.6-1.4) mg/dl Glucose 121 H (70-99) mg/dl Calcium 8.6 (8.5-10.1) mg/dl Intake and Output 01/23/20 01/24/20 01/24/20 22:59 06:59 14:59 Intake Total 482.387 / 1093.740 250 / 1093.740 Output Total 800 / 800 Balance 482.387 / 293.740 -550 / 293.740 Intake: IV 82.387 / 203.740 Cordarone 450 mg In Dextrose 5% 82.387 / 203.740 Polyolefin Container 241 ml @ 1 MG/MIN 33.333 mls/hr IV . Q7H30M [facility] Rx#:[id number] Oral 400 / 890 250 / 890 Output: Urine 800 / 800 Other: Weight 92.1 kg Diagnostic Findings Telemetry: Currently in atrial flutter with a heart rate of about 160 bpm, present since around 10 AM this morning, sinus rhythm prior to that PG Care Time/CCT Total # of Minutes Spent Total Time Spent with Patient: Total time spent is greater than 50% in coordination of care (as documented) at patient's floor/unit and/or counseling patient: Coding Level of Care Code 01468 Subseq Hosp Care Lvl 3 Diagnoses Atrial flutter with rapid ventricular response I48.92 Metastatic lung cancer (metastasis from lung to other site) C34.90
--- NOTE | 2020-01-24 14:58 | Hospitalist Progress Note ---
Date of Service January 24, 2020 Assessment & Plan (1) Atrial flutter with rapid ventricular response: was in afib then went into aflutter resistant to Amiodarone drip, boluses, cardizem, metoprolol fully anticoagulated on Lovenox successful cardioversion on 01/22, in sinus in the 60-70's changed amiodarone drip to 200mg PO BID back into atrial fibrillation on 01/23 with rates 130-160, gave Diltiazem bolus, dropped to 80's sinus briefly went back into atrial flutter after a few minutes, now resistant to rate control medications Dr. 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 Gale following exudative and sanguinous fluid, no re-expansion of the lung after 900cc out catheter pulled palliative care approach recommended, patient in agreement plan for hospice on discharge on Sunday case management aware of plan, have discussed with family and they are on board (4) Trapped lung: long standing effusion with atelectasis no re-expansion after fluid drained CT chest 01/20 shows this palliative care consulted (5) Acute hypoxemic respiratory failure: has developed need for oxygen over the past few weeks placed on 2-3L at home by Dr. Correa currently stable no major change after thoracentesis will likely remain on 3L at home (6) COPD (chronic obstructive pulmonary disease): continue inhalers no wheezing, no distress on exam (7) Metastatic lung cancer (metastasis from lung to other site): will consult palliative care to start discussion on goals of care he has refused chemotherapy in the past told him that it is time to have the conversation of hospice, if not now then in the near future his daughter Yudy live in [place], in agreement with palliative/hospice approach she is flying into [facility] on 01/23 discussed code status with patient on 01/23, discussed the disconnect between going on hospice and wanting CPR, intubation etc he agreed that there wasn't much point in trying CPR and heroic measures changed to DNR, DNI, made his daughter aware of changes Admission and Anticipated Discharge Date Admission Date: January 20, 2020 Subjective patient went into atrial fibrillation this morning, rates in the 130-160 range ordered Diltiazem 15mg bolus and drip to start appeared like he might convert to sinus rhythm with HR down into the 80's and P waves, but it was short lived he flipped back into atrial flutter like he was prior to cardioversion yesterday discussed with Dr. Newman, he increased Amiodarone to 400mg BID, added digoxin to try to get him to convert could consider a second cardioversion on Sunday but unsure it would be successful more extensive procedure like ablation and pacemaker would not be indicated with his stage IV lung cancer discussed code status with patient, explained that it really did not make sense to get CPR, shocks, intubation with lung CA if we are planning on transitioning to hospice, then full code does not make sense he said that he agreed with that, there "isn't much sense in trying those things", changed to DNR called daughter to update her, discuss change in code status she asked if she should come up to [facility] sooner than 02/03, I told her yes, she plans to come into town this evening daughter and would like patient to come home on hospice certainly if he was not back in atrial flutter I would d/c home today will talk with cardiology, see if it is worth trying another cardioversion on Sunday and then discharging home Review of Systems Review of Systems: All systems reviewed & are unremarkable except as noted in HPI & below Respiratory: + cough and + dyspnea Cardiovascular: + chest pain (right sided, worse with cough) Physical Exam Constitutional: well developed, well nourished and + frail appearing; no acute distress Eyes: PERRL, conjunctivae normal, anicteric sclerae ENMT: external ear and nose normal, oropharynx normal Neck: trachea midline, no thyromegaly Respiratory: + cough and + tachypneic Auscultation: + diminished lung sounds (right base); no crackles, no rales and no wheezes Cardiovascular: RRR, no murmur, no edema Rate/Rhythm: + tachycardic and + irregularly irregular Heart Sounds: normal S1 and normal S2; no murmur Vessels: no JVD Extremities: normal capillary refill; no edema Gastrointestinal (Abdomen): normal bowel sounds, soft, nontender, no hepatosplenomegaly Musculoskeletal: no cyanosis or clubbing, extremities motor strength 5/5 Skin: no rashes, warm and dry Neurologic: patellar DTR's 2+ bilat, sensation intact and PERRL, EOMI, accommodation nl, no face palsy, no dysarthria Psychiatric: A+Ox3, euthymic affect Lymphatic: no cervical or axillary lymphadenopathy Results & Data Results & Data ([facility]) Vital Signs (Past 12 Hours) Vital Signs Temp Pulse Resp BP BP Pulse Ox 01/24/20 11:37 36.7 C 147 H 20 114/81 92 01/24/20 11:26 130 H 20 90 01/24/20 10:15 142 H 106/73 01/24/20 10:01 141 H 118/77 01/24/20 09:52 84 103/71 01/24/20 09:50 140 H 20 127/83 90 01/24/20 07:57 37.0 C 82 20 128/62 93 01/24/20 07:21 70 18 96 01/24/20 03:37 36.6 C 65 16 126/66 93 Laboratory Results Laboratory Results - last 24 hr 01/24/20 10:23 Sodium 137 Potassium 4.2 Chloride 103 Carbon Dioxide 29 Anion Gap 5.0 BUN 16 Creatinine 1.00 Est Cr Clr Drug Dosing 61.7 Est GFR ( Amer) 80.3 Est GFR (Non-Af Amer) 69.3 BUN/Creatinine Ratio 16.0 Glucose 121 H Calcium 8.6 Medications Administered Current Inpatient Medications Acetaminophen (Tylenol) 650 mg PO Q4H PRN PRN Reason: Pain or Fever Stop: 02/19/20 11:32 Albuterol (Duoneb) 3 ml NEB Q4R PRN PRN Reason: Shortness Of Breath Or Wheezing Stop: 02/20/20 10:59 Last Admin: 01/24/20 11:26 Dose: 3 ml Documented by: Amiodarone HCl (Cordarone) 400 mg PO BIDM [facility] Stop: 02/23/20 16:59 Dornase Berto (Pulmozyme) 2.5 ml INH BIDR [facility] Stop: 02/20/20 09:59 Last Admin: 01/24/20 07:20 Dose: 2.5 ml Documented by: Enoxaparin Sodium (Lovenox) 129 mg SQ Q24H [facility]; Protocol Stop: 02/20/20 11:59 Last Admin: 01/24/20 11:41 Dose: 129 mg Documented by: Diltiazem HCl 125 mg/ Dextrose 125 mls @ 5 mls/hr IV .Q24H [facility]; Protocol Stop: 02/23/20 09:44 Last Admin: 01/24/20 10:00 Dose: 15 mg/hr, 15 mls/hr Documented by: Metoprolol Tartrate (Lopressor) 5 mg IV Q5M PRN PRN Reason: Tachycardia Stop: 02/20/20 03:13 Last Admin: 01/21/20 22:23 Dose: 5 mg Documented by: Metoprolol Tartrate (Lopressor) 50 mg PO BID [facility] Stop: 02/21/20 20:59 Last Admin: 01/24/20 08:09 Dose: 50 mg Documented by: Morphine Sulfate (Morphine Sulfate) 2 mg IV Q4H PRN PRN Reason: Pain Stop: 02/03/20 17:11 Last Admin: 01/24/20 01:45 Dose: 2 mg Documented by: Morphine Sulfate (Morphine Sulfate) 4 mg IV Q4H PRN PRN Reason: Severe Pain Stop: 02/03/20 17:11 Last Admin: 01/24/20 10:06 Dose: 4 mg Documented by: Ondansetron HCl (Zofran) 4 mg IV Q6H PRN PRN Reason: Nausea Stop: 02/19/20 11:32 Oxycodone HCl (Roxicodone Immediate Rel) 10 mg PO Q4 PRN PRN Reason: Pain Stop: 02/06/20 15:48 Tramadol HCl (Ultram) 50 mg PO Q4H PRN PRN Reason: Pain Stop: 02/19/20 15:40 Last Admin: 01/23/20 15:40 Dose: 50 mg Documented by: Trolamine Salicylate (Myoflex) 1 appln EXT BID PRN PRN Reason: NECK STIFFNESS Stop: 02/21/20 17:52 Last Admin: 01/22/20 18:16 Dose: 1 appln Documented by: PG Care Time/CCT Total # of Minutes Spent Total Time Spent: 65 Total Time Spent with Patient: Total time spent is greater than 50% in coordination of care (as documented) at patient's floor/unit and/or counseling patient: 30 minutes in direct clinical care with patient, ordering Diltiazem bolus, then drip talked with Dr. Newman extensively about plan reviewed chart, labs discussed extensively with daughter over the phone Prolonged Care Time Prolonged Care Time: Yes Total Prolonged Care Time: 35 Coding Level of Care Code 40839 Subseq Hosp Care Lvl 3 Diagnoses Atrial flutter with rapid ventricular response I48.92 Paroxysmal atrial fibrillation I48.0 Pleural effusion, malignant J91.0 Trapped lung J98.19 Acute hypoxemic respiratory failure J96.01 COPD (chronic obstructive pulmonary disease) J44.9 Metastatic lung cancer (metastasis from lung to other site) C34.90 Additional Codes Prolonged Care Time - Prolonged Care Time: Yes ([id number])
[2020-01-24] MEDS: AMIODARONE 200 MG TAB PO SCH (15:10)
[2020-01-25] MEDS ORDERED: BENZONATATE 100 MG CAPSULE PO ONE (00:11)
[2020-01-25] MEDS: dilTIAZem HCL 125 MG in DEXTROSE 5% 100 ML IV SCH ×2 (01:44→09:42)
[2020-01-25] MEDS: ALBUT/IPRATROP 3MG/0.5MG NEB 3 ML VIAL NEB PRN ×2 (07:12→11:03)
[2020-01-25] MEDS: DORNASE ALFA 2.5 ML AMP INH SCH (07:12)
[2020-01-25] MEDS: OXYCODONE HCL IR 5 MG TAB (IMMEDIATE RELEASE) PO PRN (07:40)
[2020-01-25] MEDS: METOPROLOL TARTRATE 50 MG TAB PO SCH (07:40)
[2020-01-25] MEDS: AMIODARONE 200 MG TAB PO SCH (07:41)
[2020-01-25] MEDS: ENOXAPARIN 150 MG/ML SYR SQ SCH (07:41)
--- NOTE | 2020-01-25 09:13 | Cardiology Progress Note ---
Date of Service January 25, 2020 Assessment & Plan (1) Atrial flutter with rapid ventricular response: He continues to be predominantly in atrial fibrillation and flutter, in atrial fibrillation his heart rate is better. He did convert transiently to sinus rhythm today at a heart rate in the low 60s. There is no point electrically converting his rhythm as he would almost certainly go right back into atrial fibrillation or flutter. I would continue the higher dose of amiodarone for now, at least for another several weeks. His digoxin level is only 0.6 this morning so I am going to give him another 0.25 mg bolus today which may help with heart rate. I would probably send him home on 0.125 mg 3 times a week with his kidney disease and his amiodarone which will raise digoxin levels. (2) Metastatic lung cancer (metastasis from lung to other site): With his metastatic cancer with a poor prognosis I am reluctant to perform aggressive procedures such as ablation or creating AV edy block and a pacemaker. If we have to those are options. His lung cancer may have something to do with the arrhythmia if it extends into his pericardium. Admission and Anticipated Discharge Date Admission Date: January 20, 2020 Subjective At the time of my evaluation he was sleeping, he awoke easily and told me that he was feeling well. He continues to have no awareness of his heart rate or rhythm. Physical Exam Physical Exam: Constitutional: Alert, cooperative and in only mild distress immediately after physical therapy. HEENT: Unremarkable Neck: No jugular venous distention, carotid pulses are rapid but equal bilaterally without bruits. Pulmonary: Decreased breath sounds at the right base, otherwise clear. Cardiac: Regular very rapid rhythm with no murmur, gallop or rub. Abdomen: Soft, nontender with normal bowel sounds. Extremities: No edema. Distal pulses intact. Neurologic: No focal findings. Gait is steady. Skin: No rash, ecchymoses or petechiae. Results & Data ([facility]) Vital Signs (Past 12 Hours) Vital Signs Temp Pulse Resp BP BP Pulse Ox 01/25/20 07:12 70 20 95 01/25/20 07:02 37.0 C 141 H 19 107/67 92 01/25/20 03:35 36.4 C L 135 H 20 135/81 93 01/24/20 23:36 36.7 C 118 H 20 136/78 94 Laboratory Results Comprehensive Metabolic Panel 01/24/20 Range/Units 10:23 Sodium 137 (136-145) mmol/L Potassium 4.2 (3.5-5.1) mmol/L Chloride 103 (98-107) mmol/L Carbon Dioxide 29 (21-32) mmol/L BUN 16 (7-18) mg/dl Creatinine 1.00 (0.6-1.4) mg/dl Glucose 121 H (70-99) mg/dl Calcium 8.6 (8.5-10.1) mg/dl Intake and Output 01/24/20 01/25/20 01/25/20 22:59 06:59 14:59 Intake Total 132.75 / 542.50 219.75 / 542.50 Output Total 400 / 1700 700 / 1700 Balance -267.25 / -1157.50 -480.25 / -1157.50 Intake: IV 132.75 / 232.50 99.75 / 232.50 Cardizem 125 mg In D5 100 ml @ 132.75 / 232.50 99.75 / 232.50 5 MG/HR 5 mls/hr IV .Q24H [facility] Rx#:[id number] Oral 120 / 310 Output: Urine 400 / 1700 700 / 1700 Other: Other Intake Source Sips Weight 93 kg Diagnostic Findings Telemetry: He remains predominantly in atrial fibrillation and atrial flutter, often in the 150s when in atrial flutter although his heart rate is perhaps a little better controlled now. A brief episode of sinus rhythm this morning in the 60s with quick conversion back to atrial fibrillation at a more controlled heart rate. PG Care Time/CCT Total # of Minutes Spent Total Time Spent with Patient: Total time spent is greater than 50% in coordination of care (as documented) at patient's floor/unit and/or counseling patient: Coding Level of Care Code 60825 Subseq Hosp Care Lvl 2 Diagnoses Atrial flutter with rapid ventricular response I48.92 Metastatic lung cancer (metastasis from lung to other site) C34.90
[2020-01-25] MEDS ORDERED: DIGOXIN 250 MCG in SYRINGE 9 ML IV ONE (09:30)
[2020-01-25] MEDS: MoRPHine SULFATE 4 MG/ML 1 ML CARP\\VIAL IV PRN (09:42)
--- NOTE | 2020-01-25 15:50 | Discharge Summary ---
Date of Service January 25, 2020 Admission HPI Per Admitting Provider 84 yo male with history of lung cancer, s/p lobectomy and now with recurrent right sided malignancy with associated right pleural effusion. He has been following with Dr. Correa at [facility]. When the cancer returned the patient refused any chemotherapy or radiation or other procedures. He has been experiencing progressive shortness of breath for the past few weeks. Imaging has continued to show pleural effusion, atelectasis. Dr. Correa discussed coming to [facility] for thoracentesis, consideration of bronchoscopy with stent in large airway to keep airway open, patient agreed. He was scheduled to come up here this week. Last night he became acutely short of breath, checked his HR and it was in the 140's. He has a history of atrial fibrillation so he went to the ED at [facility]. EKG confirmed atrial fibrillation with rates in the 140's. He was given Diltiazem IV and started on drip. He requested to come to [facility] since he was going to have the procedures on his lungs. He confirms that he does not take anticoagulation. He said that they have told him "he needs to protect himself from blood clots" but he refuses. Upon arrival at [facility] he was in sinus rhythm, rates in the 70's. I checked stat labs that showed stable BMP and CBC and PT/INR and PTT. Discussed the case with Dr. Correa over the phone, he asked that Dr. Gale be consulted. Discussed with Dr. Gale and he planned to perform thoracentesis. Principal Diagnosis Atrial fibrillation/flutter Lung cancer Discharge Exam Constitutional WD/WN, vitals as above Eyes EOM intact bilaterally; no conjunctival abnormality ENMT external ear and nose normal, oropharynx normal Neck trachea midline, no thyromegaly normal visual inspection Respiratory normal respiratory effort, lungs clear to auscultation no respiratory distress Cardiovascular RRR, no murmur, no edema Gastrointestinal (Abdomen) Inspection/Auscultation: abdomen normal to inspection; abdomen not distended Musculoskeletal no cyanosis or clubbing, extremities motor strength 5/5 Skin no rashes, warm and dry Neurologic moves all extremities and awake Psychiatric Orientation: alert, oriented to person and cooperative Discharge Data Allergies Allergy/AdvReac Type Severity Reaction Status Date / Time latex Allergy Mild RASH Verified 01/14/20 11:24 Iodinated Contrast Media AdvReac Mild Pt not Verified 01/14/20 11:24 sure it was the contrast that made him not feel well Consultations 01/20/20 11:33 Consult Pulmonology Routine 01/20/20 11:39 Consult Case Management - Discharge Planning Routine 01/21/20 07:47 Consult Palliative Care Routine 01/21/20 09:41 Consult Cardiology Routine Procedures Performed Operation Date: 01/23/20 10:00 Actual Procedures p Cardioversion - Matt Mueller MD Ordered Studies 01/20/20 14:04 US point of care ultrasound Urgent 01/21/20 08:00 CT chest wo con Routine Hospital Course (1) Atrial flutter with rapid ventricular response: Started on amiodarone which caused him to revert to sinus. - Discharged on amiodarone and metoprolol XL to hopefully maintain sinus rhythm as much as able. (2) Metastatic lung cancer (metastasis from lung to other site): Home on hospice who will visit him this afternoon. Total Time Total Time Spent Total Time Spent (In Minutes): 35 Total Time Includes: Examination of the Patient, Discharge Planning and Medication Reconciliation Discharge Plan Discharge Items Patient Disposition: Hospice - Home Reason For Visit: NEW ONSET AFIB WITH RVR, LUNG CA Discharge Diagnosis: New afib. Lung cancer. Activity: Resume your previous activity Non-emergency contact: Primary Care Provider Call non-emergency contact if: your symptoms worsen Follow-up/Referrals: JULIA FONG PA [Primary Care Provider] - Diet: Regular Addtl Attending Provider Instructions: Your heart went into a rhythm called atrial fibrillation which caused your heart to go as fast as 150 beats per minute. We started you on two medications to help control this caused amiodarone & metoprolol. It has helped you go back to a normal rhythm. Please take amiodarone 2 times per day to help prevent further episodes of atrial fibrillation and the metoprolol 1 time per day to help lower the excitement level of the heart. Both should have minimal side effects for you. Pending Studies at Discharge: No Stand-Alone Forms: My [facility] Medications and DC Order Prescriptions: New amiodarone 400 mg tablet 400 mg PO BID 30 Days Qty: 60 RF: 0 metoprolol succinate 50 mg tablet extended release 24 hr 50 mg PO DAILY Qty: 30 RF: 0 Continued mometasone 220 mcg/ actuation (60) aerosol powdr breath activated 2 puffs inhalation BID Qty: 1 RF: 5 ipratropium bromide 0.02 % solution 2.5 ml inhalation Q4H PRN (Reason: shortness of breath or wheezing) Qty: 150 RF: 5 Discontinued metoprolol tartrate 50 mg tablet PO .TAKE 1 TABLET DAILY RF: 0 potassium iodide 32.5 mg (24 mg iodine) tablet 130 mg PO DAILY RF: 0 Discharge Orders: Discharge Order (Routine); Ordered 01/25/20 Ordered By: J Luis Marquez Admission Data Admit Date/Time: 01/20/20 11:25 Attending Provider: J Luis Marquez Admit Provider: Negro Qiu Primary Care Provider: JULIA FONG Other Providers: Jerome Gale ; Cecelia Bustos ; Matt Mueller Other Interventions: Discharge Summary Assessment (RN) Last Done: 01/25/20 14:13 DC Date/Time DO NOT enter until pt leaves facility: 01/25/20 14:31 Coding Level of Care Code D/C Day Management >30 mins Diagnoses Atrial flutter with rapid ventricular response I48.92 Metastatic lung cancer (metastasis from lung to other site) C34.90
== END 2020-01-25 14:31 | disposition hospice, home (50) | DRG 308 ==
LOC: 2S 11:25 → SUATTDRO 11:25